=== PATIENT | female | born 1940 | race Caucasian/White ===

== ENCOUNTER → 2017-10-13 | Emergency (ER) | payer BC, MEDICARE ==
[~2017-10-13] VITALS: Ht 162.6 cm; Wt 99.0 kg
[~2017-10-13] MED LIST: ACET500C5 PO; ACETAMINOPHEN 325 MG TAB PO ONE; AMIO200T2 PO; AMOX1TAB10 PO; CALC500T PO; CYAN100080 PO; FOL8 PO; FURO-109 PO; HYDR-906 PO; HYDROCODONE/APAP (5/325) TAB PO ONE; LEVO25TA53 PO; LORA0.5T PO; ONDA4TAB35 PO; POTA-57 PO; RESTOP4 BOTH EYES; RIVA20TA PO; SIMV20TA2 PO; TELM40TA2 PO
[2017-10-13 22:23] VITALS: Ht 162.6 cm; Wt 99.0 kg
--- NOTE | 2017-10-14 00:49 | ERD ---
ER Documentation Chief Complaint Chief Complaint left ankle pain. glf while getting off the shower around 2 pm (MAREK,MESERET) HPI this 77 yr femal repots catching her left foot on tub as she exiting the bath, she feel forward and to the right , denies any other injury, denies LOC or hitting her head, denies CP, SOB, dizziness. hx of AFIB denies symptoms now , pt is on Coumadin 2 weeks ago, denies needing a dose change. , (MAREK,MESERET) ROS All systems reviewed and are negative except as per history of present illness. (MAREK,MESERET) Medications Home Meds Active Scripts Acetaminophen* (Tylophen*) 500 Mg Capsule, 1 CAP PO Q6H Y for PAIN AND OR ELEVATED TEMP, #20 CAP Prov:MAREKMESERET 10/14/17 Hydrocodone/Acetaminophen ([place] 5-325 Tablet) 1 Each Tablet, 1 TAB PO Q6H Y for PAIN, #7 TAB Prov:MESERET JARA 10/14/17 Amox Tr/Potassium Clavulanate (Amox Tr-K Clv 875-125 Mg Tab) 1 Tab Tablet, 1 TAB PO BID, #14 TAB Prov:NIKOLAS MEJIAS MD 02/10/16 Ondansetron Hcl* (Zofran* ODT) 4 mg -ODT Tab.disper, 4 MG PO Q6 Y for NAUSEA AND /OR VOMITING, #30 TAB Prov:NIKOLAS MEJIAS MD 02/10/16 Furosemide* (Lasix*) 40 Mg Tablet, 40 MG PO DAILY Y for SHORTNESS OF BREATH for 60 Days, TAB 1 Refill Prov:JOEL GOMEZ MD 05/09/15 Amiodarone Hcl* (Amiodarone Hcl*) 200 Mg Tablet, 200 MG PO BID, #60 TAB 1 Refill Prov:JOEL GOMEZ MD 05/09/15 Rivaroxaban* (Xarelto*) 20 Mg Tablet, 20 MG PO WITH DINNER Y for CHEST PAIN, # 60 TAB Prov:JOEL GOMEZ MD 05/09/15 Potassium Chloride* (Klor-Con*) 20 Meq Tabsr, 20 MEQ PO DAILY, #20 CAP Prov:JOEL GOMEZ MD 05/09/15 Reported Medications Levothyroxine Sodium* (Levothyroxine Sodium*) 25 Mcg Tablet, 25 MCG PO FOUR TIMES PER WEEK, TAB TAKE 1 TABLET BY MOUTH ON MON, WED, WED AND SAT 05/03/15 Cyclosporine* (Restasis* Oph) 32 Ea Droperette, 1 DROP BOTH EYES Q12, EA 05/03/15 Folic Acid* (Folic Acid*) 0.8 Mg Tablet, 0.8 MG PO DAILY, TAB 05/03/15 Cyanocobalamin* (Vitamin B-12*) 1,000 Mcg Tablet.sa, 1000 MCG PO DAILY, TAB 05/03/15 Telmisartan (Micardis) 40 Mg Tablet, 40 MG PO DAILY, TAB 05/03/15 Simvastatin (Simvastatin) 20 Mg Tablet, 20 MG PO HS, TAB 05/03/15 Lorazepam* (Lorazepam*) 0.5 Mg Tablet, 0.5 MG PO HS Y for ANXIETY, TAB 05/03/15 Calcium Carbonate* (Os-Braxton 500*) 1 Tab Tablet, 1 TAB PO BID, TAB 05/03/15 Allergies Allergies: Coded Allergies: No Known Allergy (Verified , 05/09/15) PMhx/Soc History of Surgery: Yes Anesthesia Reaction: No Hx Neurological Disorder: No Hx Respiratory Disorders: No Hx Cardiac Disorders: Yes (afib,htn) Hx Psychiatric Problems: No Hx Miscellaneous Medical Probl: Yes Hx Alcohol Use: No Hx Substance Use: No Hx Tobacco Use: No (MAREK,MESERET) Physical Exam Vitals Vital Signs Date Time Temp Pulse Resp B/P Pulse Ox O2 Delivery O2 Flow Rate FiO2 10/13/17 22:23 99.5 68 20 181/88 98 (HUMBERTO ARANA MD) Physical Exam Const: Well-nourished well-appearing well-hydrated pleasant 77-year-old female in no acute distress Head: Atraumatic Eyes: Normal Conjunctiva ENT: Neck: Resp: Clear to auscultation bilaterally Cardio: Regular rate and rhythm, no murmurs Abd: Back: Ext: Lower Extremity -right ankle Skin: Gross soft tissue edema, blue ecchymosis, no obvious bony deformity Compartments: Soft Motor: Full active range of motion hip/knee/full range of motion with flexion, extension, inversion, eversion. Ankle/foot Sensation: Intact to light touch anterior, superior, lateral surfaces surfaces. Bones: Nontender pelvis/knee/proximal tibia/tender over the lateral ligaments, malleoli Joints: No effusion or laxity Pulses/Perfusion: 2+ DP, Capillary refill < 2 seconds Neur: Awake and alert Psych: Normal Mood and Affect (MAREK,MESERET) Results 24 hrs Laboratory Tests Test 10/14/17 01:05 Prothrombin Time 43.4Sec Prothrombin Time Ratio 3.4 INR International Normalized Ratio 4.48 Current Medications Medications (Trade) Dose Ordered Sig/Reggie Route PRN Reason Start Time Stop Time Status Last Admin Dose Admin Acetaminophen (Tylenol Tab) 650 mg ONCE ONCE PO 10/14/17 01:00 10/14/17 01:01 DC 10/14/17 01:03 Acetaminophen/ Hydrocodone Bitart ([place] (5/325)) 1 tab ONCE ONCE PO 10/14/17 04:00 10/14/17 04:01 DC 10/14/17 03:58 (HUMBERTO ARANA MD) Procedures/MDM PROCEDURE: XR left ankle CLINICAL INDICATION: Fall. Ankle trauma. TECHNIQUE: 3 views were performed. COMPARISON: None. FINDINGS: Soft tissue edema is seen anterior to the ankle joint and lateral to the distal fibula. There may be an ankle effusion but no definite fracture or dislocation is seen. Arterial vascular calcification is seen. Mild degenerative change of the midfoot. IMPRESSION: Somewhat prominent lateral ankle soft tissue swelling with mild anterior edema and probable effusion. Although no fracture is seen, CT could be considered to evaluate for occult fracture given the degree of edema. RPTAT: HLBE 87-year-old female presents to emergency department for evaluation of a ankle injury, injury occurred today while getting out of the bathtub, patient denies any other injury, denies hitting her head or loss of consciousness. Patient has gross soft tissue edema, blue ecchymosis, patient is on Coumadin unsure of the dose, states she has had PT/INR checked 2 weeks ago without change in normal Coumadin regime. Patient reports she takes alternating 1 pill/2 pills. Emergency room course includes history and physical exam. Patient has full range of motion with soft tissue tenderness, palpable pedal pulses. Plan to x- ray ankle, and check INR. Ankle x-ray interpretation by radiologist; somewhat prominent lateral soft tissue swelling with mild anterior edema and a probable effusion although no fracture is seen, CT could be considered to evaluate for occult fracture given the degree of edema. Laboratory calls nurse practitioner for critical value, INR 4.48. Patient asked again if she knew what dose of Coumadin she took, patient denies knowing dose just the way she takes the pills. Plan discussed. Patient admits to taking Coumadin at night, she did take her dose prior to coming to emergency room, discussed the possibility of a false high reading, regardless plan to have patient hold dose for 10/14/2017, change pill intake to 1 pill p.o. nightly until followed up with cardiology. Patient confirms that cardiology office will not be open until Wednesday related to long holiday. Patient instructed to return to emergency department for worsening of any symptoms, chest pain, shortness of breath, or palpitations. Patient also instructed to return to emergency department if ankle fails to improve as anticipated for advanced imaging. Patient will be placed in an air splint, Splint Assessment: Neurovascularly intact post splint placement with good fit. Discharged home with Tylenol. Patient is stable with no new complaints during ER course, clinically there is no current evidence to suggest Lisfranc fracture, peroneal nerve injury, Achilles tendon rupture. Proximal fifth metatarsal or proximal fibular fracture. Acute coronary syndromes, pulmonary embolism or any other emergent condition appearing to require further evaluation or hospitalization. I feel the patient is stable for discharge at this time. I have discussed results, examination findings, the treatment plan with the patient and family present prior to discharge. Indications for emergent reevaluation, side effects of medication were also discussed. All questions were answered. Patient verbalizes understanding and agrees with plan of care. (MESERET JARA) I was available for consult on this patient, but was not consulted and did not see the patient. Care was provided by the mid-level provider. (HUMBERTO ARANA MD) Departure Diagnosis: Primary Impression: Ankle injury Encounter type: initial encounter Laterality: right Qualified Code: S99.911A - Injury of right ankle, initial encounter Additional Impression: Abnormal INR Condition: Good Patient Instructions: Treating Ankle Sprains Additional Instructions: Thank you for for coming to [facility] for your care today. Please ask your nurse or provider if you have questions about your care today and do not leave until all your questions have been answered. Please use any medications given as directed and follow-up with your doctor (or the doctor you were referred to) in the next 2-3 days. If you do not have a primary care doctor you may follow up at the [facility] (listed below). You may also use motrin and tylenol as needed for fever and/or pain unless instructed otherwise by your provider or nurse. Indications for more urgent follow-up have been discussed, but you may return to the Emergency Department at ANY time for any worrisome or worsening symptoms. If you have abdominal pain, please know that no test or exam you received is perfect and you should follow up within 8 hours for continued pain. If you had any imaging studies today, such as an X-Ray or CT Scan, these studies will be reviewed later by a radiologist. You will be called if there are important findings that were not identified today, so make sure the contact information you provided at registration is correct. If you received any narcotic pain control medicine today, such as Vicodin, Morphine or Dilaudid, your coordination and judgment may be affected for a number of hours. Please do not drive or operate heavy machinery, and you may want someone to assist you at home. If you were given a prescription for narcotic medication, be aware that it is very addictive- use sparingly and only if necessary. Comments Coumadin instructions until followed up on this Coumadin dose on 10/14/17 Start 1 tab of Coumadin daily until followed up with transporter driver. Strict return to emergency room precautions for any abnormal bleeding, bleeding from gums, nose, dizziness, shortness of breath, chest pain or palpitations. (MESERET JARA) MESERET JARA Oct 14, 2017 00:49 HUMBERTO ARANA MD Oct 14, 2017 04:23
[2017-10-14 01:56] LABS: INR 4.48; PT RATIO 3.4
[2017-10-14 02:30] LABS: PROTIME 43.4 Sec (12.2-14.2)
--- NOTE | 2017-10-14 02:58 | RADRPT ---
PROCEDURE: XR left ankle CLINICAL INDICATION: Fall. Ankle trauma. TECHNIQUE: 3 views were performed. COMPARISON: None. FINDINGS: Soft tissue edema is seen anterior to the ankle joint and lateral to the distal fibula. There may be an ankle effusion but no definite fracture or dislocation is seen. Arterial vascular calcification is seen. Mild degenerative change of the midfoot. IMPRESSION: Somewhat prominent lateral ankle soft tissue swelling with mild anterior edema and probable effusion . Although no fracture is seen, CT could be considered to evaluate for occult fracture given the deg ree of edema. RPTAT: [facility]BE Physician Deondre Date Time Electronically viewed and signed by Nilsa Medina Physician on 10/14/2017 02:58 LE/
== END | disposition home or self-care (01) ==
LOC: FTE 22:19
DX: S99.911A Unspecified injury of right ankle, initial encounter (principal); I10 Essential (primary) hypertension; R79.1 Abnormal coagulation profile; W18.39XA Other fall on same level, initial encounter; Y92.9 Unspecified place or not applicable
CPT/HCPCS: 73610; 85610

== ENCOUNTER 2017-10-22 14:30 | Inpatient (IN) | payer MEDICARE, BC ==
[~2017-10-22] VITALS: Ht 160 cm; Wt 59.6 kg
[~2017-10-22 14:30] MED LIST changes: -ACETAMINOPHEN 325 MG TAB PO ONE; -HYDROCODONE/APAP (5/325) TAB PO ONE
[2017-10-22 14:50] VITALS: TEMP 97.8
[2017-10-22] MEDS ORDERED: HYDROCODONE/APAP (10/325) TAB PO ONE (16:00)
--- NOTE | 2017-10-22 16:00 | ERD ---
ER Documentation Chief Complaint Chief Complaint L leg p fall 10/15 p treatment; advised by PMD for MRI for cont pain HPI Patient is a 77-year-old female who reports sudden onset, constant, gradual onset, constant, progressive, moderate to severe left groin pain for the last 4 days. She states that she had a fall and had a bad sprain to her left ankle on October 13. She saw an orthopedic surgeon who put her in a cast. Since that time, she has had improved pain in her ankle but increased pain in the groin. She denies other trauma. She denies recurrent fall. She denies abdominal pain. She states that she is unable to get out of bed due to excessive pain. Her family has been taking care of her. She saw her primary doctor, Dr. Cabrera , who advised her to come to the ER for admission and MRI. ROS All systems reviewed and are negative except as per history of present illness. Medications Home Meds Reported Medications Amiodarone Hcl* (Amiodarone Hcl*) 100 Mg Tablet, 100 MG PO DAILY, #30 TAB 10/22/17 Metoprolol Succinate* (Toprol XL*) 50 Mg Tab.er.24h, 50 MG PO DAILY, #30 TAB 10/22/17 Cevimeline Hcl* (Evoxac*) 30 Mg Cap, 30 MG PO QID, CAP 10/22/17 Telmisartan (Telmisartan) 80 Mg Tablet, 80 MG PO DAILY, TAB 10/22/17 Warfarin Sodium* (Coumadin*) 2 Mg Tablet, 2 MG PO DAILY, TAB 1 TAB-SUN.,.,.,SAT 2 TAB- M,W,F 10/22/17 Levothyroxine Sodium* (Levothyroxine Sodium*) 25 Mcg Tablet, 25 MCG PO FOUR TIMES PER WEEK, TAB TAKE 1 TABLET BY MOUTH ON MON, WED, FRI AND SAT 05/03/15 Folic Acid* (Folic Acid*) 0.8 Mg Tablet, 0.8 MG PO DAILY, TAB 05/03/15 Cyanocobalamin* (Vitamin B-12*) 1,000 Mcg Tablet.sa, 1000 MCG PO DAILY, TAB 05/03/15 Simvastatin (Simvastatin) 20 Mg Tablet, 20 MG PO HS, TAB 05/03/15 Discontinued Reported Medications Cyclosporine* (Restasis* Oph) 32 Ea Droperette, 1 DROP BOTH EYES Q12, EA 05/03/15 Telmisartan (Micardis) 40 Mg Tablet, 40 MG PO DAILY, TAB 05/03/15 Lorazepam* (Lorazepam*) 0.5 Mg Tablet, 0.5 MG PO HS Y for ANXIETY, TAB 05/03/15 Calcium Carbonate* (Os-Braxton 500*) 1 Tab Tablet, 1 TAB PO BID, TAB 05/03/15 Discontinued Scripts Acetaminophen* (Tylophen*) 500 Mg Capsule, 1 CAP PO Q6H Y for PAIN AND OR ELEVATED TEMP, #20 CAP Prov:MAREK,MESERET 10/14/17 Hydrocodone/Acetaminophen ([place] 5-325 Tablet) 1 Each Tablet, 1 TAB PO Q6H Y for PAIN, #7 TAB Prov:MAREK,MESEERT 10/14/17 Amox Tr/Potassium Clavulanate (Amox Tr-K Clv 875-125 Mg Tab) 1 Tab Tablet, 1 TAB PO BID, #14 TAB Prov:NIKOLAS MEJIAS MD 02/10/16 Ondansetron Hcl* (Zofran* ODT) 4 mg -ODT Tab.disper, 4 MG PO Q6 Y for NAUSEA AND /OR VOMITING, #30 TAB Prov:NIKOLAS MEJIAS MD 02/10/16 Furosemide* (Lasix*) 40 Mg Tablet, 40 MG PO DAILY Y for SHORTNESS OF BREATH for 60 Days, TAB 1 Refill Prov:JOEL GOMEZ MD 05/09/15 Amiodarone Hcl* (Amiodarone Hcl*) 200 Mg Tablet, 200 MG PO BID, #60 TAB 1 Refill Prov:JOEL GOMEZ MD 05/09/15 Rivaroxaban* (Xarelto*) 20 Mg Tablet, 20 MG PO WITH DINNER Y for CHEST PAIN, # 60 TAB Prov:JOEL GOMEZ MD 05/09/15 Potassium Chloride* (Klor-Con*) 20 Meq Tabsr, 20 MEQ PO DAILY, #20 CAP Prov:JOEL GOMEZ MD 05/09/15 Allergies Allergies: Coded Allergies: No Known Allergy (Verified , 10/22/17) PMhx/Soc Past medical history: Hypertension, A. fib, Sjogren's disease, vasculitis Past surgical history: Denies Social history: Denies tobacco or alcohol History of Surgery: Yes (Past medical history: Atrial fibrillation, hypertension, coronary artery disease) Anesthesia Reaction: No Hx Neurological Disorder: No Hx Respiratory Disorders: No Hx Cardiac Disorders: Yes (afib,htn) Hx Psychiatric Problems: No Hx Miscellaneous Medical Probl: Yes Hx Alcohol Use: No Hx Substance Use: No Hx Tobacco Use: No Smoking Status: Never smoker FmHx Noncontributory Physical Exam Vitals Vital Signs Date Time Temp Pulse Resp B/P Pulse Ox O2 Delivery O2 Flow Rate FiO2 10/22/17 17:30 73 15 104/64 96 Room Air 10/22/17 16:57 69 15 109/97 100 Room Air 10/22/17 14:50 97.8 57 23 131/71 99 Room Air 10/22/17 14:40 98.1 77 16 151/80 96 Physical Exam Const: Alert, no acute distress Head: Atraumatic Eyes: Normal Conjunctiva, No pallor, no icterus ENT: Normal External Ears, Nose and Mouth. Mucous membranes moist Neck: Full range of motion. No midline tenderness Resp: Clear to auscultation bilaterally, No wheezes, no rales Cardio: Regular rate and rhythm, no murmurs Abd: Soft, non tender, non distended. Skin: No petechiae or rashes Back: No midline or flank tenderness Ext: No cyanosis, or edema, Mild pain with ranging of left hip. 2 second cap refill in toes, sensation intact, no inguinal adenopathy or mass. No palpable hernia Neur: Awake and alert, Cranial nerves II through XII intact bilaterally, strength and sensation full in 4 extremities. Psych: Normal Mood and Affect Result Diagram: 10/22/17 1655 10/22/17 1655 Results 24 hrs Laboratory Tests Test 10/22/17 16:55 White Blood Count 10.710^3/ul Red Blood Count 2.3110^6/ul Hemoglobin 7.4g/dl Hematocrit 22.7% Mean Corpuscular Volume 98.3fl Mean Corpuscular Hemoglobin 32.0pg Mean Corpuscular Hemoglobin Concent 32.6g/dl Red Cell Distribution Width 15.1% Platelet Count 17044^3/UL Mean Platelet Volume 10.7fl Neutrophils % % Segmented Neutrophils % (Manual) 97% Lymphocytes % % Lymphocytes % (Manual) 1% Monocytes % % Monocytes % (Manual) 1% Eosinophils % % Basophils % % Basophils % (Manual) 1% Nucleated Red Blood Cells % 0.0/100WBC Neutrophils # 10^3/ul Absolute Lymphocytes (Manual) 0.110^3/ul Lymphocytes # 10^3/ul Monocytes # 10^3/ul Absolute Monocytes (Manual) 0.110^3/ul Eosinophils # 10^3/ul Basophils # 10^3/ul Basophils # (Manual) 0.110^3/ul Nucleated Red Blood Cells # 10^3/ul Platelet Estimate NORMAL Polychromasia 2+ Poikilocytosis 1+ Anisocytosis 1+ Microcytosis 1+ Prothrombin Time 46.3Sec Prothrombin Time Ratio 3.6 INR International Normalized Ratio 4.76 Activated Partial Thromboplast Time 87.0Sec Sodium Level 139mmol/L Potassium Level 4.6mmol/L Chloride Level 105mmol/L Carbon Dioxide Level 27mmol/L Anion Gap 12 Blood Urea Nitrogen 35mg/dl Creatinine 1.75mg/dl Glucose Level 120mg/dl Calcium Level 8.6mg/dl Iron Level 27ug/dl Total Iron Binding Capacity 260ug/dl Percent Iron Saturation 10% SAT Ferritin 67.7ng/ml Current Medications Medications (Trade) Dose Ordered Sig/Reggie Route PRN Reason Start Time Stop Time Status Last Admin Dose Admin Acetaminophen/ Hydrocodone Bitart ([place] ()) 1 tab ONCE ONCE PO 10/22/17 16:00 10/22/17 16:01 DC 10/22/17 16:17 Procedures/MDM 1600: Spoke with Dr. Alvarado, who advises workup is indicated and admission due to patient's inability to ambulate or transfer from bed. He will arrange for inpatient orthopedic consultation. MDM: Patient is a 77-year-old female who presents to the ER with subacute pain to the left hip. She did have a recent fall, but initially only had pain to her left ankle. She has a relatively benign exam, normal x-ray, and negative ultrasound for DVT. She has no focal neurologic deficit or significant back pain. Routine labs were sent and show acute on chronic renal insufficiency as well as anemia. The patient states that she has not had any dark stools and has chronic anemia. She has a normal MCV, suggestive of anemia of chronic disease or chronic kidney disease associated anemia. Given that she is unable to walk, I will admit her to the hospital. She will likely require orthopedic consult as well as physical therapy, and will likely need placement if she is unable to ambulate. I have low suspicion for hip fracture, but CT or MRI can be obtained on a nonemergent basis if there is further concern. Case was discussed with Dr. Alvarado. Departure Diagnosis: Primary Impression: Generalized weakness Additional Impressions: Inability to walk Left groin pain Anemia Anemia type: unspecified type Qualified Code: D64.9 - Anemia, unspecified type Coagulopathy Condition: HUMBERTO Herman MD Oct 22, 2017 16:00 (Ambien) 5 mg QHS PRN PO INSOMNIA 10/22/17 18:30 Amiodarone HCl (Cordarone) 100 mg DAILY PO 10/23/17 09:00 Cevimeline HCl (Evoxac) 30 mg QID PO 10/22/17 21:00 Cyanocobalamin (Vitamin B12) 1,000 mcg DAILY PO 10/23/17 09:00 Folic Acid (Folic Acid) 0.8 mg DAILY PO 10/23/17 09:00 Levothyroxine Sodium (Synthroid) 25 mcg DAILY@06 PO 10/23/17 06:00 Metoprolol Succinate (Toprol Xl) 50 mg DAILY PO 10/23/17 09:00 Atorvastatin Calcium (Lipitor) 10 mg DAILY@21 PO 10/22/17 21:00 Losartan Potassium (Cozaar) 100 mg DAILY@20 PO 10/22/17 20:00 Pantoprazole (Protonix Tab) 40 mg DAILY@06 PO 10/22/17 19:00 Tramadol HCl (Ultram) 50 mg ONCE ONCE PO 10/22/17 19:00 10/22/17 19:01 DC Procedures/MDM 1600: Spoke with Dr. Alvarado, who advises workup is indicated and admission due to patient's inability to ambulate or transfer from bed. He will arrange for inpatient orthopedic consultation. MDM: Patient is a 77-year-old female who presents to the ER with subacute pain to the left hip. She did have a recent fall, but initially only had pain to her left ankle. She has a relatively benign exam, normal x-ray, and negative ultrasound for DVT. She has no focal neurologic deficit or significant back pain. Departure Diagnosis: Primary Impression: Generalized weakness Additional Impressions: Inability to walk Left groin pain Anemia Anemia type: unspecified type Qualified Code: D64.9 - Anemia, unspecified type Coagulopathy Condition: Stable HUMBERTO ARANA MD Oct 22, 2017 16:00
--- NOTE | 2017-10-22 16:25 | RADRPT ---
PROCEDURE: US Lower extremity Venous. CLINICAL INDICATION: Swelling and pain TECHNIQUE: Multiple sonographic images of the left lower extremity deep venous system was obtained utilizing grayscale, color-flow, compressive sonography and doppler imaging with augmentation. The images were reviewed on a PACS workstation. COMPARISON: None. FINDINGS: There is normal compressibility and flow within the bilateral common femoral, deep femoral, superfic ial femoral, and popliteal veins. The posterior tibial and peroneal veins are not visualized due to overlying cast. IMPRESSION: 1. No sonographic evidence for deep venous thrombosis within the visualizable left lower extremity. RPTAT: AAPP Physician Elroy Date Time Electronically viewed and signed by Physician Elroy on 10/22/2017 16:25 KRISTEL/
--- NOTE | 2017-10-22 16:45 | RADRPT ---
PROCEDURE: XR Hip. CLINICAL INDICATION: Pain TECHNIQUE: AP and frog lateral views of the left hip were performed. COMPARISON: None. FINDINGS: Two views of the left hip demonstrate no displaced fracture. The femoral head articulates anatomica lly with the acetabulum. There is mild degenerate change.. The bones are normally mineralized. Th e soft tissues are unremarkable IMPRESSION: 1. No acute fracture dislocation. 2. Mild degenerative change RPTAT: HH .Jon Trotter MD, Date Time Electronically viewed and signed by .Jon Trotter MD, on 10/22/2017 16:44 .W/
[2017-10-22 17:17] LABS: ABNORMAL IP MESSAGE 1; HEMATOCRIT 22.7 % (37.0-47.0); HEMOGLOBIN 7.4 g/dl (12.0-16.0); MEAN CORPUSCULAR HGB CONC 32.6 g/dl (32.0-37.0); MEAN CORPUSCULAR VOLUME 98.3 fl (82.0-101.0); MEAN PLATELET VOLUME 10.7 fl (7.4-10.4); PLATELET COUNT 212 10^3/UL (140-415); RED BLOOD COUNT 2.31 10^6/ul (4.20-5.40); RED CELL DISTRIBUTION WIDTH 15.1 % (11.5-14.5); WHITE BLOOD COUNT 10.7 10^3/ul (4.8-10.8)
[2017-10-22 17:22] LABS: POSITIVE DIFF @See below
[2017-10-22 17:43] LABS: ANISOCYTOSIS 1+ (0-0); BASOPHILS % (M) 1 % (0-2); MICROCYTOSIS 1+ (0-0); MONOCYTES % (M) 1 % (0-11); PLATELET ESTIMATE NORMAL; POIKILOCYTOSIS 1+ (0-0); POLYCHROMASIA 2+ (0-0)
[2017-10-22 17:47] LABS: CALCIUM 8.6 mg/dl (8.4-10.2); CREATININE 1.75 mg/dl (0.44-1.00); POTASSIUM 4.6 mmol/L (3.5-5.1)
[2017-10-22] MEDS ORDERED: TELM80TA4 PO (18:10)
[2017-10-22] MEDS ORDERED: WARF2TAB PO (18:10)
[2017-10-22] MEDS ORDERED: CEVI30CA8 PO (18:11)
[2017-10-22] MEDS ORDERED: AMIO100T4 PO (18:12)
[2017-10-22] MEDS ORDERED: METO-319 PO (18:12)
[2017-10-22] MEDS ORDERED: ZOLPIDEM 5 MG TAB PO PRN (18:30)
[2017-10-22] MEDS ORDERED: ACETAMINOPHEN 325 MG TAB PO PRN (18:30)
[2017-10-22] MEDS ORDERED: ONDANSETRON 4 MG INJ IV PRN (18:30)
[2017-10-22] MEDS ORDERED: NACL 0.9% 3 ML SYG IV SCH (18:30)
[2017-10-22 18:33] LABS: IRON 27 ug/dl (35-150)
[2017-10-22 18:38] LABS: INR 4.76; PROTIME 46.3 Sec (11.9-14.9); PT RATIO 3.6
[2017-10-22 18:42] LABS: TOTAL IRON BINDING CAPACITY 260 ug/dl (241-421)
[2017-10-22] MEDS ORDERED: traMADol 50 MG TAB PO ONE (19:00)
[2017-10-22] MEDS ORDERED: LOSARTAN 50 MG TAB PO SCH (20:00)
[2017-10-22] MEDS: SOD CHLORIDE 0.9% 1,000 ML IV SCH (20:17)
[2017-10-22 20:48] VITALS: BP 112/57; RESP 19
[2017-10-22 21:00] VITALS: BP 112/57; PULSE 73; RESP 18
[2017-10-22] MEDS: CEVIMELINE 30 MG CAP PO SCH (21:00)
[2017-10-22 21:27] LABS: ABNORMAL IP MESSAGE 1; BASOPHILS % 0.1 % (0.0-2.0); EOSINOPHILS % 0.1 % (0.0-7.0); HEMATOCRIT 22.2 % (37.0-47.0); HEMOGLOBIN 7.2 g/dl (12.0-16.0); LYMPHOCYTES # 0.3 10^3/ul (0.8-2.9); MEAN CORPUSCULAR HGB CONC 32.4 g/dl (32.0-37.0); MEAN CORPUSCULAR VOLUME 98.7 fl (82.0-101.0); MEAN PLATELET VOLUME 10.3 fl (7.4-10.4); MONOCYTE # 0.6 10^3/ul (0.3-0.9); MONOCYTES % 5.8 % (0.0-11.0); NEUTROPHIL # 9.9 10^3/ul (1.6-7.5); NEUTROPHILS % 90.2 % (39.0-77.0); PLATELET COUNT 225 10^3/UL (140-415); RED BLOOD COUNT 2.25 10^6/ul (4.20-5.40); RED CELL DISTRIBUTION WIDTH 15.3 % (11.5-14.5)
[2017-10-22 21:28] LABS: POSITIVE DIFF @See below
[2017-10-22] MEDS: HYDROCODONE/APAP (10/325) TAB PO PRN (21:30)
[2017-10-22] MEDS: ATORVASTATIN 10 MG TAB PO SCH (21:31)
[2017-10-22] MEDS: PANTOPRAZOLE (EC) 40 MG TAB PO SCH (21:32)
[2017-10-22 23:15] VITALS: Ht 160 cm; Wt 59.6 kg
[2017-10-23] VITALS (8 sets, daily range): BP systolic 80–109; BP diastolic 50–58; PULSE 71–79; RESP 18–20
[2017-10-23] MEDS: traMADol 50 MG TAB PO PRN ×2 (01:02→15:14)
[2017-10-23] MEDS: HYDROCODONE/APAP (10/325) TAB PO PRN (01:35)
[2017-10-23] MEDS: SOD CHLORIDE 0.9% 1,000 ML IV SCH ×3 (04:11→21:21)
[2017-10-23] MEDS: LEVOTHYROXINE 25 MCG TAB PO SCH (05:50)
[2017-10-23] MEDS: PANTOPRAZOLE (EC) 40 MG TAB PO SCH (05:50)
--- NOTE | 2017-10-23 06:35 | HP ---
DATE OF ADMISSION: 10/22/2017 REASON FOR ADMISSION: Pain in the left leg specifically left groin and left ankle with inability to walk. HISTORY OF PRESENT ILLNESS: This 77-year-old female was in her usual state of health until 10/13/20 17 when she was getting out of her bathtub; she slipped and twisted her left ankle. This occurred i n the afternoon around 2:30 p.m. Later that night the patient had more pain and came to the emergen cy room. She had an x-ray done which did not show a fracture. She then went to see an orthopedic s pecialist, Dr. Dae Foley at the [facility] on 10/18/2017. Dr. Yoanna katz did another x-ray of the left ankle and did not see an acute fracture. He thought that she had a severe left ankle sprain. The patient was placed in an immobilization splint with an Romel bandage . Since that time, the patient has had more difficulty walking. She has had increasing left groin pain and much more difficulty walking. The patient says that she cannot get up out of bed on her ow n. She had to be brought here by paramedics today. The patient has had some constipation and then diarrhea. This probably was caused by being on [place] for pain. She is now taking tramadol and Tyle nol. The patient has a history of chronic kidney disease. She has been anemic in the past. The pa ck denies any bleeding from her rectum, melenic stool, nausea or vomiting. She has had a decreas ed appetite. The patient is on warfarin for chronic atrial fibrillation. The patient had been taki ng some ibuprofen recently. CURRENT MEDICATIONS: Include the followin. Warfarin 2 mg alternating with 1 mg daily. 2. Telmisartan 80 mg a day. 3. Cevimeline 30 mg 4 times a day. 4. Simvastatin 20 mg a day. 5. Metoprolol XL 50 mg a day. 6. Amiodarone 100 mg a day. 7. Levothyroxine 25 mg 4 days a week. 8. Folic acid 800 mcg a day. 9. B12 1000 mcg a day. PAST MEDICAL HISTORY: Remarkable for: 1. 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 2. Atrial fibrillation. 3. Nonrheumatic mitral valve insufficiency. 4. Anemia. 5. Leukopenia. 6. Dyslipidemia. 7. Osteopenia. 8. Sicca syndrome. 9. Nontoxic single thyroid nodule. 10. Benign neoplasm of the descending colon. 11. Diverticulosis of large intestines. 11. Hypothyroidism on replacement. 12. Trochanteric bursitis of the left hip status post recent cortisone injection. 13. Asymptomatic microscopic hematuria. 14. Hypertension. REVIEW OF SYSTEMS: CONSTITUTIONAL: Weak, anorexic. EAR, NOSE, AND THROAT: Negative, although she does have some gum bleeding recently. CARDIORESPIRATORY: Chronic atrial fibrillation, no recent chest pain or shortness of breath. GASTROINTESTINAL: Anorexia. See above. UROLOGIC: Negative. See above. MUSCULOSKELETAL: See above. SURGICAL HISTORY: No history of surgery. FAMILY HISTORY: Father of prostate cancer. Mother alive. Brother from heart disease . Cousins had diabetes. SOCIAL HISTORY: The patient does not smoke. Drinks alcohol socially. PHYSICAL EXAMINATION GENERAL: At this time reveals a well-developed, pale female in no apparent distress. VITAL SIGNS: Temperature 97.8, pulse of 73, respirations 15, blood pressure 104/64, O2 saturation 9 6%. EYES: Extraocular muscles intact. NOSE AND MOUTH: Normal. NECK: Supple. No neck vein distention. LUNGS: Clear to auscultation. HEART: Irregularly irregular rhythm. No murmurs, gallops or rubs. ABDOMEN: Soft, nontender, no masses or megaly. EXTREMITIES: The left foot and ankle are in an immobilization splint with an Romel bandage; there is pain on movement of the left leg at the groin, right leg is normal. NEUROLOGIC: Grossly intact. No obvious focal neurologic deficits. LABORATORY TESTS: Done today the hemoglobin is 7.4, hematocrit 22.7, which is down from previous. Her sodium 139, potassium 4.6, chloride 105, CO2 27, BUN 35, creatinine 1.75. IMPRESSION: 1. Left ankle sprain. 2. Left groin pain, etiology not clear x-rays; done in the emergency room do not show a fracture. 3. Anemia. The patient has a history of chronic anemia, but her H and H is much lower than previou s. I suspect she will need a blood transfusion. Could be due to iron deficiency. She denies acute blood loss. 4. 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 Renal function is slightly decrease d from previous. 5. Hypertension. 6. Sjogren syndrome/Sicca syndrome. 7. Dyslipidemia. 8. Hypothyroidism. 9. Dehydration. PLAN: 1. Admit to med/surg floor. 2. IV fluids 3. Recheck hemoglobin and hematocrit later tonight and if the same or lower, will need a blood khan sfusion. The patient has been told of this. 4. Do iron studies, check stool for blood. 5. Laboratory tests in the morning. 6. MRI of the left ankle and foot to rule out fracture. Dictated By: BELLA DEY MD, ND/HARDIK Conf#: [id number] DID#: [id number] CC: BELLA DEY MD;*End*
[2017-10-23] MEDS: CEVIMELINE 30 MG CAP PO SCH ×4 (08:57→21:58)
[2017-10-23] MEDS: CYANOCOBALAMIN 500 MCG TAB PO SCH (08:59)
[2017-10-23] MEDS: AMIODARONE 200 MG TAB PO SCH (08:59)
[2017-10-23] MEDS: FOLIC ACID 0.4 MG TAB PO SCH (08:59)
[2017-10-23] MEDS: METOPROLOL (XL) 50 MG TAB PO SCH (09:00)
--- NOTE | 2017-10-23 10:24 | PN ---
Date/Time of Note Date/Time of Note DATE: 10/23/17 TIME: 10:19 Assessment/Plan VTE Prophylaxis VTE Prophylaxis Intervention: contraindicated Lines/Catheters IV Catheter Type (from Nrsg): Peripheral IV Urinary Cath still in place: No Reason Cath still needed: other (indicate) (non ambulatory) Assessment/Plan Assessment/Plan * severe thigh pain s/p fall. xrays negative but will get mri/ ct r/o retoperitonal bleed / occult fx * left foot pain: in case. mri pnding * severe anemia: ? source of blood loss. no obvious source but coagulopathic on coumadin. s/p prbc. serial cbc and ct to r/o retroperioneal bleed * cogulaopathy: coumadin on hold. repeat inr pending * arf on ckd: labs pending. looks dry and ivf increased * chonic a fib: rate controlled * hypotension: fluid increased. meds held Subjective 24 Hr Interval Summary Free Text/Dictation not doing well. has a lot of hip and foot pain. bp marjinal. very dry. some diahhrea. s/p 2 units prbc. denies bleeding Exam/Review of Systems Vital Signs Vitals Vital Signs Date Time Temp Pulse Resp B/P Pulse Ox O2 Delivery O2 Flow Rate FiO2 10/23/17 08:00 97.9 77 18 95/54 93 10/23/17 06:00 Room Air Intake and Output 10/22/17 10/22/17 10/23/17 15:00 23:00 07:00 Intake Total 250 ml 1180 ml Balance 250 ml 1180 ml Exam Constitutional: alert, frail, oriented Head: normocephalic Neck: jvd, non-tender, supple Respiratory: clear to auscultation Cardiovascular: edema, regular rate and rhythm Gastrointestinal: non-tender (bruising noted on back and left arm), soft Results Result Diagram: 10/22/179 10/22/17 1655 Results 24 hrs Laboratory Tests Test 10/22/17 16:55 10/22/17 21:19 White Blood Count 10.7 # 11.0 H Red Blood Count 2.31 #L 2.25 L Hemoglobin 7.4 #L 7.2 L Hematocrit 22.7 #L 22.2 L Mean Corpuscular Volume 98.3 98.7 Mean Corpuscular Hemoglobin 32.0 32.0 Mean Corpuscular Hemoglobin Concent 32.6 32.4 Red Cell Distribution Width 15.1 H 15.3 H Platelet Count 212 225 Mean Platelet Volume 10.7 #H 10.3 Neutrophils % 90.2 H Segmented Neutrophils % (Manual) 97 H Lymphocytes % 3.0 L Lymphocytes % (Manual) 1 L Monocytes % 5.8 Monocytes % (Manual) 1 Eosinophils % 0.1 Basophils % 0.1 Basophils % (Manual) 1 Nucleated Red Blood Cells % 0.0 0.0 Neutrophils # 9.9 H Absolute Lymphocytes (Manual) 0.1 L Lymphocytes # 0.3 L Monocytes # 0.6 Absolute Monocytes (Manual) 0.1 L Eosinophils # 0.0 Basophils # 0.0 Basophils # (Manual) 0.1 H Nucleated Red Blood Cells # 0.0 Platelet Estimate NORMAL Polychromasia 2+ Poikilocytosis 1+ Anisocytosis 1+ Microcytosis 1+ Prothrombin Time 46.3 H Prothrombin Time Ratio 3.6 INR International Normalized Ratio 4.76 Activated Partial Thromboplast Time 87.0 *H Sodium Level 139 Potassium Level 4.6 Chloride Level 105 Carbon Dioxide Level 27 Anion Gap 12 Blood Urea Nitrogen 35 H Creatinine 1.75 H Glucose Level 120 Calcium Level 8.6 Iron Level 27 L Total Iron Binding Capacity 260 Percent Iron Saturation 10 L Ferritin 67.7 Medications Medications Current Medications Sodium Chloride (NS) 1,000 ml @ 125 mls/hr Q8H IV Last administered on 20:17; Admin Dose 100 MLS/HR; Start 10/22/17 at 18:11 Acetaminophen (Tylenol Tab) 650 mg Q6H PRN PO PAIN LEVEL 1-3 OR FEVER; Start 10/22/17 at 18:30 Zolpidem Tartrate (Ambien) 5 mg QHS PRN PO INSOMNIA; Start 10/22/17 at 18:30 Amiodarone HCl (Cordarone) 100 mg DAILY PO Last administered on 10/23/17 08:59 ; Admin Dose 100 MG; Start 10/23/17 at 09:00 Cevimeline HCl (Evoxac) 30 mg QID PO Last administered on 10/23/17 08:57; Admin Dose 30 MG; Start 10/22/17 at 21:00 Cyanocobalamin (Vitamin B12) 1,000 mcg DAILY PO Last administered on 10/23/17 08:59; Admin Dose 1,000 MCG; Start 10/23/17 at 09:00 Folic Acid (Folic Acid) 0.8 mg DAILY PO Last administered on 10/23/17 08:59; Admin Dose 0.8 MG; Start 10/23/17 at 09:00 Levothyroxine Sodium (Synthroid) 25 mcg DAILY@06 PO Last administered on 05:50; Admin Dose 25 MCG; Start 10/23/17 at 06:00 Metoprolol Succinate (Toprol Xl) 50 mg DAILY PO ; Start 10/23/17 at 09:00 Atorvastatin Calcium (Lipitor) 10 mg DAILY@21 PO Last administered on 21:31; Admin Dose 10 MG; Start 10/22/17 at 21:00 Pantoprazole (Protonix Tab) 40 mg DAILY@06 PO Last administered on 10/23/17 05 :50; Admin Dose 40 MG; Start 10/22/17 at 19:00 Acetaminophen/ Hydrocodone Bitart ([place] (10/325)) 1 tab Q4H PRN PO SEVERE PAIN LEVEL 7-10 Last administered on 10/23/17 01:35; Admin Dose 1 TAB; Start 10/22/17 at 21:30 Tramadol HCl (Ultram) 50 mg Q6H PRN PO PAIN LEVEL 4-6 Last administered on 10/23 01:02; Admin Dose 50 MG; Start 10/22/17 at 21:30 TATIANA RON MD Oct 23, 2017 10:24
[2017-10-23 12:20] LABS: INR 4.58; PROTIME 44.9 Sec (11.9-14.9); PT RATIO 3.5
[2017-10-23 12:21] LABS: ALBUMIN 2.7 g/dl (3.3-4.9); ALBUMIN/GLOBULIN RATIO 0.96; BILIRUBIN,INDIRECT 2.8 mg/dl (0-1.1); BILIRUBIN,TOTAL 2.8 mg/dl (0.2-1.3); CALCIUM 8.4 mg/dl (8.4-10.2); CREATININE 2.55 mg/dl (0.44-1.00); PHOSPHORUS 4.4 mg/dl (2.5-4.9); TOTAL PROTEIN 5.5 g/dl (6.1-8.1)
[2017-10-23 12:22] LABS: ABNORMAL IP MESSAGE 1; BASOPHILS % 0.1 % (0.0-2.0); EOSINOPHILS % 0.1 % (0.0-7.0); HEMATOCRIT 26.1 % (37.0-47.0); HEMOGLOBIN 8.8 g/dl (12.0-16.0); LYMPHOCYTES # 0.4 10^3/ul (0.8-2.9); LYMPHOCYTES % 2.4 % (15.0-51.0); MEAN CORPUSCULAR HEMOGLOBIN 31.4 pg (29.0-33.0); MEAN CORPUSCULAR HGB CONC 33.7 g/dl (32.0-37.0); MEAN CORPUSCULAR VOLUME 93.2 fl (82.0-101.0); MEAN PLATELET VOLUME 11.2 fl (7.4-10.4); MONOCYTE # 0.6 10^3/ul (0.3-0.9); MONOCYTES % 4.3 % (0.0-11.0); NEUTROPHIL # 13.5 10^3/ul (1.6-7.5); NEUTROPHILS % 92.4 % (39.0-77.0); NUCLEATED RED BLOOD CELLS% 0.2 /100WBC (0.0-0.0); PLATELET COUNT 182 10^3/UL (140-415); RED CELL DISTRIBUTION WIDTH 17.4 % (11.5-14.5); WHITE BLOOD COUNT 14.6 10^3/ul (4.8-10.8)
[2017-10-23 12:58] LABS: POSITIVE DIFF @See below
[2017-10-23 13:18] LABS: PARTIAL THROMBOPLASTIN TIME 79.5 Sec (25.0-35.0)
[2017-10-23] MEDS ORDERED: PHYTONADIONE 10 MG/ML INJ SC ONE (15:00)
[2017-10-23] MEDS ORDERED: VANCOMYCIN IV PER PHARMACY XX SCH (16:30)
[2017-10-23] MEDS: PIPER-TAZO 2.25 GM (PMX) 50 ML IVPB SCH ×2 (17:38→23:10)
[2017-10-23] MEDS ORDERED: VANCOMYCIN 1.25 GM in SOD CHLORIDE 0.9% 250 ML IVPB SCH (18:00)
--- NOTE | 2017-10-23 18:23 | RADRPT ---
PROCEDURE: MRI OF THE LEFT HIP CLINICAL INDICATION: History of fall with severe left hip pain. TECHNIQUE: Multiple images were obtained in multiple planes utilizing multiple pulse sequences. Phyllis ges were interpreted on high-resolution PACS system. COMPARISON: None FINDINGS: Intra-articular: There is a small tear of the anterior labrum with partial detachment on sagittal i mages 18 - 20. The superior and posterior labrum is intact. There is no acute fracture, stress reaction, or avascular necrosis of the left hip. There is a small focus of partial thickness chondral loss along the anterior acetabulum with chondral softening on s agittal images 15 - 17. There is also partial thickness chondral loss along the posterior acetabulum . The femoral head cartilage appears intact. There is coxa valga of the left femur. Normal morpholog y of the femoral head is noted. There is mild osseous spurring along the acetabulum. There is no elan tabular dysplasia. No significant joint effusion is present. There is degeneration of the ligamentum teres. Extra-articular: There is edema within the subcutaneous soft tissues of the anterior and lateral hi p. The edema extends adjacent to the iliotibial band which is otherwise intact. There is also edema within the iliopsoas and vastus lateralis muscle with adjacent soft tissue edema. The rectus femori s, iliopsoas, and hamstring origin tendons are intact. There is a small amount of fluid and edema rocha rrounding the iliopsoas tendon at its insertion. There is mild gluteus minimus and medius tendinosis . There is no greater trochanteric bursitis. Pubic symphysis is intact with mild osseous spurring. The visualized adductor muscles and adductor t endon origins are intact. Limited evaluation of the right hip demonstrates no acute fracture, stress reaction, or avascular ne crosis. There is also a tear of the anterior labrum on coronal images 17 - 18. There is also gluteus minimus greater the gluteus medius tendinosis with adjacent peritendinous edema and edema extending into the greater trochanteric bursa. The bilateral sacroiliac joints are intact. There is disc space narrowing disc desiccation with vacu um disc at L5-S1. There is fat stranding with fluid within the posterior pelvis anterior to the sacr um. Please see CT abdomen/pelvis of the same day for additional details of the abdomen/pelvis in which t here are partially visualized fluid collections adjacent to and within the left iliacus/psoas muscle s suggestive of hematomas with edema within these muscles. RPTAT: HTLT IMPRESSION: 1. No acute fracture. 2. Small tear of the anterior labrum. 3. Areas of partial thickness chondral loss along the anterior and posterior acetabulum. 4. Edema within the soft tissues of the anterior and lateral hip and within the iliopsoas and vastus lateralis muscles suggestive of a strain/contusion. 5. Partially visualized fluid collections adjacent to and within the left psoas and iliacus muscles with edema within these muscles suggestive of hematomas - please see same day CT for additional deta ils. .Lida Bradford MD, MD Date Time Electronically viewed and signed by .Lida Bradford MD, MD on 10/23/2017 18:22 .T/
--- NOTE | 2017-10-23 18:30 | RADRPT ---
PROCEDURE: MRI OF THE LEFT ANKLE. CLINICAL INDICATION: Fall with ankle pain TECHNIQUE: Multiple MRI images were obtained utilizing multiple pulse sequences in all three planes . Images were interpreted on high-resolution PACS system. COMPARISON: 10/14/2017 radiographs FINDINGS: There is a heterogeneous loculated fluid collection within the subcutaneous soft tissues of the late ral ankle over the distal fibula/lateral malleolus measuring up to 4.5 cm AP by 1.9 cm transverse by 4.4 cm cranial-caudal. This demonstrates intermediate to bright T1 signal as well as areas of dark/ bright T1 signal with a dark signal intensity rim suggestive of a hematoma with mild surrounding sof t tissue edema. There is no adjacent bone marrow edema or fracture. The tibiotalar joint is intact. There are no osteochondral lesions of the talar dome. A small tibiot alar joint effusion is present. The subtalar joint is intact. There is mild partial-thickness chondr al loss at the talonavicular joint with osseous spurring. The calcaneocuboid and naviculocuneiform j oints are intact. The sinus tarsi is unremarkable. There is mild scarring and attenuation of the anterior talofibular ligament which may be from prior injury without adjacent edema. The calcaneofibular, posterior talofibular, and syndesmotic ligaments are intact. There is also scarring of the deltoid ligament fibers which may be from prior injury. S pring ligament is intact. The posterior tibialis, flexor digitorum longus, flexor hallucis longus tendons are intact. The per oneus longus and brevis tendons are intact. The superior peroneal retinaculum is intact. The tibialis anterior and extensor tendons are intact. The Achilles tendon and plantar fascia are intact. There is mild thickening of the Achilles tendon. A small plantar calcaneal heel spur is present. There is mild increased signal within the plantar hindfoot musculature, more prominent within the ab ductor digiti minimi E which may be from edema and/or denervation changes. There is no mass within t he tarsal tunnel. RPTAT: HTLT IMPRESSION: 1. Hematoma within the subcutaneous soft tissues of the lateral ankle over the distal fibula/lateral malleolus measuring up to 4.5 x 1.9 x 4.4 cm with surrounding soft tissue edema. Continued follow-u p to resolution is recommended since a hemorrhagic neoplasm can give this appearance although this f luid collection is nonaggressive in appearance without adjacent bone marrow edema or bony destructiv e changes. 2. Mild scarring and attenuation of the anterior talofibular ligament and scarring of the deltoid li gament which may be from prior injury. 3. No acute fracture or bone contusion. 4. Mild edema or denervation changes within the plantar hindfoot musculature. .Lida Bradford MD, MD Date Time Electronically viewed and signed by .Lida Bradford MD, MD on 10/23/2017 18:30 .T/
[2017-10-23 19:21] LABS: ABNORMAL IP MESSAGE 1; BASOPHILS % 0.1 % (0.0-2.0); EOSINOPHILS # 0.1 10^3/ul (0.0-0.5); EOSINOPHILS % 0.7 % (0.0-7.0); HEMATOCRIT 25.3 % (37.0-47.0); HEMOGLOBIN 8.6 g/dl (12.0-16.0); LYMPHOCYTES # 0.4 10^3/ul (0.8-2.9); LYMPHOCYTES % 3.7 % (15.0-51.0); MEAN CORPUSCULAR HEMOGLOBIN 31.3 pg (29.0-33.0); MEAN PLATELET VOLUME 10.8 fl (7.4-10.4); MONOCYTE # 0.4 10^3/ul (0.3-0.9); MONOCYTES % 4.1 % (0.0-11.0); NEUTROPHIL # 8.9 10^3/ul (1.6-7.5); NEUTROPHILS % 90.7 % (39.0-77.0); PLATELET COUNT 161 10^3/UL (140-415); RED BLOOD COUNT 2.75 10^6/ul (4.20-5.40); RED CELL DISTRIBUTION WIDTH 17.7 % (11.5-14.5); WHITE BLOOD COUNT 9.8 10^3/ul (4.8-10.8)
[2017-10-23 19:29] LABS: POSITIVE DIFF @See below
[2017-10-23] MEDS ORDERED: ACETAMINOPHEN 325 MG TAB PO ONE (19:30)
[2017-10-23] MEDS ORDERED: DIPHENHYDRAMINE 50 MG INJ IM ONE (19:30)
[2017-10-23] MEDS ORDERED: DIPHENHYDRAMINE 50 MG INJ IV ONE (20:00)
[2017-10-23 20:29] LABS: CK-MB 0.95 ng/ml (0.0-2.4); TROPONIN-I 0.014 ng/ml (0.00-0.12)
[2017-10-23 21:18] LABS: ALBUMIN 2.8 g/dl (3.3-4.9); BILIRUBIN,INDIRECT 1.8 mg/dl (0-1.1); BILIRUBIN,TOTAL 1.8 mg/dl (0.2-1.3); CALCIUM 8.2 mg/dl (8.4-10.2); CREATININE 2.22 mg/dl (0.44-1.00); POTASSIUM 4.9 mmol/L (3.5-5.1); TOTAL PROTEIN 5.6 g/dl (6.1-8.1)
[2017-10-23] MEDS: ATORVASTATIN 10 MG TAB PO SCH (21:58)
[2017-10-23 23:48] LABS: ADD UMIC YES; UR ASCORBIC ACID NEGATIVE (NEGATIVE); UR BACTERIA MODERATE /HPF (NONE SEEN); UR BILIRUBIN (Dip) NEGATIVE (NEGATIVE); UR BLOOD (Dip) 3+ mg/dL (NEGATIVE); UR CLARITY TURBID (CLEAR); UR COLOR AMBER (YELLOW); UR GLUCOSE (Dip) NEGATIVE (NEGATIVE); UR KETONES (Dip) NEGATIVE (NEGATIVE); UR LEUKOCYTE ESTERASE (Dip) 3+ Leu/ul (NEGATIVE); UR NITRITE (Dip) NEGATIVE (NEGATIVE); UR NONSQUAMOUS EPITHELIAL CELL 2 /HPF (NONE SEEN); UR RBC 46 /HPF (0-5); UR SPECIFIC GRAVITY (Dip) 1.021 (1.003-1.030); UR SQUAMOUS EPITHELIAL CELL FEW /HPF (FEW); UR TOTAL PROTEIN (Dip) 1+ mg/dl (NEGATIVE); UR UROBILINOGEN (Dip) NEGATIVE (NEGATIVE)
[2017-10-24 02:00] VITALS: BP 123/58; RESP 20
[2017-10-24 04:20] VITALS: BP 135/63; PULSE 81; RESP 18
[2017-10-24] MEDS: SOD CHLORIDE 0.9% 1,000 ML IV SCH ×4 (05:21→21:02)
[2017-10-24] MEDS: PANTOPRAZOLE (EC) 40 MG TAB PO SCH (05:48)
[2017-10-24] MEDS: LEVOTHYROXINE 25 MCG TAB PO SCH (05:48)
[2017-10-24] MEDS: PIPER-TAZO 2.25 GM (PMX) 50 ML IVPB SCH ×3 (05:48→21:03)
[2017-10-24 05:58] LABS: ABNORMAL IP MESSAGE 1; BASOPHILS % 0.2 % (0.0-2.0); EOSINOPHILS # 0.1 10^3/ul (0.0-0.5); EOSINOPHILS % 1.8 % (0.0-7.0); HEMATOCRIT 21.8 % (37.0-47.0); HEMOGLOBIN 7.2 g/dl (12.0-16.0); LYMPHOCYTES # 0.5 10^3/ul (0.8-2.9); LYMPHOCYTES % 7.2 % (15.0-51.0); MEAN CORPUSCULAR HEMOGLOBIN 30.9 pg (29.0-33.0); MEAN CORPUSCULAR VOLUME 93.6 fl (82.0-101.0); MEAN PLATELET VOLUME 11.2 fl (7.4-10.4); MONOCYTE # 0.4 10^3/ul (0.3-0.9); MONOCYTES % 6.3 % (0.0-11.0); NEUTROPHIL # 5.2 10^3/ul (1.6-7.5); NEUTROPHILS % 83.4 % (39.0-77.0); PLATELET COUNT 149 10^3/UL (140-415); RED BLOOD COUNT 2.33 10^6/ul (4.20-5.40); RED CELL DISTRIBUTION WIDTH 18.2 % (11.5-14.5); WHITE BLOOD COUNT 6.2 10^3/ul (4.8-10.8)
[2017-10-24 06:15] LABS: POSITIVE DIFF @See below
[2017-10-24 06:29] LABS: INR 1.88; PT RATIO 1.7
[2017-10-24 06:37] LABS: ALBUMIN 2.8 g/dl (3.3-4.9); ALBUMIN/GLOBULIN RATIO 1.03; CALCIUM 8.1 mg/dl (8.4-10.2); CREATININE 1.79 mg/dl (0.44-1.00); POTASSIUM 4.6 mmol/L (3.5-5.1); TOTAL PROTEIN 5.5 g/dl (6.1-8.1)
[2017-10-24] MEDS ORDERED: DIPHENHYDRAMINE 50 MG INJ IV ONE (07:30)
[2017-10-24] MEDS ORDERED: ACETAMINOPHEN 325 MG TAB PO ONE (07:30)
[2017-10-24 07:40] VITALS: BP 114/61; RESP 17
[2017-10-24] MEDS: CYANOCOBALAMIN 500 MCG TAB PO SCH (08:35)
[2017-10-24] MEDS: CEVIMELINE 30 MG CAP PO SCH ×4 (08:35→21:02)
[2017-10-24] MEDS: FOLIC ACID 0.4 MG TAB PO SCH (08:35)
[2017-10-24] MEDS: AMIODARONE 200 MG TAB PO SCH (08:36)
[2017-10-24] MEDS: METOPROLOL (XL) 50 MG TAB PO SCH (08:36)
--- NOTE | 2017-10-24 09:40 | RADRPT ---
PROCEDURE: CT Abdomen and Pelvis without contrast. CLINICAL INDICATION: Anemia. Coagulopathy. Status post fall. Abdominal pain. Evaluate for hematom a. TECHNIQUE: CT scan of the abdomen and pelvis without contrast was performed on a multidetector hig h-resolution CT scanner. The patient was scanned without intravenous contrast. Coronal and sagittal reformatted images were obtained from the axial source images. Images were reviewed on a high-resol [employer] PACS workstation. The total exam CTDI equals 6.99 mGy and the total exam DLP equals 358.40 mGy -cm. DICOM images are available. One or more of the following dose reduction techniques were used: Automated exposure control. Adjustment of the mA and/or kV according to patient size. Use of iterative reconstruction technique. COMPARISON: None FINDINGS: CT abdomen: The lung bases are remarkable for small left pleural effusion with basilar atelectasis. The heart s ize is enlarged without pericardial thickening or effusion. There is hyperdense appearance of the in terventricular septum in keeping with anemia. The liver is normal in size and density without focal mass or intrahepatic biliary dilatation. The spleen is normal in size and homogeneous in density. Splenic capsular calcifications are present. Th e stomach is partially collapsed, but is grossly unremarkable. The pancreas as visualized is normal . The gallbladder is remarkable for a layering small gallstones. There are a few sub 5 mm hypodensi ties in the distal common bile duct. No significant biliary ductal dilatation is noted. The adrenal glands are symmetric and normal. The kidneys are symmetrically unremarkable as well. No renal calc ulus or obstructive uropathy or mass lesion is seen. The aorta is of normal caliber.There is no retroperitoneal lymphadenopathy. The dante hepatis regio n is clear. The bowel and mesentery, as visualized, are equally unremarkable. There is asymmetric enlargement of the left iliopsoas and iliacus muscles with intramuscular hemorrh age with fluid hemorrhage levels in keeping with coagulopathic hemorrhage. The largest component of the hematoma measures 8 x 2.6 cm (craniocaudal x AP ) in the left psoas muscle) the largest componen t in the left iliacus muscle measures 4.7 x 3 cm. There is mild fatty stranding / fluid in the left retroperitoneal space extends into the pelvis. There is mild swelling of the left inferior lateral a bdominal wall. CT pelvis: The small bowel loops situated within the pelvis are unremarkable. The pelvic organs are normal. T he pelvic sidewalls and inguinal regions are clear. The sigmoid colon and rectum are remarkable for sigmoid diverticulosis. No mass, lymphadenopathy, or free fluid is seen. No acute inflammation is seen. Chronic-appearing moderate compression fractures of T12, L1, and L2 are present. There is ret ropulsion of the L1 into the canal resulting in moderate central canal compromise. The surrounding o sseous structures are remarkable for degenerative spondylosis of the spine. No osteolytic or osteob lastic lesion is detected. IMPRESSION: 1. Asymmetric enlargement of the left psoas and iliacus muscles with small to moderate intramuscula r hematomas with minimal surrounding hemorrhage in the left retroperitoneal space. Mild soft tissue swelling of the left lower lateral abdominal wall. 2. Cholelithiasis without evidence of acute cholecystitis. Small densities in the distal common maame e duct likely representing choledocholithiasis. No significant biliary ductal dilatation. 3. Small left pleural effusion with basilar atelectasis. 4. Mild cardiomegaly. 5. Chronic-appearing multiple moderate compression fractures at T12-L2. Retropulsion of the posteri or-superior corner of the L1 into the canal resulting in moderate central canal stenosis. RPTAT: EE .Paul Parker MD, Date Time Electronically viewed and signed by .Paul Parker MD, on 10/24/2017 09:40 .O/
--- NOTE | 2017-10-24 10:43 | PN ---
Date/Time of Note Date/Time of Note DATE: 10/24/17 TIME: 10:37 24 hour Interval Summary Imaging reviewed including left hip xray, left ankle xray, left hip MRI, left ankle MRI. No evidence of any fractures. Hematoma is noted at left hip and left ankle. Physical Exam Vital Signs Date Time Temp Pulse Resp B/P Pulse Ox O2 Delivery O2 Flow Rate FiO2 10/24/17 07:40 98.4 84 17 114/61 99 10/24/17 04:20 Room Air Intake and Output 10/23/17 10/23/17 10/24/17 15:00 23:00 07:00 Intake Total 750 ml 1510 ml 1022 ml Balance 750 ml 1510 ml 1022 ml VTE Prophylaxis VTE Prophylaxis Intervention: other Lines/Catheters IV Catheter Type: Peripheral IV Fontanez in Place: Yes Cont'd fontanez catheter reason: other (indicate) Results Result Diagram: 10/24/17 0428 10/24/17 0428 Results 24hrs Laboratory Tests Test 10/23/17 11:49 10/23/17 18:20 10/23/17 22:20 10/24/17 04:28 White Blood Count 14.6 #H 9.8 # 6.2 # Red Blood Count 2.80 #L 2.75 L 2.33 L Hemoglobin 8.8 #L 8.6 L 7.2 L Hematocrit 26.1 L 25.3 L 21.8 L Mean Corpuscular Volume 93.2 92.0 93.6 Mean Corpuscular Hemoglobin 31.4 31.3 30.9 Mean Corpuscular Hemoglobin Concent 33.7 34.0 33.0 Red Cell Distribution Width 17.4 H 17.7 H 18.2 H Platelet Count 182 161 149 Mean Platelet Volume 11.2 H 10.8 H 11.2 H Neutrophils % 92.4 H 90.7 H 83.4 H Lymphocytes % 2.4 L 3.7 L 7.2 L Monocytes % 4.3 4.1 6.3 Eosinophils % 0.1 0.7 1.8 Basophils % 0.1 0.1 0.2 Nucleated Red Blood Cells % 0.2 H 0.0 0.0 Neutrophils # 13.5 H 8.9 H 5.2 Lymphocytes # 0.4 L 0.4 L 0.5 L Monocytes # 0.6 0.4 0.4 Eosinophils # 0.0 0.1 0.1 Basophils # 0.0 0.0 0.0 Nucleated Red Blood Cells # 0.0 0.0 0.0 Prothrombin Time 44.9 H 22.0 #H Prothrombin Time Ratio 3.5 1.7 INR International Normalized Ratio 4.58 1.88 Activated Partial Thromboplast Time 79.5 *H Sodium Level 136 138 140 Potassium Level 5.0 4.9 4.6 Chloride Level 104 106 109 Carbon Dioxide Level 26 23 26 Anion Gap 11 14 10 Blood Urea Nitrogen 54 H 57 H 51 H Creatinine 2.55 H 2.22 H 1.79 H Glucose Level 115 104 94 Calcium Level 8.4 8.2 L 8.1 L Phosphorus Level 4.4 Magnesium Level 2.0 Total Bilirubin 2.8 H 1.8 H 1.0 Direct Bilirubin 0.00 0.00 0.00 Indirect Bilirubin 2.8 H 1.8 H 1.0 Aspartate Amino Transf (AST/SGOT) 47 H 46 36 Alanine Aminotransferase (ALT/SGPT) 32 28 34 Alkaline Phosphatase 40 L 47 44 Total Protein 5.5 L 5.6 L 5.5 L Albumin 2.7 L 2.8 L 2.8 L Globulin 2.80 2.80 2.70 Albumin/Globulin Ratio 0.96 1.00 1.03 Creatine Kinase 211 H Creatine Kinase Index 0.5 Creatinine Kinase MB (Mass) 0.95 Troponin I 0.014 Urine Color GLYNN Urine Clarity TURBID A Urine pH 5.0 Urine Specific [place] 1.021 Urine Ketones NEGATIVE Urine Nitrite NEGATIVE Urine Bilirubin NEGATIVE Urine Urobilinogen NEGATIVE Urine Leukocyte Esterase 3+ H Urine Microscopic RBC 46 H Urine Microscopic WBC 112 H Urine Squamous Epithelial Cells FEW Urine Bacteria MODERATE Urine Hemoglobin 3+ H Urine Glucose NEGATIVE Urine Total Protein 1+ H Test 10/24/17 05:17 Lab Scanned Report BLOOD TRANSFUSION Assessment/Plan Chief Complaint/Hosp Course Splint removed today. Left ankle with ecchymosis over lateral and medial ankle. Blistering noted over lateral ankle as well. No skin breakdown. Compartments soft and compressible. Problems: Assessment/Plan 77yo F with left hip and left ankle contusion/hematoma, admitted for anemia and coagulopathy. Orthopaedic plan of care: 1. NWB LLE. Splint removed today by . 2. strict elevation of left ankle 3. Medical management per primary team 4. No plan for surgical intervention. 5. May require further immobilization of left ankle for ambulation. Ortho to reassess when medically stable. Please contact Dr. Foley's office at [facility]. Medications Medications Home Meds Reported Medications Amiodarone Hcl* (Amiodarone Hcl*) 100 Mg Tablet, 100 MG PO DAILY, #30 TAB 10/22/17 Metoprolol Succinate* (Toprol XL*) 50 Mg Tab.er.24h, 50 MG PO DAILY, #30 TAB 10/22/17 Cevimeline Hcl* (Evoxac*) 30 Mg Cap, 30 MG PO QID, CAP 10/22/17 Telmisartan (Telmisartan) 80 Mg Tablet, 80 MG PO DAILY, TAB 10/22/17 Warfarin Sodium* (Coumadin*) 2 Mg Tablet, 2 MG PO DAILY, TAB 1 TAB-SUN.,TUES.,TH.,SAT 2 TAB- M,W,F 10/22/17 Levothyroxine Sodium* (Levothyroxine Sodium*) 25 Mcg Tablet, 25 MCG PO FOUR TIMES PER WEEK, TAB TAKE 1 TABLET BY MOUTH ON MON, WED, WED AND SAT 05/03/15 Folic Acid* (Folic Acid*) 0.8 Mg Tablet, 0.8 MG PO DAILY, TAB 05/03/15 Cyanocobalamin* (Vitamin B-12*) 1,000 Mcg Tablet.sa, 1000 MCG PO DAILY, TAB 05/03/15 Simvastatin (Simvastatin) 20 Mg Tablet, 20 MG PO HS, TAB 05/03/15 Discontinued Reported Medications Cyclosporine* (Restasis* Oph) 32 Ea Droperette, 1 DROP BOTH EYES Q12, EA 05/03/15 Telmisartan (Micardis) 40 Mg Tablet, 40 MG PO DAILY, TAB 05/03/15 Lorazepam* (Lorazepam*) 0.5 Mg Tablet, 0.5 MG PO HS Y for ANXIETY, TAB 05/03/15 Calcium Carbonate* (Os-Braxton 500*) 1 Tab Tablet, 1 TAB PO BID, TAB 05/03/15 Discontinued Scripts Acetaminophen* (Tylophen*) 500 Mg Capsule, 1 CAP PO Q6H Y for PAIN AND OR ELEVATED TEMP, #20 CAP Prov:MAREK,MESERET 10/14/17 Hydrocodone/Acetaminophen ([place] 5-325 Tablet) 1 Each Tablet, 1 TAB PO Q6H Y for PAIN, #7 TAB Prov:MESERET JARA 10/14/17 Amox Tr/Potassium Clavulanate (Amox Tr-K Clv 875-125 Mg Tab) 1 Tab Tablet, 1 TAB PO BID, #14 TAB Prov:NIKOLAS MEJIAS MD 02/10/16 Ondansetron Hcl* (Zofran* ODT) 4 mg -ODT Tab.disper, 4 MG PO Q6 Y for NAUSEA AND /OR VOMITING, #30 TAB Prov:NIKOLAS MEJIAS MD 02/10/16 Furosemide* (Lasix*) 40 Mg Tablet, 40 MG PO DAILY Y for SHORTNESS OF BREATH for 60 Days, TAB 1 Refill Prov:JOEL GOMEZ MD 05/09/15 Amiodarone Hcl* (Amiodarone Hcl*) 200 Mg Tablet, 200 MG PO BID, #60 TAB 1 Refill Prov:JOEL GOMEZ MD 05/09/15 Rivaroxaban* (Xarelto*) 20 Mg Tablet, 20 MG PO WITH DINNER Y for CHEST PAIN, # 60 TAB Prov:JOEL GOMEZ MD 05/09/15 Potassium Chloride* (Klor-Con*) 20 Meq Tabsr, 20 MEQ PO DAILY, #20 CAP Prov:JOEL GOMEZ MD 05/09/15 MALDONADO GARCIA Oct 24, 2017 10:43
--- NOTE | 2017-10-24 15:12 | CONS ---
Date/Time of Note Date/Time of Note DATE: 10/24/17 TIME: 15:05 Assessment/Plan Assessment/Plan Additional Assessment/Plan * mutltiple hematomas noted left ankle/ hip/ thigh / psoas and ilaiac muscles with small retroperitoneal bleed. post traumatic with coagulopathy. aprecciate orth eval and cast removal. cont agressive reversal of anticoagulation. inr now 1.8 and getting another unit of ffp. cont serial hb and inr and transfuse as needed. keep hb> 8.5. will need to be seen by dr vale since off coumadin now and has a fib * left foot pain: findings of sprain and hematoma noted. appreciate ortho eval. cast removed and needs to be non weight bearing pending further instructions from ortho * left thigh/ back pain: due to muscle hematoma as above * acute blood loss anemia with hgic shock: due to traumatic bleeding as above and small retoperitoneal blled. cont to monitor and transfuse as needs. revere coagulaopathy * coagulopathy: s/p ffp x2, vit k and off coumadin. repeat inr * arf on ckd: better today and making more urine. cont holding arb and cont ivf * chonic a fib: rate controlled. off coumadin as above * hypotension: due to hgic shock. s/p prbc x 3 . much better Consultation Date/Type/Reason Admit Date/Time Oct 22, 2017 at 18:10 Initial Consult Date 24 HR Interval Summary Free Text/Dictation events noted. pain better. cast removed by ortho this am. feels a bit better but still unable to ambulate Exam/Review of Systems Vital Signs Vitals Vital Signs Date Time Temp Pulse Resp B/P Pulse Ox O2 Delivery O2 Flow Rate FiO2 10/24/17 07:40 98.4 84 17 114/61 99 10/24/17 04:20 Room Air Intake and Output 10/23/17 10/23/17 10/24/17 15:00 23:00 07:00 Intake Total 750 ml 1510 ml 1022 ml Balance 750 ml 1510 ml 1022 ml Exam Constitutional: alert, oriented Psych: no complaints Head: atraumatic, normocephalic Neck: jvd, non-tender, supple Respiratory: clear to auscultation Cardiovascular: nl pulses, regular rate and rhythm Gastrointestinal: non-tender (bruising noted inner left arm/ left flank/ left ankle withhematoma and swelling), soft Results Result Diagram: 10/24/17 0428 10/24/17 0428 Results 24 hrs Laboratory Tests Test 10/23/17 18:20 10/23/17 22:20 10/24/17 04:28 10/24/17 05:17 White Blood Count 9.8 # 6.2 # Red Blood Count 2.75 L 2.33 L Hemoglobin 8.6 L 7.2 L Hematocrit 25.3 L 21.8 L Mean Corpuscular Volume 92.0 93.6 Mean Corpuscular Hemoglobin 31.3 30.9 Mean Corpuscular Hemoglobin Concent 34.0 33.0 Red Cell Distribution Width 17.7 H 18.2 H Platelet Count 161 149 Mean Platelet Volume 10.8 H 11.2 H Neutrophils % 90.7 H 83.4 H Lymphocytes % 3.7 L 7.2 L Monocytes % 4.1 6.3 Eosinophils % 0.7 1.8 Basophils % 0.1 0.2 Nucleated Red Blood Cells % 0.0 0.0 Neutrophils # 8.9 H 5.2 Lymphocytes # 0.4 L 0.5 L Monocytes # 0.4 0.4 Eosinophils # 0.1 0.1 Basophils # 0.0 0.0 Nucleated Red Blood Cells # 0.0 0.0 Sodium Level 138 140 Potassium Level 4.9 4.6 Chloride Level 106 109 Carbon Dioxide Level 23 26 Anion Gap 14 10 Blood Urea Nitrogen 57 H 51 H Creatinine 2.22 H 1.79 H Glucose Level 104 94 Calcium Level 8.2 L 8.1 L Total Bilirubin 1.8 H 1.0 Direct Bilirubin 0.00 0.00 Indirect Bilirubin 1.8 H 1.0 Aspartate Amino Transf (AST/SGOT) 46 36 Alanine Aminotransferase (ALT/SGPT) 28 34 Alkaline Phosphatase 47 44 Creatine Kinase 211 H Creatine Kinase Index 0.5 Creatinine Kinase MB (Mass) 0.95 Troponin I 0.014 Total Protein 5.6 L 5.5 L Albumin 2.8 L 2.8 L Globulin 2.80 2.70 Albumin/Globulin Ratio 1.00 1.03 Urine Color GLYNN Urine Clarity TURBID A Urine pH 5.0 Urine Specific [place] 1.021 Urine Ketones NEGATIVE Urine Nitrite NEGATIVE Urine Bilirubin NEGATIVE Urine Urobilinogen NEGATIVE Urine Leukocyte Esterase 3+ H Urine Microscopic RBC 46 H Urine Microscopic WBC 112 H Urine Squamous Epithelial Cells FEW Urine Bacteria MODERATE Urine Hemoglobin 3+ H Urine Glucose NEGATIVE Urine Total Protein 1+ H Prothrombin Time 22.0 #H Prothrombin Time Ratio 1.7 INR International Normalized Ratio 1.88 Lab Scanned Report BLOOD TRANSFUSION Medications Medications Current Medications Sodium Chloride (NS) 1,000 ml @ 125 mls/hr Q8H IV Last administered on 14:50; Admin Dose 125 MLS/HR; Start 10/22/17 at 18:11 Acetaminophen (Tylenol Tab) 650 mg Q6H PRN PO PAIN LEVEL 1-3 OR FEVER; Start 10/22/17 at 18:30 Zolpidem Tartrate (Ambien) 5 mg QHS PRN PO INSOMNIA; Start 10/22/17 at 18:30 Amiodarone HCl (Cordarone) 100 mg DAILY PO Last administered on 10/24/17 08:36 ; Admin Dose 100 MG; Start 10/23/17 at 09:00 Cevimeline HCl (Evoxac) 30 mg QID PO Last administered on 10/24/17 12:44; Admin Dose 30 MG; Start 10/22/17 at 21:00 Cyanocobalamin (Vitamin B12) 1,000 mcg DAILY PO Last administered on 10/24/17 08:35; Admin Dose 1,000 MCG; Start 10/23/17 at 09:00 Folic Acid (Folic Acid) 0.8 mg DAILY PO Last administered on 10/24/17 08:35; Admin Dose 0.8 MG; Start 10/23/17 at 09:00 Levothyroxine Sodium (Synthroid) 25 mcg DAILY@06 PO Last administered on 05:48; Admin Dose 25 MCG; Start 10/23/17 at 06:00 Metoprolol Succinate (Toprol Xl) 50 mg DAILY PO Last administered on 10/24/17 08:36; Admin Dose 50 MG; Start 10/23/17 at 09:00 Atorvastatin Calcium (Lipitor) 10 mg DAILY@21 PO Last administered on 21:58; Admin Dose 10 MG; Start 10/22/17 at 21:00 Pantoprazole (Protonix Tab) 40 mg DAILY@06 PO Last administered on 10/24/17 05 :48; Admin Dose 40 MG; Start 10/22/17 at 19:00 Acetaminophen/ Hydrocodone Bitart ([place] ()) 1 tab Q4H PRN PO SEVERE PAIN LEVEL 7-10 Last administered on 10/23/17 01:35; Admin Dose 1 TAB; Start 10/22/17 at 21:30 Tramadol HCl 50 mg 50 mg Q6H PRN PO PAIN LEVEL 4-6 Last administered on 15:14; Admin Dose 50 MG; Start 10/22/17 at 21:30 Piperacillin Sod/ Tazobactam Sod 50 ml @ 100 mls/hr Q8 IVPB Last administered on 10/24/17 14:50; Admin Dose 100 MLS/HR; Start 10/23/17 at 17:00 Vancomycin HCl/ Dextrose/Water (Vancocin/D5W) 150 ml @ 75 mls/hr Q36H IVPB ; Start 10/25/17 at 06:00 TATIANA RON MD Oct 24, 2017 15:12
[2017-10-24 20:10] VITALS: BP 131/67; RESP 17
[2017-10-24] MEDS: ATORVASTATIN 10 MG TAB PO SCH (21:02)
[2017-10-24 23:28] LABS: ABNORMAL IP MESSAGE 1; BASOPHILS % 0.2 % (0.0-2.0); EOSINOPHILS # 0.1 10^3/ul (0.0-0.5); EOSINOPHILS % 1.6 % (0.0-7.0); HEMATOCRIT 22.8 % (37.0-47.0); HEMOGLOBIN 7.9 g/dl (12.0-16.0); LYMPHOCYTES # 0.4 10^3/ul (0.8-2.9); LYMPHOCYTES % 7.5 % (15.0-51.0); MEAN CORPUSCULAR HEMOGLOBIN 28.7 pg (29.0-33.0); MEAN CORPUSCULAR HGB CONC 34.6 g/dl (32.0-37.0); MEAN CORPUSCULAR VOLUME 82.9 fl (82.0-101.0); MEAN PLATELET VOLUME 9.7 fl (7.4-10.4); MONOCYTE # 0.5 10^3/ul (0.3-0.9); MONOCYTES % 7.8 % (0.0-11.0); NEUTROPHIL # 4.7 10^3/ul (1.6-7.5); PLATELET COUNT 146 10^3/UL (140-415); RED BLOOD COUNT 2.75 10^6/ul (4.20-5.40); WHITE BLOOD COUNT 5.8 10^3/ul (4.8-10.8)
[2017-10-24 23:46] LABS: ALBUMIN 2.6 g/dl (3.3-4.9); ALBUMIN/GLOBULIN RATIO 0.86; CALCIUM 8.3 mg/dl (8.4-10.2); CREATININE 1.22 mg/dl (0.44-1.00); POSITIVE DIFF @See below; POTASSIUM 4.3 mmol/L (3.5-5.1); TOTAL PROTEIN 5.6 g/dl (6.1-8.1)
[2017-10-24] MEDS: traMADol 50 MG TAB PO PRN (23:46)
[2017-10-24 23:54] LABS: INR 1.31; PT RATIO 1.3
[2017-10-25 02:11] VITALS: BP 131/64; RESP 18
[2017-10-25] MEDS ORDERED: VANCOMYCIN 750 MG in DEXTROSE 5% 150 ML IVPB SCH ×2 (06:00→18:00)
[2017-10-25 06:13] LABS: ABNORMAL IP MESSAGE 1; BASOPHILS % 0.2 % (0.0-2.0); EOSINOPHILS # 0.1 10^3/ul (0.0-0.5); HEMATOCRIT 22.7 % (37.0-47.0); HEMOGLOBIN 7.8 g/dl (12.0-16.0); LYMPHOCYTES # 0.5 10^3/ul (0.8-2.9); LYMPHOCYTES % 8.3 % (15.0-51.0); MEAN CORPUSCULAR HEMOGLOBIN 28.8 pg (29.0-33.0); MEAN CORPUSCULAR HGB CONC 34.4 g/dl (32.0-37.0); MEAN CORPUSCULAR VOLUME 83.8 fl (82.0-101.0); MEAN PLATELET VOLUME 10.4 fl (7.4-10.4); MONOCYTE # 0.4 10^3/ul (0.3-0.9); MONOCYTES % 7.6 % (0.0-11.0); NEUTROPHIL # 4.5 10^3/ul (1.6-7.5); NEUTROPHILS % 81.2 % (39.0-77.0); PLATELET COUNT 157 10^3/UL (140-415); RED BLOOD COUNT 2.71 10^6/ul (4.20-5.40); WHITE BLOOD COUNT 5.5 10^3/ul (4.8-10.8)
[2017-10-25 06:17] LABS: POSITIVE DIFF @See below
[2017-10-25] MEDS: PIPER-TAZO 2.25 GM (PMX) 50 ML IVPB SCH ×3 (06:26→22:32)
[2017-10-25] MEDS: SOD CHLORIDE 0.9% 1,000 ML IV SCH ×3 (06:26→22:33)
[2017-10-25] MEDS: LEVOTHYROXINE 25 MCG TAB PO SCH (06:27)
[2017-10-25] MEDS: PANTOPRAZOLE (EC) 40 MG TAB PO SCH (06:27)
[2017-10-25 06:30] LABS: INR 1.18; PROTIME 15.2 Sec (11.9-14.9); PT RATIO 1.2
[2017-10-25 06:43] LABS: ALBUMIN 2.5 g/dl (3.3-4.9); ALBUMIN/GLOBULIN RATIO 0.86; BILIRUBIN,INDIRECT 1.6 mg/dl (0-1.1); BILIRUBIN,TOTAL 1.6 mg/dl (0.2-1.3); CALCIUM 8.3 mg/dl (8.4-10.2); CREATININE 1.11 mg/dl (0.44-1.00); POTASSIUM 4.3 mmol/L (3.5-5.1); TOTAL PROTEIN 5.4 g/dl (6.1-8.1)
[2017-10-25] MEDS ORDERED: SOD CHLORIDE 0.9% 250 ML IV* ONE (08:13)
[2017-10-25 08:21] VITALS: BP 140/76; RESP 18
--- NOTE | 2017-10-25 08:27 | PN ---
Date/Time of Note Date/Time of Note DATE: 10/25/17 TIME: 08:20 Assessment/Plan VTE Prophylaxis VTE Prophylaxis Intervention: contraindicated VTE Contraindication Reason: bleeding Lines/Catheters IV [facility] Peripheral IV Urinary Cath still in place: Yes Reason Cath still needed: urinary retention Assessment/Plan Chief Complaint/Hosp Course 1. Left ankle pain after ankle sprain. Patient also developed ecchymoses and hematoma in the left ankle, the left hip, and some iliopsoas retroperitoneal bleeding. She is having less pain in the left ankle and left hip. 2. coagulopathy due to being over coumadinized. This has corrected with FFP and vitamin K. 3. Anemia. The patient's blood count is still low we will transfuse 1 unit of blood today. She will have stool sent for occult blood to make sure she is not bleeding in her GI tract. 4. Atrial fibrillation , will call cardiology. 5. Acute renal failure now improved 6. Abdominal pain with intermittent diarrhea 7. Urinary tract infection on antibiotics , will call infectious disease specialist. Problems: Subjective 24 Hr Interval Summary Free Text/Dictation She complains of intermittent abdominal pain, cramping, with some loose stool. She denies any rectal bleeding or blood in her stool. She is otherwise feeling better. Constitutional: improved Cardiovascular: no complaints Gastrointestinal: diarrhea, pain Musculoskeletal: bone/joint pain Skin: bruising Psychological: no complaints Exam/Review of Systems Vital Signs Vitals Vital Signs Date Time Temp Pulse Resp B/P Pulse Ox O2 Delivery O2 Flow Rate FiO2 10/25/17 02:11 98.1 96 18 131/64 95 10/24/17 04:20 Room Air Intake and Output 10/24/17 10/24/17 10/25/17 15:00 23:00 07:00 Intake Total 625 ml 820 ml 1100 ml Balance 625 ml 820 ml 1100 ml Exam Her left ankle shows swelling and ecchymoses. Constitutional: alert, frail, oriented Psych: no complaints Neck: non-tender, supple Respiratory: clear to auscultation, normal air movement Cardiovascular: regular rate and rhythm Gastrointestinal: non-tender, soft Results Result Diagram: 10/25/17 0518 10/25/17 0518 Results 24 hrs Laboratory Tests Test 10/24/17 23:19 10/25/17 05:18 10/25/17 06:16 White Blood Count 5.8 5.5 Red Blood Count 2.75 L 2.71 L Hemoglobin 7.9 L 7.8 L Hematocrit 22.8 L 22.7 L Mean Corpuscular Volume 82.9 83.8 Mean Corpuscular Hemoglobin 28.7 L 28.8 L Mean Corpuscular Hemoglobin Concent 34.6 34.4 Red Cell Distribution Width Platelet Count 146 157 Mean Platelet Volume 9.7 10.4 Neutrophils % 82.0 H 81.2 H Lymphocytes % 7.5 L 8.3 L Monocytes % 7.8 7.6 Eosinophils % 1.6 2.0 Basophils % 0.2 0.2 Nucleated Red Blood Cells % 0.0 0.0 Neutrophils # 4.7 4.5 Lymphocytes # 0.4 L 0.5 L Monocytes # 0.5 0.4 Eosinophils # 0.1 0.1 Basophils # 0.0 0.0 Nucleated Red Blood Cells # 0.0 0.0 Prothrombin Time 17.0 #H 15.2 H Prothrombin Time Ratio 1.3 1.2 INR International Normalized Ratio 1.31 1.18 Sodium Level 141 141 Potassium Level 4.3 4.3 Chloride Level 108 109 Carbon Dioxide Level 27 28 Anion Gap 10 8 Blood Urea Nitrogen 33 #H 27 H Creatinine 1.22 H 1.11 H Glucose Level 99 94 Calcium Level 8.3 L 8.3 L Total Bilirubin 2.0 H 1.6 H Direct Bilirubin 0.00 0.00 Indirect Bilirubin 2.0 H 1.6 H Aspartate Amino Transf (AST/SGOT) 30 30 Alanine Aminotransferase (ALT/SGPT) 29 30 Alkaline Phosphatase 42 43 Total Protein 5.6 L 5.4 L Albumin 2.6 L 2.5 L Globulin 3.00 2.90 Albumin/Globulin Ratio 0.86 0.86 Lab Scanned Report BLOOD TRANSFUSION Medications Medications Current Medications Sodium Chloride (NS) 1,000 ml @ 125 mls/hr Q8H IV Last administered on 06:26; Admin Dose 125 MLS/HR; Start 10/22/17 at 18:11 Acetaminophen (Tylenol Tab) 650 mg Q6H PRN PO PAIN LEVEL 1-3 OR FEVER; Start 10/22/17 at 18:30 Zolpidem Tartrate (Ambien) 5 mg QHS PRN PO INSOMNIA; Start 10/22/17 at 18:30 Amiodarone HCl (Cordarone) 100 mg DAILY PO Last administered on 10/24/17 08:36 ; Admin Dose 100 MG; Start 10/23/17 at 09:00 Cevimeline HCl (Evoxac) 30 mg QID PO Last administered on 10/24/17 21:02; Admin Dose 30 MG; Start 10/22/17 at 21:00 Cyanocobalamin (Vitamin B12) 1,000 mcg DAILY PO Last administered on 10/24/17 08:35; Admin Dose 1,000 MCG; Start 10/23/17 at 09:00 Folic Acid (Folic Acid) 0.8 mg DAILY PO Last administered on 10/24/17 08:35; Admin Dose 0.8 MG; Start 10/23/17 at 09:00 Levothyroxine Sodium (Synthroid) 25 mcg DAILY@06 PO Last administered on 06:27; Admin Dose 25 MCG; Start 10/23/17 at 06:00 Metoprolol Succinate (Toprol Xl) 50 mg DAILY PO Last administered on 10/24/17 08:36; Admin Dose 50 MG; Start 10/23/17 at 09:00 Atorvastatin Calcium (Lipitor) 10 mg DAILY@21 PO Last administered on 21:02; Admin Dose 10 MG; Start 10/22/17 at 21:00 Pantoprazole (Protonix Tab) 40 mg DAILY@06 PO Last administered on 10/25/17 06 :27; Admin Dose 40 MG; Start 10/22/17 at 19:00 Acetaminophen/ Hydrocodone Bitart ([place] (10/325)) 1 tab Q4H PRN PO SEVERE PAIN LEVEL 7-10 Last administered on 10/23/17 01:35; Admin Dose 1 TAB; Start 10/22/17 at 21:30 Tramadol HCl 50 mg 50 mg Q6H PRN PO PAIN LEVEL 4-6 Last administered on 23:46; Admin Dose 50 MG; Start 10/22/17 at 21:30 Piperacillin Sod/ Tazobactam Sod 50 ml @ 100 mls/hr Q8 IVPB Last administered on 10/25/17 06:26; Admin Dose 100 MLS/HR; Start 10/23/17 at 17:00 Vancomycin HCl 750 mg/Dextrose/ Water 150 ml @ 75 mls/hr Q36H IVPB Last administered on 10/25/17t 06:27; Admin Dose 75 MLS/HR; Start 10/25/17 at 06:00 Sodium Chloride (NS) 250 ml @ 0 mls/hr Q0M ONCE IV* ; Start 10/25/17 at 08:13; Stop 10/25/17 at 08:14; Status UNBELLA NUNEZ MD Oct 25, 2017 08:27
[2017-10-25] MEDS: FOLIC ACID 0.4 MG TAB PO SCH (09:20)
[2017-10-25] MEDS: CEVIMELINE 30 MG CAP PO SCH ×4 (09:20→22:32)
[2017-10-25] MEDS: METOPROLOL (XL) 50 MG TAB PO SCH (09:20)
[2017-10-25] MEDS: CYANOCOBALAMIN 500 MCG TAB PO SCH (09:22)
[2017-10-25] MEDS: AMIODARONE 200 MG TAB PO SCH (09:22)
--- NOTE | 2017-10-25 12:44 | CONS ---
Date/Time of Note Date/Time of Note DATE: 10/25/17 TIME: 12:33 Assessment/Plan Assessment/Plan Chief Complaint/Hosp Course 1) subq hematomas to L hip and L ankle doubt there is an active infection d/c vanco at this time check ESR, CRP in a.m. 2) pyuria with likely e.coli in urine continue with zosyn and change to a simpler antibiotic when sensi's come back tomorrow urine cx was done after zosyn had already be given 3) CRI with an acute component this appears to have resolved 4) diverticulosis pt developed diarrhea after her admission and likely related to the antibiotics start with probiotic 5) HTN 6) hypothyroidisim Problems: Consultation Date/Type/Reason Admit Date/Time Oct 22, 2017 at 18:10 Date of Consultation: Oct 25, 2017 Type of Consultation: ID Hx of Present Illness pt tripped out of tub on 10/13/17. She applied ice and elevation to her L ankle but the swelling got worse. She was using a walker at home to get around. After a few days her L hip started to pain her. Due to pain and lack of mobility she was admitted to the hospital. Pt denies F, C, NS. She has urine frequency but no dysuria. No SOB, cough, sore throat. She has bruising to L ankle and L arm Past Medical History a-[id number], CRI, leukopenia, SICCA syndrome, diverticulosis, hypothyrodisim, HTN, L hip bursitis Social History Smoking Status: Never smoker Exam/Review of Systems Vital Signs Vitals Vital Signs Date Time Temp Pulse Resp B/P Pulse Ox O2 Delivery O2 Flow Rate FiO2 10/25/17 08:21 98.5 78 18 140/76 96 10/24/17 04:20 Room Air Intake and Output 10/24/17 10/24/17 10/25/17 15:00 23:00 07:00 Intake Total 625 ml 820 ml 1100 ml Balance 625 ml 820 ml 1100 ml Exam Constitutional: alert, oriented Eyes: nl conjunctiva, nl sclera ENMT: mucosa pink and moist Respiratory: other (soft crackles at bases) Cardiovascular: regular rate and rhythm Gastrointestinal: non-tender, soft Extremities: other (L ankle bruising, lateral malleolus has increased warmth and minimal redness, mostly it is ecchymosis, no skin break. L elbow area has ecchymosis too) Neurological: other (non focal) Results Result Diagram: 10/25/17 0518 10/25/17 0518 Results 24 hrs Laboratory Tests Test 10/24/17 23:19 10/25/17 05:18 10/25/17 06:16 White Blood Count 5.8 5.5 Red Blood Count 2.75 L 2.71 L Hemoglobin 7.9 L 7.8 L Hematocrit 22.8 L 22.7 L Mean Corpuscular Volume 82.9 83.8 Mean Corpuscular Hemoglobin 28.7 L 28.8 L Mean Corpuscular Hemoglobin Concent 34.6 34.4 Red Cell Distribution Width Platelet Count 146 157 Mean Platelet Volume 9.7 10.4 Neutrophils % 82.0 H 81.2 H Lymphocytes % 7.5 L 8.3 L Monocytes % 7.8 7.6 Eosinophils % 1.6 2.0 Basophils % 0.2 0.2 Nucleated Red Blood Cells % 0.0 0.0 Neutrophils # 4.7 4.5 Lymphocytes # 0.4 L 0.5 L Monocytes # 0.5 0.4 Eosinophils # 0.1 0.1 Basophils # 0.0 0.0 Nucleated Red Blood Cells # 0.0 0.0 Prothrombin Time 17.0 #H 15.2 H Prothrombin Time Ratio 1.3 1.2 INR International Normalized Ratio 1.31 1.18 Sodium Level 141 141 Potassium Level 4.3 4.3 Chloride Level 108 109 Carbon Dioxide Level 27 28 Anion Gap 10 8 Blood Urea Nitrogen 33 #H 27 H Creatinine 1.22 H 1.11 H Glucose Level 99 94 Calcium Level 8.3 L 8.3 L Total Bilirubin 2.0 H 1.6 H Direct Bilirubin 0.00 0.00 Indirect Bilirubin 2.0 H 1.6 H Aspartate Amino Transf (AST/SGOT) 30 30 Alanine Aminotransferase (ALT/SGPT) 29 30 Alkaline Phosphatase 42 43 Total Protein 5.6 L 5.4 L Albumin 2.6 L 2.5 L Globulin 3.00 2.90 Albumin/Globulin Ratio 0.86 0.86 Lab Scanned Report BLOOD TRANSFUSION Medications Medications Current Medications Sodium Chloride (NS) 1,000 ml @ 125 mls/hr Q8H IV Last administered on t 06:26; Admin Dose 125 MLS/HR; Start 10/22/17 at 18:11 Acetaminophen (Tylenol Tab) 650 mg Q6H PRN PO PAIN LEVEL 1-3 OR FEVER; Start 10/22/17 at 18:30 Zolpidem Tartrate (Ambien) 5 mg QHS PRN PO INSOMNIA; Start 10/22/17 at 18:30 Amiodarone HCl (Cordarone) 100 mg DAILY PO Last administered on 10/25/17 09:22 ; Admin Dose 100 MG; Start 10/23/17 at 09:00 Cevimeline HCl (Evoxac) 30 mg QID PO Last administered on 10/25/17 09:20; Admin Dose 30 MG; Start 10/22/17 at 21:00 Cyanocobalamin (Vitamin B12) 1,000 mcg DAILY PO Last administered on 10/25/17 09:22; Admin Dose 1,000 MCG; Start 10/23/17 at 09:00 Folic Acid (Folic Acid) 0.8 mg DAILY PO Last administered on 10/25/17 09:20; Admin Dose 0.8 MG; Start 10/23/17 at 09:00 Levothyroxine Sodium (Synthroid) 25 mcg DAILY@06 PO Last administered on 06:27; Admin Dose 25 MCG; Start 10/23/17 at 06:00 Metoprolol Succinate (Toprol Xl) 50 mg DAILY PO Last administered on 10/25/17 09:20; Admin Dose 50 MG; Start 10/23/17 at 09:00 Atorvastatin Calcium (Lipitor) 10 mg DAILY@21 PO Last administered on 21:02; Admin Dose 10 MG; Start 10/22/17 at 21:00 Pantoprazole (Protonix Tab) 40 mg DAILY@06 PO Last administered on 10/25/17 06 :27; Admin Dose 40 MG; Start 10/22/17 at 19:00 Acetaminophen/ Hydrocodone Bitart ([place] (10/325)) 1 tab Q4H PRN PO SEVERE PAIN LEVEL 7-10 Last administered on 10/23/17 01:35; Admin Dose 1 TAB; Start 10/22/17 at 21:30 Tramadol HCl 50 mg 50 mg Q6H PRN PO PAIN LEVEL 4-6 Last administered on 23:46; Admin Dose 50 MG; Start 10/22/17 at 21:30 Piperacillin Sod/ Tazobactam Sod 50 ml @ 100 mls/hr Q8 IVPB Last administered on 10/25/17 06:26; Admin Dose 100 MLS/HR; Start 10/23/17 at 17:00 Vancomycin HCl/ Dextrose/Water (Vancocin/D5W) 150 ml @ 75 mls/hr Q36H IVPB Last administered on 10/25/17 06:27; Admin Dose 75 MLS/HR; Start 10/25/17 at 06 :00 HENRIQUE HU MD Oct 25, 2017 12:43
[2017-10-25] MEDS: L ACIDOPHIL/B LACTIS/B LONGUM CAPSULE PO SCH ×2 (13:01→22:32)
[2017-10-25] MEDS ORDERED: VITAMIN A & D 5 GM OINT PACKET TOP ONE (13:43)
[2017-10-25 14:00] VITALS: BP 179/86; RESP 18
--- NOTE | 2017-10-25 14:17 | CONS ---
Date/Time of Note Date/Time of Note DATE: 10/25/17 TIME: 14:08 Assessment/Plan Assessment/Plan Additional Assessment/Plan Acute blood loss anemia Psoas muscle hematoma Paroxysmal atrial fibrillation, currently likely sinus rhythm Cardiomyopathy with ejection fraction 45% Hypertension Status post mechanical fall -Patient with acute blood loss anemia with coagulopathy and so as an iliac muscle hematoma seen on CT. Patient status post vitamin K and FFP as well as PRBC transfusion undergoing now. Would hold off on anticoagulation at the current time. Would obtain ECG, patient appears to be in sinus rhythm at the current time. Would continue beta-kenyon and amiodarone to help maintain in sinus rhythm. Renal function is improving. Consultation Date/Type/Reason Admit Date/Time Oct 22, 2017 at 18:10 Type of Consultation: cv Reason for Consultation History of paroxysmal atrial fibrillation Hx of Present Illness This is a 77-year-old female with past medical history of paroxysmal atrial fibrillation on anticoagulation, hypertension, thyroid dysfunction who presents after mechanical fall approximately week and a half ago. Patient diagnosed with a sprained ankle. Patient with progressive worsening pain as well as fatigue and bruising noted throughout the left leg and left side of body where she fell. Patient admitted. Patient found to be in acute kidney injury, coagulopathy and acute blood loss anemia. Patient status post vitamin K and FFP and currently undergoing blood transfusion. She denies any chest pain, palpitations at the current time, shortness of breath or dizziness. He does get intermittent palpitations once or twice a week usually associated with anxiety. She is currently feeling better since her admission. 12 point review of systems was performed with all pertinent positives and negatives mentioned above and all else is negative Past Medical History Paroxysmal atrial fibrillation History of cardiomyopathy with ejection fraction 45% Hypertension Hypothyroidism Family History Significant Family History: no pertinent family hx Social History Smoking Status: Never smoker Exam/Review of Systems Vital Signs Vitals Vital Signs Date Time Temp Pulse Resp B/P Pulse Ox O2 Delivery O2 Flow Rate FiO2 10/25/17 08:21 98.5 78 18 140/76 96 10/24/17 04:20 Room Air Intake and Output 10/24/17 10/24/17 10/25/17 15:00 23:00 07:00 Intake Total 625 ml 820 ml 1100 ml Balance 625 ml 820 ml 1100 ml Exam No apparent distress, at bedside Constitutional: alert, oriented Head: normocephalic Respiratory: other (Coarse breath sounds bilaterally, no wheezing) Cardiovascular: other (S1-S2 heard), regular rate and rhythm Gastrointestinal: bowel sounds, non-tender, soft Extremities: edema, other (Ecchymosis left lower extremity) Results Result Diagram: 10/25/1718 10/25/17 0518 Results 24 hrs Laboratory Tests Test 10/24/17 23:19 10/25/17 05:18 10/25/17 06:16 White Blood Count 5.8 5.5 Red Blood Count 2.75 L 2.71 L Hemoglobin 7.9 L 7.8 L Hematocrit 22.8 L 22.7 L Mean Corpuscular Volume 82.9 83.8 Mean Corpuscular Hemoglobin 28.7 L 28.8 L Mean Corpuscular Hemoglobin Concent 34.6 34.4 Red Cell Distribution Width Platelet Count 146 157 Mean Platelet Volume 9.7 10.4 Neutrophils % 82.0 H 81.2 H Lymphocytes % 7.5 L 8.3 L Monocytes % 7.8 7.6 Eosinophils % 1.6 2.0 Basophils % 0.2 0.2 Nucleated Red Blood Cells % 0.0 0.0 Neutrophils # 4.7 4.5 Lymphocytes # 0.4 L 0.5 L Monocytes # 0.5 0.4 Eosinophils # 0.1 0.1 Basophils # 0.0 0.0 Nucleated Red Blood Cells # 0.0 0.0 Prothrombin Time 17.0 #H 15.2 H Prothrombin Time Ratio 1.3 1.2 INR International Normalized Ratio 1.31 1.18 Sodium Level 141 141 Potassium Level 4.3 4.3 Chloride Level 108 109 Carbon Dioxide Level 27 28 Anion Gap 10 8 Blood Urea Nitrogen 33 #H 27 H Creatinine 1.22 H 1.11 H Glucose Level 99 94 Calcium Level 8.3 L 8.3 L Total Bilirubin 2.0 H 1.6 H Direct Bilirubin 0.00 0.00 Indirect Bilirubin 2.0 H 1.6 H Aspartate Amino Transf (AST/SGOT) 30 30 Alanine Aminotransferase (ALT/SGPT) 29 30 Alkaline Phosphatase 42 43 Total Protein 5.6 L 5.4 L Albumin 2.6 L 2.5 L Globulin 3.00 2.90 Albumin/Globulin Ratio 0.86 0.86 Lab Scanned Report BLOOD TRANSFUSION Medications Medications Current Medications Sodium Chloride (NS) 1,000 ml @ 125 mls/hr Q8H IV Last administered on 06:26; Admin Dose 125 MLS/HR; Start 10/22/17 at 18:11 Acetaminophen (Tylenol Tab) 650 mg Q6H PRN PO PAIN LEVEL 1-3 OR FEVER; Start 10/22/17 at 18:30 Zolpidem Tartrate (Ambien) 5 mg QHS PRN PO INSOMNIA; Start 10/22/17 at 18:30 Amiodarone HCl (Cordarone) 100 mg DAILY PO Last administered on 10/25/17 09:22 ; Admin Dose 100 MG; Start 10/23/17 at 09:00 Cevimeline HCl (Evoxac) 30 mg QID PO Last administered on 10/25/17 13:01; Admin Dose 30 MG; Start 10/22/17 at 21:00 Cyanocobalamin (Vitamin B12) 1,000 mcg DAILY PO Last administered on 10/25/17 09:22; Admin Dose 1,000 MCG; Start 10/23/17 at 09:00 Folic Acid (Folic Acid) 0.8 mg DAILY PO Last administered on 10/25/17 09:20; Admin Dose 0.8 MG; Start 10/23/17 at 09:00 Levothyroxine Sodium (Synthroid) 25 mcg DAILY@06 PO Last administered on 06:27; Admin Dose 25 MCG; Start 10/23/17 at 06:00 Metoprolol Succinate (Toprol Xl) 50 mg DAILY PO Last administered on 10/25/17 09:20; Admin Dose 50 MG; Start 10/23/17 at 09:00 Atorvastatin Calcium (Lipitor) 10 mg DAILY@21 PO Last administered on 21:02; Admin Dose 10 MG; Start 10/22/17 at 21:00 Pantoprazole (Protonix Tab) 40 mg DAILY@06 PO Last administered on 10/25/17 06 :27; Admin Dose 40 MG; Start 10/22/17 at 19:00 Acetaminophen/ Hydrocodone Bitart ([place] (10/325)) 1 tab Q4H PRN PO SEVERE PAIN LEVEL 7-10 Last administered on 10/23/17 01:35; Admin Dose 1 TAB; Start 10/22/17 at 21:30 Tramadol HCl 50 mg 50 mg Q6H PRN PO PAIN LEVEL 4-6 Last administered on 23:46; Admin Dose 50 MG; Start 10/22/17 at 21:30 Piperacillin Sod/ Tazobactam Sod (Zosyn 2.25gm/ 50ml (Pmx)) 50 ml @ 100 mls/hr Q8 IVPB Last administered on 10/25/17 06:26; Admin Dose 100 MLS/HR; Start 10/23/17 at 17:00 Lactobacillus Acidophilus (Florajen3 Capsule) 1 each BID PO Last administered on 10/25/17 13:01; Admin Dose 1 EACH; Start 10/25/17 at 13:00 Gabriel Chau DO Oct 25, 2017 14:17
[2017-10-25 15:25] VITALS: BP 126/74; PULSE 67; RESP 17
--- NOTE | 2017-10-25 16:44 | PN ---
Date/Time of Note Date/Time of Note DATE: 10/25/17 TIME: 16:36 Assessment/Plan VTE Prophylaxis VTE Prophylaxis Intervention: other Lines/Catheters IV Catheter Type (from Nrsg): Peripheral IV Assessment/Plan Assessment/Plan Resolving hematoma of left ankle Graded 2 sprain of the left ankle Plan: We will start PT and ambulation, when cleared to ambulate by Dr. Alvarado Subjective 24 Hr Interval Summary Free Text/Dictation No acute events. Patient is comfortable. Her pain is improving. She remains on bed rest, 2/2 to multiple hemarthrosis Constitutional: No chills, No diaphoresis, No disoriented, No febrile, No improved, No no complaints, No other, No poor po, No requiring IVF, No requiring O2 Eyes: No discharge, No no complaints, No other, No pain, No redness, No visual change ENT: No bleeding, No congestion, No discharge, No dysphagia, No no complaints, No other, No pain, No sore throat Respiratory: No cough, No no complaints, No other, No pain, No pleuritic pain, No shortness of breath, No sputum, No wheezing Cardiovascular: No chest pain, No edema, No lightheadedness, No no complaints, No orthopenea, No other, No palpitations, No paroxysmal nocturnal dyspnea Gastrointestinal: No blood, No constipation, No decreased appetite, No diarrhea , No flatus, No nausea, No no complaints, No other, No pain, No passing stool, No vomiting Genitourinary: No bleeding, No discharge, No dysuria, No flank pain, No hematuria, No no complaints, No other Musculoskeletal: no complaints, other Skin: no complaints, other, skin lesions Neurologic: no complaints Psychological: no complaints Exam/Review of Systems Vital Signs Vitals Vital Signs Date Time Temp Pulse Resp B/P Pulse Ox O2 Delivery O2 Flow Rate FiO2 10/25/17 15:25 98.0 67 17 126/74 98 Room Air Intake and Output 10/24/17 10/24/17 10/25/17 15:00 23:00 07:00 Intake Total 625 ml 820 ml 1100 ml Balance 625 ml 820 ml 1100 ml Results Skin blisters are healing on R ankle. New tegaderm applied. Resolving swelling and ecchymosis with improved range of motion, and strength intact. Result Diagram: 10/25/1718 10/25/1718 Results 24 hrs Laboratory Tests Test 10/24/17 23:19 10/25/17 05:18 10/25/17 06:16 White Blood Count 5.8 5.5 Red Blood Count 2.75 L 2.71 L Hemoglobin 7.9 L 7.8 L Hematocrit 22.8 L 22.7 L Mean Corpuscular Volume 82.9 83.8 Mean Corpuscular Hemoglobin 28.7 L 28.8 L Mean Corpuscular Hemoglobin Concent 34.6 34.4 Red Cell Distribution Width Platelet Count 146 157 Mean Platelet Volume 9.7 10.4 Neutrophils % 82.0 H 81.2 H Lymphocytes % 7.5 L 8.3 L Monocytes % 7.8 7.6 Eosinophils % 1.6 2.0 Basophils % 0.2 0.2 Nucleated Red Blood Cells % 0.0 0.0 Neutrophils # 4.7 4.5 Lymphocytes # 0.4 L 0.5 L Monocytes # 0.5 0.4 Eosinophils # 0.1 0.1 Basophils # 0.0 0.0 Nucleated Red Blood Cells # 0.0 0.0 Prothrombin Time 17.0 #H 15.2 H Prothrombin Time Ratio 1.3 1.2 INR International Normalized Ratio 1.31 1.18 Sodium Level 141 141 Potassium Level 4.3 4.3 Chloride Level 108 109 Carbon Dioxide Level 27 28 Anion Gap 10 8 Blood Urea Nitrogen 33 #H 27 H Creatinine 1.22 H 1.11 H Glucose Level 99 94 Calcium Level 8.3 L 8.3 L Total Bilirubin 2.0 H 1.6 H Direct Bilirubin 0.00 0.00 Indirect Bilirubin 2.0 H 1.6 H Aspartate Amino Transf (AST/SGOT) 30 30 Alanine Aminotransferase (ALT/SGPT) 29 30 Alkaline Phosphatase 42 43 Total Protein 5.6 L 5.4 L Albumin 2.6 L 2.5 L Globulin 3.00 2.90 Albumin/Globulin Ratio 0.86 0.86 Lab Scanned Report BLOOD TRANSFUSION Imaging Free Text/Dictation MRI obtained on 10/23/17 demonstrates hematoma within the sub cutaneous tissue of the lateral ankle over the distal fibula, with surrounding soft tissue edema. She has scarring surrounding the lateral ligaments. Medications Medications Current Medications Sodium Chloride (NS) 1,000 ml @ 125 mls/hr Q8H IV Last administered on t 06:26; Admin Dose 125 MLS/HR; Start 10/22/17 at 18:11 Acetaminophen (Tylenol Tab) 650 mg Q6H PRN PO PAIN LEVEL 1-3 OR FEVER; Start 10/22/17 at 18:30 Zolpidem Tartrate (Ambien) 5 mg QHS PRN PO INSOMNIA; Start 10/22/17 at 18:30 Amiodarone HCl (Cordarone) 100 mg DAILY PO Last administered on 10/25/17 09:22 ; Admin Dose 100 MG; Start 10/23/17 at 09:00 Cevimeline HCl (Evoxac) 30 mg QID PO Last administered on 10/25/17 13:01; Admin Dose 30 MG; Start 10/22/17 at 21:00 Cyanocobalamin (Vitamin B12) 1,000 mcg DAILY PO Last administered on 10/25/17 09:22; Admin Dose 1,000 MCG; Start 10/23/17 at 09:00 Folic Acid (Folic Acid) 0.8 mg DAILY PO Last administered on 10/25/17 09:20; Admin Dose 0.8 MG; Start 10/23/17 at 09:00 Levothyroxine Sodium (Synthroid) 25 mcg DAILY@06 PO Last administered on 06:27; Admin Dose 25 MCG; Start 10/23/17 at 06:00 Metoprolol Succinate (Toprol Xl) 50 mg DAILY PO Last administered on 10/25/17 09:20; Admin Dose 50 MG; Start 10/23/17 at 09:00 Atorvastatin Calcium (Lipitor) 10 mg DAILY@21 PO Last administered on 21:02; Admin Dose 10 MG; Start 10/22/17 at 21:00 Pantoprazole (Protonix Tab) 40 mg DAILY@06 PO Last administered on 10/25/17 06 :27; Admin Dose 40 MG; Start 10/22/17 at 19:00 Acetaminophen/ Hydrocodone Bitart ([place] (10/325)) 1 tab Q4H PRN PO SEVERE PAIN LEVEL 7-10 Last administered on 10/23/17 01:35; Admin Dose 1 TAB; Start 10/22/17 at 21:30 Tramadol HCl 50 mg 50 mg Q6H PRN PO PAIN LEVEL 4-6 Last administered on 23:46; Admin Dose 50 MG; Start 10/22/17 at 21:30 Piperacillin Sod/ Tazobactam Sod (Zosyn 2.25gm/ 50ml (Pmx)) 50 ml @ 100 mls/hr Q8 IVPB Last administered on 10/25/17 15:19; Admin Dose 100 MLS/HR; Start 10/23/17 at 17:00 Lactobacillus Acidophilus (Florajen3 Capsule) 1 each BID PO Last administered on 10/25/17 13:01; Admin Dose 1 EACH; Start 10/25/17 at 13:00 Procedures Procedures none SHERIE DESAI MD Oct 25, 2017 16:44
[2017-10-25] MEDS: ACETAMINOPHEN 325 MG TAB PO PRN (16:53)
[2017-10-25] MEDS ORDERED: LIDOCAINE 5% 35 GM OINT TOP PRN ×2 (18:30→19:00)
[2017-10-25] MEDS ORDERED: AL HYDROX/MG TRISILICATE TAB PO PRN (19:00)
[2017-10-25 20:00] VITALS: BP 167/77; RESP 19
[2017-10-25] MEDS: ATORVASTATIN 10 MG TAB PO SCH (22:32)
[2017-10-26] MEDS: LORAZEPAM 0.5 MG TAB PO PRN (00:57)
[2017-10-26 02:00] VITALS: BP 145/77; RESP 19
--- NOTE | 2017-10-26 05:39 | CONS ---
DATE OF ADMISSION: 10/22/2017 DATE OF CONSULTATION: 10/24/2017 ORTHOPEDIC CONSULTATION CHIEF COMPLAINT: Left ankle pain and swelling. HISTORY OF PRESENT ILLNESS: The patient is a 77-year-old female with a 1-week history of swelling after an inversion injury to her left ankle. At the time she fell getting out of the bathtub on 10/13/2017. Apparently, patient has been warfarin per Dr. Dey for atrial fibrillation. She was seen in our office 10/19/2017, found to have a great deal of swelling in her ankle with fracture blisters. She was placed in a splint at rest, given a leg wedge pillow and told to elevate. She was felt to have the contusions and soft tissue swelling due to her Coumadin and INR being greater than 4. Subsequently , she had a further problem with her groin and inability to walk and was admitted by Dr. Dey and his staff on 10/22/2017. PAST AND PRESENT ILLNESS: As above. PAST MEDICAL HISTORY: Positive for chronic kidney disease, atrial fibrillation , mitral valve insufficiency, anemia, leukopenia, dyslipidemia, osteopenia, Sicca syndrome, thyroid nodule, hypothyroidism and hypertension. FAMILY HISTORY: Positive for prostate cancer and heart disease. SOCIAL HISTORY: Does not smoke, drinks socially. PHYSICAL EXAMINATION: GENERAL: Pleasant female, oriented x3. VITAL SIGNS: Blood pressure is 104/64, pulse of 70, respirations of 14. ORTHOPEDIC: Her splint was removed. The blisters are improving. There is resolving ecchymosis and swelling. There is pain diffusely about the ankle. Decreased range of motion, decreased strength, good stability. NEUROLOGIC: Intact. ASSESSMENT: 1. Grade II sprain of the left ankle with fracture blisters secondary to her Coumadin being out of control and her recent fall. 2. Apparent left groin pain, rule out secondary to a bleeding problem. 3. Anemia secondary to her bleeding problem. 4. History of chronic kidney disease. 5. Hypertension. 6. Sjogren's syndrome/Sicca syndrome. 7. Dyslipidemia. 8. Hypothyroid. 9. Dehydration. PLAN: 1. Splint will remain off. 2. Elevation of the ankle. 3. She will be on bed rest until they can get her coagulation problem under control. 4. MRI will be done of her left ankle. We will review it in the future. Dictated By: SHERIE DESAI MD RF/NTS Conf#: [id number] DID#: [id number] CC: BELLA DEY MD;*EndCC* MTDD
[2017-10-26] MEDS: PIPER-TAZO 2.25 GM (PMX) 50 ML IVPB SCH (06:25)
[2017-10-26] MEDS: PANTOPRAZOLE (EC) 40 MG TAB PO SCH (06:25)
[2017-10-26] MEDS: LEVOTHYROXINE 25 MCG TAB PO SCH (06:25)
[2017-10-26 07:33] LABS: ABNORMAL IP MESSAGE 1; BASOPHILS % 0.3 % (0.0-2.0); EOSINOPHILS # 0.1 10^3/ul (0.0-0.5); EOSINOPHILS % 1.5 % (0.0-7.0); HEMATOCRIT 28.3 % (37.0-47.0); HEMOGLOBIN 9.6 g/dl (12.0-16.0); LYMPHOCYTES # 0.4 10^3/ul (0.8-2.9); LYMPHOCYTES % 5.8 % (15.0-51.0); MEAN CORPUSCULAR HEMOGLOBIN 28.6 pg (29.0-33.0); MEAN CORPUSCULAR HGB CONC 33.9 g/dl (32.0-37.0); MEAN CORPUSCULAR VOLUME 84.2 fl (82.0-101.0); MEAN PLATELET VOLUME 10.1 fl (7.4-10.4); MONOCYTE # 0.4 10^3/ul (0.3-0.9); MONOCYTES % 6.6 % (0.0-11.0); NEUTROPHIL # 5.5 10^3/ul (1.6-7.5); NEUTROPHILS % 84.4 % (39.0-77.0); PLATELET COUNT 181 10^3/UL (140-415); RED BLOOD COUNT 3.36 10^6/ul (4.20-5.40); RED CELL DISTRIBUTION WIDTH 25.3 % (11.5-14.5); WHITE BLOOD COUNT 6.5 10^3/ul (4.8-10.8)
[2017-10-26 07:55] LABS: INR 1.1; PROTIME 14.4 Sec (11.9-14.9); PT RATIO 1.1
[2017-10-26 08:09] LABS: BILIRUBIN,INDIRECT 1.9 mg/dl (0-1.1); BILIRUBIN,TOTAL 1.9 mg/dl (0.2-1.3); CALCIUM 8.4 mg/dl (8.4-10.2); CREATININE 1.02 mg/dl (0.44-1.00); POTASSIUM 4.2 mmol/L (3.5-5.1)
[2017-10-26 08:23] VITALS: BP 155/74; RESP 18
--- NOTE | 2017-10-26 08:27 | PN ---
Date/Time of Note Date/Time of Note DATE: 10/26/17 TIME: 08:22 Assessment/Plan VTE Prophylaxis VTE Prophylaxis Intervention: contraindicated Lines/Catheters IV Catheter Type (from Nrs): Peripheral IV Reason Cath still needed: urinary retention Assessment/Plan Chief Complaint/Hosp Course 1. Left ankle pain after ankle sprain. Patient also developed ecchymoses and hematoma in the left ankle, the left hip, and some iliopsoas retroperitoneal bleeding. She is having less pain in the left ankle and left hip. 2. coagulopathy due to being over coumadinized. This has corrected with FFP and vitamin K. Her coagulation is now corrected. 3. Anemia. The patient's blood count is still low we will transfuse 1 unit of blood today. Her blood count is higher today. She will have stool sent for occult blood to make sure she is not bleeding in her GI tract. 4. Atrial fibrillation , she is being seen by cardiology. 5. Acute renal failure now improved 6. Abdominal pain with intermittent diarrhea 7. Urinary tract infection on antibiotics , she is being seen by infectious disease specialist. Problems: Subjective 24 Hr Interval Summary Free Text/Dictation She is in bed. She complains of some intermittent rectal pain when she has to have a bowel movement. She feels like she is impacted although she was checked yesterday and no impaction was found low down in the rectum. Eyes: no complaints ENT: no complaints Respiratory: no complaints Cardiovascular: no complaints Gastrointestinal: decreased appetite, pain, passing stool Musculoskeletal: bone/joint pain Exam/Review of Systems Vital Signs Vitals Vital Signs Date Time Temp Pulse Resp B/P Pulse Ox O2 Delivery O2 Flow Rate FiO2 10/26/17 02:00 98.0 71 19 145/77 97 10/25/17 15:25 Room Air Intake and Output 10/25/17 10/25/17 10/26/17 15:00 23:00 07:00 Intake Total 150 ml 1850 ml 650 ml Output Total 1550 ml 900 ml Balance 150 ml 300 ml -250 ml Exam Left ankle is swollen and ecchymotic. Constitutional: alert, oriented, well developed Neck: non-tender, supple Respiratory: clear to auscultation, normal air movement Cardiovascular: regular rate and rhythm Gastrointestinal: non-tender, soft Results Result Diagram: 10/26/17 0639 10/26/17 0638 Results 24 hrs Laboratory Tests Test 10/26/17 05:48 10/26/17 06:38 10/26/17 06:39 Lab Scanned Report BLOOD TRANSFUSION Sodium Level 141 Potassium Level 4.2 Chloride Level 109 Carbon Dioxide Level 25 Anion Gap 11 Blood Urea Nitrogen 19 Creatinine 1.02 H Glucose Level 94 Calcium Level 8.4 Total Bilirubin 1.9 H Direct Bilirubin 0.00 Indirect Bilirubin 1.9 H Aspartate Amino Transf (AST/SGOT) 29 Alanine Aminotransferase (ALT/SGPT) 31 Alkaline Phosphatase 50 C-Reactive Protein 3.3 H Total Protein 6.0 L Albumin 3.0 L Globulin 3.00 Albumin/Globulin Ratio 1.00 White Blood Count 6.5 Red Blood Count 3.36 #L Hemoglobin 9.6 #L Hematocrit 28.3 #L Mean Corpuscular Volume 84.2 Mean Corpuscular Hemoglobin 28.6 L Mean Corpuscular Hemoglobin Concent 33.9 Red Cell Distribution Width 25.3 #H Platelet Count 181 Mean Platelet Volume 10.1 Neutrophils % 84.4 H Lymphocytes % 5.8 L Monocytes % 6.6 Eosinophils % 1.5 Basophils % 0.3 Nucleated Red Blood Cells % 0.0 Neutrophils # 5.5 Lymphocytes # 0.4 L Monocytes # 0.4 Eosinophils # 0.1 Basophils # 0.0 Nucleated Red Blood Cells # 0.0 Prothrombin Time 14.4 Prothrombin Time Ratio 1.1 INR International Normalized Ratio 1.10 Medications Medications Current Medications Sodium Chloride (NS) 1,000 ml @ 50 mls/hr Q20H IV Last administered on 22:33; Admin Dose 50 MLS/HR; Start 10/22/17 at 18:11 Acetaminophen (Tylenol Tab) 650 mg Q6H PRN PO PAIN LEVEL 1-3 OR FEVER Last administered on 10/25/17 16:53; Admin Dose 650 MG; Start 10/22/17 at 18:30 Zolpidem Tartrate (Ambien) 5 mg QHS PRN PO INSOMNIA; Start 10/22/17 at 18:30 Amiodarone HCl (Cordarone) 100 mg DAILY PO Last administered on 10/25/17 09:22 ; Admin Dose 100 MG; Start 10/23/17 at 09:00 Cevimeline HCl (Evoxac) 30 mg QID PO Last administered on 10/25/17 22:32; Admin Dose 30 MG; Start 10/22/17 at 21:00 Cyanocobalamin (Vitamin B12) 1,000 mcg DAILY PO Last administered on 10/25/17 09:22; Admin Dose 1,000 MCG; Start 10/23/17 at 09:00 Folic Acid (Folic Acid) 0.8 mg DAILY PO Last administered on 10/25/17 09:20; Admin Dose 0.8 MG; Start 10/23/17 at 09:00 Levothyroxine Sodium (Synthroid) 25 mcg DAILY@06 PO Last administered on 06:25; Admin Dose 25 MCG; Start 10/23/17 at 06:00 Metoprolol Succinate (Toprol Xl) 50 mg DAILY PO Last administered on 10/25/17 09:20; Admin Dose 50 MG; Start 10/23/17 at 09:00 Atorvastatin Calcium (Lipitor) 10 mg DAILY@21 PO Last administered on 22:32; Admin Dose 10 MG; Start 10/22/17 at 21:00 Pantoprazole (Protonix Tab) 40 mg DAILY@06 PO Last administered on 10/26/17 06 :25; Admin Dose 40 MG; Start 10/22/17 at 19:00 Acetaminophen/ Hydrocodone Bitart ([place] (10/325)) 1 tab Q4H PRN PO SEVERE PAIN LEVEL 7-10 Last administered on 10/23/17 01:35; Admin Dose 1 TAB; Start 10/22/17 at 21:30 Tramadol HCl 50 mg 50 mg Q6H PRN PO PAIN LEVEL 4-6 Last administered on 23:46; Admin Dose 50 MG; Start 10/22/17 at 21:30 Piperacillin Sod/ Tazobactam Sod (Zosyn 2.25gm/ 50ml (Pmx)) 50 ml @ 100 mls/hr Q8 IVPB Last administered on 10/26/17 06:25; Admin Dose 100 MLS/HR; Start 10/23/17 at 17:00 Lactobacillus Acidophilus (Florajen3 Capsule) 1 each BID PO Last administered on 10/25/17 22:32; Admin Dose 1 EACH; Start 10/25/17 at 13:00 Lidocaine (Lidocaine 5% Oint) 1 applic QID PRN TOP PAIN; Start 10/25/17 at 18: 30 Al Hydroxide/Mg Trisilicate (Gaviscon) 2 tab QID PRN PO DISTENSION/GAS/ BLOATING Last administered on 10/25/17 22:32; Admin Dose 2 TAB; Start 10/25/17 at 19:00 Lidocaine (Lidocaine 5% Oint) 1 applic QID PRN TOP PAIN; Start 10/25/17 at 19: 00 Lorazepam (Ativan) 0.5 mg Q6H PRN PO ANXIETY Last administered on 10/26/17 00: 57; Admin Dose 0.5 MG; Start 10/26/17 at 01:00 BELLA DEY MD Oct 26, 2017 08:27
[2017-10-26] MEDS: DOCUSATE SODIUM 100 MG CAP PO SCH ×2 (09:56→20:38)
[2017-10-26] MEDS: L ACIDOPHIL/B LACTIS/B LONGUM CAPSULE PO SCH ×2 (09:56→20:37)
[2017-10-26] MEDS: CEVIMELINE 30 MG CAP PO SCH ×4 (09:57→20:37)
[2017-10-26] MEDS: CYANOCOBALAMIN 500 MCG TAB PO SCH (09:58)
[2017-10-26] MEDS: METOPROLOL (XL) 50 MG TAB PO SCH (09:58)
[2017-10-26] MEDS: AMIODARONE 200 MG TAB PO SCH (09:59)
[2017-10-26] MEDS: FOLIC ACID 0.4 MG TAB PO SCH (09:59)
--- NOTE | 2017-10-26 10:14 | CONS ---
Date/Time of Note Date/Time of Note DATE: 10/26/17 TIME: 10:09 Assessment/Plan Assessment/Plan Chief Complaint/Hosp Course 1) subq hematomas to L hip and L ankle doubt there is an active infection d/c vanco at this time check ESR, CRP in a.m. 10/26 - mild-mod elevation of ESR, CRP ecchymoses are further up the calf, doubt active infection 2) pyuria with e.coli in urine continue with zosyn and change to a simpler antibiotic when sensi's come back tomorrow urine cx was done after zosyn had already be given 10/26 - e.coli is likely significant since pt had urine collected after a dose of zosyn had been given d/c zosyn and start keflex and continue thru 10/29/17 3) CRI with an acute component this appears to have resolved 4) diverticulosis pt developed diarrhea after her admission and likely related to the antibiotics start with probiotic 5) HTN 6) hypothyroidisim Problems: Consultation Date/Type/Reason Admit Date/Time Oct 22, 2017 at 18:10 Initial Consult Date 10/25/17 Type of Consultation: ID [id number] HR Interval Summary Free Text/Dictation pt has some constipation no N, V, no SOB Pain to L ankle is overall improved, no current L hip pain Exam/Review of Systems Vital Signs Vitals Vital Signs Date Time Temp Pulse Resp B/P Pulse Ox O2 Delivery O2 Flow Rate FiO2 10/26/17 08:23 98.0 68 18 155/74 97 10/25/17 15:25 Room Air Intake and Output 10/25/17 10/25/17 10/26/17 15:00 23:00 07:00 Intake Total 150 ml 1850 ml 650 ml Output Total 1550 ml 900 ml Balance 150 ml 300 ml -250 ml Exam Constitutional: alert, oriented Eyes: nl sclera ENMT: mucosa pink and moist Respiratory: clear to auscultation Cardiovascular: regular rate and rhythm Gastrointestinal: non-tender, soft Extremities: other (L ankle has ecchymosis extending to mid calf, warmth overall the calf and ankle, minimal redness to lateral malleolus area) Results Result Diagram: 10/26/17 0639 10/26/17 0638 Results 24 hrs Laboratory Tests Test 10/26/17 05:48 10/26/17 06:38 10/26/17 06:39 Lab Scanned Report BLOOD TRANSFUSION Sodium Level 141 Potassium Level 4.2 Chloride Level 109 Carbon Dioxide Level 25 Anion Gap 11 Blood Urea Nitrogen 19 Creatinine 1.02 H Glucose Level 94 Calcium Level 8.4 Total Bilirubin 1.9 H Direct Bilirubin 0.00 Indirect Bilirubin 1.9 H Aspartate Amino Transf (AST/SGOT) 29 Alanine Aminotransferase (ALT/SGPT) 31 Alkaline Phosphatase 50 C-Reactive Protein 3.3 H Total Protein 6.0 L Albumin 3.0 L Globulin 3.00 Albumin/Globulin Ratio 1.00 White Blood Count 6.5 Red Blood Count 3.36 #L Hemoglobin 9.6 #L Hematocrit 28.3 #L Mean Corpuscular Volume 84.2 Mean Corpuscular Hemoglobin 28.6 L Mean Corpuscular Hemoglobin Concent 33.9 Red Cell Distribution Width 25.3 #H Platelet Count 181 Mean Platelet Volume 10.1 Neutrophils % 84.4 H Lymphocytes % 5.8 L Monocytes % 6.6 Eosinophils % 1.5 Basophils % 0.3 Nucleated Red Blood Cells % 0.0 Neutrophils # 5.5 Lymphocytes # 0.4 L Monocytes # 0.4 Eosinophils # 0.1 Basophils # 0.0 Nucleated Red Blood Cells # 0.0 Erythrocyte Sedimentation Rate 45 H Prothrombin Time 14.4 Prothrombin Time Ratio 1.1 INR International Normalized Ratio 1.10 Medications Medications Current Medications Sodium Chloride (NS) 1,000 ml @ 50 mls/hr Q20H IV Last administered on 22:33; Admin Dose 50 MLS/HR; Start 10/22/17 at 18:11 Acetaminophen (Tylenol Tab) 650 mg Q6H PRN PO PAIN LEVEL 1-3 OR FEVER Last administered on 10/25/17 16:53; Admin Dose 650 MG; Start 10/22/17 at 18:30 Zolpidem Tartrate (Ambien) 5 mg QHS PRN PO INSOMNIA; Start 10/22/17 at 18:30 Amiodarone HCl (Cordarone) 100 mg DAILY PO Last administered on 10/26/17 09:59 ; Admin Dose 100 MG; Start 10/23/17 at 09:00 Cevimeline HCl (Evoxac) 30 mg QID PO Last administered on 10/26/17 09:57; Admin Dose 30 MG; Start 10/22/17 at 21:00 Cyanocobalamin (Vitamin B12) 1,000 mcg DAILY PO Last administered on 10/26/17 09:58; Admin Dose 1,000 MCG; Start 10/23/17 at 09:00 Folic Acid (Folic Acid) 0.8 mg DAILY PO Last administered on 10/26/17 09:59; Admin Dose 0.8 MG; Start 10/23/17 at 09:00 Levothyroxine Sodium (Synthroid) 25 mcg DAILY@06 PO Last administered on 06:25; Admin Dose 25 MCG; Start 10/23/17 at 06:00 Metoprolol Succinate (Toprol Xl) 50 mg DAILY PO Last administered on 10/26/17 09:58; Admin Dose 50 MG; Start 10/23/17 at 09:00 Atorvastatin Calcium (Lipitor) 10 mg DAILY@21 PO Last administered on 22:32; Admin Dose 10 MG; Start 10/22/17 at 21:00 Pantoprazole (Protonix Tab) 40 mg DAILY@06 PO Last administered on 10/26/17 06 :25; Admin Dose 40 MG; Start 10/22/17 at 19:00 Acetaminophen/ Hydrocodone Bitart ([place] (10/325)) 1 tab Q4H PRN PO SEVERE PAIN LEVEL 7-10 Last administered on 10/23/17 01:35; Admin Dose 1 TAB; Start 10/22/17 at 21:30 Tramadol HCl 50 mg 50 mg Q6H PRN PO PAIN LEVEL 4-6 Last administered on 23:46; Admin Dose 50 MG; Start 10/22/17 at 21:30 Piperacillin Sod/ Tazobactam Sod (Zosyn 2.25gm/ 50ml (Pmx)) 50 ml @ 100 mls/hr Q8 IVPB Last administered on 10/26/17 06:25; Admin Dose 100 MLS/HR; Start 10/23/17 at 17:00 Lactobacillus Acidophilus (Florajen3 Capsule) 1 each BID PO Last administered on 10/26/17 09:56; Admin Dose 1 EACH; Start 10/25/17 at 13:00 Lidocaine (Lidocaine 5% Oint) 1 applic QID PRN TOP PAIN; Start 10/25/17 at 18: 30 Al Hydroxide/Mg Trisilicate (Gaviscon) 2 tab QID PRN PO DISTENSION/GAS/ BLOATING Last administered on 10/25/17 22:32; Admin Dose 2 TAB; Start 10/25/17 at 19:00 Lidocaine (Lidocaine 5% Oint) 1 applic QID PRN TOP PAIN; Start 10/25/17 at 19: 00 Lorazepam (Ativan) 0.5 mg Q6H PRN PO ANXIETY Last administered on 10/26/17 00: 57; Admin Dose 0.5 MG; Start 10/26/17 at 01:00 Docusate Sodium (Colace) 100 mg BID PO Last administered on 10/26/17 09:56; Admin Dose 100 MG; Start 10/26/17 at 09:00 HENRIQUE HU MD Oct 26, 2017 10:14
--- NOTE | 2017-10-26 11:04 | CONS ---
Date/Time of Note Date/Time of Note DATE: 10/26/17 TIME: 11:02 Assessment/Plan Assessment/Plan Additional Assessment/Plan Acute blood loss anemia Psoas muscle hematoma Paroxysmal atrial fibrillation, currently sinus rhythm Hypertension Status post mechanical fall -Patient remains in sinus rhythm, would continue amiodarone and beta-kenyon as heart rate and blood pressure permits. Anticoagulation to remain on hold secondary to recent hematoma and would restart when okay by our orthopedic colleagues. Blood pressure on the higher end, would continue beta-kenyon and start low-dose Norvasc in the interim, no ARUNA or arm at the current time given recent AK I Consultation Date/Type/Reason Admit Date/Time Oct 22, 2017 at 18:10 Initial Consult Date 10/25/17 Type of Consultation: cv 24 HR Interval Summary Free Text/Dictation Patient feeling better today, denies shortness of breath, palpitations Exam/Review of Systems Vital Signs Vitals Vital Signs Date Time Temp Pulse Resp B/P Pulse Ox O2 Delivery O2 Flow Rate FiO2 10/26/17 08:23 98.0 68 18 155/74 97 10/25/17 15:25 Room Air Intake and Output 10/25/17 10/25/17 10/26/17 15:00 23:00 07:00 Intake Total 150 ml 1850 ml 650 ml Output Total 1550 ml 900 ml Balance 150 ml 300 ml -250 ml Exam No apparent distress Constitutional: alert, oriented Head: normocephalic Respiratory: other (Coarse breath sounds bilaterally, no wheezing) Cardiovascular: other (S1-S2 heard), regular rate and rhythm Gastrointestinal: bowel sounds, non-tender, soft Extremities: edema Results Result Diagram: 10/26/17 0639 10/26/17 0638 Results 24 hrs Laboratory Tests Test 10/26/17 05:48 10/26/17 06:38 10/26/17 06:39 Lab Scanned Report BLOOD TRANSFUSION Sodium Level 141 Potassium Level 4.2 Chloride Level 109 Carbon Dioxide Level 25 Anion Gap 11 Blood Urea Nitrogen 19 Creatinine 1.02 H Glucose Level 94 Calcium Level 8.4 Total Bilirubin 1.9 H Direct Bilirubin 0.00 Indirect Bilirubin 1.9 H Aspartate Amino Transf (AST/SGOT) 29 Alanine Aminotransferase (ALT/SGPT) 31 Alkaline Phosphatase 50 C-Reactive Protein 3.3 H Total Protein 6.0 L Albumin 3.0 L Globulin 3.00 Albumin/Globulin Ratio 1.00 White Blood Count 6.5 Red Blood Count 3.36 #L Hemoglobin 9.6 #L Hematocrit 28.3 #L Mean Corpuscular Volume 84.2 Mean Corpuscular Hemoglobin 28.6 L Mean Corpuscular Hemoglobin Concent 33.9 Red Cell Distribution Width 25.3 #H Platelet Count 181 Mean Platelet Volume 10.1 Neutrophils % 84.4 H Lymphocytes % 5.8 L Monocytes % 6.6 Eosinophils % 1.5 Basophils % 0.3 Nucleated Red Blood Cells % 0.0 Neutrophils # 5.5 Lymphocytes # 0.4 L Monocytes # 0.4 Eosinophils # 0.1 Basophils # 0.0 Nucleated Red Blood Cells # 0.0 Erythrocyte Sedimentation Rate 45 H Prothrombin Time 14.4 Prothrombin Time Ratio 1.1 INR International Normalized Ratio 1.10 Medications Medications Current Medications Sodium Chloride (NS) 1,000 ml @ 50 mls/hr Q20H IV Last administered on 22:33; Admin Dose 50 MLS/HR; Start 10/22/17 at 18:11 Acetaminophen (Tylenol Tab) 650 mg Q6H PRN PO PAIN LEVEL 1-3 OR FEVER Last administered on 10/25/17 16:53; Admin Dose 650 MG; Start 10/22/17 at 18:30 Zolpidem Tartrate (Ambien) 5 mg QHS PRN PO INSOMNIA; Start 10/22/17 at 18:30 Amiodarone HCl (Cordarone) 100 mg DAILY PO Last administered on 10/26/17 09:59 ; Admin Dose 100 MG; Start 10/23/17 at 09:00 Cevimeline HCl (Evoxac) 30 mg QID PO Last administered on 10/26/17 09:57; Admin Dose 30 MG; Start 10/22/17 at 21:00 Cyanocobalamin (Vitamin B12) 1,000 mcg DAILY PO Last administered on 10/26/17 09:58; Admin Dose 1,000 MCG; Start 10/23/17 at 09:00 Folic Acid (Folic Acid) 0.8 mg DAILY PO Last administered on 10/26/17 09:59; Admin Dose 0.8 MG; Start 10/23/17 at 09:00 Levothyroxine Sodium (Synthroid) 25 mcg DAILY@06 PO Last administered on 06:25; Admin Dose 25 MCG; Start 10/23/17 at 06:00 Metoprolol Succinate (Toprol Xl) 50 mg DAILY PO Last administered on 10/26/17 09:58; Admin Dose 50 MG; Start 10/23/17 at 09:00 Atorvastatin Calcium (Lipitor) 10 mg DAILY@21 PO Last administered on 22:32; Admin Dose 10 MG; Start 10/22/17 at 21:00 Pantoprazole (Protonix Tab) 40 mg DAILY@06 PO Last administered on 10/26/17 06 :25; Admin Dose 40 MG; Start 10/22/17 at 19:00 Acetaminophen/ Hydrocodone Bitart ([place] (10)) 1 tab Q4H PRN PO SEVERE PAIN LEVEL 7-10 Last administered on 10/23/17 01:35; Admin Dose 1 TAB; Start 10/22/17 at 21:30 Tramadol HCl (Ultram) 50 mg Q6H PRN PO PAIN LEVEL 4-6 Last administered on 10/24 23:46; Admin Dose 50 MG; Start 10/22/17 at 21:30 Lactobacillus Acidophilus (Florajen3 Capsule) 1 each BID PO Last administered on 10/26/17 09:56; Admin Dose 1 EACH; Start 10/25/17 at 13:00 Lidocaine (Lidocaine 5% Oint) 1 applic QID PRN TOP PAIN; Start 10/25/17 at 18: 30 Al Hydroxide/Mg Trisilicate (Gaviscon) 2 tab QID PRN PO DISTENSION/GAS/ BLOATING Last administered on 10/25/17 22:32; Admin Dose 2 TAB; Start 10/25/17 at 19:00 Lidocaine (Lidocaine 5% Oint) 1 applic QID PRN TOP PAIN; Start 10/25/17 at 19: 00 Lorazepam (Ativan) 0.5 mg Q6H PRN PO ANXIETY Last administered on 10/26/17 00: 57; Admin Dose 0.5 MG; Start 10/26/17 at 01:00 Docusate Sodium (Colace) 100 mg BID PO Last administered on 10/26/17 09:56; Admin Dose 100 MG; Start 10/26/17 at 09:00 Cephalexin (Keflex) 500 mg Q8 PO ; Start 10/26/17 at 14:00 Gabriel Chau DO Oct 26, 2017 11:04
--- NOTE | 2017-10-26 13:05 | RADRPT ---
Echocardiogram Report Patient Name: ANNIE LOCK Gender: Female Date: 1940 Study Date: 25-Oct-2017 Bench Machine Operator: Lebron Carney [facility] Location: 2247-A Ref. Physician: GABRIEL CHAU Quality: Adequate Procedures: Transthoracic echocardiogram with complete 2D, M-Mode, and doppler examination. Indications: Atrial Fibrillation. Congestive Heart Failure. 2D/M Mode Doppler Measurement Value Normal Ranges Measurement Value Normal Ranges LVIDd 2D 4.0 3.5 - 5.6 cm AV Peak Alfonso 1.4 m/sec LVIDs 2D 2.5 2.1 - 4.1 cm AV Peak PG 8.0 mmHg FS 2D 37.2 % LVOT Peak Alfonso 1.0 m/sec LVPWd 2D 0.9 0.6 - 1.1 cm LVOT Peak PG 4.0 mmHg IVSd 2D 1.4 0.6 - 1.1 cm MV E Peak Alfonso 1.0 m/sec IVS/LVPW 2D 1.6 MV A Peak Alfonso 0.4 m/sec AoR Diam 2D 3.0 2.0 - 3.7 cm MV E/A 2.6 LA/Ao 2D 1 0 - 1 MV Decel Time 102 msec EDV 2D 65.5 cm3 MV E/A 2.6 ESV 2D 16.2 cm3 TR Peak Alfonso 4.0 m/sec LA Dimen 2D 4.1 2.3 - 4.0 cm TR Peak PG 62.0 mmHg RVSP 65.0 mmHg Findings Left Ventricle: Normal left ventricular systolic function. Normal left ventricular cavity size. Sigmoid septum. Ejection fraction is visually estimated at 60 %. Abnormal Diastolic Function. Right Ventricle: Normal right ventricular size. Normal right ventricular systolic function. Left Atrium: There is mild enlargement of left atrium. Right Atrium: The right atrium is normal in size. Mitral Valve: Mild mitral leaflet calcification. Mild mitral annular calcification. Mild mitral valve regurgitation. Aortic Valve: Aortic sclerosis without stenosis. Mild aortic valve regurgitation. Tricuspid Valve: Normal appearance of the tricuspid valve. Estimated peak PA systolic pressure 65 mmHg. There is mild to moderate tricuspid regurgitation. Pulmonic Valve: Pulmonic valve not well visualized. There is trace pulmonic regurgitation. Pericardium: Normal pericardium with no significant pericardial effusion. Aorta: Normal aortic root. IVC: Normal size and normal respiratory collapse consistent with normal right atrial pressure. Conclusions 1.Normal left ventricular systolic function. Normal left ventricular cavity size. Sigmoid septum. Ejection fraction is visually estimated at 60 %. Abnormal Diastolic Function. 2.Normal right ventricular size. Normal right ventricular systolic function. 3.There is mild enlargement of left atrium. 4.The right atrium is normal in size. 5.Mild mitral valve regurgitation. 6.Aortic sclerosis without stenosis. Mild aortic valve regurgitation. 7.Estimated peak PA systolic pressure 65 mmHg. There is mild to moderate tricuspid regurgitation. 8.Normal pericardium with no significant pericardial effusion. Electronically Signed By: Gabriel Chau 26-Oct-2017 13:05:06 -0800 Patient Name: ANNIE LOCK Study Date: 25-Oct-2017 [id number]
[2017-10-26] MEDS: CEPHALEXIN 500 MG CAP PO SCH ×2 (13:49→22:12)
[2017-10-26] MEDS: ACETAMINOPHEN 325 MG TAB PO PRN (13:49)
[2017-10-26] MEDS: AMLODIPINE 2.5 MG TAB PO SCH ×2 (13:57→20:38)
[2017-10-26 13:58] VITALS: BP 158/70; PULSE 68; RESP 18
--- NOTE | 2017-10-26 14:39 | RADRPT ---
Vent Rate: 68 bpm RR Interval: 0 msec IL Interval: 146 msec QRS Duration: 94 msec QT Interval: 448 msec QTC Interval: 476 msec P-R-T Minto: 78 - 63 - 39 degrees Normal sinus rhythm Normal ECG Electronically Signed By: Álvaro Gordon [id number]
[2017-10-26] MEDS: SOD CHLORIDE 0.9% 1,000 ML IV SCH (18:56)
[2017-10-26 20:12] VITALS: BP 133/63; RESP 18
[2017-10-26] MEDS: ATORVASTATIN 10 MG TAB PO SCH (20:37)
[2017-10-26] MEDS: traMADol 50 MG TAB PO PRN (23:48)
[2017-10-27] MEDS: ACETAMINOPHEN 325 MG TAB PO PRN (01:41)
[2017-10-27 02:35] VITALS: BP 129/60; RESP 16
[2017-10-27] MEDS: LORAZEPAM 0.5 MG TAB PO PRN (03:18)
[2017-10-27] MEDS: PANTOPRAZOLE (EC) 40 MG TAB PO SCH (05:41)
[2017-10-27] MEDS: CEPHALEXIN 500 MG CAP PO SCH ×3 (05:41→21:57)
[2017-10-27] MEDS: LEVOTHYROXINE 25 MCG TAB PO SCH (05:41)
[2017-10-27 07:19] LABS: ABNORMAL IP MESSAGE 1; BASOPHILS % 0.2 % (0.0-2.0); EOSINOPHILS # 0.1 10^3/ul (0.0-0.5); EOSINOPHILS % 2.3 % (0.0-7.0); HEMATOCRIT 24.9 % (37.0-47.0); HEMOGLOBIN 8.7 g/dl (12.0-16.0); LYMPHOCYTES # 0.5 10^3/ul (0.8-2.9); LYMPHOCYTES % 9.2 % (15.0-51.0); MEAN CORPUSCULAR HEMOGLOBIN 29.3 pg (29.0-33.0); MEAN CORPUSCULAR HGB CONC 34.9 g/dl (32.0-37.0); MEAN CORPUSCULAR VOLUME 83.8 fl (82.0-101.0); MEAN PLATELET VOLUME 10.1 fl (7.4-10.4); MONOCYTE # 0.5 10^3/ul (0.3-0.9); MONOCYTES % 9.4 % (0.0-11.0); NEUTROPHIL # 4.5 10^3/ul (1.6-7.5); NEUTROPHILS % 77.5 % (39.0-77.0); PLATELET COUNT 178 10^3/UL (140-415); RED BLOOD COUNT 2.97 10^6/ul (4.20-5.40); RED CELL DISTRIBUTION WIDTH 25.2 % (11.5-14.5); WHITE BLOOD COUNT 5.8 10^3/ul (4.8-10.8)
[2017-10-27 07:23] LABS: POSITIVE DIFF @See below
--- NOTE | 2017-10-27 07:32 | CONS ---
Date/Time of Note Date/Time of Note DATE: 10/27/17 TIME: 07:28 Assessment/Plan Assessment/Plan Chief Complaint/Hosp Course 1) subq hematomas to L hip and L ankle doubt there is an active infection d/c vanco at this time check ESR, CRP in a.m. 10/26 - mild-mod elevation of ESR, CRP ecchymoses are further up the calf, doubt active infection 10/27 - Hgb slightly lower today, still doubt infection to L ankle area 2) pyuria with e.coli in urine continue with zosyn and change to a simpler antibiotic when sensi's come back tomorrow urine cx was done after zosyn had already be given 10/26 - e.coli is likely significant since pt had urine collected after a dose of zosyn had been given d/c zosyn and start keflex and continue thru 10/29/1710/27 - stable, tolerating oral keflex, continue thru 10/29 3) CRI with an acute component this appears to have resolved 4) diverticulosis pt developed diarrhea after her admission and likely related to the antibiotics start with probiotic 5) HTN 6) hypothyroidisim Problems: Consultation Date/Type/Reason Admit Date/Time Oct 22, 2017 at 18:10 Initial Consult Date 10/25/17 Type of Consultation: ID 24 HR Interval Summary Free Text/Dictation no N, V stools are better with colace no SOB L ankle feels tight Exam/Review of Systems Vital Signs Vitals Vital Signs Date Time Temp Pulse Resp B/P Pulse Ox O2 Delivery O2 Flow Rate FiO2 10/27/17 02:35 98.5 72 16 129/60 96 10/26/17 13:58 Room Air Intake and Output 10/26/17 10/26/17 10/27/17 14:59 22:59 06:59 Intake Total 100 ml 890 ml 900 ml Output Total 725 ml Balance 100 ml 165 ml 900 ml Exam Constitutional: alert, oriented Eyes: nl sclera ENMT: mucosa pink and moist Respiratory: other (bibasilar crackles) Cardiovascular: regular rate and rhythm Gastrointestinal: non-tender, soft Extremities: other (L ankle area has ecchymosis and some redness but the heat seems less) Results Result Diagram: 10/27/17 0612 10/26/17 0638 Results 24 hrs Laboratory Tests Test 10/27/17 06:12 White Blood Count 5.8 Red Blood Count 2.97 L Hemoglobin 8.7 L Hematocrit 24.9 L Mean Corpuscular Volume 83.8 Mean Corpuscular Hemoglobin 29.3 Mean Corpuscular Hemoglobin Concent 34.9 Red Cell Distribution Width 25.2 H Platelet Count 178 Mean Platelet Volume 10.1 Neutrophils % 77.5 H Lymphocytes % 9.2 L Monocytes % 9.4 Eosinophils % 2.3 Basophils % 0.2 Nucleated Red Blood Cells % 0.0 Neutrophils # 4.5 Lymphocytes # 0.5 L Monocytes # 0.5 Eosinophils # 0.1 Basophils # 0.0 Nucleated Red Blood Cells # 0.0 Medications Medications Current Medications Sodium Chloride (NS) 1,000 ml @ 50 mls/hr Q20H IV Last administered on 18:56; Admin Dose 50 MLS/HR; Start 10/22/17 at 18:11 Zolpidem Tartrate (Ambien) 5 mg QHS PRN PO INSOMNIA; Start 10/22/17 at 18:30 Amiodarone HCl (Cordarone) 100 mg DAILY PO Last administered on 10/26/17 09:59 ; Admin Dose 100 MG; Start 10/23/17 at 09:00 Cevimeline HCl (Evoxac) 30 mg QID PO Last administered on 10/26/17 20:37; Admin Dose 30 MG; Start 10/22/17 at 21:00 Cyanocobalamin (Vitamin B12) 1,000 mcg DAILY PO Last administered on 10/26/17 09:58; Admin Dose 1,000 MCG; Start 10/23/17 at 09:00 Folic Acid (Folic Acid) 0.8 mg DAILY PO Last administered on 10/26/17 09:59; Admin Dose 0.8 MG; Start 10/23/17 at 09:00 Levothyroxine Sodium (Synthroid) 25 mcg DAILY@06 PO Last administered on 05:41; Admin Dose 25 MCG; Start 10/23/17 at 06:00 Metoprolol Succinate (Toprol Xl) 50 mg DAILY PO Last administered on 10/26/17 09:58; Admin Dose 50 MG; Start 10/23/17 at 09:00 Atorvastatin Calcium (Lipitor) 10 mg DAILY@21 PO Last administered on 20:37; Admin Dose 10 MG; Start 10/22/17 at 21:00 Pantoprazole (Protonix Tab) 40 mg DAILY@06 PO Last administered on 10/27/17 05 :41; Admin Dose 40 MG; Start 10/22/17 at 19:00 Acetaminophen/ Hydrocodone Bitart ([place] (10/325)) 1 tab Q4H PRN PO SEVERE PAIN LEVEL 7-10 Last administered on 10/23/17 01:35; Admin Dose 1 TAB; Start 10/22/17 at 21:30 Tramadol HCl (Ultram) 50 mg Q6H PRN PO PAIN LEVEL 4-6 Last administered on 10/26 23:48; Admin Dose 50 MG; Start 10/22/17 at 21:30 Lactobacillus Acidophilus (Florajen3 Capsule) 1 each BID PO Last administered on 10/26/17 20:37; Admin Dose 1 EACH; Start 10/25/17 at 13:00 Lidocaine (Lidocaine 5% Oint) 1 applic QID PRN TOP PAIN; Start 10/25/17 at 18: 30 Al Hydroxide/Mg Trisilicate (Gaviscon) 2 tab QID PRN PO DISTENSION/GAS/ BLOATING Last administered on 10/25/17 22:32; Admin Dose 2 TAB; Start 10/25/17 at 19:00 Lidocaine (Lidocaine 5% Oint) 1 applic QID PRN TOP PAIN; Start 10/25/17 at 19: 00 Lorazepam (Ativan) 0.5 mg Q6H PRN PO ANXIETY Last administered on 10/27/17 03: 18; Admin Dose 0.5 MG; Start 10/26/17 at 01:00 Docusate Sodium (Colace) 100 mg BID PO Last administered on 10/26/17 20:38; Admin Dose 100 MG; Start 10/26/17 at 09:00 Cephalexin (Keflex) 500 mg Q8 PO Last administered on 10/27/17 05:41; Admin Dose 500 MG; Start 10/26/17 at 14:00 Amlodipine Besylate (Norvasc) 2.5 mg BID PO Last administered on 10/26/17 20: 38; Admin Dose 2.5 MG; Start 10/26/17 at 11:30 Acetaminophen (Tylenol Tab) 650 mg Q4H PRN PO PAIN AND OR ELEVATED TEMP Last administered on 10/27/17t 01:41; Admin Dose 650 MG; Start 10/26/17 at 20:00 HENRIQUE HU MD Oct 27, 2017 07:32
[2017-10-27 07:34] LABS: INR 1.19; PROTIME 15.3 Sec (11.9-14.9); PT RATIO 1.2
[2017-10-27 07:56] VITALS: BP 141/72; PULSE 64; RESP 16
[2017-10-27 07:58] LABS: ALBUMIN 2.5 g/dl (3.3-4.9); ALBUMIN/GLOBULIN RATIO 0.83; BILIRUBIN,INDIRECT 1.6 mg/dl (0-1.1); BILIRUBIN,TOTAL 1.6 mg/dl (0.2-1.3); CALCIUM 8.1 mg/dl (8.4-10.2); CREATININE 0.91 mg/dl (0.44-1.00); MAGNESIUM 1.8 mg/dl (1.7-2.5); POTASSIUM 3.9 mmol/L (3.5-5.1); TOTAL PROTEIN 5.5 g/dl (6.1-8.1)
[2017-10-27 08:09] VITALS: BP 141/72; RESP 18
--- NOTE | 2017-10-27 08:36 | CONS ---
Date/Time of Note Date/Time of Note DATE: 10/27/17 TIME: 08:28 Assessment/Plan Assessment/Plan Chief Complaint/Hosp Course 1. Left ankle pain after ankle sprain. Patient also developed ecchymoses and hematoma in the left ankle, the left hip, and some iliopsoas retroperitoneal bleeding. She is having less pain in the left ankle and left hip.Will evaluate for acute rehab . 2. coagulopathy due to being over coumadinized. This has corrected with FFP and vitamin K. Her coagulation is now corrected. Will discuss with Cardiology about restarting anti coagulants 3. Anemia. The patient's blood count is still low we will transfuse 1 unit of blood today. Her blood count is lower today. She will have stool sent for occult blood to make sure she is not bleeding in her GI tract. she is iron deficient . Will start Ferrlecit 4. Atrial fibrillation , she is being seen by cardiology. 5. Acute renal failure now improved 6. Abdominal pain with intermittent diarrhea , improved 7. Urinary tract infection on antibiotics , she is being seen by infectious disease specialist. 8. Poor appetite and malnutrition. Will start boost and have dietary consult. Problems: Consultation Date/Type/Reason Admit Date/Time Oct 22, 2017 at 18:10 Initial Consult Date 10/25/17 Type of Consultation: ID 24 HR Interval Summary Free Text/Dictation She is feeling better , bowel movements are better . She is not eating . Constitutional: improved Exam/Review of Systems Vital Signs Vitals Vital Signs Date Time Temp Pulse Resp B/P Pulse Ox O2 Delivery O2 Flow Rate FiO2 10/27/17 08:09 97.7 64 18 141/72 98 10/27/17 07:56 Room Air Intake and Output 10/26/17 10/26/17 10/27/17 14:59 22:59 06:59 Intake Total 100 ml 890 ml 900 ml Output Total 725 ml Balance 100 ml 165 ml 900 ml Exam L ankle is eccymotic with hematomas Constitutional: alert, frail, oriented Respiratory: clear to auscultation, normal air movement Cardiovascular: regular rate and rhythm Gastrointestinal: non-tender, soft Neurological: [employer] II-XII intact, nl mental status Results Result Diagram: 10/27/17 0612 10/27/17 0612 Results 24 hrs Laboratory Tests Test 10/27/17 06:12 White Blood Count 5.8 Red Blood Count 2.97 L Hemoglobin 8.7 L Hematocrit 24.9 L Mean Corpuscular Volume 83.8 Mean Corpuscular Hemoglobin 29.3 Mean Corpuscular Hemoglobin Concent 34.9 Red Cell Distribution Width 25.2 H Platelet Count 178 Mean Platelet Volume 10.1 Neutrophils % 77.5 H Lymphocytes % 9.2 L Monocytes % 9.4 Eosinophils % 2.3 Basophils % 0.2 Nucleated Red Blood Cells % 0.0 Neutrophils # 4.5 Lymphocytes # 0.5 L Monocytes # 0.5 Eosinophils # 0.1 Basophils # 0.0 Nucleated Red Blood Cells # 0.0 Prothrombin Time 15.3 H Prothrombin Time Ratio 1.2 INR International Normalized Ratio 1.19 Sodium Level 139 Potassium Level 3.9 Chloride Level 109 Carbon Dioxide Level 27 Anion Gap 7 L Blood Urea Nitrogen 15 Creatinine 0.91 Glucose Level 97 Calcium Level 8.1 L Magnesium Level 1.8 Total Bilirubin 1.6 H Direct Bilirubin 0.00 Indirect Bilirubin 1.6 H Aspartate Amino Transf (AST/SGOT) 24 Alanine Aminotransferase (ALT/SGPT) 28 Alkaline Phosphatase 39 L Total Protein 5.5 L Albumin 2.5 L Globulin 3.00 Albumin/Globulin Ratio 0.83 Medications Medications Current Medications Sodium Chloride (NS) 1,000 ml @ 50 mls/hr Q20H IV Last administered on 18:56; Admin Dose 50 MLS/HR; Start 10/22/17 at 18:11 Zolpidem Tartrate (Ambien) 5 mg QHS PRN PO INSOMNIA; Start 10/22/17 at 18:30 Amiodarone HCl (Cordarone) 100 mg DAILY PO Last administered on 10/26/17 09:59 ; Admin Dose 100 MG; Start 10/23/17 at 09:00 Cevimeline HCl (Evoxac) 30 mg QID PO Last administered on 10/26/17 20:37; Admin Dose 30 MG; Start 10/22/17 at 21:00 Cyanocobalamin (Vitamin B12) 1,000 mcg DAILY PO Last administered on 10/26/17 09:58; Admin Dose 1,000 MCG; Start 10/23/17 at 09:00 Folic Acid (Folic Acid) 0.8 mg DAILY PO Last administered on 10/26/17 09:59; Admin Dose 0.8 MG; Start 10/23/17 at 09:00 Levothyroxine Sodium (Synthroid) 25 mcg DAILY@06 PO Last administered on 05:41; Admin Dose 25 MCG; Start 10/23/17 at 06:00 Metoprolol Succinate (Toprol Xl) 50 mg DAILY PO Last administered on 10/26/17 09:58; Admin Dose 50 MG; Start 10/23/17 at 09:00 Atorvastatin Calcium (Lipitor) 10 mg DAILY@21 PO Last administered on 20:37; Admin Dose 10 MG; Start 10/22/17 at 21:00 Pantoprazole (Protonix Tab) 40 mg DAILY@06 PO Last administered on 10/27/17 05 :41; Admin Dose 40 MG; Start 10/22/17 at 19:00 Acetaminophen/ Hydrocodone Bitart ([place] (10/325)) 1 tab Q4H PRN PO SEVERE PAIN LEVEL 7-10 Last administered on 10/23/17 01:35; Admin Dose 1 TAB; Start 10/22/17 at 21:30 Tramadol HCl (Ultram) 50 mg Q6H PRN PO PAIN LEVEL 4-6 Last administered on 10/26 23:48; Admin Dose 50 MG; Start 10/22/17 at 21:30 Lactobacillus Acidophilus (Florajen3 Capsule) 1 each BID PO Last administered on 10/26/17 20:37; Admin Dose 1 EACH; Start 10/25/17 at 13:00 Lidocaine (Lidocaine 5% Oint) 1 applic QID PRN TOP PAIN; Start 10/25/17 at 18: 30 Al Hydroxide/Mg Trisilicate (Gaviscon) 2 tab QID PRN PO DISTENSION/GAS/ BLOATING Last administered on 10/25/17 22:32; Admin Dose 2 TAB; Start 10/25/17 at 19:00 Lidocaine (Lidocaine 5% Oint) 1 applic QID PRN TOP PAIN; Start 10/25/17 at 19: 00 Lorazepam (Ativan) 0.5 mg Q6H PRN PO ANXIETY Last administered on 10/27/17 03: 18; Admin Dose 0.5 MG; Start 10/26/17 at 01:00 Docusate Sodium (Colace) 100 mg BID PO Last administered on 12/5/17at 20:38; Admin Dose 100 MG; Start 10/26/17 at 09:00 Cephalexin (Keflex) 500 mg Q8 PO Last administered on 10/27/17 05:41; Admin Dose 500 MG; Start 10/26/17 at 14:00 Amlodipine Besylate (Norvasc) 2.5 mg BID PO Last administered on 10/26/17 20: 38; Admin Dose 2.5 MG; Start 10/26/17 at 11:30 Acetaminophen (Tylenol Tab) 650 mg Q4H PRN PO PAIN AND OR ELEVATED TEMP Last administered on 10/27/17 01:41; Admin Dose 650 MG; Start 10/26/17 at 20:00 BELLA DEY MD Oct 27, 2017 08:36
[2017-10-27] MEDS: MAGNESIUM SULFATE 2 GM/50 ML 50 ML IVPB ONE ×2 (10:00→11:54)
[2017-10-27] MEDS: DOCUSATE SODIUM 100 MG CAP PO SCH ×2 (10:09→21:57)
[2017-10-27] MEDS: L ACIDOPHIL/B LACTIS/B LONGUM CAPSULE PO SCH ×2 (10:09→21:57)
[2017-10-27] MEDS: CEVIMELINE 30 MG CAP PO SCH ×4 (10:10→21:57)
[2017-10-27] MEDS: AMLODIPINE 2.5 MG TAB PO SCH ×2 (10:10→21:57)
[2017-10-27] MEDS: AMIODARONE 200 MG TAB PO SCH (10:10)
[2017-10-27] MEDS: CYANOCOBALAMIN 500 MCG TAB PO SCH (10:11)
[2017-10-27] MEDS: METOPROLOL (XL) 50 MG TAB PO SCH (10:11)
[2017-10-27] MEDS: FOLIC ACID 0.4 MG TAB PO SCH (10:11)
[2017-10-27] MEDS: SOD FERRIC GLUC COMPLX 125 MG in SOD CHLORIDE 0.9% 100 ML IVPB SCH (10:44)
--- NOTE | 2017-10-27 14:56 | CONS ---
Date/Time of Note Date/Time of Note DATE: 10/27/17 TIME: 14:54 Assessment/Plan Assessment/Plan Additional Assessment/Plan Acute blood loss anemia Psoas muscle hematoma Paroxysmal atrial fibrillation, currently sinus rhythm Preserved ejection fraction Hypertension Status post mechanical fall -Patient remains in sinus rhythm, would continue amiodarone and beta-kenyon as heart rate and blood pressure permits. Repeat echocardiogram on this admission with improvement in left ventricular systolic function. Anticoagulation to remain on hold secondary to recent hematoma and would restart when okay by our orthopedic colleagues. Blood pressure trend improving. Continue physical therapy as tolerated. Consultation Date/Type/Reason Admit Date/Time Oct 22, 2017 at 18:10 Initial Consult Date 10/25/17 Type of Consultation: cv 24 HR Interval Summary Free Text/Dictation Patient denies shortness of breath, dizziness or palpitations Exam/Review of Systems Vital Signs Vitals Vital Signs Date Time Temp Pulse Resp B/P Pulse Ox O2 Delivery O2 Flow Rate FiO2 10/27/17 08:09 97.7 64 18 141/72 98 10/27/17 07:56 Room Air Intake and Output 10/26/17 10/26/17 10/27/17 15:00 23:00 07:00 Intake Total 890 ml 900 ml Output Total 725 ml Balance 165 ml 900 ml Exam No apparent distress Constitutional: alert, oriented Head: normocephalic Respiratory: other (Coarse breath sounds bilaterally, no wheezing) Cardiovascular: other (S1-S2 heard), regular rate and rhythm Gastrointestinal: bowel sounds, non-tender, soft Extremities: edema Results Result Diagram: 10/27/17 0612 10/27/17 0612 Results 24 hrs Laboratory Tests Test 10/27/17 06:12 White Blood Count 5.8 Red Blood Count 2.97 L Hemoglobin 8.7 L Hematocrit 24.9 L Mean Corpuscular Volume 83.8 Mean Corpuscular Hemoglobin 29.3 Mean Corpuscular Hemoglobin Concent 34.9 Red Cell Distribution Width 25.2 H Platelet Count 178 Mean Platelet Volume 10.1 Neutrophils % 77.5 H Lymphocytes % 9.2 L Monocytes % 9.4 Eosinophils % 2.3 Basophils % 0.2 Nucleated Red Blood Cells % 0.0 Neutrophils # 4.5 Lymphocytes # 0.5 L Monocytes # 0.5 Eosinophils # 0.1 Basophils # 0.0 Nucleated Red Blood Cells # 0.0 Prothrombin Time 15.3 H Prothrombin Time Ratio 1.2 INR International Normalized Ratio 1.19 Sodium Level 139 Potassium Level 3.9 Chloride Level 109 Carbon Dioxide Level 27 Anion Gap 7 L Blood Urea Nitrogen 15 Creatinine 0.91 Glucose Level 97 Calcium Level 8.1 L Magnesium Level 1.8 Total Bilirubin 1.6 H Direct Bilirubin 0.00 Indirect Bilirubin 1.6 H Aspartate Amino Transf (AST/SGOT) 24 Alanine Aminotransferase (ALT/SGPT) 28 Alkaline Phosphatase 39 L Total Protein 5.5 L Albumin 2.5 L Globulin 3.00 Albumin/Globulin Ratio 0.83 Medications Medications Current Medications Zolpidem Tartrate (Ambien) 5 mg QHS PRN PO INSOMNIA; Start 10/22/17 at 18:30 Amiodarone HCl (Cordarone) 100 mg DAILY PO Last administered on 10/27/17 10:10 ; Admin Dose 100 MG; Start 10/23/17 at 09:00 Cevimeline HCl (Evoxac) 30 mg QID PO Last administered on 10/27/17 14:01; Admin Dose 30 MG; Start 10/22/17 at 21:00 Cyanocobalamin (Vitamin B12) 1,000 mcg DAILY PO Last administered on 10/27/17 10:11; Admin Dose 1,000 MCG; Start 10/23/17 at 09:00 Folic Acid (Folic Acid) 0.8 mg DAILY PO Last administered on 10/27/17 10:11; Admin Dose 0.8 MG; Start 10/23/17 at 09:00 Levothyroxine Sodium (Synthroid) 25 mcg DAILY@06 PO Last administered on 05:41; Admin Dose 25 MCG; Start 10/23/17 at 06:00 Metoprolol Succinate (Toprol Xl) 50 mg DAILY PO Last administered on 10/27/17 10:11; Admin Dose 50 MG; Start 10/23/17 at 09:00 Atorvastatin Calcium (Lipitor) 10 mg DAILY@21 PO Last administered on 20:37; Admin Dose 10 MG; Start 10/22/17 at 21:00 Pantoprazole (Protonix Tab) 40 mg DAILY@06 PO Last administered on 10/27/17 05 :41; Admin Dose 40 MG; Start 10/22/17 at 19:00 Acetaminophen/ Hydrocodone Bitart ([place] (10/325)) 1 tab Q4H PRN PO SEVERE PAIN LEVEL 7-10 Last administered on 10/23/17 01:35; Admin Dose 1 TAB; Start 10/22/17 at 21:30 Tramadol HCl (Ultram) 50 mg Q6H PRN PO PAIN LEVEL 4-6 Last administered on 10/26 23:48; Admin Dose 50 MG; Start 10/22/17 at 21:30 Lactobacillus Acidophilus (Florajen3 Capsule) 1 each BID PO Last administered on 10/27/17 10:09; Admin Dose 1 EACH; Start 10/25/17 at 13:00 Lidocaine (Lidocaine 5% Oint) 1 applic QID PRN TOP PAIN; Start 10/25/17 at 18: 30 Al Hydroxide/Mg Trisilicate (Gaviscon) 2 tab QID PRN PO DISTENSION/GAS/ BLOATING Last administered on 10/25/17 22:32; Admin Dose 2 TAB; Start 10/25/17 at 19:00 Lidocaine (Lidocaine 5% Oint) 1 applic QID PRN TOP PAIN; Start 10/25/17 at 19: 00 Lorazepam (Ativan) 0.5 mg Q6H PRN PO ANXIETY Last administered on 10/27/17 03: 18; Admin Dose 0.5 MG; Start 10/26/17 at 01:00 Docusate Sodium (Colace) 100 mg BID PO Last administered on 10/27/17 10:09; Admin Dose 100 MG; Start 10/26/17 at 09:00 Cephalexin (Keflex) 500 mg Q8 PO Last administered on 10/27/17 14:02; Admin Dose 500 MG; Start 10/26/17 at 14:00 Amlodipine Besylate (Norvasc) 2.5 mg BID PO Last administered on 10/27/17 10: 10; Admin Dose 2.5 MG; Start 10/26/17 at 11:30 Acetaminophen 650 mg 650 mg Q4H PRN PO PAIN AND OR ELEVATED TEMP Last administered on 10/27/17 01:41; Admin Dose 650 MG; Start 10/26/17 at 20:00 Ferric Sodium Gluconate Complex/ Sodium Chloride (Ferrlecit/NS) 110 ml @ 110 mls/hr Q24H IVPB Last administered on 10/27/17 10:44; Admin Dose 110 MLS/HR; Start 10/27/17 at 10:00; Stop 10/31/17 at 10:59 Gabriel Chau DO Oct 27, 2017 14:56
[2017-10-27 15:42] VITALS: BP 119/57; RESP 20
[2017-10-27 20:28] VITALS: BP 121/57; RESP 18
[2017-10-27] MEDS: ATORVASTATIN 10 MG TAB PO SCH (21:57)
[2017-10-28] MEDS: traMADol 50 MG TAB PO PRN (01:38)
[2017-10-28 02:30] VITALS: BP_SYST 147; BP_DIAS 61; BP_DIAS 66; RESP 16
[2017-10-28] MEDS: LORAZEPAM 0.5 MG TAB PO PRN (02:46)
[2017-10-28] MEDS: LEVOTHYROXINE 25 MCG TAB PO SCH (05:31)
[2017-10-28] MEDS: PANTOPRAZOLE (EC) 40 MG TAB PO SCH (05:31)
[2017-10-28] MEDS: CEPHALEXIN 500 MG CAP PO SCH ×3 (05:31→21:06)
[2017-10-28] MEDS: ACETAMINOPHEN 325 MG TAB PO PRN (05:33)
[2017-10-28 05:58] LABS: ABNORMAL IP MESSAGE 1; BASOPHILS % 0.4 % (0.0-2.0); EOSINOPHILS # 0.1 10^3/ul (0.0-0.5); EOSINOPHILS % 2.5 % (0.0-7.0); HEMATOCRIT 24.8 % (37.0-47.0); HEMOGLOBIN 8.4 g/dl (12.0-16.0); LYMPHOCYTES # 0.7 10^3/ul (0.8-2.9); LYMPHOCYTES % 11.5 % (15.0-51.0); MEAN CORPUSCULAR HEMOGLOBIN 28.8 pg (29.0-33.0); MEAN CORPUSCULAR HGB CONC 33.9 g/dl (32.0-37.0); MEAN CORPUSCULAR VOLUME 84.9 fl (82.0-101.0); MONOCYTE # 0.5 10^3/ul (0.3-0.9); MONOCYTES % 8.2 % (0.0-11.0); NEUTROPHIL # 4.2 10^3/ul (1.6-7.5); NEUTROPHILS % 75.1 % (39.0-77.0); PLATELET COUNT 207 10^3/UL (140-415); RED BLOOD COUNT 2.92 10^6/ul (4.20-5.40); RED CELL DISTRIBUTION WIDTH 25.5 % (11.5-14.5); WHITE BLOOD COUNT 5.6 10^3/ul (4.8-10.8)
[2017-10-28 06:15] LABS: INR 1.09; PROTIME 14.3 Sec (11.9-14.9); PT RATIO 1.1
[2017-10-28 06:17] LABS: ALBUMIN 2.4 g/dl (3.3-4.9); ALBUMIN/GLOBULIN RATIO 0.8; BILIRUBIN,INDIRECT 1.4 mg/dl (0-1.1); BILIRUBIN,TOTAL 1.4 mg/dl (0.2-1.3); CALCIUM 8.2 mg/dl (8.4-10.2); CREATININE 0.91 mg/dl (0.44-1.00); MAGNESIUM 2.1 mg/dl (1.7-2.5); TOTAL PROTEIN 5.4 g/dl (6.1-8.1)
[2017-10-28 06:35] LABS: POSITIVE DIFF @See below
[2017-10-28 08:21] VITALS: BP 129/61; RESP 20
[2017-10-28] MEDS: DOCUSATE SODIUM 100 MG CAP PO SCH ×2 (08:41→21:06)
[2017-10-28] MEDS: CEVIMELINE 30 MG CAP PO SCH ×4 (08:41→21:06)
[2017-10-28] MEDS: L ACIDOPHIL/B LACTIS/B LONGUM CAPSULE PO SCH ×2 (08:41→21:06)
[2017-10-28] MEDS: FOLIC ACID 0.4 MG TAB PO SCH (08:41)
[2017-10-28] MEDS: AMIODARONE 200 MG TAB PO SCH (08:42)
[2017-10-28] MEDS: METOPROLOL (XL) 50 MG TAB PO SCH (08:42)
[2017-10-28] MEDS: CYANOCOBALAMIN 500 MCG TAB PO SCH (08:42)
[2017-10-28] MEDS: AMLODIPINE 2.5 MG TAB PO SCH ×2 (08:58→21:07)
--- NOTE | 2017-10-28 09:10 | PN ---
Date/Time of Note Date/Time of Note DATE: 10/28/17 TIME: 09:04 Assessment/Plan VTE Prophylaxis VTE Prophylaxis Intervention: contraindicated VTE Contraindication Reason: bleeding Lines/Catheters IV Catheter Type (from Nrsg): Saline Lock Reason Cath still needed: urinary retention Assessment/Plan Chief Complaint/Hosp Course 1. Left ankle pain after ankle sprain. Patient also developed ecchymoses and hematoma in the left ankle, the left hip, and some iliopsoas retroperitoneal bleeding. She is having less pain in the left ankle and left hip. She is starting physical therapy. 2. coagulopathy due to being over coumadinized. This has corrected with FFP and vitamin K. Her coagulation is now corrected. Will discuss with Cardiology about restarting anti coagulants . Cardiology recommends that she be off anticoagulants for now in view of her previous bleeding. 3. Anemia. The patient's blood count is low but stable. She will get a full course of Ferrlecit . 4. Atrial fibrillation , she is being seen by cardiology. 5. Acute renal failure now improved 6. Abdominal pain with intermittent diarrhea , improved 7. Urinary tract infection on antibiotics , she is being seen by infectious disease specialist. 8. Poor appetite and malnutrition. Will start boost and have dietary consult. 9. She will be evaluated by acute rehab. Problems: Subjective 24 Hr Interval Summary Free Text/Dictation She is awake and alert this morning. She denies any pain or new problems. She does feel fatigued. She started physical therapy. She has a immobilizer boot on her left ankle. Eyes: no complaints ENT: no complaints Cardiovascular: no complaints Gastrointestinal: no complaints Genitourinary: no complaints Musculoskeletal: bone/joint pain Skin: no complaints Neurologic: no complaints Exam/Review of Systems Vital Signs Vitals Vital Signs Date Time Temp Pulse Resp B/P Pulse Ox O2 Delivery O2 Flow Rate FiO2 10/28/17 08:21 97.9 65 20 129/61 95 10/27/17 07:56 Room Air Intake and Output 10/27/17 10/27/17 10/28/17 15:00 23:00 07:00 Intake Total 110 ml 50 ml 500 ml Balance 110 ml 50 ml 500 ml Exam She has a walking boot on the left ankle. Constitutional: alert, oriented, well developed Respiratory: clear to auscultation, normal air movement Cardiovascular: regular rate and rhythm Gastrointestinal: soft Musculoskeletal: nl extremities to inspection Results Result Diagram: 10/28/17 0454 10/28/17 0455 Results 24 hrs Laboratory Tests Test 10/28/17 04:54 10/28/17 04:55 White Blood Count 5.6 Red Blood Count 2.92 L Hemoglobin 8.4 L Hematocrit 24.8 L Mean Corpuscular Volume 84.9 Mean Corpuscular Hemoglobin 28.8 L Mean Corpuscular Hemoglobin Concent 33.9 Red Cell Distribution Width 25.5 H Platelet Count 207 Mean Platelet Volume 10.0 Neutrophils % 75.1 Lymphocytes % 11.5 L Monocytes % 8.2 Eosinophils % 2.5 Basophils % 0.4 Nucleated Red Blood Cells % 0.0 Neutrophils # 4.2 Lymphocytes # 0.7 L Monocytes # 0.5 Eosinophils # 0.1 Basophils # 0.0 Nucleated Red Blood Cells # 0.0 Prothrombin Time 14.3 Prothrombin Time Ratio 1.1 INR International Normalized Ratio 1.09 Sodium Level 139 Potassium Level 4.0 Chloride Level 108 Carbon Dioxide Level 27 Anion Gap 8 Blood Urea Nitrogen 19 Creatinine 0.91 Glucose Level 95 Calcium Level 8.2 L Magnesium Level 2.1 Total Bilirubin 1.4 H Direct Bilirubin 0.00 Indirect Bilirubin 1.4 H Aspartate Amino Transf (AST/SGOT) 21 Alanine Aminotransferase (ALT/SGPT) 31 Alkaline Phosphatase 39 L Total Protein 5.4 L Albumin 2.4 L Globulin 3.00 Albumin/Globulin Ratio 0.80 Medications Medications Current Medications Zolpidem Tartrate (Ambien) 5 mg QHS PRN PO INSOMNIA; Start 10/22/17 at 18:30 Amiodarone HCl (Cordarone) 100 mg DAILY PO Last administered on 10/28/17 08:42 ; Admin Dose 100 MG; Start 10/23/17 at 09:00 Cevimeline HCl (Evoxac) 30 mg QID PO Last administered on 10/28/17 08:41; Admin Dose 30 MG; Start 10/22/17 at 21:00 Cyanocobalamin (Vitamin B12) 1,000 mcg DAILY PO Last administered on 10/28/17 08:42; Admin Dose 1,000 MCG; Start 10/23/17 at 09:00 Folic Acid (Folic Acid) 0.8 mg DAILY PO Last administered on 10/28/17 08:41; Admin Dose 0.8 MG; Start 10/23/17 at 09:00 Levothyroxine Sodium (Synthroid) 25 mcg DAILY@06 PO Last administered on 05:31; Admin Dose 25 MCG; Start 10/23/17 at 06:00 Metoprolol Succinate (Toprol Xl) 50 mg DAILY PO Last administered on 10/28/17 08:42; Admin Dose 50 MG; Start 10/23/17 at 09:00 Atorvastatin Calcium (Lipitor) 10 mg DAILY@21 PO Last administered on 21:57; Admin Dose 10 MG; Start 10/22/17 at 21:00 Pantoprazole (Protonix Tab) 40 mg DAILY@06 PO Last administered on 10/28/17 05 :31; Admin Dose 40 MG; Start 10/22/17 at 19:00 Acetaminophen/ Hydrocodone Bitart ([place] (10/325)) 1 tab Q4H PRN PO SEVERE PAIN LEVEL 7-10 Last administered on 10/23/17 01:35; Admin Dose 1 TAB; Start 10/22/17 at 21:30 Tramadol HCl (Ultram) 50 mg Q6H PRN PO PAIN LEVEL 4-6 Last administered on 10/28 01:38; Admin Dose 50 MG; Start 10/22/17 at 21:30 Lactobacillus Acidophilus (Florajen3 Capsule) 1 each BID PO Last administered on 10/28/17 08:41; Admin Dose 1 EACH; Start 10/25/17 at 13:00 Lidocaine (Lidocaine 5% Oint) 1 applic QID PRN TOP PAIN; Start 10/25/17 at 18: 30 Al Hydroxide/Mg Trisilicate (Gaviscon) 2 tab QID PRN PO DISTENSION/GAS/ BLOATING Last administered on 10/25/17 22:32; Admin Dose 2 TAB; Start 10/25/17 at 19:00 Lidocaine (Lidocaine 5% Oint) 1 applic QID PRN TOP PAIN; Start 10/25/17 at 19: 00 Lorazepam (Ativan) 0.5 mg Q6H PRN PO ANXIETY Last administered on 10/28/17 02: 46; Admin Dose 0.5 MG; Start 10/26/17 at 01:00 Docusate Sodium (Colace) 100 mg BID PO Last administered on 10/28/17 08:41; Admin Dose 100 MG; Start 10/26/17 at 09:00 Cephalexin (Keflex) 500 mg Q8 PO Last administered on 10/28/17 05:31; Admin Dose 500 MG; Start 10/26/17 at 14:00 Amlodipine Besylate (Norvasc) 2.5 mg BID PO Last administered on 10/28/17 08: 58; Admin Dose 2.5 MG; Start 10/26/17 at 11:30 Acetaminophen 650 mg 650 mg Q4H PRN PO PAIN AND OR ELEVATED TEMP Last administered on 10/28/17 05:33; Admin Dose 650 MG; Start 10/26/17 at 20:00 Ferric Sodium Gluconate Complex/ Sodium Chloride (Ferrlecit/NS) 110 ml @ 110 mls/hr Q24H IVPB Last administered on 10/27/17 10:44; Admin Dose 110 MLS/HR; Start 10/27/17 at 10:00; Stop 10/31/17 at 10:59 BELLA DEY MD Oct 28, 2017 09:10
[2017-10-28] MEDS: SOD FERRIC GLUC COMPLX 125 MG in SOD CHLORIDE 0.9% 100 ML IVPB SCH (09:54)
--- NOTE | 2017-10-28 13:05 | CONS ---
Date/Time of Note Date/Time of Note DATE: 10/28/17 TIME: 13:04 Assessment/Plan Assessment/Plan Additional Assessment/Plan Acute blood loss anemia Psoas muscle hematoma Paroxysmal atrial fibrillation, currently sinus rhythm Preserved ejection fraction Hypertension Status post mechanical fall -Patient remains in sinus rhythm, would continue amiodarone and beta-kenyon as heart rate and blood pressure permits. Repeat echocardiogram on this admission with improvement in left ventricular systolic function. Anticoagulation to remain on hold secondary to recent hematoma and would restart when okay by our orthopedic colleagues. Blood pressure trend overall better. Continue physical therapy as tolerated. Consultation Date/Type/Reason Admit Date/Time Oct 22, 2017 at 18:10 Initial Consult Date 10/25/17 Type of Consultation: cv 24 HR Interval Summary Free Text/Dictation Patient continues to improve, denies shortness of breath, palpitations Exam/Review of Systems Vital Signs Vitals Vital Signs Date Time Temp Pulse Resp B/P Pulse Ox O2 Delivery O2 Flow Rate FiO2 10/28/17 08:21 97.9 65 20 129/61 95 10/27/17 07:56 Room Air Intake and Output 10/27/17 10/27/17 10/28/17 15:00 23:00 07:00 Intake Total 110 ml 50 ml 500 ml Balance 110 ml 50 ml 500 ml Exam No apparent distress Constitutional: alert, oriented Head: normocephalic Respiratory: other (Coarse breath sounds bilaterally, no wheezing) Cardiovascular: other (S1-S2 heard), regular rate and rhythm Gastrointestinal: bowel sounds, non-tender, soft Extremities: edema Results Result Diagram: 10/28/17 0454 10/28/17 0455 Results 24 hrs Laboratory Tests Test 10/28/17 04:54 10/28/17 04:55 White Blood Count 5.6 Red Blood Count 2.92 L Hemoglobin 8.4 L Hematocrit 24.8 L Mean Corpuscular Volume 84.9 Mean Corpuscular Hemoglobin 28.8 L Mean Corpuscular Hemoglobin Concent 33.9 Red Cell Distribution Width 25.5 H Platelet Count 207 Mean Platelet Volume 10.0 Neutrophils % 75.1 Lymphocytes % 11.5 L Monocytes % 8.2 Eosinophils % 2.5 Basophils % 0.4 Nucleated Red Blood Cells % 0.0 Neutrophils # 4.2 Lymphocytes # 0.7 L Monocytes # 0.5 Eosinophils # 0.1 Basophils # 0.0 Nucleated Red Blood Cells # 0.0 Prothrombin Time 14.3 Prothrombin Time Ratio 1.1 INR International Normalized Ratio 1.09 Sodium Level 139 Potassium Level 4.0 Chloride Level 108 Carbon Dioxide Level 27 Anion Gap 8 Blood Urea Nitrogen 19 Creatinine 0.91 Glucose Level 95 Calcium Level 8.2 L Magnesium Level 2.1 Total Bilirubin 1.4 H Direct Bilirubin 0.00 Indirect Bilirubin 1.4 H Aspartate Amino Transf (AST/SGOT) 21 Alanine Aminotransferase (ALT/SGPT) 31 Alkaline Phosphatase 39 L Total Protein 5.4 L Albumin 2.4 L Globulin 3.00 Albumin/Globulin Ratio 0.80 Medications Medications Current Medications Zolpidem Tartrate (Ambien) 5 mg QHS PRN PO INSOMNIA; Start 10/22/17 at 18:30 Amiodarone HCl (Cordarone) 100 mg DAILY PO Last administered on 10/28/17 08:42 ; Admin Dose 100 MG; Start 10/23/17 at 09:00 Cevimeline HCl (Evoxac) 30 mg QID PO Last administered on 10/28/17 08:41; Admin Dose 30 MG; Start 10/22/17 at 21:00 Cyanocobalamin (Vitamin B12) 1,000 mcg DAILY PO Last administered on 10/28/17 08:42; Admin Dose 1,000 MCG; Start 10/23/17 at 09:00 Folic Acid (Folic Acid) 0.8 mg DAILY PO Last administered on 10/28/17 08:41; Admin Dose 0.8 MG; Start 10/23/17 at 09:00 Levothyroxine Sodium (Synthroid) 25 mcg DAILY@06 PO Last administered on 05:31; Admin Dose 25 MCG; Start 10/23/17 at 06:00 Metoprolol Succinate (Toprol Xl) 50 mg DAILY PO Last administered on 10/28/17 08:42; Admin Dose 50 MG; Start 10/23/17 at 09:00 Atorvastatin Calcium (Lipitor) 10 mg DAILY@21 PO Last administered on 21:57; Admin Dose 10 MG; Start 10/22/17 at 21:00 Pantoprazole (Protonix Tab) 40 mg DAILY@06 PO Last administered on 10/28/17 05 :31; Admin Dose 40 MG; Start 10/22/17 at 19:00 Acetaminophen/ Hydrocodone Bitart ([place] (10)) 1 tab Q4H PRN PO SEVERE PAIN LEVEL 7-10 Last administered on 10/23/17 01:35; Admin Dose 1 TAB; Start 10/22/17 at 21:30 Tramadol HCl (Ultram) 50 mg Q6H PRN PO PAIN LEVEL 4-6 Last administered on 10/28 01:38; Admin Dose 50 MG; Start 10/22/17 at 21:30 Lactobacillus Acidophilus (Florajen3 Capsule) 1 each BID PO Last administered on 10/28/17 08:41; Admin Dose 1 EACH; Start 10/25/17 at 13:00 Lidocaine (Lidocaine 5% Oint) 1 applic QID PRN TOP PAIN; Start 10/25/17 at 18: 30 Al Hydroxide/Mg Trisilicate (Gaviscon) 2 tab QID PRN PO DISTENSION/GAS/ BLOATING Last administered on 10/25/17 22:32; Admin Dose 2 TAB; Start 10/25/17 at 19:00 Lidocaine (Lidocaine 5% Oint) 1 applic QID PRN TOP PAIN; Start 10/25/17 at 19: 00 Lorazepam (Ativan) 0.5 mg Q6H PRN PO ANXIETY Last administered on 10/28/17 02: 46; Admin Dose 0.5 MG; Start 10/26/17 at 01:00 Docusate Sodium (Colace) 100 mg BID PO Last administered on 10/28/17 08:41; Admin Dose 100 MG; Start 10/26/17 at 09:00 Cephalexin (Keflex) 500 mg Q8 PO Last administered on 10/28/17 05:31; Admin Dose 500 MG; Start 10/26/17 at 14:00 Amlodipine Besylate (Norvasc) 2.5 mg BID PO Last administered on 10/28/17 08: 58; Admin Dose 2.5 MG; Start 10/26/17 at 11:30 Acetaminophen 650 mg 650 mg Q4H PRN PO PAIN AND OR ELEVATED TEMP Last administered on 10/28/17 05:33; Admin Dose 650 MG; Start 10/26/17 at 20:00 Ferric Sodium Gluconate Complex/ Sodium Chloride (Ferrlecit/NS) 110 ml @ 110 mls/hr Q24H IVPB Last administered on 10/28/17 09:54; Admin Dose 110 MLS/HR; Start 10/27/17 at 10:00; Stop 10/31/17 at 10:59 Gabriel Chau DO Oct 28, 2017 13:05
[2017-10-28] MEDS ORDERED: MAGNESIUM HYDROXIDE 30ML CUP PO PRN (13:30)
--- NOTE | 2017-10-28 13:38 | PDOCDIS ---
Discharge Instructions DIAGNOSIS Discharge Diagnosis Anemia , L ankle sprain and hematoma . CONDITION Patient Condition: Good HOME CARE INSTRUCTIONS: Diet Instructions: RegularSpecial Diet: Regular ACTIVITY: Activity Restrictions: Slowly Increase Activity Rest between Activity Bathing Restrictions: Shower FOLLOW UP/APPOINTMENTS Follow-up Plan BELLA Pitts MD Oct 28, 2017 13:38
[2017-10-28 13:44] VITALS: BP 128/62; RESP 18
[2017-10-28 21:04] VITALS: BP 142/67; RESP 16
[2017-10-28] MEDS: ATORVASTATIN 10 MG TAB PO SCH (21:06)
== END 2017-10-28 21:36 | DRG 563 ==
LOC: E/R 14:30 → PP2 18:10
PROVIDERS: ADMIT Internal Medicine; ATTEND Internal Medicine
PROC: 30233N1 Transfusion of Nonautologous Red Blood Cells into Peripheral Vein, Percutaneous Approach (ICD-10-PCS; 2017-10-22)
PROC: 30233N1 Transfusion of Nonautologous Red Blood Cells into Peripheral Vein, Percutaneous Approach (ICD-10-PCS; 2017-10-23)
PROC: 30233K1 Transfusion of Nonautologous Frozen Plasma into Peripheral Vein, Percutaneous Approach (ICD-10-PCS; 2017-10-23)
PROC: 30233N1 Transfusion of Nonautologous Red Blood Cells into Peripheral Vein, Percutaneous Approach (ICD-10-PCS; 2017-10-24)
PROC: 30233K1 Transfusion of Nonautologous Frozen Plasma into Peripheral Vein, Percutaneous Approach (ICD-10-PCS; 2017-10-24)
PROC: 30233N1 Transfusion of Nonautologous Red Blood Cells into Peripheral Vein, Percutaneous Approach (ICD-10-PCS; principal; 2017-10-25)
DX: S93.402A Sprain of unspecified ligament of left ankle, initial encounter (principal); N17.9 Acute kidney failure, unspecified; E46 Unspecified protein-calorie malnutrition; D68.32 Hemorrhagic disorder due to extrinsic circulating anticoagulants; K52.1 Toxic gastroenteritis and colitis; D62 Acute posthemorrhagic anemia; I48.2 Chronic atrial fibrillation; E86.0 Dehydration; I12.9 Hypertensive chronic kidney disease with stage 1 through stage 4 chronic kidney disease, or unspecified chronic kidney disease; S36.892A Contusion of other intra-abdominal organs, initial encounter; N39.0 Urinary tract infection, site not specified; M35.00 Sjogren syndrome, unspecified; W18.2XXA Fall in (into) shower or empty bathtub, initial encounter; Y93.E1 Activity, personal bathing and showering; Y92.012 Bathroom of single-family (private) house as the place of occurrence of the external cause; Y99.8 Other external cause status; Z79.01 Long term (current) use of anticoagulants; T45.515A Adverse effect of anticoagulants, initial encounter; D63.8 Anemia in other chronic diseases classified elsewhere; T36.95XA Adverse effect of unspecified systemic antibiotic, initial encounter; Y92.230 Patient room in hospital as the place of occurrence of the external cause; I77.89 Other specified disorders of arteries and arterioles; N18.9 Chronic kidney disease, unspecified; I25.10 Atherosclerotic heart disease of native coronary artery without angina pectoris; E78.5 Hyperlipidemia, unspecified; E03.9 Hypothyroidism, unspecified; B96.20 Unspecified Escherichia coli [E. coli] as the cause of diseases classified elsewhere; S30.1XXA Contusion of abdominal wall, initial encounter; Z68.23 Body mass index [BMI] 23.0-23.9, adult; S70.02XA Contusion of left hip, initial encounter
CPT/HCPCS: 36430; 73510; 73721; 74176; 80048; 80053; 81001; 82550; 82553; 82728; 83540; 83735; 84100; 84484; 85025; 85610; 85651; 85730; 86140; 86850; 86900; 86901; 86920; 87040; 87086; 93005; 93306; 93971; 97163; J1200; J2543; J2916; J3370; J3475; J7030; J7040; J7050; P9016; P9059

== ENCOUNTER 2017-10-28 17:33 | Inpatient (IN) | payer MEDICARE, BC ==
[~2017-10-28] VITALS: Ht 160 cm; Wt 60.0 kg
[~2017-10-28 17:33] MED LIST changes: -ACET500C5 PO; +AMIO100T4 PO; -AMIO200T2 PO; -AMOX1TAB10 PO; -CALC500T PO; +CEVI30CA8 PO; -FURO-109 PO; -HYDR-906 PO; -LORA0.5T PO; +METO-319 PO; -ONDA4TAB35 PO; -POTA-57 PO; -RESTOP4 BOTH EYES; -RIVA20TA PO; -TELM40TA2 PO; +TELM80TA4 PO; +WARF2TAB PO
[2017-10-28] MEDS ORDERED: LIDOCAINE 5% 35 GM OINT TOP PRN (23:45)
[2017-10-28] MEDS ORDERED: NACL 0.9% 3 ML SYG IV SCH (23:45)
[2017-10-28] MEDS ORDERED: ZOLPIDEM 5 MG TAB PO PRN (23:45)
[2017-10-28] MEDS ORDERED: AL HYDROX/MG TRISILICATE TAB PO PRN (23:45)
[2017-10-28] MEDS ORDERED: MAGNESIUM HYDROXIDE 30ML CUP PO PRN (23:45)
[2017-10-28] MEDS: LORAZEPAM 0.5 MG TAB PO PRN (23:55)
[2017-10-28] MEDS: traMADol 50 MG TAB PO PRN (23:56)
[2017-10-29 01:03] VITALS: Ht 160 cm; Wt 60.0 kg
[2017-10-29] MEDS ORDERED: BISACODYL 10 MG SUPP PR PRN (01:30)
[2017-10-29] MEDS ORDERED: MAGNESIUM HYDROXIDE 30ML CUP PO PRN (01:30)
[2017-10-29 02:20] VITALS: BP 148/71; RESP 18
[2017-10-29] MEDS: LEVOTHYROXINE 25 MCG TAB PO SCH (06:10)
[2017-10-29] MEDS: CEPHALEXIN 500 MG CAP PO SCH ×3 (06:10→20:20)
[2017-10-29] MEDS: PANTOPRAZOLE (EC) 40 MG TAB PO SCH (06:10)
[2017-10-29 07:00] VITALS: BP 138/64; RESP 18
[2017-10-29 07:13] LABS: ABNORMAL IP MESSAGE 1; BASOPHILS % 0.2 % (0.0-2.0); EOSINOPHILS # 0.1 10^3/ul (0.0-0.5); EOSINOPHILS % 1.2 % (0.0-7.0); HEMATOCRIT 25.5 % (37.0-47.0); HEMOGLOBIN 8.5 g/dl (12.0-16.0); LYMPHOCYTES # 0.4 10^3/ul (0.8-2.9); LYMPHOCYTES % 5.7 % (15.0-51.0); MEAN CORPUSCULAR HEMOGLOBIN 28.8 pg (29.0-33.0); MEAN CORPUSCULAR HGB CONC 33.3 g/dl (32.0-37.0); MEAN CORPUSCULAR VOLUME 86.4 fl (82.0-101.0); MEAN PLATELET VOLUME 9.7 fl (7.4-10.4); MONOCYTE # 0.4 10^3/ul (0.3-0.9); MONOCYTES % 6.2 % (0.0-11.0); NEUTROPHIL # 5.5 10^3/ul (1.6-7.5); NEUTROPHILS % 84.2 % (39.0-77.0); PLATELET COUNT 242 10^3/UL (140-415); RED BLOOD COUNT 2.95 10^6/ul (4.20-5.40); RED CELL DISTRIBUTION WIDTH 26.1 % (11.5-14.5); WHITE BLOOD COUNT 6.5 10^3/ul (4.8-10.8)
[2017-10-29 07:20] LABS: POSITIVE DIFF @See below
[2017-10-29 07:34] LABS: ALBUMIN 2.4 g/dl (3.3-4.9); ALBUMIN/GLOBULIN RATIO 0.85; BILIRUBIN,INDIRECT 1.2 mg/dl (0-1.1); BILIRUBIN,TOTAL 1.2 mg/dl (0.2-1.3); CALCIUM 8.1 mg/dl (8.4-10.2); CREATININE 0.9 mg/dl (0.44-1.00); POTASSIUM 4.4 mmol/L (3.5-5.1); TOTAL PROTEIN 5.2 g/dl (6.1-8.1)
[2017-10-29] MEDS: FOLIC ACID 0.4 MG TAB PO SCH (09:57)
[2017-10-29] MEDS: AMLODIPINE 2.5 MG TAB PO SCH ×2 (09:58→20:24)
[2017-10-29] MEDS: METOPROLOL (XL) 50 MG TAB PO SCH (09:58)
[2017-10-29] MEDS: CEVIMELINE 30 MG CAP PO SCH ×4 (09:59→20:20)
[2017-10-29] MEDS: AMIODARONE 200 MG TAB PO SCH (09:59)
[2017-10-29] MEDS: DOCUSATE SODIUM 100 MG CAP PO SCH ×2 (09:59→20:28)
[2017-10-29] MEDS: SOD FERRIC GLUC COMPLX 125 MG in SOD CHLORIDE 0.9% 100 ML IVPB SCH (10:06)
[2017-10-29] MEDS: L ACIDOPHIL/B LACTIS/B LONGUM CAPSULE PO SCH ×2 (10:06→20:19)
[2017-10-29] MEDS: CYANOCOBALAMIN 500 MCG TAB PO SCH (11:07)
--- NOTE | 2017-10-29 11:23 | CONS ---
Date/Time of Note Date/Time of Note DATE: 10/29/17 TIME: 11:08 Assessment/Plan Assessment/Plan Chief Complaint/Hosp Course 1. Left ankle pain after a severe ankle sprain. Patient also developed ecchymoses and hematoma in the left ankle, the left hip and some iliopsoas retroperitoneal bleeding. She was transferred yesterday to the acute rehab unit for a comprehensive rehabilitation program. 2. Coagulopathy due to Coumadin. This has corrected. 3. Anemia. The patient was found to be iron deficient. She is getting a course of referral is set intravenously. 4. Atrial fibrillation. She is being followed by cardiology. They will restart anticoagulation when they feel it is safe for her. 5. Constipation resolved 6. Urinary tract infection 7. Malnutrition. She is now taking nutritional supplements. Problems: Consultation Date/Type/Reason Admit Date/Time Oct 28, 2017 at 21:45 Initial Consult Date Type of Consultation: Renal 24 HR Interval Summary Free Text/Dictation This patient was transferred here yesterday from the acute hospital for a comprehensive rehabilitation program. The patient has a sprained left ankle and is unable to walk. She also developed subcutaneous and intramuscular bleeding from being over coumadinized. She is feeling better. She did have an episode of fecal impaction last night which has resolved after the nurses disimpacted her. Constitutional: improved, no complaints Exam/Review of Systems Vital Signs Vitals Vital Signs Date Time Temp Pulse Resp B/P Pulse Ox O2 Delivery O2 Flow Rate FiO2 10/29/17 07:00 98.9 73 18 138/64 96 Intake and Output 10/28/17 10/28/17 10/29/17 14:59 22:59 06:59 Output Total 200 ml Balance -200 ml Exam Her left ankle is in a walking boot Constitutional: alert, frail, oriented Respiratory: clear to auscultation, normal air movement Cardiovascular: regular rate and rhythm Gastrointestinal: non-tender, soft Musculoskeletal: nl extremities to inspection Results Result Diagram: 10/29/1762710/29/17627 Results 24 hrs Laboratory Tests Test 10/28/17 23:45 10/29/17 06:28 Stool Occult Blood NEGATIVE White Blood Count 6.5 Red Blood Count 2.95 L Hemoglobin 8.5 L Hematocrit 25.5 L Mean Corpuscular Volume 86.4 Mean Corpuscular Hemoglobin 28.8 L Mean Corpuscular Hemoglobin Concent 33.3 Red Cell Distribution Width 26.1 H Platelet Count 242 Mean Platelet Volume 9.7 Neutrophils % 84.2 H Lymphocytes % 5.7 L Monocytes % 6.2 Eosinophils % 1.2 Basophils % 0.2 Nucleated Red Blood Cells % 0.0 Neutrophils # 5.5 Lymphocytes # 0.4 L Monocytes # 0.4 Eosinophils # 0.1 Basophils # 0.0 Nucleated Red Blood Cells # 0.0 Sodium Level 138 Potassium Level 4.4 Chloride Level 107 Carbon Dioxide Level 29 Anion Gap 6 L Blood Urea Nitrogen 21 H Creatinine 0.90 Glucose Level 96 Calcium Level 8.1 L Total Bilirubin 1.2 Direct Bilirubin 0.00 Indirect Bilirubin 1.2 H Aspartate Amino Transf (AST/SGOT) 22 Alanine Aminotransferase (ALT/SGPT) 30 Alkaline Phosphatase 46 Total Protein 5.2 L Albumin 2.4 L Globulin 2.80 Albumin/Globulin Ratio 0.85 Medications Medications Current Medications Lidocaine (Lidocaine 5% Oint) 1 applic QID PRN TOP PAIN; Start 10/28/17 at 23: 45 Lorazepam (Ativan) 0.5 mg Q6H PRN PO ANXIETY Last administered on 10/28/17 23: 55; Admin Dose 0.5 MG; Start 10/28/17 at 23:45 Magnesium Hydroxide (Milk Of Mag) 30 ml DAILY PRN PO CONSTIPATION; Start at 23:45 Metoprolol Succinate (Toprol Xl) 50 mg DAILY PO Last administered on 10/29/17 09:58; Admin Dose 50 MG; Start 10/29/17 at 09:00 Pantoprazole 40 mg 40 mg DAILY@06 PO Last administered on 10/29/17 06:10; Admin Dose 40 MG; Start 10/29/17 at 06:00 Ferric Sodium Gluconate Complex/ Sodium Chloride (Ferrlecit/NS) 110 ml @ 110 mls/hr Q24H IVPB Last administered on 10/29/17 10:06; Admin Dose 110 MLS/HR; Start 10/29/17 at 10:00; Stop 10/31/17 at 10:59 Tramadol HCl (Ultram) 50 mg Q6H PRN PO PAIN Last administered on 10/28/17 23: 56; Admin Dose 50 MG; Start 10/28/17 at 23:45 Zolpidem Tartrate (Ambien) 5 mg HS PRN PO INSOMNIA; Start 10/28/17 at 23:45 Acetaminophen/ Hydrocodone Bitart ([place] (10/325)) 1 tab Q4H PRN PO PAIN; Start 10/28/17 at 23:45 Acetaminophen (Tylenol Tab) 650 mg Q4H PRN PO PAIN AND OR ELEVATED TEMP; Start 10/28/17 at 23:45 Al Hydroxide/Mg Trisilicate (Gaviscon) 2 tab QID PRN PO FOR GASTROINTESTINAL UPSET Last administered on 10/29/17 01:51; Admin Dose 2 TAB; Start 10/28/17 at 23:45 Amiodarone HCl (Cordarone) 100 mg DAILY PO Last administered on 10/29/17 09:59 ; Admin Dose 100 MG; Start 10/29/17 at 09:00 Amlodipine Besylate (Norvasc) 2.5 mg BID PO Last administered on 10/29/17 09: 58; Admin Dose 2.5 MG; Start 10/29/17 at 09:00 Atorvastatin Calcium (Lipitor) 10 mg DAILY@21 PO ; Start 10/29/17 at 21:00 Cephalexin (Keflex) 500 mg Q8 PO Last administered on 10/29/17 06:10; Admin Dose 500 MG; Start 10/29/17 at 06:00; Stop 10/30/17 at 06:00 Cevimeline HCl (Evoxac) 30 mg QID PO Last administered on 10/29/17 09:59; Admin Dose 30 MG; Start 10/29/17 at 09:00 Cyanocobalamin (Vitamin B12) 1,000 mcg DAILY PO ; Start 10/29/17 at 09:00 Docusate Sodium (Colace) 100 mg BID PO Last administered on 10/29/17 09:59; Admin Dose 100 MG; Start 10/29/17 at 09:00 Folic Acid (Folic Acid) 0.8 mg DAILY PO Last administered on 10/29/17 09:57; Admin Dose 0.8 MG; Start 10/29/17 at 09:00 Lactobacillus Acidophilus (Florajen3 Capsule) 1 each BID PO Last administered on 10/29/17 10:06; Admin Dose 1 EACH; Start 10/29/17 at 09:00 Levothyroxine Sodium (Synthroid) 25 mcg DAILY@06 PO Last administered on 06:10; Admin Dose 25 MCG; Start 10/29/17 at 06:00 Senna (Senokot) 1 tab HS PO ; Start 10/29/17 at 21:00 Bisacodyl (Dulcolax Supp) 10 mg DAILY PRN [place] CONSTIPATION Last administered on 10/29/17 01:51; Admin Dose 10 MG; Start 10/29/17 at 01:30 Magnesium Hydroxide (Milk Of Mag) 30 ml BID PRN PO CONSTIPATION Last administered on 10/29/17 01:24; Admin Dose 30 ML; Start 10/29/17 at 01:30 Lactulose (Enulose) 20 gm DAILY PRN PO CONSTIPATION; Start 10/29/17 at 01:30 BELLA DEY MD Oct 29, 2017 11:23
--- NOTE | 2017-10-29 12:40 | CONS ---
DATE OF ADMISSION: 10/28/2017 DATE OF CONSULTATION: 10/29/2017 REHABILITATION POST ADMISSION PHYSICIAN EVALUATION REHABILITATION IMPAIRMENT CATEGORY: Debility secondary to coagulopathy with multiple hematomas including left ankle, hip, thigh, psoas, iliac muscles, Left Upper Extremity and retroperitoneal bleed. ACTIVE COMORBIDITIES: 1. Left ankle sprain. 2. 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 4. Atrial fibrillation. 5. Hypertension. 6. Hyperlipidemia. 7. Constipation 8. Left ankle blisters. 9. Constipation. 10. Impairments in self-care and mobility. HISTORY OF PRESENT ILLNESS: The patient is a very pleasant 77-year-old female with a history of atrial fibrillation for which she has been taking anticoagulation, who is status post a mechanical fall exiting her bathtub with resultant severe left ankle sprain. The patient presented to the emergency room and was noted to have a negative x-ray and was discharged home. The patient had been having worsening difficulty walking and increased left groin flank and side pain and left lower extremity pain. Imaging studies revealed multiple hematomas in the left ankle, hip, thigh, psoas and iliac muscles in addition to a retroperitoneal bleed. The patient was also treated for acute renal failure, hemorrhagic shock, and hypotension. The patient has been left quite debilitated resultantly with significant impairments in self-care and mobility and has been cleared to transfer to the rehabilitation unit for comprehensive interdisciplinary rehab care. FUNCTIONAL HISTORY: Prior to recent events, she was independent in self-care tasks and mobility. Currently, she requires maximal assist for self-care and moderate to maximal assist for mobility tasks. I have reviewed the preadmission screen and patient's current functional status is consistent with the preadmission screen. SOCIAL HISTORY: The patient lives at home with her and family and hopes to return there upon discharge. PAST MEDICAL HISTORY: 1. Vasculitis. 2. Sjogren disease. 3. 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 4. Atrial fibrillation. 5. Hypertension. 6. Hyperlipidemia. CURRENT MEDICATIONS: 1. Evoxac 30 mg p.o. q.i.d. 2. Vitamin B. 3. Colace 100 mg b.i.d. 4. Folic acid 0.8 mg p.o. every day. 5. Synthroid 25 mcg p.o. every day. 6. [place] p.r.n. 7. Cordarone 100 mg p.o. every day. 8. Norvasc 2.5 mg p.o. b.i.d. 9. Lipitor 10 mg p.o. every day. 10. Keflex 500 mg p.o. q.8h. 11. Ativan p.r.n. 12. Toprol-XL 50 mg p.o. every day. 13. Protonix 40 mg p.o. every day. 14. Ultram p.r.n. ALLERGIES: THE PATIENT WITH NO KNOWN DRUG ALLERGIES. PHYSICAL EXAMINATION: VITAL SIGNS: The patient is afebrile with stable vital signs. HEENT: Extraocular motion intact. Oropharynx clear. NECK: Supple. LUNGS: Clear anteriorly. CARDIAC: S1, S2. ABDOMEN: Soft, nontender, positive bowel sounds. NEUROLOGIC: She is awake and alert and oriented x3. She can follow simple 1- step commands. She demonstrates good strength in bilateral upper extremity. She does have 4- strength in left lower extremity, good strength in the right lower extremity. The patient with notable multiple ecchymoses diffusely throughout the left lower extremity in addition to left flank and left upper extremity. PLAN: The patient has been admitted for comprehensive interdisciplinary acute rehab and is anticipated to tolerate 3 hours of daily therapy in divided doses for at least 5/7 days a week. The treatment plan will include: 1. Physical therapy to focus on bed mobility, transfers, and household ambulation with the goal of having the patient reach a standby assist level. 2. Occupational therapy to focus on hygiene, grooming, dressing, bathing and toileting activities with the goal of having the patient reach standby assist level. 3. Rehabilitation nursing for carryover of therapeutic interventions, the goal of continent of bowel and bladder, the goal of pain adequately managed on oral medications, and improved wound healing. ESTIMATED LENGTH OF STAY: Ten days. DISPOSITION GOAL: Home. REHABILITATION BARRIER: Pain. INTERVENTION FOR BARRIER: Comprehensive interdisciplinary approach. I acknowledge that I performed a full physical examination on this patient within 12 hours of admission to the rehabilitation unit and believe the patient is a good candidate for comprehensive interdisciplinary rehab care and is anticipated to make reasonable goals in a reasonable period of time as outlined above. Dictated By: ADRIAN BENITEZ/HARDIK Conf#: [id number] DID#: [id number] MTDD
--- NOTE | 2017-10-29 12:50 | CONS ---
Date/Time of Note Date/Time of Note DATE: 10/29/17 TIME: 12:48 Assessment/Plan Assessment/Plan Additional Assessment/Plan Acute blood loss anemia status post blood transfusion Psoas muscle hematoma Paroxysmal atrial fibrillation, currently sinus rhythm Coagulopathy, history of Coumadin use Preserved ejection fraction Hypertension Status post mechanical fall -Patient remains in sinus rhythm, would continue amiodarone and beta-kenyon as heart rate and blood pressure permits. Repeat echocardiogram on this admission with improvement in left ventricular systolic function. Anticoagulation on hold secondary to recent hematoma and would restart when okay by our orthopedic colleagues. Blood pressure trend overall improved. Continue physical therapy as tolerated. Consultation Date/Type/Reason Admit Date/Time Oct 28, 2017 at 21:45 Initial Consult Date Type of Consultation: cv 24 HR Interval Summary Free Text/Dictation Patient denies shortness of breath, chest pain. Underwent physical therapy this morning without dizziness Exam/Review of Systems Vital Signs Vitals Vital Signs Date Time Temp Pulse Resp B/P Pulse Ox O2 Delivery O2 Flow Rate FiO2 10/29/17 07:00 98.9 73 18 138/64 96 Intake and Output 10/28/17 10/28/17 10/29/17 15:00 23:00 07:00 Output Total 200 ml Balance -200 ml Exam No apparent distress, at bedside Constitutional: alert, oriented Head: normocephalic Respiratory: other Cardiovascular: other (S1-S2 heard), regular rate and rhythm Gastrointestinal: bowel sounds, non-tender, soft Extremities: edema Results Result Diagram: 10/29/17 0628 10/29/17 0628 Results 24 hrs Laboratory Tests Test 10/28/17 23:45 10/29/17 06:28 Stool Occult Blood NEGATIVE White Blood Count 6.5 Red Blood Count 2.95 L Hemoglobin 8.5 L Hematocrit 25.5 L Mean Corpuscular Volume 86.4 Mean Corpuscular Hemoglobin 28.8 L Mean Corpuscular Hemoglobin Concent 33.3 Red Cell Distribution Width 26.1 H Platelet Count 242 Mean Platelet Volume 9.7 Neutrophils % 84.2 H Lymphocytes % 5.7 L Monocytes % 6.2 Eosinophils % 1.2 Basophils % 0.2 Nucleated Red Blood Cells % 0.0 Neutrophils # 5.5 Lymphocytes # 0.4 L Monocytes # 0.4 Eosinophils # 0.1 Basophils # 0.0 Nucleated Red Blood Cells # 0.0 Sodium Level 138 Potassium Level 4.4 Chloride Level 107 Carbon Dioxide Level 29 Anion Gap 6 L Blood Urea Nitrogen 21 H Creatinine 0.90 Glucose Level 96 Calcium Level 8.1 L Total Bilirubin 1.2 Direct Bilirubin 0.00 Indirect Bilirubin 1.2 H Aspartate Amino Transf (AST/SGOT) 22 Alanine Aminotransferase (ALT/SGPT) 30 Alkaline Phosphatase 46 Total Protein 5.2 L Albumin 2.4 L Globulin 2.80 Albumin/Globulin Ratio 0.85 Medications Medications Current Medications Lidocaine (Lidocaine 5% Oint) 1 applic QID PRN TOP PAIN; Start 10/28/17 at 23: 45 Lorazepam (Ativan) 0.5 mg Q6H PRN PO ANXIETY Last administered on 10/28/17 23: 55; Admin Dose 0.5 MG; Start 10/28/17 at 23:45 Magnesium Hydroxide (Milk Of Mag) 30 ml DAILY PRN PO CONSTIPATION; Start at 23:45 Metoprolol Succinate (Toprol Xl) 50 mg DAILY PO Last administered on 10/29/17 09:58; Admin Dose 50 MG; Start 10/29/17 at 09:00 Pantoprazole 40 mg 40 mg DAILY@06 PO Last administered on 10/29/17 06:10; Admin Dose 40 MG; Start 10/29/17 at 06:00 Ferric Sodium Gluconate Complex/ Sodium Chloride (Ferrlecit/NS) 110 ml @ 110 mls/hr Q24H IVPB Last administered on 10/29/17 10:06; Admin Dose 110 MLS/HR; Start 10/29/17 at 10:00; Stop 10/31/17 at 10:59 Tramadol HCl (Ultram) 50 mg Q6H PRN PO PAIN Last administered on 10/28/17 23: 56; Admin Dose 50 MG; Start 10/28/17 at 23:45 Zolpidem Tartrate (Ambien) 5 mg HS PRN PO INSOMNIA; Start 10/28/17 at 23:45 Acetaminophen/ Hydrocodone Bitart ([place] (10325)) 1 tab Q4H PRN PO PAIN; Start 10/28/17 at 23:45 Acetaminophen (Tylenol Tab) 650 mg Q4H PRN PO PAIN AND OR ELEVATED TEMP; Start 10/28/17 at 23:45 Al Hydroxide/Mg Trisilicate (Gaviscon) 2 tab QID PRN PO FOR GASTROINTESTINAL UPSET Last administered on 10/29/17 01:51; Admin Dose 2 TAB; Start 10/28/17 at 23:45 Amiodarone HCl (Cordarone) 100 mg DAILY PO Last administered on 10/29/17 09:59 ; Admin Dose 100 MG; Start 10/29/17 at 09:00 Amlodipine Besylate (Norvasc) 2.5 mg BID PO Last administered on 10/29/17 09: 58; Admin Dose 2.5 MG; Start 10/29/17 at 09:00 Atorvastatin Calcium (Lipitor) 10 mg DAILY@21 PO ; Start 10/29/17 at 21:00 Cephalexin (Keflex) 500 mg Q8 PO Last administered on 10/29/17 06:10; Admin Dose 500 MG; Start 10/29/17 at 06:00; Stop 10/30/17 at 06:00 Cevimeline HCl (Evoxac) 30 mg QID PO Last administered on 10/29/17 09:59; Admin Dose 30 MG; Start 10/29/17 at 09:00 Cyanocobalamin (Vitamin B12) 1,000 mcg DAILY PO Last administered on 10/29/17 11:07; Admin Dose 1,000 MCG; Start 10/29/17 at 09:00 Docusate Sodium (Colace) 100 mg BID PO Last administered on 10/29/17 09:59; Admin Dose 100 MG; Start 10/29/17 at 09:00 Folic Acid (Folic Acid) 0.8 mg DAILY PO Last administered on 10/29/17 09:57; Admin Dose 0.8 MG; Start 10/29/17 at 09:00 Lactobacillus Acidophilus (Florajen3 Capsule) 1 each BID PO Last administered on 10/29/17 10:06; Admin Dose 1 EACH; Start 10/29/17 at 09:00 Levothyroxine Sodium (Synthroid) 25 mcg DAILY@06 PO Last administered on 06:10; Admin Dose 25 MCG; Start 10/29/17 at 06:00 Senna (Senokot) 1 tab HS PO ; Start 10/29/17 at 21:00 Bisacodyl (Dulcolax Supp) 10 mg DAILY PRN [place] CONSTIPATION Last administered on 10/29/17 01:51; Admin Dose 10 MG; Start 10/29/17 at 01:30 Magnesium Hydroxide (Milk Of Mag) 30 ml BID PRN PO CONSTIPATION Last administered on 10/29/17 01:24; Admin Dose 30 ML; Start 10/29/17 at 01:30 Lactulose (Enulose) 20 gm DAILY PRN PO CONSTIPATION; Start 10/29/17 at 01:30 Gabriel Chau DO Oct 29, 2017 12:50
[2017-10-29 14:00] VITALS: BP 119/63; RESP 18
[2017-10-29] MEDS: traMADol 50 MG TAB PO PRN (20:22)
[2017-10-29] MEDS: ATORVASTATIN 10 MG TAB PO SCH (20:26)
[2017-10-29] MEDS: SENNA TAB PO SCH (20:28)
[2017-10-29] MEDS: LORAZEPAM 0.5 MG TAB PO PRN (20:28)
[2017-10-30] MEDS: PANTOPRAZOLE (EC) 40 MG TAB PO SCH (06:02)
[2017-10-30] MEDS: LEVOTHYROXINE 25 MCG TAB PO SCH (06:02)
[2017-10-30] MEDS: CEPHALEXIN 500 MG CAP PO SCH ×2 (06:02→22:38)
--- NOTE | 2017-10-30 06:45 | CONS ---
Date/Time of Note Date/Time of Note DATE: 10/30/17 TIME: 06:43 Consult Date/Type/Reason Admit Date/Time Oct 28, 2017 at 21:45 Initial Consult Date Type of Consultation: cv Subjective Pt is still with pain, but improving Objective Echymosis gradually improving Left ankle - slightly decreased swelling mod assist transfer Vital Signs Date Time Temp Pulse Resp B/P Pulse Ox O2 Delivery O2 Flow Rate FiO2 10/29/17 14:00 99.5 73 18 119/63 96 Intake and Output 10/29/17 10/29/17 10/30/17 15:00 23:00 07:00 Intake Total 100 ml 1600 ml Output Total 800 ml Balance 100 ml 800 ml Results/Medications Result Diagram: 10/29/1762710/29/17627 Medications Current Medications Lidocaine (Lidocaine 5% Oint) 1 applic QID PRN TOP PAIN; Start 10/28/17 at 23: 45 Lorazepam (Ativan) 0.5 mg Q6H PRN PO ANXIETY Last administered on 10/29/17 20: 28; Admin Dose 0.5 MG; Start 10/28/17 at 23:45 Magnesium Hydroxide (Milk Of Mag) 30 ml DAILY PRN PO CONSTIPATION; Start at 23:45 Metoprolol Succinate (Toprol Xl) 50 mg DAILY PO Last administered on 10/29/17 09:58; Admin Dose 50 MG; Start 10/29/17 at 09:00 Pantoprazole 40 mg 40 mg DAILY@06 PO Last administered on 10/30/17 06:02; Admin Dose 40 MG; Start 10/29/17 at 06:00 Ferric Sodium Gluconate Complex/ Sodium Chloride (Ferrlecit/NS) 110 ml @ 110 mls/hr Q24H IVPB Last administered on 10/29/17 10:06; Admin Dose 110 MLS/HR; Start 10/29/17 at 10:00; Stop 10/31/17 at 10:59 Tramadol HCl (Ultram) 50 mg Q6H PRN PO PAIN Last administered on 10/29/17 20: 22; Admin Dose 50 MG; Start 10/28/17 at 23:45 Zolpidem Tartrate (Ambien) 5 mg HS PRN PO INSOMNIA; Start 10/28/17 at 23:45 Acetaminophen/ Hydrocodone Bitart ([place] (10/325)) 1 tab Q4H PRN PO PAIN; Start 10/28/17 at 23:45 Acetaminophen (Tylenol Tab) 650 mg Q4H PRN PO PAIN AND OR ELEVATED TEMP; Start 10/28/17 at 23:45 Al Hydroxide/Mg Trisilicate (Gaviscon) 2 tab QID PRN PO FOR GASTROINTESTINAL UPSET Last administered on 10/29/17 01:51; Admin Dose 2 TAB; Start 10/28/17 at 23:45 Amiodarone HCl (Cordarone) 100 mg DAILY PO Last administered on 10/29/17 09:59 ; Admin Dose 100 MG; Start 10/29/17 at 09:00 Amlodipine Besylate (Norvasc) 2.5 mg BID PO Last administered on 10/29/17 20: 24; Admin Dose 2.5 MG; Start 10/29/17 at 09:00 Atorvastatin Calcium (Lipitor) 10 mg DAILY@21 PO Last administered on 20:26; Admin Dose 10 MG; Start 10/29/17 at 21:00 Cevimeline HCl (Evoxac) 30 mg QID PO Last administered on 10/29/17 20:20; Admin Dose 30 MG; Start 10/29/17 at 09:00 Cyanocobalamin (Vitamin B12) 1,000 mcg DAILY PO Last administered on 10/29/17 11:07; Admin Dose 1,000 MCG; Start 10/29/17 at 09:00 Docusate Sodium (Colace) 100 mg BID PO Last administered on 10/29/17 09:59; Admin Dose 100 MG; Start 10/29/17 at 09:00 Folic Acid (Folic Acid) 0.8 mg DAILY PO Last administered on 10/29/17 09:57; Admin Dose 0.8 MG; Start 10/29/17 at 09:00 Lactobacillus Acidophilus (Florajen3 Capsule) 1 each BID PO Last administered on 10/29/17 20:19; Admin Dose 1 EACH; Start 10/29/17 at 09:00 Levothyroxine Sodium (Synthroid) 25 mcg DAILY@06 PO Last administered on 06:02; Admin Dose 25 MCG; Start 10/29/17 at 06:00 Senna (Senokot) 1 tab HS PO ; Start 10/29/17 at 21:00 Bisacodyl (Dulcolax Supp) 10 mg DAILY PRN [place] CONSTIPATION Last administered on 10/29/17 01:51; Admin Dose 10 MG; Start 10/29/17 at 01:30 Magnesium Hydroxide (Milk Of Mag) 30 ml BID PRN PO CONSTIPATION Last administered on 10/29/17 01:24; Admin Dose 30 ML; Start 10/29/17 at 01:30 Lactulose (Enulose) 20 gm DAILY PRN PO CONSTIPATION; Start 10/29/17 at 01:30 Assessment/Plan Additional Assessment/Plan Rehab- Debility secondary to coagulopathy w/ multiple hematomas: left ankle, hip , thigh, psoas, iliac muscles, Left UE and retroperitoneal bleed; Left ankle sprain-walking boot Increase activities as tolerated 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 Atrial fibrillation-Anticoag on hold currently. GI- bowel program Hypertension. Hyperlipidemia. Constipation Left ankle blisters- wound care nurse, avoid KARON hose due to friction. ADRIAN TRENT MD Oct 30, 2017 06:45
[2017-10-30 07:30] VITALS: BP 122/60; RESP 18
[2017-10-30 08:05] LABS: ADD UMIC NO; UR ASCORBIC ACID NEGATIVE (NEGATIVE); UR BILIRUBIN (Dip) NEGATIVE (NEGATIVE); UR BLOOD (Dip) NEGATIVE (NEGATIVE); UR CLARITY CLEAR (CLEAR); UR COLOR YELLOW (YELLOW); UR GLUCOSE (Dip) NEGATIVE (NEGATIVE); UR KETONES (Dip) NEGATIVE (NEGATIVE); UR LEUKOCYTE ESTERASE (Dip) NEGATIVE Leu/ul (NEGATIVE); UR NITRITE (Dip) NEGATIVE (NEGATIVE); UR SPECIFIC GRAVITY (Dip) 1.011 (1.003-1.030); UR TOTAL PROTEIN (Dip) NEGATIVE (NEGATIVE); UR UROBILINOGEN (Dip) NEGATIVE (NEGATIVE)
[2017-10-30] MEDS: L ACIDOPHIL/B LACTIS/B LONGUM CAPSULE PO SCH ×2 (08:41→20:49)
[2017-10-30] MEDS: CYANOCOBALAMIN 500 MCG TAB PO SCH (08:41)
[2017-10-30] MEDS: FOLIC ACID 0.4 MG TAB PO SCH (08:42)
[2017-10-30] MEDS: METOPROLOL (XL) 50 MG TAB PO SCH (08:42)
[2017-10-30] MEDS: AMIODARONE 200 MG TAB PO SCH (08:43)
[2017-10-30] MEDS: CEVIMELINE 30 MG CAP PO SCH ×4 (08:43→20:50)
[2017-10-30] MEDS: AMLODIPINE 2.5 MG TAB PO SCH ×2 (08:43→20:50)
[2017-10-30] MEDS: DOCUSATE SODIUM 100 MG CAP PO SCH ×2 (08:43→20:49)
[2017-10-30] MEDS: SOD FERRIC GLUC COMPLX 125 MG in SOD CHLORIDE 0.9% 100 ML IVPB SCH (11:53)
[2017-10-30 14:00] VITALS: BP 129/60; RESP 20
[2017-10-30] MEDS: ACETAMINOPHEN 325 MG TAB PO PRN (16:32)
--- NOTE | 2017-10-30 19:45 | CONS ---
Date/Time of Note Date/Time of Note DATE: 10/30/17 TIME: 19:39 Assessment/Plan Assessment/Plan Additional Assessment/Plan 1. Left ankle pain after a severe ankle sprain. Patient also developed ecchymoses and hematoma in the left ankle, the left hip and some iliopsoas retroperitoneal bleeding. - left ankle draining, no fevers, check inr and pt in the am, blister opened, start empiric keflex 2. Coagulopathy due to Coumadin. This has corrected. 3. Anemia. The patient was found to be iron deficient. She is getting a course of referral is set intravenously. 4. Atrial fibrillation. She is being followed by cardiology. They will restart anticoagulation when they feel it is safe for her. 5. Constipation resolved 6. Urinary tract infection 7. Malnutrition. She is now taking nutritional supplements. FULL CODE Consultation Date/Type/Reason Admit Date/Time Oct 28, 2017 at 21:45 Initial Consult Date Type of Consultation: cv 24 HR Interval Summary Free Text/Dictation no acute issues, ankle hematoma - open today, no coumadin Constitutional: no complaints Exam/Review of Systems Vital Signs Vitals Vital Signs Date Time Temp Pulse Resp B/P Pulse Ox O2 Delivery O2 Flow Rate FiO2 10/30/17 14:00 99.1 74 20 129/60 95 Intake and Output 10/29/17 10/29/17 10/30/17 15:00 23:00 07:00 Intake Total 100 ml 1600 ml Output Total 800 ml Balance 100 ml 800 ml Exam Constitutional: alert, oriented Psych: no complaints Head: normocephalic Eyes: nl conjunctiva ENMT: nl external ears & nose Neck: non-tender, supple Respiratory: clear to auscultation, normal air movement Cardiovascular: gallop, irregular rhythm Gastrointestinal: nl liver, spleen, soft Genitourinary - Female: nl adnexae Extremities: normal pulses 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 Skin: nl turgor Results Result Diagram: 10/29/1762710/29/17627 Results 24 hrs Laboratory Tests Test 10/30/17 06:00 Urine Color YELLOW Urine Clarity CLEAR Urine pH 7.0 Urine Specific [place] 1.011 Urine Ketones NEGATIVE Urine Nitrite NEGATIVE Urine Bilirubin NEGATIVE Urine Urobilinogen NEGATIVE Urine Leukocyte Esterase NEGATIVE Urine Hemoglobin NEGATIVE Urine Glucose NEGATIVE Urine Total Protein NEGATIVE Medications Medications Current Medications Lidocaine (Lidocaine 5% Oint) 1 applic QID PRN TOP PAIN; Start 10/28/17 at 23: 45 Lorazepam (Ativan) 0.5 mg Q6H PRN PO ANXIETY Last administered on 10/29/17 20: 28; Admin Dose 0.5 MG; Start 10/28/17 at 23:45 Magnesium Hydroxide (Milk Of Mag) 30 ml DAILY PRN PO CONSTIPATION; Start at 23:45 Metoprolol Succinate (Toprol Xl) 50 mg DAILY PO Last administered on 10/30/17 08:42; Admin Dose 50 MG; Start 10/29/17 at 09:00 Pantoprazole 40 mg 40 mg DAILY@06 PO Last administered on 10/30/17 06:02; Admin Dose 40 MG; Start 10/29/17 at 06:00 Ferric Sodium Gluconate Complex/ Sodium Chloride (Ferrlecit/NS) 110 ml @ 110 mls/hr Q24H IVPB Last administered on 10/30/17 11:53; Admin Dose 110 MLS/HR; Start 10/29/17 at 10:00; Stop 10/31/17 at 10:59 Tramadol HCl (Ultram) 50 mg Q6H PRN PO PAIN Last administered on 10/29/17 20: 22; Admin Dose 50 MG; Start 10/28/17 at 23:45 Zolpidem Tartrate (Ambien) 5 mg HS PRN PO INSOMNIA; Start 10/28/17 at 23:45 Acetaminophen/ Hydrocodone Bitart ([place] (10/325)) 1 tab Q4H PRN PO PAIN; Start 10/28/17 at 23:45 Acetaminophen (Tylenol Tab) 650 mg Q4H PRN PO PAIN AND OR ELEVATED TEMP Last administered on 10/30/17 16:32; Admin Dose 650 MG; Start 10/28/17 at 23:45 Al Hydroxide/Mg Trisilicate (Gaviscon) 2 tab QID PRN PO FOR GASTROINTESTINAL UPSET Last administered on 10/29/17 01:51; Admin Dose 2 TAB; Start 10/28/17 at 23:45 Amiodarone HCl (Cordarone) 100 mg DAILY PO Last administered on 10/30/17 08:43 ; Admin Dose 100 MG; Start 10/29/17 at 09:00 Amlodipine Besylate (Norvasc) 2.5 mg BID PO Last administered on 10/30/17 08: 43; Admin Dose 2.5 MG; Start 10/29/17 at 09:00 Atorvastatin Calcium (Lipitor) 10 mg DAILY@21 PO Last administered on 20:26; Admin Dose 10 MG; Start 10/29/17 at 21:00 Cevimeline HCl (Evoxac) 30 mg QID PO Last administered on 10/30/17 16:32; Admin Dose 30 MG; Start 10/29/17 at 09:00 Cyanocobalamin (Vitamin B12) 1,000 mcg DAILY PO Last administered on 10/30/17 08:41; Admin Dose 1,000 MCG; Start 10/29/17 at 09:00 Docusate Sodium (Colace) 100 mg BID PO Last administered on 10/30/17 08:43; Admin Dose 100 MG; Start 10/29/17 at 09:00 Folic Acid (Folic Acid) 0.8 mg DAILY PO Last administered on 10/30/17 08:42; Admin Dose 0.8 MG; Start 10/29/17 at 09:00 Lactobacillus Acidophilus (Florajen3 Capsule) 1 each BID PO Last administered on 10/30/17 08:41; Admin Dose 1 EACH; Start 10/29/17 at 09:00 Levothyroxine Sodium (Synthroid) 25 mcg DAILY@06 PO Last administered on 06:02; Admin Dose 25 MCG; Start 10/29/17 at 06:00 Senna (Senokot) 1 tab HS PO ; Start 10/29/17 at 21:00 Bisacodyl (Dulcolax Supp) 10 mg DAILY PRN [place] CONSTIPATION Last administered on 10/29/17 01:51; Admin Dose 10 MG; Start 10/29/17 at 01:30 Magnesium Hydroxide (Milk Of Mag) 30 ml BID PRN PO CONSTIPATION Last administered on 10/29/17 01:24; Admin Dose 30 ML; Start 10/29/17 at 01:30 Lactulose (Enulose) 20 gm DAILY PRN PO CONSTIPATION; Start 10/29/17 at 01:30 CHRISTIAN HERNANDEZ MD Oct 30, 2017 19:45
[2017-10-30 20:00] VITALS: BP 117/62; RESP 18
[2017-10-30] MEDS: SENNA TAB PO SCH (20:50)
[2017-10-30] MEDS: ATORVASTATIN 10 MG TAB PO SCH (20:50)
[2017-10-30] MEDS: LORAZEPAM 0.5 MG TAB PO PRN (22:39)
[2017-10-30] MEDS: traMADol 50 MG TAB PO PRN (22:39)
[2017-10-31 02:00] VITALS: BP 125/68; RESP 18
[2017-10-31] MEDS: HYDROCODONE/APAP (10/325) TAB PO PRN ×2 (02:48→23:01)
[2017-10-31] MEDS: LEVOTHYROXINE 25 MCG TAB PO SCH (06:31)
[2017-10-31] MEDS: CEPHALEXIN 500 MG CAP PO SCH ×3 (06:31→21:52)
[2017-10-31] MEDS: PANTOPRAZOLE (EC) 40 MG TAB PO SCH (06:31)
[2017-10-31 06:38] LABS: ABNORMAL IP MESSAGE 1; BASOPHILS % 0.2 % (0.0-2.0); EOSINOPHILS # 0.2 10^3/ul (0.0-0.5); HEMATOCRIT 24.2 % (37.0-47.0); HEMOGLOBIN 7.9 g/dl (12.0-16.0); LYMPHOCYTES # 0.6 10^3/ul (0.8-2.9); LYMPHOCYTES % 10.7 % (15.0-51.0); MEAN CORPUSCULAR HEMOGLOBIN 29.6 pg (29.0-33.0); MEAN CORPUSCULAR HGB CONC 32.6 g/dl (32.0-37.0); MEAN CORPUSCULAR VOLUME 90.6 fl (82.0-101.0); MEAN PLATELET VOLUME 9.7 fl (7.4-10.4); MONOCYTE # 0.3 10^3/ul (0.3-0.9); MONOCYTES % 6.2 % (0.0-11.0); NEUTROPHIL # 4.2 10^3/ul (1.6-7.5); PLATELET COUNT 263 10^3/UL (140-415); RED BLOOD COUNT 2.67 10^6/ul (4.20-5.40); RED CELL DISTRIBUTION WIDTH 26.3 % (11.5-14.5); WHITE BLOOD COUNT 5.3 10^3/ul (4.8-10.8)
[2017-10-31 06:48] LABS: POSITIVE DIFF @See below
[2017-10-31 07:00] VITALS: BP 139/61; RESP 18
[2017-10-31 07:14] LABS: ALBUMIN 2.5 g/dl (3.3-4.9); ALBUMIN/GLOBULIN RATIO 0.86; BILIRUBIN,INDIRECT 1.1 mg/dl (0-1.1); BILIRUBIN,TOTAL 1.1 mg/dl (0.2-1.3); CALCIUM 8.3 mg/dl (8.4-10.2); CREATININE 1.03 mg/dl (0.44-1.00); MAGNESIUM 1.9 mg/dl (1.7-2.5); PHOSPHORUS 3.3 mg/dl (2.5-4.9); POTASSIUM 4.4 mmol/L (3.5-5.1); TOTAL PROTEIN 5.4 g/dl (6.1-8.1)
[2017-10-31] MEDS: DOCUSATE SODIUM 100 MG CAP PO SCH ×2 (09:04→20:27)
[2017-10-31] MEDS: L ACIDOPHIL/B LACTIS/B LONGUM CAPSULE PO SCH ×2 (09:05→20:27)
[2017-10-31] MEDS: AMIODARONE 200 MG TAB PO SCH (09:05)
[2017-10-31] MEDS: CEVIMELINE 30 MG CAP PO SCH ×4 (09:05→20:27)
[2017-10-31] MEDS: AMLODIPINE 2.5 MG TAB PO SCH ×2 (09:06→20:29)
[2017-10-31] MEDS: FOLIC ACID 0.4 MG TAB PO SCH (09:06)
[2017-10-31] MEDS: CYANOCOBALAMIN 500 MCG TAB PO SCH (09:07)
[2017-10-31] MEDS: METOPROLOL (XL) 50 MG TAB PO SCH (09:07)
[2017-10-31] MEDS: SOD FERRIC GLUC COMPLX 125 MG in SOD CHLORIDE 0.9% 100 ML IVPB SCH (10:18)
[2017-10-31] MEDS: traMADol 50 MG TAB PO PRN (13:08)
[2017-10-31 14:00] VITALS: BP 124/59; RESP 18
--- NOTE | 2017-10-31 16:29 | CONS ---
Date/Time of Note Date/Time of Note DATE: 10/31/17 TIME: 16:28 Consultation Date/Type/Reason Admit Date/Time Oct 28, 2017 at 21:45 Type of Consultation: cv 24 HR Interval Summary Constitutional: no complaints, other (runny nose and congestion) Exam/Review of Systems Vital Signs Vitals Vital Signs Date Time Temp Pulse Resp B/P Pulse Ox O2 Delivery O2 Flow Rate FiO2 10/31/17 14:00 98.7 73 18 124/59 95 Intake and Output 10/30/17 10/30/17 10/31/17 15:00 23:00 07:00 Intake Total 1350 ml 680 ml 1150 ml Balance 1350 ml 680 ml 1150 ml Exam Constitutional: alert, oriented Psych: no complaints Head: atraumatic, normocephalic Eyes: EOMI, nl conjunctiva ENMT: nl external ears & nose Neck: supple Respiratory: clear to auscultation Cardiovascular: irregular rhythm Gastrointestinal: nl liver, spleen, soft Genitourinary - Female: nl adnexae Extremities: normal pulses 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-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, nl mental status Skin: nl turgor Results Result Diagram: 10/31/17 0601 10/31/17 0601 Results 24 hrs Laboratory Tests Test 10/31/17 06:01 White Blood Count 5.3 Red Blood Count 2.67 L Hemoglobin 7.9 L Hematocrit 24.2 L Mean Corpuscular Volume 90.6 Mean Corpuscular Hemoglobin 29.6 Mean Corpuscular Hemoglobin Concent 32.6 Red Cell Distribution Width 26.3 H Platelet Count 263 Mean Platelet Volume 9.7 Neutrophils % 78.0 H Lymphocytes % 10.7 L Monocytes % 6.2 Eosinophils % 3.0 Basophils % 0.2 Nucleated Red Blood Cells % 0.0 Neutrophils # 4.2 Lymphocytes # 0.6 L Monocytes # 0.3 Eosinophils # 0.2 Basophils # 0.0 Nucleated Red Blood Cells # 0.0 Sodium Level 139 Potassium Level 4.4 Chloride Level 105 Carbon Dioxide Level 29 Anion Gap 9 Blood Urea Nitrogen 23 H Creatinine 1.03 H Glucose Level 93 Calcium Level 8.3 L Phosphorus Level 3.3 Magnesium Level 1.9 Total Bilirubin 1.1 Direct Bilirubin 0.00 Indirect Bilirubin 1.1 Aspartate Amino Transf (AST/SGOT) 27 Alanine Aminotransferase (ALT/SGPT) 30 Alkaline Phosphatase 40 L B-Type Natriuretic Peptide 885 H Total Protein 5.4 L Albumin 2.5 L Globulin 2.90 Albumin/Globulin Ratio 0.86 Medications Medications Current Medications Lidocaine (Lidocaine 5% Oint) 1 applic QID PRN TOP PAIN; Start 10/28/17 at 23: 45 Lorazepam (Ativan) 0.5 mg Q6H PRN PO ANXIETY Last administered on 10/30/17 22: 39; Admin Dose 0.5 MG; Start 10/28/17 at 23:45 Magnesium Hydroxide (Milk Of Mag) 30 ml DAILY PRN PO CONSTIPATION; Start at 23:45 Metoprolol Succinate (Toprol Xl) 50 mg DAILY PO Last administered on 09:07; Admin Dose 50 MG; Start 10/29/17 at 09:00 Pantoprazole (Protonix Tab) 40 mg DAILY@06 PO Last administered on 10/31/17 06:31; Admin Dose 40 MG; Start 10/29/17 at 06:00 Tramadol HCl (Ultram) 50 mg Q6H PRN PO PAIN Last administered on 10/31/17 13: 08; Admin Dose 50 MG; Start 10/28/17 at 23:45 Zolpidem Tartrate (Ambien) 5 mg HS PRN PO INSOMNIA; Start 10/28/17 at 23:45 Acetaminophen/ Hydrocodone Bitart ([place] (10325)) 1 tab Q4H PRN PO PAIN Last administered on 10/31/17 02:48; Admin Dose 1 TAB; Start 10/28/17 at 23:45 Acetaminophen (Tylenol Tab) 650 mg Q4H PRN PO PAIN AND OR ELEVATED TEMP Last administered on 10/30/17 16:32; Admin Dose 650 MG; Start 10/28/17 at 23:45 Al Hydroxide/Mg Trisilicate (Gaviscon) 2 tab QID PRN PO FOR GASTROINTESTINAL UPSET Last administered on 10/29/17 01:51; Admin Dose 2 TAB; Start 10/28/17 at 23:45 Amiodarone HCl (Cordarone) 100 mg DAILY PO Last administered on 10/31/17 09: 05; Admin Dose 100 MG; Start 10/29/17 at 09:00 Amlodipine Besylate (Norvasc) 2.5 mg BID PO Last administered on 10/31/17 09: 06; Admin Dose 2.5 MG; Start 10/29/17 at 09:00 Atorvastatin Calcium (Lipitor) 10 mg DAILY@21 PO Last administered on 20:50; Admin Dose 10 MG; Start 10/29/17 at 21:00 Cevimeline HCl (Evoxac) 30 mg QID PO Last administered on 10/31/17 12:32; Admin Dose 30 MG; Start 10/29/17 at 09:00 Cyanocobalamin (Vitamin B12) 1,000 mcg DAILY PO Last administered on 09:07; Admin Dose 1,000 MCG; Start 10/29/17 at 09:00 Docusate Sodium (Colace) 100 mg BID PO Last administered on 10/31/17 09:04; Admin Dose 100 MG; Start 10/29/17 at 09:00 Folic Acid (Folic Acid) 0.8 mg DAILY PO Last administered on 10/31/17 09:06; Admin Dose 0.8 MG; Start 10/29/17 at 09:00 Lactobacillus Acidophilus (Florajen3 Capsule) 1 each BID PO Last administered on 10/31/17 09:05; Admin Dose 1 EACH; Start 10/29/17 at 09:00 Levothyroxine Sodium (Synthroid) 25 mcg DAILY@06 PO Last administered on 06:31; Admin Dose 25 MCG; Start 10/29/17 at 06:00 Senna (Senokot) 1 tab HS PO Last administered on 10/30/17 20:50; Admin Dose 1 TAB; Start 10/29/17 at 21:00 Bisacodyl (Dulcolax Supp) 10 mg DAILY PRN [place] CONSTIPATION Last administered on 10/29/17 01:51; Admin Dose 10 MG; Start 10/29/17 at 01:30 Magnesium Hydroxide (Milk Of Mag) 30 ml BID PRN PO CONSTIPATION Last administered on 10/29/17 01:24; Admin Dose 30 ML; Start 10/29/17 at 01:30 Lactulose (Enulose) 20 gm DAILY PRN PO CONSTIPATION; Start 10/29/17 at 01:30 Cephalexin (Keflex) 500 mg Q8 PO Last administered on 10/31/17 14:19; Admin Dose 500 MG; Start 10/30/17 at 22:00 CHRISTIAN HERNANDEZ MD Oct 31, 2017 16:29
[2017-10-31] MEDS: GUAIFENESIN/CODEINE 5ML CUP PO PRN ×2 (17:55→21:54)
[2017-10-31 20:00] VITALS: BP 126/61; RESP 18
[2017-10-31] MEDS: ATORVASTATIN 10 MG TAB PO SCH (20:27)
[2017-10-31] MEDS: SENNA TAB PO SCH (20:27)
[2017-11-01] MEDS: LORAZEPAM 0.5 MG TAB PO PRN ×2 (00:52→23:50)
[2017-11-01 02:00] VITALS: BP 116/63; RESP 18
[2017-11-01] MEDS: GUAIFENESIN/CODEINE 5ML CUP PO PRN ×3 (02:51→12:42)
[2017-11-01] MEDS: LEVOTHYROXINE 25 MCG TAB PO SCH (05:40)
[2017-11-01] MEDS: CEPHALEXIN 500 MG CAP PO SCH (05:40)
[2017-11-01] MEDS: PANTOPRAZOLE (EC) 40 MG TAB PO SCH (05:40)
[2017-11-01 06:40] LABS: ABNORMAL IP MESSAGE 1; BASOPHILS % 0.1 % (0.0-2.0); EOSINOPHILS # 0.2 10^3/ul (0.0-0.5); EOSINOPHILS % 2.1 % (0.0-7.0); HEMATOCRIT 25.4 % (37.0-47.0); HEMOGLOBIN 8.3 g/dl (12.0-16.0); LYMPHOCYTES # 0.5 10^3/ul (0.8-2.9); LYMPHOCYTES % 6.6 % (15.0-51.0); MEAN CORPUSCULAR HEMOGLOBIN 30.2 pg (29.0-33.0); MEAN CORPUSCULAR HGB CONC 32.7 g/dl (32.0-37.0); MEAN CORPUSCULAR VOLUME 92.4 fl (82.0-101.0); MEAN PLATELET VOLUME 10.1 fl (7.4-10.4); MONOCYTE # 0.4 10^3/ul (0.3-0.9); MONOCYTES % 5.4 % (0.0-11.0); NEUTROPHIL # 5.8 10^3/ul (1.6-7.5); NEUTROPHILS % 83.8 % (39.0-77.0); PLATELET COUNT 280 10^3/UL (140-415); RED BLOOD COUNT 2.75 10^6/ul (4.20-5.40); RED CELL DISTRIBUTION WIDTH 26.2 % (11.5-14.5)
[2017-11-01 06:47] LABS: POSITIVE DIFF @See below
[2017-11-01 06:53] LABS: INR 1.01; PROTIME 13.4 Sec (11.9-14.9)
[2017-11-01 07:00] VITALS: BP 137/59; RESP 18
[2017-11-01] MEDS: CEVIMELINE 30 MG CAP PO SCH ×4 (09:11→21:04)
[2017-11-01] MEDS: DOCUSATE SODIUM 100 MG CAP PO SCH ×2 (09:12→21:05)
[2017-11-01] MEDS: FOLIC ACID 0.4 MG TAB PO SCH (09:12)
[2017-11-01] MEDS: L ACIDOPHIL/B LACTIS/B LONGUM CAPSULE PO SCH ×2 (09:12→21:04)
[2017-11-01] MEDS: CYANOCOBALAMIN 500 MCG TAB PO SCH (09:12)
[2017-11-01] MEDS: METOPROLOL (XL) 50 MG TAB PO SCH (09:13)
[2017-11-01] MEDS: AMIODARONE 200 MG TAB PO SCH (09:13)
[2017-11-01] MEDS: AMLODIPINE 2.5 MG TAB PO SCH ×2 (09:13→21:08)
[2017-11-01] MEDS: LEVALBUTEROL (NEB) 1.25 MG/0.5 ML AMP HHN SCH ×3 (11:00→20:39)
--- NOTE | 2017-11-01 11:12 | CONS ---
Date/Time of Note Date/Time of Note DATE: 11/01/17 TIME: 11:03 Assessment/Plan Assessment/Plan Chief Complaint/Hosp Course 1. Left ankle pain after a severe ankle sprain. Patient also developed ecchymoses and hematoma in the left ankle, the left hip and some iliopsoas retroperitoneal bleeding. She does have an open area on the lateral aspect of ankle . Dr Foley will be called . 2. Coagulopathy due to Coumadin. This has corrected. Need to decide when to restart anticoagulants . 3. Anemia. The patient was found to be iron deficient. She has finished a course of Ferrlicit intravenously. 4. Atrial fibrillation. She is being followed by cardiology. They will restart anticoagulation when they feel it is safe for her. 5. Constipation resolved 6. Urinary tract infection , treated 7. Malnutrition. She is now taking nutritional supplements. 8 Acute bronchitis . will start breathing treatments . Problems: Consultation Date/Type/Reason Admit Date/Time Oct 28, 2017 at 21:45 Type of Consultation: cv 24 HR Interval Summary Free Text/Dictation She has had a sore throat and a cough . She has an eschar on her L foot . Constitutional: poor po Exam/Review of Systems Vital Signs Vitals Vital Signs Date Time Temp Pulse Resp B/P Pulse Ox O2 Delivery O2 Flow Rate FiO2 11/01/17 07:00 99.9 82 18 137/59 91 Intake and Output 10/31/17 10/31/17 11/01/17 15:00 23:00 07:00 Intake Total 110 ml 1200 ml 200 ml Output Total 800 ml 850 ml Balance 110 ml 400 ml -650 ml Exam L ankle is less swollen but still ecchymotic . there is an open area on the lateral aspect of the ankle . Constitutional: alert, frail, oriented Eyes: EOMI, PERRL, nl conjunctiva, nl lids, nl sclera Neck: non-tender, supple Respiratory: wheezing Cardiovascular: regular rate and rhythm Gastrointestinal: non-tender, soft Results Result Diagram: 11/01/17 0602 10/31/17 0601 Results 24 hrs Laboratory Tests Test 11/01/17 06:02 White Blood Count 7.0 # Red Blood Count 2.75 L Hemoglobin 8.3 L Hematocrit 25.4 L Mean Corpuscular Volume 92.4 Mean Corpuscular Hemoglobin 30.2 Mean Corpuscular Hemoglobin Concent 32.7 Red Cell Distribution Width 26.2 H Platelet Count 280 Mean Platelet Volume 10.1 Neutrophils % 83.8 H Lymphocytes % 6.6 L Monocytes % 5.4 Eosinophils % 2.1 Basophils % 0.1 Nucleated Red Blood Cells % 0.0 Neutrophils # 5.8 Lymphocytes # 0.5 L Monocytes # 0.4 Eosinophils # 0.2 Basophils # 0.0 Nucleated Red Blood Cells # 0.0 Prothrombin Time 13.4 Prothrombin Time Ratio 1.0 INR International Normalized Ratio 1.01 Medications Medications Current Medications Lidocaine (Lidocaine 5% Oint) 1 applic QID PRN TOP PAIN; Start 10/28/17 at 23: 45 Lorazepam (Ativan) 0.5 mg Q6H PRN PO ANXIETY Last administered on 11/01/17 00 :52; Admin Dose 0.5 MG; Start 10/28/17 at 23:45 Magnesium Hydroxide (Milk Of Mag) 30 ml DAILY PRN PO CONSTIPATION; Start at 23:45 Metoprolol Succinate (Toprol Xl) 50 mg DAILY PO Last administered on 09:13; Admin Dose 50 MG; Start 10/29/17 at 09:00 Pantoprazole (Protonix Tab) 40 mg DAILY@06 PO Last administered on 11/01/17 05:40; Admin Dose 40 MG; Start 10/29/17 at 06:00 Tramadol HCl (Ultram) 50 mg Q6H PRN PO PAIN Last administered on 10/31/17 13: 08; Admin Dose 50 MG; Start 10/28/17 at 23:45 Zolpidem Tartrate (Ambien) 5 mg HS PRN PO INSOMNIA; Start 10/28/17 at 23:45 Acetaminophen/ Hydrocodone Bitart ([place] (10/325)) 1 tab Q4H PRN PO PAIN Last administered on 10/31/17 23:01; Admin Dose 1 TAB; Start 10/28/17 at 23:45 Acetaminophen (Tylenol Tab) 650 mg Q4H PRN PO PAIN AND OR ELEVATED TEMP Last administered on 10/30/17 16:32; Admin Dose 650 MG; Start 10/28/17 at 23:45 Al Hydroxide/Mg Trisilicate (Gaviscon) 2 tab QID PRN PO FOR GASTROINTESTINAL UPSET Last administered on 10/29/17 01:51; Admin Dose 2 TAB; Start 10/28/17 at 23:45 Amiodarone HCl (Cordarone) 100 mg DAILY PO Last administered on 11/01/17 09: 13; Admin Dose 100 MG; Start 10/29/17 at 09:00 Amlodipine Besylate (Norvasc) 2.5 mg BID PO Last administered on 11/01/17 09: 13; Admin Dose 2.5 MG; Start 10/29/17 at 09:00 Atorvastatin Calcium (Lipitor) 10 mg DAILY@21 PO Last administered on 20:27; Admin Dose 10 MG; Start 10/29/17 at 21:00 Cevimeline HCl (Evoxac) 30 mg QID PO Last administered on 11/01/17 09:11; Admin Dose 30 MG; Start 10/29/17 at 09:00 Cyanocobalamin (Vitamin B12) 1,000 mcg DAILY PO Last administered on 09:12; Admin Dose 1,000 MCG; Start 10/29/17 at 09:00 Docusate Sodium (Colace) 100 mg BID PO Last administered on 11/01/17 09:12; Admin Dose 100 MG; Start 10/29/17 at 09:00 Folic Acid (Folic Acid) 0.8 mg DAILY PO Last administered on 11/01/17 09:12; Admin Dose 0.8 MG; Start 10/29/17 at 09:00 Lactobacillus Acidophilus (Florajen3 Capsule) 1 each BID PO Last administered on 11/01/17 09:12; Admin Dose 1 EACH; Start 10/29/17 at 09:00 Levothyroxine Sodium (Synthroid) 25 mcg DAILY@06 PO Last administered on 05:40; Admin Dose 25 MCG; Start 10/29/17 at 06:00 Senna (Senokot) 1 tab HS PO Last administered on 10/31/17 20:27; Admin Dose 1 TAB; Start 10/29/17 at 21:00 Bisacodyl (Dulcolax Supp) 10 mg DAILY PRN [place] CONSTIPATION Last administered on 10/29/17 01:51; Admin Dose 10 MG; Start 10/29/17 at 01:30 Magnesium Hydroxide (Milk Of Mag) 30 ml BID PRN PO CONSTIPATION Last administered on 10/29/17 01:24; Admin Dose 30 ML; Start 10/29/17 at 01:30 Lactulose (Enulose) 20 gm DAILY PRN PO CONSTIPATION; Start 10/29/17 at 01:30 Cephalexin (Keflex) 500 mg Q8 PO Last administered on 11/01/17 05:40; Admin Dose 500 MG; Start 10/30/17 at 22:00 Guaifenesin/ Codeine Phosphate (Robitussin Ac Liquid Cup) 5 ml Q4H PRN PO COUGH Last administered on 11/01/17 06:49; Admin Dose 5 ML; Start 10/31/17 at 17:00 BELLA DEY MD Nov 01, 2017 11:12
--- NOTE | 2017-11-01 11:45 | CONS ---
Date/Time of Note Date/Time of Note DATE: 11/01/17 TIME: 11:45 Consult Date/Type/Reason Admit Date/Time Oct 28, 2017 at 21:45 Type of Consultation: cv Subjective Still with pain, butreports pain improving Objective Vital Signs Date Time Temp Pulse Resp B/P Pulse Ox O2 Delivery O2 Flow Rate FiO2 11/01/17 07:00 99.9 82 18 137/59 91 Intake and Output 10/31/17 10/31/17 11/01/17 15:00 23:00 07:00 Intake Total 110 ml 1200 ml 200 ml Output Total 800 ml 850 ml Balance 110 ml 400 ml -650 ml INTERDISCIPLINARY TEAM CONFERENCE BOWEL- Cont BLADDER-Cont SKIN- hematomas/echymosis gradually improving left ankle eschar still present, with surrounding echymosis OT- DRESSING-min BATHING-min TOILETING-min PT- BED MOBILITY-mod TRANSFERS-mod AMBULATION-mod 20 feet A/P- Interdisciplinary team conference held today. Please see interdisciplinary sheet. Working toward d.c. on 11/09 with post discharge follow up of home health physical therapy, occupational therapy, RN. Case d/w Dr. Haro, will continue current care, and have ortho follow up regarding ankle. Case d/w wound care nurses. Results/Medications Result Diagram: 11/01/17 0602 10/31/17 0601 Results 24 hrs Laboratory Tests Test 11/01/17 06:02 White Blood Count 7.0 # Red Blood Count 2.75 L Hemoglobin 8.3 L Hematocrit 25.4 L Mean Corpuscular Volume 92.4 Mean Corpuscular Hemoglobin 30.2 Mean Corpuscular Hemoglobin Concent 32.7 Red Cell Distribution Width 26.2 H Platelet Count 280 Mean Platelet Volume 10.1 Neutrophils % 83.8 H Lymphocytes % 6.6 L Monocytes % 5.4 Eosinophils % 2.1 Basophils % 0.1 Nucleated Red Blood Cells % 0.0 Neutrophils # 5.8 Lymphocytes # 0.5 L Monocytes # 0.4 Eosinophils # 0.2 Basophils # 0.0 Nucleated Red Blood Cells # 0.0 Prothrombin Time 13.4 Prothrombin Time Ratio 1.0 INR International Normalized Ratio 1.01 Medications Current Medications Lidocaine (Lidocaine 5% Oint) 1 applic QID PRN TOP PAIN; Start 10/28/17 at 23: 45 Lorazepam (Ativan) 0.5 mg Q6H PRN PO ANXIETY Last administered on 11/01/17 00 :52; Admin Dose 0.5 MG; Start 10/28/17 at 23:45 Magnesium Hydroxide (Milk Of Mag) 30 ml DAILY PRN PO CONSTIPATION; Start at 23:45 Metoprolol Succinate (Toprol Xl) 50 mg DAILY PO Last administered on 09:13; Admin Dose 50 MG; Start 10/29/17 at 09:00 Pantoprazole (Protonix Tab) 40 mg DAILY@06 PO Last administered on 11/01/17 05:40; Admin Dose 40 MG; Start 10/29/17 at 06:00 Tramadol HCl (Ultram) 50 mg Q6H PRN PO PAIN Last administered on 10/31/17 13: 08; Admin Dose 50 MG; Start 10/28/17 at 23:45 Zolpidem Tartrate (Ambien) 5 mg HS PRN PO INSOMNIA; Start 10/28/17 at 23:45 Acetaminophen/ Hydrocodone Bitart ([place] (10/325)) 1 tab Q4H PRN PO PAIN Last administered on 10/31/17 23:01; Admin Dose 1 TAB; Start 10/28/17 at 23:45 Acetaminophen (Tylenol Tab) 650 mg Q4H PRN PO PAIN AND OR ELEVATED TEMP Last administered on 10/30/17 16:32; Admin Dose 650 MG; Start 10/28/17 at 23:45 Al Hydroxide/Mg Trisilicate (Gaviscon) 2 tab QID PRN PO FOR GASTROINTESTINAL UPSET Last administered on 10/29/17 01:51; Admin Dose 2 TAB; Start 10/28/17 at 23:45 Amiodarone HCl (Cordarone) 100 mg DAILY PO Last administered on 11/01/17 09: 13; Admin Dose 100 MG; Start 10/29/17 at 09:00 Amlodipine Besylate (Norvasc) 2.5 mg BID PO Last administered on 11/01/17 09: 13; Admin Dose 2.5 MG; Start 10/29/17 at 09:00 Atorvastatin Calcium (Lipitor) 10 mg DAILY@21 PO Last administered on 20:27; Admin Dose 10 MG; Start 10/29/17 at 21:00 Cevimeline HCl (Evoxac) 30 mg QID PO Last administered on 11/01/17 09:11; Admin Dose 30 MG; Start 10/29/17 at 09:00 Cyanocobalamin (Vitamin B12) 1,000 mcg DAILY PO Last administered on 09:12; Admin Dose 1,000 MCG; Start 10/29/17 at 09:00 Docusate Sodium (Colace) 100 mg BID PO Last administered on 11/01/17 09:12; Admin Dose 100 MG; Start 10/29/17 at 09:00 Folic Acid (Folic Acid) 0.8 mg DAILY PO Last administered on 11/01/17 09:12; Admin Dose 0.8 MG; Start 10/29/17 at 09:00 Lactobacillus Acidophilus (Florajen3 Capsule) 1 each BID PO Last administered on 11/01/17 09:12; Admin Dose 1 EACH; Start 10/29/17 at 09:00 Levothyroxine Sodium (Synthroid) 25 mcg DAILY@06 PO Last administered on 05:40; Admin Dose 25 MCG; Start 10/29/17 at 06:00 Senna (Senokot) 1 tab HS PO Last administered on 10/31/17 20:27; Admin Dose 1 TAB; Start 10/29/17 at 21:00 Bisacodyl (Dulcolax Supp) 10 mg DAILY PRN [place] CONSTIPATION Last administered on 10/29/17 01:51; Admin Dose 10 MG; Start 10/29/17 at 01:30 Magnesium Hydroxide (Milk Of Mag) 30 ml BID PRN PO CONSTIPATION Last administered on 10/29/17 01:24; Admin Dose 30 ML; Start 10/29/17 at 01:30 Lactulose (Enulose) 20 gm DAILY PRN PO CONSTIPATION; Start 10/29/17 at 01:30 Guaifenesin/ Codeine Phosphate (Robitussin Ac Liquid Cup) 5 ml Q4H PRN PO COUGH Last administered on 11/01/17 06:49; Admin Dose 5 ML; Start 10/31/17 at 17:00 ADRIAN TRENT MD Nov 01, 2017 11:45
--- NOTE | 2017-11-01 11:47 | RADRPT ---
PROCEDURE: XR Chest. CLINICAL INDICATION: Cough. TECHNIQUE: Single frontal view of the chest was obtained. COMPARISON: 05/09/2015. FINDINGS: The cardiomediastinal silhouette demonstrates enlargement of the cardiac silhouette. There are aorti c calcifications. There is mild pulmonary vascular congestion. There are bibasilar opacities with a small left pleural effusion. No definite pneumothorax. No acute osseous abnormality. IMPRESSION: 1.Cardiomegaly with pulmonary vascular congestion. 2. Bibasilar opacities, likely atelectasis. Small left pleural effusion. RPTAT: AAEE Corwin Davis Physician Date Time Electronically viewed and signed by Corwin Davis Physician on 11/01/2017 11:47 PH/
[2017-11-01] MEDS: LACTULOSE 30ML CUP PO PRN (12:42)
[2017-11-01] MEDS: IPRATROPIUM (NEB) 0.5 MG/2.5 ML AMP HHN SCH ×2 (13:26→20:38)
[2017-11-01 14:00] VITALS: BP 121/57; RESP 18
[2017-11-01 15:29] LABS: ALBUMIN 2.9 g/dl (3.3-4.9); BILIRUBIN,INDIRECT 0.8 mg/dl (0-1.1); BILIRUBIN,TOTAL 0.8 mg/dl (0.2-1.3); CALCIUM 8.5 mg/dl (8.4-10.2); CREATININE 1.15 mg/dl (0.44-1.00); TOTAL PROTEIN 5.8 g/dl (6.1-8.1)
[2017-11-01] MEDS: ACETAMINOPHEN 325 MG TAB PO PRN ×2 (15:51→23:50)
--- NOTE | 2017-11-01 17:22 | PN ---
Date/Time of Note Date/Time of Note DATE: 11/01/17 TIME: 17:11 Assessment/Plan VTE Prophylaxis VTE Prophylaxis Intervention: contraindicated Lines/Catheters IV Catheter Type (from Nrs): Saline Lock Assessment/Plan Assessment/Plan Assessment: 1. 4x4 cm eschar lateral ankle, possible full thickness. 2. Subcutaneous fluid collect beneath eschar Plan: Recommended aspiration to r/o infection. After informed consent was obtained, under sterile conditions, an 18 gauge needle was used to aspirate the fluid collection beneath the eschar over the lateral malleolus on the left ankle. 3 cc of dark sanguinous fluid was aspirated. No evidence of purulence or abscess. Sterile bandage was then placed. Culture of the fluid was sent. Recommend wound care nurse consult for ongoing wound care for further wound care recommendations. Patient may need debridement and skin graft if the wound is full thickness, which would require plastic surgery consult. We discussed the findings and the plan with the patient. She voiced understanding to the plan. Subjective 24 Hr Interval Summary Free Text/Dictation LLE ongoing swelling and small eschar over lateral malleolus. Febrile this afternoon. Pain well controlled otherwise. Denies numbness,tingling. Exam/Review of Systems Vital Signs Vitals Vital Signs Date Time Temp Pulse Resp B/P Pulse Ox O2 Delivery O2 Flow Rate FiO2 11/01/17 14:00 100.2 81 18 121/57 97 11/01/17 13:29 2.0 11/01/17 13:29 Nasal Cannula Intake and Output 10/31/17 10/31/17 11/01/17 15:00 23:00 07:00 Intake Total 110 ml 1200 ml 200 ml Output Total 800 ml 850 ml Balance 110 ml 400 ml -650 ml Exam Gen: NAD CV: regular pulse Pulm: breathing non-labored LLE: 4x4 cm dry eschar over lateral malleolus. Some underlying fluctuance, mimimal surrounding erythema, minimal tenderness. No significant pain with active or passive ankle ROM. Distally motor and sensory intact. Foot WWP. Results Result Diagram: 11/01/17 0602 11/01/17 1440 Results 24 hrs Laboratory Tests Test 11/01/17 06:02 11/01/17 14:40 White Blood Count 7.0 # Red Blood Count 2.75 L Hemoglobin 8.3 L Hematocrit 25.4 L Mean Corpuscular Volume 92.4 Mean Corpuscular Hemoglobin 30.2 Mean Corpuscular Hemoglobin Concent 32.7 Red Cell Distribution Width 26.2 H Platelet Count 280 Mean Platelet Volume 10.1 Neutrophils % 83.8 H Lymphocytes % 6.6 L Monocytes % 5.4 Eosinophils % 2.1 Basophils % 0.1 Nucleated Red Blood Cells % 0.0 Neutrophils # 5.8 Lymphocytes # 0.5 L Monocytes # 0.4 Eosinophils # 0.2 Basophils # 0.0 Nucleated Red Blood Cells # 0.0 Prothrombin Time 13.4 Prothrombin Time Ratio 1.0 INR International Normalized Ratio 1.01 Sodium Level 135 Potassium Level 5.0 Chloride Level 101 Carbon Dioxide Level 30 Anion Gap 9 Blood Urea Nitrogen 22 H Creatinine 1.15 H Glucose Level 102 Calcium Level 8.5 Total Bilirubin 0.8 Direct Bilirubin 0.00 Indirect Bilirubin 0.8 Aspartate Amino Transf (AST/SGOT) 31 Alanine Aminotransferase (ALT/SGPT) 31 Alkaline Phosphatase 47 Total Protein 5.8 L Albumin 2.9 L Globulin 2.90 Albumin/Globulin Ratio 1.00 Medications Medications Current Medications Lidocaine (Lidocaine 5% Oint) 1 applic QID PRN TOP PAIN; Start 10/28/17 at 23: 45 Lorazepam (Ativan) 0.5 mg Q6H PRN PO ANXIETY Last administered on 11/01/17 00 :52; Admin Dose 0.5 MG; Start 10/28/17 at 23:45 Magnesium Hydroxide (Milk Of Mag) 30 ml DAILY PRN PO CONSTIPATION; Start at 23:45 Metoprolol Succinate (Toprol Xl) 50 mg DAILY PO Last administered on 09:13; Admin Dose 50 MG; Start 10/29/17 at 09:00 Pantoprazole (Protonix Tab) 40 mg DAILY@06 PO Last administered on 11/01/17 05:40; Admin Dose 40 MG; Start 10/29/17 at 06:00 Tramadol HCl (Ultram) 50 mg Q6H PRN PO PAIN Last administered on 10/31/17 13: 08; Admin Dose 50 MG; Start 10/28/17 at 23:45 Zolpidem Tartrate (Ambien) 5 mg HS PRN PO INSOMNIA; Start 10/28/17 at 23:45 Acetaminophen/ Hydrocodone Bitart ([place] (10/325)) 1 tab Q4H PRN PO PAIN Last administered on 10/31/17 23:01; Admin Dose 1 TAB; Start 10/28/17 at 23:45 Acetaminophen (Tylenol Tab) 650 mg Q4H PRN PO PAIN AND OR ELEVATED TEMP Last administered on 11/01/17 15:51; Admin Dose 650 MG; Start 10/28/17 at 23:45 Al Hydroxide/Mg Trisilicate (Gaviscon) 2 tab QID PRN PO FOR GASTROINTESTINAL UPSET Last administered on 10/29/17 01:51; Admin Dose 2 TAB; Start 10/28/17 at 23:45 Amiodarone HCl (Cordarone) 100 mg DAILY PO Last administered on 11/01/17 09: 13; Admin Dose 100 MG; Start 10/29/17 at 09:00 Amlodipine Besylate (Norvasc) 2.5 mg BID PO Last administered on 11/01/17 09: 13; Admin Dose 2.5 MG; Start 10/29/17 at 09:00 Atorvastatin Calcium (Lipitor) 10 mg DAILY@21 PO Last administered on 20:27; Admin Dose 10 MG; Start 10/29/17 at 21:00 Cevimeline HCl (Evoxac) 30 mg QID PO Last administered on 11/01/17 12:42; Admin Dose 30 MG; Start 10/29/17 at 09:00 Cyanocobalamin (Vitamin B12) 1,000 mcg DAILY PO Last administered on 09:12; Admin Dose 1,000 MCG; Start 10/29/17 at 09:00 Docusate Sodium (Colace) 100 mg BID PO Last administered on 11/01/17 09:12; Admin Dose 100 MG; Start 10/29/17 at 09:00 Folic Acid (Folic Acid) 0.8 mg DAILY PO Last administered on 11/01/17 09:12; Admin Dose 0.8 MG; Start 10/29/17 at 09:00 Lactobacillus Acidophilus (Florajen3 Capsule) 1 each BID PO Last administered on 11/01/17 09:12; Admin Dose 1 EACH; Start 10/29/17 at 09:00 Levothyroxine Sodium (Synthroid) 25 mcg DAILY@06 PO Last administered on 05:40; Admin Dose 25 MCG; Start 10/29/17 at 06:00 Senna (Senokot) 1 tab HS PO Last administered on 10/31/17 20:27; Admin Dose 1 TAB; Start 10/29/17 at 21:00 Bisacodyl (Dulcolax Supp) 10 mg DAILY PRN [place] CONSTIPATION Last administered on 10/29/17 01:51; Admin Dose 10 MG; Start 10/29/17 at 01:30 Magnesium Hydroxide (Milk Of Mag) 30 ml BID PRN PO CONSTIPATION Last administered on 10/29/17 01:24; Admin Dose 30 ML; Start 10/29/17 at 01:30 Lactulose (Enulose) 20 gm DAILY PRN PO CONSTIPATION Last administered on 12:42; Admin Dose 20 GM; Start 10/29/17 at 01:30 Guaifenesin/ Codeine Phosphate (Robitussin Ac Liquid Cup) 5 ml Q4H PRN PO COUGH Last administered on 11/01/17 12:42; Admin Dose 5 ML; Start 10/31/17 at 17:00 SHERIE DESAI MD Nov 01, 2017 17:22
[2017-11-01] MEDS ORDERED: WARFARIN 2 MG TAB PO ONE (17:30)
[2017-11-01] MEDS ORDERED: NA PHOSPHATE/BIPHOS 133 ML ENEMA PR PRN (19:00)
[2017-11-01 20:00] VITALS: BP 134/62; RESP 18
[2017-11-01] MEDS: ATORVASTATIN 10 MG TAB PO SCH (21:05)
[2017-11-01] MEDS: SENNA TAB PO SCH (21:05)
[2017-11-02] MEDS: IPRATROPIUM (NEB) 0.5 MG/2.5 ML AMP HHN SCH ×4 (01:18→19:45)
[2017-11-02] MEDS: LEVALBUTEROL (NEB) 1.25 MG/0.5 ML AMP HHN SCH ×4 (01:19→19:45)
[2017-11-02 02:00] VITALS: BP 109/57; RESP 18
[2017-11-02] MEDS: LEVOTHYROXINE 25 MCG TAB PO SCH (06:32)
[2017-11-02] MEDS: PANTOPRAZOLE (EC) 40 MG TAB PO SCH (06:32)
[2017-11-02 07:02] LABS: ABNORMAL IP MESSAGE 1; BASOPHILS % 0.2 % (0.0-2.0); EOSINOPHILS % 0.4 % (0.0-7.0); HEMATOCRIT 23.6 % (37.0-47.0); HEMOGLOBIN 7.7 g/dl (12.0-16.0); LYMPHOCYTES # 0.4 10^3/ul (0.8-2.9); LYMPHOCYTES % 7.7 % (15.0-51.0); MEAN CORPUSCULAR HEMOGLOBIN 30.2 pg (29.0-33.0); MEAN CORPUSCULAR HGB CONC 32.6 g/dl (32.0-37.0); MEAN CORPUSCULAR VOLUME 92.5 fl (82.0-101.0); MEAN PLATELET VOLUME 9.8 fl (7.4-10.4); MONOCYTE # 0.3 10^3/ul (0.3-0.9); MONOCYTES % 5.1 % (0.0-11.0); NEUTROPHIL # 4.7 10^3/ul (1.6-7.5); NEUTROPHILS % 85.5 % (39.0-77.0); PLATELET COUNT 273 10^3/UL (140-415); RED BLOOD COUNT 2.55 10^6/ul (4.20-5.40); RED CELL DISTRIBUTION WIDTH 25.7 % (11.5-14.5); WHITE BLOOD COUNT 5.5 10^3/ul (4.8-10.8)
[2017-11-02 07:06] LABS: POSITIVE DIFF @See below
[2017-11-02 07:30] VITALS: BP 134/58; RESP 18
[2017-11-02 07:31] LABS: INR 1.03; PROTIME 13.6 Sec (11.9-14.9); PT RATIO 1.1
[2017-11-02] MEDS: CYANOCOBALAMIN 500 MCG TAB PO SCH (09:02)
[2017-11-02] MEDS: L ACIDOPHIL/B LACTIS/B LONGUM CAPSULE PO SCH ×2 (09:02→20:34)
[2017-11-02] MEDS: METOPROLOL (XL) 50 MG TAB PO SCH (09:02)
[2017-11-02] MEDS: CEVIMELINE 30 MG CAP PO SCH ×4 (09:03→20:34)
[2017-11-02] MEDS: ACETAMINOPHEN 325 MG TAB PO PRN (09:03)
[2017-11-02] MEDS: FOLIC ACID 0.4 MG TAB PO SCH (09:03)
[2017-11-02] MEDS: AMIODARONE 200 MG TAB PO SCH (09:05)
[2017-11-02] MEDS: AMLODIPINE 2.5 MG TAB PO SCH ×2 (09:05→20:34)
[2017-11-02] MEDS: DOCUSATE SODIUM 100 MG CAP PO SCH ×2 (09:05→20:34)
--- NOTE | 2017-11-02 10:25 | CONS ---
Date/Time of Note Date/Time of Note DATE: 11/02/17 TIME: 10:24 Consult Date/Type/Reason Admit Date/Time Oct 28, 2017 at 21:45 Type of Consultation: cv Subjective Patient reports pain improving Objective integ- eschar over lateral ankle, with surrounding echymosis/erythema Vital Signs Date Time Temp Pulse Resp B/P Pulse Ox O2 Delivery O2 Flow Rate FiO2 11/02/17 07:46 93 21 11/02/17 07:46 78 16 11/02/17 07:30 99.6 134/58 11/02/17 01:20 Nasal Cannula 2.0 Intake and Output 11/01/17 11/01/17 11/02/17 15:00 23:00 07:00 Intake Total 1600 ml 200 ml Output Total 200 ml 1000 ml 700 ml Balance -200 ml 600 ml -500 ml Results/Medications Result Diagram: 11/02/17 0608 11/01/17 1440 Results 24 hrs Laboratory Tests Test 11/01/17 14:40 11/02/17 06:08 Sodium Level 135 Potassium Level 5.0 Chloride Level 101 Carbon Dioxide Level 30 Anion Gap 9 Blood Urea Nitrogen 22 H Creatinine 1.15 H Glucose Level 102 Calcium Level 8.5 Total Bilirubin 0.8 Direct Bilirubin 0.00 Indirect Bilirubin 0.8 Aspartate Amino Transf (AST/SGOT) 31 Alanine Aminotransferase (ALT/SGPT) 31 Alkaline Phosphatase 47 Total Protein 5.8 L Albumin 2.9 L Globulin 2.90 Albumin/Globulin Ratio 1.00 White Blood Count 5.5 # Red Blood Count 2.55 L Hemoglobin 7.7 L Hematocrit 23.6 L Mean Corpuscular Volume 92.5 Mean Corpuscular Hemoglobin 30.2 Mean Corpuscular Hemoglobin Concent 32.6 Red Cell Distribution Width 25.7 H Platelet Count 273 Mean Platelet Volume 9.8 Neutrophils % 85.5 H Lymphocytes % 7.7 L Monocytes % 5.1 Eosinophils % 0.4 Basophils % 0.2 Nucleated Red Blood Cells % 0.0 Neutrophils # 4.7 Lymphocytes # 0.4 L Monocytes # 0.3 Eosinophils # 0.0 Basophils # 0.0 Nucleated Red Blood Cells # 0.0 Prothrombin Time 13.6 Prothrombin Time Ratio 1.1 INR International Normalized Ratio 1.03 Medications Current Medications Lidocaine (Lidocaine 5% Oint) 1 applic QID PRN TOP PAIN; Start 10/28/17 at 23: 45 Lorazepam (Ativan) 0.5 mg Q6H PRN PO ANXIETY Last administered on 11/01/17 23 :50; Admin Dose 0.5 MG; Start 10/28/17 at 23:45 Magnesium Hydroxide (Milk Of Mag) 30 ml DAILY PRN PO CONSTIPATION; Start at 23:45 Metoprolol Succinate (Toprol Xl) 50 mg DAILY PO Last administered on 09:02; Admin Dose 50 MG; Start 10/29/17 at 09:00 Pantoprazole (Protonix Tab) 40 mg DAILY@06 PO Last administered on 11/02/17 06:32; Admin Dose 40 MG; Start 10/29/17 at 06:00 Tramadol HCl (Ultram) 50 mg Q6H PRN PO PAIN Last administered on 10/31/17 13: 08; Admin Dose 50 MG; Start 10/28/17 at 23:45 Zolpidem Tartrate (Ambien) 5 mg HS PRN PO INSOMNIA; Start 10/28/17 at 23:45 Acetaminophen/ Hydrocodone Bitart ([place] (10/325)) 1 tab Q4H PRN PO PAIN Last administered on 10/31/17 23:01; Admin Dose 1 TAB; Start 10/28/17 at 23:45 Acetaminophen (Tylenol Tab) 650 mg Q4H PRN PO PAIN AND OR ELEVATED TEMP Last administered on 11/02/17 09:03; Admin Dose 650 MG; Start 10/28/17 at 23:45 Al Hydroxide/Mg Trisilicate (Gaviscon) 2 tab QID PRN PO FOR GASTROINTESTINAL UPSET Last administered on 10/29/17 01:51; Admin Dose 2 TAB; Start 10/28/17 at 23:45 Amiodarone HCl (Cordarone) 100 mg DAILY PO Last administered on 11/02/17 09: 05; Admin Dose 100 MG; Start 10/29/17 at 09:00 Amlodipine Besylate (Norvasc) 2.5 mg BID PO Last administered on 11/02/17 09: 05; Admin Dose 2.5 MG; Start 10/29/17 at 09:00 Atorvastatin Calcium (Lipitor) 10 mg DAILY@21 PO Last administered on 21:05; Admin Dose 10 MG; Start 10/29/17 at 21:00 Cevimeline HCl (Evoxac) 30 mg QID PO Last administered on 11/02/17 09:03; Admin Dose 30 MG; Start 10/29/17 at 09:00 Cyanocobalamin (Vitamin B12) 1,000 mcg DAILY PO Last administered on 09:02; Admin Dose 1,000 MCG; Start 10/29/17 at 09:00 Docusate Sodium (Colace) 100 mg BID PO Last administered on 11/02/17 09:05; Admin Dose 100 MG; Start 10/29/17 at 09:00 Folic Acid (Folic Acid) 0.8 mg DAILY PO Last administered on 11/02/17 09:03; Admin Dose 0.8 MG; Start 10/29/17 at 09:00 Lactobacillus Acidophilus (Florajen3 Capsule) 1 each BID PO Last administered on 11/02/17 09:02; Admin Dose 1 EACH; Start 10/29/17 at 09:00 Levothyroxine Sodium (Synthroid) 25 mcg DAILY@06 PO Last administered on 06:32; Admin Dose 25 MCG; Start 10/29/17 at 06:00 Senna (Senokot) 1 tab HS PO Last administered on 11/01/17 21:05; Admin Dose 1 TAB; Start 10/29/17 at 21:00 Bisacodyl (Dulcolax Supp) 10 mg DAILY PRN [place] CONSTIPATION Last administered on 10/29/17 01:51; Admin Dose 10 MG; Start 10/29/17 at 01:30 Magnesium Hydroxide (Milk Of Mag) 30 ml BID PRN PO CONSTIPATION Last administered on 10/29/17 01:24; Admin Dose 30 ML; Start 10/29/17 at 01:30 Lactulose (Enulose) 20 gm DAILY PRN PO CONSTIPATION Last administered on 12:42; Admin Dose 20 GM; Start 10/29/17 at 01:30 Guaifenesin/ Codeine Phosphate (Robitussin Ac Liquid Cup) 5 ml Q4H PRN PO COUGH Last administered on 11/01/17 12:42; Admin Dose 5 ML; Start 10/31/17 at 17:00 Sodium Biphosphate/ Sodium Phosphate (Fleet Enema) 133 ml DAILY PRN [place] CONSTIPATION Last administered on 11/01/17t 19:55; Admin Dose 133 ML; Start at 19:00 Assessment/Plan Additional Assessment/Plan Rehab- Debility secondary to coagulopathy with multiple hematomas including left ankle, hip, thigh, psoas, iliac muscles, Left Upper Extremity and retroperitoneal bleed. Continue activities as tolerated Integ- continue wound care, appreciate Dr. Victor input. Patient s/p aspiration; await cultures. 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 Atrial fibrillation- anticoag per IM/Cardiology Anemia- monitor closely Hypertension. Hyperlipidemia. ADRIAN TRENT MD Nov 02, 2017 10:25
--- NOTE | 2017-11-02 11:27 | RADRPT ---
PROCEDURE: US Lower extremity arterial. CLINICAL INDICATION: Bilateral lower extremity pain and claudication. Left ankle wound. TECHNIQUE: Multiple sonographic images of the bilateral lower extremity arteries were obtained uti lizing starks scale, color-flow and doppler imaging. Bilateral ABIs were performed. COMPARISON: None. FINDINGS: There is no significant calcific plaque. Velocities and waveforms were obtained as described below. RIGHT LEG: Right common femoral artery: 125 cm/s; triphasic waveforms Right proximal superficial femoral artery: 118 cm/s; triphasic waveforms Right mid superficial femoral artery: 114 cm/s; triphasic waveforms Right distal superficial femoral artery: 92 cm/s; triphasic waveforms Right popliteal artery: 74 cm/s; triphasic waveforms Right posterior tibial artery: 79 cm/s; triphasic waveforms Right dorsalis pedis artery: 91 cm/s; biphasic waveforms Right JUAN: 1.3 LEFT LEG: Left common femoral artery: 139 cm/s; triphasic waveforms Left proximal superficial femoral artery: 107 cm/s; triphasic waveforms Left mid superficial femoral artery: 94 cm/s; triphasic waveforms Left distal superficial femoral artery: 93 cm/s; triphasic waveforms Left popliteal artery: 79 cm/s; triphasic waveforms Left posterior tibial artery: 132 cm/s; triphasic waveforms Left dorsalis pedis artery: 130 cm/s; triphasic waveforms Left JUAN: 1.3 IMPRESSION: No significant arterial stenosis in either leg. RPTAT:AAJJ Physician Angela Date Time Electronically viewed and signed by Physician Angela on 11/02/2017 11:27 /
[2017-11-02 14:00] VITALS: BP 109/54; RESP 20
--- NOTE | 2017-11-02 14:06 | CONS ---
Date/Time of Note Date/Time of Note DATE: 11/02/17 TIME: 14:02 Assessment/Plan Assessment/Plan Chief Complaint/Hosp Course 1. Left ankle pain after a severe ankle sprain. Patient also developed ecchymoses and hematoma in the left ankle, the left hip and some iliopsoas retroperitoneal bleeding. She does have an open area on the lateral aspect of ankle . Dr Foley saw the patient yesterday and aspirated about 3 cc from the lateral aspect of the left ankle. It was sent for culture. 2. Coagulopathy due to Coumadin. This has corrected. I restarted her back on Coumadin yesterday after speaking with for call who agreed that she could restart anticoagulants. I would aim to keep her INR in the 2-2.5 range.. 3. Anemia. The patient was found to be iron deficient. She has finished a course of Ferrlicit intravenously. Her blood count is lower again today. I will order a CBC for tomorrow. If her blood count continues to go down she may need a blood transfusion. 4. Atrial fibrillation. She is being followed by cardiology. 5. Constipation resolved . She is now on a bowel regimen. 6. Urinary tract infection , treated . 7. Malnutrition. She is now taking nutritional supplements. 8 Acute bronchitis . will start breathing treatments . Her cough is better today since she started some breathing treatments. Problems: Consultation Date/Type/Reason Admit Date/Time Oct 28, 2017 at 21:45 Type of Consultation: cv 24 HR Interval Summary Free Text/Dictation She is awake and alert. She was up walking with physical therapy. She just had the wound care nurse wrap her left ankle and leg. Exam/Review of Systems Vital Signs Vitals Vital Signs Date Time Temp Pulse Resp B/P Pulse Ox O2 Delivery O2 Flow Rate FiO2 11/02/17 07:46 93 21 11/02/17 07:46 78 16 11/02/17 07:30 99.6 134/58 11/02/17 01:20 Nasal Cannula 2.0 Intake and Output 11/01/17 11/01/17 11/02/17 15:00 23:00 07:00 Intake Total 1600 ml 200 ml Output Total 200 ml 1000 ml 700 ml Balance -200 ml 600 ml -500 ml Exam Her left ankle is wrapped with a bandage. Her left lower leg and ankle are in a immobilizer boot. Constitutional: alert, frail, oriented Neck: non-tender, supple Respiratory: clear to auscultation, normal air movement Cardiovascular: regular rate and rhythm Gastrointestinal: soft Results Result Diagram: 11/02/17 0608 11/01/17 1440 Results 24 hrs Laboratory Tests Test 11/01/17 14:40 11/02/17 06:08 Sodium Level 135 Potassium Level 5.0 Chloride Level 101 Carbon Dioxide Level 30 Anion Gap 9 Blood Urea Nitrogen 22 H Creatinine 1.15 H Glucose Level 102 Calcium Level 8.5 Total Bilirubin 0.8 Direct Bilirubin 0.00 Indirect Bilirubin 0.8 Aspartate Amino Transf (AST/SGOT) 31 Alanine Aminotransferase (ALT/SGPT) 31 Alkaline Phosphatase 47 Total Protein 5.8 L Albumin 2.9 L Globulin 2.90 Albumin/Globulin Ratio 1.00 White Blood Count 5.5 # Red Blood Count 2.55 L Hemoglobin 7.7 L Hematocrit 23.6 L Mean Corpuscular Volume 92.5 Mean Corpuscular Hemoglobin 30.2 Mean Corpuscular Hemoglobin Concent 32.6 Red Cell Distribution Width 25.7 H Platelet Count 273 Mean Platelet Volume 9.8 Neutrophils % 85.5 H Lymphocytes % 7.7 L Monocytes % 5.1 Eosinophils % 0.4 Basophils % 0.2 Nucleated Red Blood Cells % 0.0 Neutrophils # 4.7 Lymphocytes # 0.4 L Monocytes # 0.3 Eosinophils # 0.0 Basophils # 0.0 Nucleated Red Blood Cells # 0.0 Prothrombin Time 13.6 Prothrombin Time Ratio 1.1 INR International Normalized Ratio 1.03 Medications Medications Current Medications Lidocaine (Lidocaine 5% Oint) 1 applic QID PRN TOP PAIN; Start 10/28/17 at 23: 45 Lorazepam (Ativan) 0.5 mg Q6H PRN PO ANXIETY Last administered on 11/01/17 23 :50; Admin Dose 0.5 MG; Start 10/28/17 at 23:45 Magnesium Hydroxide (Milk Of Mag) 30 ml DAILY PRN PO CONSTIPATION; Start at 23:45 Metoprolol Succinate (Toprol Xl) 50 mg DAILY PO Last administered on 09:02; Admin Dose 50 MG; Start 10/29/17 at 09:00 Pantoprazole (Protonix Tab) 40 mg DAILY@06 PO Last administered on 11/02/17 06:32; Admin Dose 40 MG; Start 10/29/17 at 06:00 Tramadol HCl (Ultram) 50 mg Q6H PRN PO PAIN Last administered on 10/31/17 13: 08; Admin Dose 50 MG; Start 10/28/17 at 23:45 Zolpidem Tartrate (Ambien) 5 mg HS PRN PO INSOMNIA; Start 10/28/17 at 23:45 Acetaminophen/ Hydrocodone Bitart ([place] (10/325)) 1 tab Q4H PRN PO PAIN Last administered on 10/31/17 23:01; Admin Dose 1 TAB; Start 10/28/17 at 23:45 Acetaminophen (Tylenol Tab) 650 mg Q4H PRN PO PAIN AND OR ELEVATED TEMP Last administered on 11/02/17 09:03; Admin Dose 650 MG; Start 10/28/17 at 23:45 Al Hydroxide/Mg Trisilicate (Gaviscon) 2 tab QID PRN PO FOR GASTROINTESTINAL UPSET Last administered on 10/29/17 01:51; Admin Dose 2 TAB; Start 10/28/17 at 23:45 Amiodarone HCl (Cordarone) 100 mg DAILY PO Last administered on 11/02/17 09: 05; Admin Dose 100 MG; Start 10/29/17 at 09:00 Amlodipine Besylate (Norvasc) 2.5 mg BID PO Last administered on 11/02/17 09: 05; Admin Dose 2.5 MG; Start 10/29/17 at 09:00 Atorvastatin Calcium (Lipitor) 10 mg DAILY@21 PO Last administered on 21:05; Admin Dose 10 MG; Start 10/29/17 at 21:00 Cevimeline HCl (Evoxac) 30 mg QID PO Last administered on 11/02/17 09:03; Admin Dose 30 MG; Start 10/29/17 at 09:00 Cyanocobalamin (Vitamin B12) 1,000 mcg DAILY PO Last administered on 09:02; Admin Dose 1,000 MCG; Start 10/29/17 at 09:00 Docusate Sodium (Colace) 100 mg BID PO Last administered on 11/02/17 09:05; Admin Dose 100 MG; Start 10/29/17 at 09:00 Folic Acid (Folic Acid) 0.8 mg DAILY PO Last administered on 11/02/17 09:03; Admin Dose 0.8 MG; Start 10/29/17 at 09:00 Lactobacillus Acidophilus (Florajen3 Capsule) 1 each BID PO Last administered on 11/02/17 09:02; Admin Dose 1 EACH; Start 10/29/17 at 09:00 Levothyroxine Sodium (Synthroid) 25 mcg DAILY@06 PO Last administered on 06:32; Admin Dose 25 MCG; Start 10/29/17 at 06:00 Senna (Senokot) 1 tab HS PO Last administered on 11/01/17 21:05; Admin Dose 1 TAB; Start 10/29/17 at 21:00 Bisacodyl (Dulcolax Supp) 10 mg DAILY PRN [place] CONSTIPATION Last administered on 10/29/17 01:51; Admin Dose 10 MG; Start 10/29/17 at 01:30 Magnesium Hydroxide (Milk Of Mag) 30 ml BID PRN PO CONSTIPATION Last administered on 10/29/17 01:24; Admin Dose 30 ML; Start 10/29/17 at 01:30 Lactulose (Enulose) 20 gm DAILY PRN PO CONSTIPATION Last administered on 12:42; Admin Dose 20 GM; Start 10/29/17 at 01:30 Guaifenesin/ Codeine Phosphate (Robitussin Ac Liquid Cup) 5 ml Q4H PRN PO COUGH Last administered on 11/01/17 12:42; Admin Dose 5 ML; Start 10/31/17 at 17:00 Sodium Biphosphate/ Sodium Phosphate (Fleet Enema) 133 ml DAILY PRN [place] CONSTIPATION Last administered on 11/01/17 19:55; Admin Dose 133 ML; Start at 19:00 Warfarin Sodium (Coumadin) 2 mg ONCE@17 ONCE PO ; Start 11/02/17 at 17:00; Stop 11/02/17 at 17:01; Status BELLA FAROOQ MD Nov 02, 2017 14:06
[2017-11-02] MEDS: LACTULOSE 30ML CUP PO PRN (14:28)
[2017-11-02] MEDS ORDERED: WARFARIN 2 MG TAB PO ONE (17:00)
[2017-11-02 20:00] VITALS: BP 119/59; RESP 18
[2017-11-02] MEDS: SENNA TAB PO SCH (20:34)
[2017-11-02] MEDS: ATORVASTATIN 10 MG TAB PO SCH (20:34)
[2017-11-03] MEDS: ACETAMINOPHEN 325 MG TAB PO PRN (00:20)
[2017-11-03] MEDS: LORAZEPAM 0.5 MG TAB PO PRN (00:20)
[2017-11-03] MEDS: IPRATROPIUM (NEB) 0.5 MG/2.5 ML AMP HHN SCH ×4 (01:31→19:29)
[2017-11-03] MEDS: LEVALBUTEROL (NEB) 1.25 MG/0.5 ML AMP HHN SCH ×4 (01:32→19:30)
[2017-11-03 02:00] VITALS: BP 117/59; RESP 18
[2017-11-03 06:28] LABS: ABNORMAL IP MESSAGE 1; EOSINOPHILS # 0.1 10^3/ul (0.0-0.5); EOSINOPHILS % 1.6 % (0.0-7.0); HEMATOCRIT 24.6 % (37.0-47.0); LYMPHOCYTES # 0.5 10^3/ul (0.8-2.9); MEAN CORPUSCULAR HEMOGLOBIN 30.2 pg (29.0-33.0); MEAN CORPUSCULAR HGB CONC 32.5 g/dl (32.0-37.0); MEAN CORPUSCULAR VOLUME 92.8 fl (82.0-101.0); MEAN PLATELET VOLUME 9.2 fl (7.4-10.4); MONOCYTE # 0.3 10^3/ul (0.3-0.9); MONOCYTES % 9.3 % (0.0-11.0); NEUTROPHIL # 2.3 10^3/ul (1.6-7.5); NEUTROPHILS % 72.8 % (39.0-77.0); PLATELET COUNT 283 10^3/UL (140-415); RED BLOOD COUNT 2.65 10^6/ul (4.20-5.40); RED CELL DISTRIBUTION WIDTH 26.2 % (11.5-14.5); WHITE BLOOD COUNT 3.1 10^3/ul (4.8-10.8)
[2017-11-03 06:31] LABS: POSITIVE DIFF @See below
[2017-11-03] MEDS: LEVOTHYROXINE 25 MCG TAB PO SCH (06:53)
[2017-11-03] MEDS: PANTOPRAZOLE (EC) 40 MG TAB PO SCH (06:53)
[2017-11-03 08:01] VITALS: BP 122/60; RESP 18
--- NOTE | 2017-11-03 08:07 | CONS ---
DATE OF ADMISSION: 10/28/2017 DATE OF CONSULTATION: 11/02/2017 REFERRING PHYSICIAN: Dr. Sarthak Dey and Dr. Alaina MD REASON FOR CONSULTATION: Evaluate left ankle ulcer. HISTORY OF PRESENT ILLNESS: This is a very pleasant 77-year-old woman. She is nondiabetic. She is a nonsmoker. She is on Coumadin chronically for atrial fibrillation and unfortunately around Thank sgiving she had a slip and fall and developed good sized hematoma at the left lateral ankle. developed a hematoma in the hip, the thigh, the psoas and iliac muscles and a retroperitoneal bleed. It has been almost 3 weeks now and she has done acute rehabilitation and is slowly progressing, bu t she has now developed some eschar on the left lateral ankle at the site of the hematoma and Dr. Yoanna katz saw her yesterday and stuck a needle in it and drained a little bit of fluid, and was asked to see us regarding wound care, now to manage this going forward. 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 She is not diabetic. MEDICATIONS: Consist of: 1. Evoxac. 2. Vitamin D. 3. Colace. 4. Folate. 5. Synthroid. 6. [place] p.r.n. 7. Cordarone. 8. Norvasc. 9. Lipitor. 10. Keflex. 11. Ativan. 12. Toprol. 13. Protonix. 14. Coumadin. ALLERGIES: NO KNOWN DRUG ALLERGIES. SOCIAL HISTORY: She is a nonsmoker. She does not drink or use any illicit drugs. Her daughter is here with her today. She was totally independent prior to this unfortunate event. She lives at [facility] with her and daughter. REVIEW OF SYSTEMS: She currently denies any chest pain, shortness of breath, nausea, vomiting, diar rosendo. No fever, no chills, no recent weight gain or weight loss. The only complaint is of left leg pain. It actually hurts even just to put it down, so she has really been not ambulating. Although she is trying to cooperative with the rehabilitation, she has not been putting much weight on the f oot. She says when she puts the leg down it just starts to throb and gets heavy right away. PHYSICAL EXAMINATION GENERAL: She is an elderly woman. She is in no distress. VITAL SIGNS: She has been afebrile, low-grade febrile with a T-max 100.4, blood pressure is 134/58, heart rate is 86, respiratory rate is 18, saturating 95% on room air. NECK: She has 2+ carotid pulses bilaterally, 2+ radial and brachial pulses bilaterally. LUNGS: Clear. HEART: Irregularly irregular. ABDOMEN: Soft, nontender, nondistended. EXTREMITIES: She has 2+ femoral, popliteal, DP and PT pulses in both lower extremities. On the rig ht leg, she has some mild edema and some small varicose veins, but no wounds, no discoloration. On the left, she has a significant amount of ecchymosis and an eschar about the size of a quarter right over the lateral malleolus. It is a dry eschar, but it is clearly a full-thickness necrosis of the skin. There is a little bogginess in the tissue and maybe a little bit of fluid underneath, but it is not tense at all, there is just a lot of ecchymosis and a fair amount of edema in the whole foot , ankle and calf. She has had a venous scan done on this admission which showed no DVT in the left lower extremity. I ordered an arterial ultrasound, but it has not been done yet. She has had a CT abdomen and pelvis that shows a retroperitoneal bleed in the iliac and psoas muscle hematomas that h as been stable. LABORATORY DATA: Her white count is normal, hemoglobin stable in the 7 to 8 range. Platelet count is good, creatinine is normal in the 0.9 to 1 range. INR is 1. She is currently just now getting r estarted on her Coumadin. IMPRESSION: Left lateral ankle ulceration/eschar. It is clearly due to the hematoma that developed some pressure necrosis from underlying subcutaneous edema and pressure from the underlying hematoma . It is a dry eschar. There is no sign of infection. It is no longer tense and I do not think ope glenna it at this point would benefit her. It would probably just risk infecting it, but what I would recommend and I discussed this with the patient and her daughter is just applying some Acticoat ov er the eschar just to provide some antibiotic activity from the , and then placing 3-layer comp ression to be changed 3 times a week. This will reduce the edema and also give her some support whe n she stands. I think this will help her become more mobile and it will help the wound to heal more quickly. Eventually, that eschar will likely slough off and the hematoma underneath may drain, but now it is providing a biologic barrier that is preventing any infection. I spoke to the wound care nurse and she is going to apply the 3-layer compression. I ordered an arterial duplex just to conf irm that her arterial circulation is normal, although I can feel very good pedal pulses and will fol low along with you. Once she is out of acute rehab, we will see her in the wound care center until the wounds are healed. Dictated By: ISAIAS SIERRA/HARDIK Conf#: [id number] DID#: [id number] CC: SARTHAK DEY MD; TATIANA RON MD; SHERIE DESAI MD; ADRIAN TRENT MD; FELIPE SYLVETSER DO; CHRISTIAN HERNANDEZ MD;*EndCC*
[2017-11-03] MEDS ORDERED: FUROSEMIDE 20 MG INJ IV ONE ×2 (08:30→13:00)
--- NOTE | 2017-11-03 08:30 | CONS ---
Date/Time of Note Date/Time of Note DATE: 11/03/17 TIME: 08:26 Assessment/Plan Assessment/Plan Additional Assessment/Plan 1. Left ankle wound, appreciate wound care consult and intervention. 2. Atrial fib, coumadin has been resumed. 3. Cough and cxr noted, will check BNP and diurese gently. 4. Anemia noted, will transfuse 2 units of cells, stool ob ordered, was already given iv iron, siep ordered 5. UTI treated Consultation Date/Type/Reason Admit Date/Time Oct 28, 2017 at 21:45 Initial Consult Date Type of Consultation: cv Detailed Summary Respiratory: cough (that is not productive and better today), No shortness of breath Cardiovascular: No chest pain Gastrointestinal: no complaints, other (and no sxs gi bleeding) Genitourinary: no complaints Musculoskeletal: bone/joint pain (mild discomfort left foot) Exam/Review of Systems Vital Signs Vitals Vital Signs Date Time Temp Pulse Resp B/P Pulse Ox O2 Delivery O2 Flow Rate FiO2 11/03/17 08:01 98.4 68 18 122/60 94 11/03/17 01:32 2.0 11/03/17 01:32 Nasal Cannula 11/02/17 07:46 21 Intake and Output 11/02/17 11/02/17 11/03/17 15:00 23:00 07:00 Intake Total 300 ml 680 ml 330 ml Output Total 200 ml 850 ml Balance 100 ml 680 ml -520 ml Exam Neck: No jvd Respiratory: clear to auscultation Cardiovascular: regular rate and rhythm Gastrointestinal: soft Extremities: No edema (adn no calf tend) Results Result Diagram: 11/03/17 0605 11/01/17 1440 Results 24 hrs Laboratory Tests Test 11/03/17 06:05 White Blood Count 3.1 #L Red Blood Count 2.65 L Hemoglobin 8.0 L Hematocrit 24.6 L Mean Corpuscular Volume 92.8 Mean Corpuscular Hemoglobin 30.2 Mean Corpuscular Hemoglobin Concent 32.5 Red Cell Distribution Width 26.2 H Platelet Count 283 Mean Platelet Volume 9.2 Neutrophils % 72.8 Lymphocytes % 15.0 Monocytes % 9.3 Eosinophils % 1.6 Basophils % 0.0 Nucleated Red Blood Cells % 0.0 Neutrophils # 2.3 Lymphocytes # 0.5 L Monocytes # 0.3 Eosinophils # 0.1 Basophils # 0.0 Nucleated Red Blood Cells # 0.0 Medications Medications Current Medications Lidocaine (Lidocaine 5% Oint) 1 applic QID PRN TOP PAIN; Start 10/28/17 at 23: 45 Lorazepam (Ativan) 0.5 mg Q6H PRN PO ANXIETY Last administered on 11/03/17 00 :20; Admin Dose 0.5 MG; Start 10/28/17 at 23:45 Magnesium Hydroxide (Milk Of Mag) 30 ml DAILY PRN PO CONSTIPATION; Start at 23:45 Metoprolol Succinate (Toprol Xl) 50 mg DAILY PO Last administered on 09:02; Admin Dose 50 MG; Start 10/29/17 at 09:00 Pantoprazole (Protonix Tab) 40 mg DAILY@06 PO Last administered on 11/03/17 06:53; Admin Dose 40 MG; Start 10/29/17 at 06:00 Tramadol HCl (Ultram) 50 mg Q6H PRN PO PAIN Last administered on 10/31/17 13: 08; Admin Dose 50 MG; Start 10/28/17 at 23:45 Zolpidem Tartrate (Ambien) 5 mg HS PRN PO INSOMNIA; Start 10/28/17 at 23:45 Acetaminophen/ Hydrocodone Bitart ([place] (10/325)) 1 tab Q4H PRN PO PAIN Last administered on 10/31/17 23:01; Admin Dose 1 TAB; Start 10/28/17 at 23:45 Acetaminophen (Tylenol Tab) 650 mg Q4H PRN PO PAIN AND OR ELEVATED TEMP Last administered on 11/03/17 00:20; Admin Dose 650 MG; Start 10/28/17 at 23:45 Al Hydroxide/Mg Trisilicate (Gaviscon) 2 tab QID PRN PO FOR GASTROINTESTINAL UPSET Last administered on 10/29/17 01:51; Admin Dose 2 TAB; Start 10/28/17 at 23:45 Amiodarone HCl (Cordarone) 100 mg DAILY PO Last administered on 11/02/17 09: 05; Admin Dose 100 MG; Start 10/29/17 at 09:00 Amlodipine Besylate (Norvasc) 2.5 mg BID PO Last administered on 11/02/17 20: 34; Admin Dose 2.5 MG; Start 10/29/17 at 09:00 Atorvastatin Calcium (Lipitor) 10 mg DAILY@21 PO Last administered on 20:34; Admin Dose 10 MG; Start 10/29/17 at 21:00 Cevimeline HCl (Evoxac) 30 mg QID PO Last administered on 11/02/17 20:34; Admin Dose 30 MG; Start 10/29/17 at 09:00 Cyanocobalamin (Vitamin B12) 1,000 mcg DAILY PO Last administered on 09:02; Admin Dose 1,000 MCG; Start 10/29/17 at 09:00 Docusate Sodium (Colace) 100 mg BID PO Last administered on 11/02/17 20:34; Admin Dose 100 MG; Start 10/29/17 at 09:00 Folic Acid (Folic Acid) 0.8 mg DAILY PO Last administered on 11/02/17 09:03; Admin Dose 0.8 MG; Start 10/29/17 at 09:00 Lactobacillus Acidophilus (Florajen3 Capsule) 1 each BID PO Last administered on 11/02/17 20:34; Admin Dose 1 EACH; Start 10/29/17 at 09:00 Levothyroxine Sodium (Synthroid) 25 mcg DAILY@06 PO Last administered on 06:53; Admin Dose 25 MCG; Start 10/29/17 at 06:00 Senna (Senokot) 1 tab HS PO Last administered on 11/02/17 20:34; Admin Dose 1 TAB; Start 10/29/17 at 21:00 Bisacodyl (Dulcolax Supp) [address] CONSTIPATION Last administered on 10/29/17 01:51; Admin Dose 10 MG; Start 10/29/17 at 01:30 Magnesium Hydroxide (Milk Of Mag) 30 ml BID PRN PO CONSTIPATION Last administered on 10/29/17 01:24; Admin Dose 30 ML; Start 10/29/17 at 01:30 Lactulose (Enulose) 20 gm DAILY PRN PO CONSTIPATION Last administered on 14:28; Admin Dose 20 GM; Start 10/29/17 at 01:30 Guaifenesin/ Codeine Phosphate (Robitussin Ac Liquid Cup) 5 ml Q4H PRN PO COUGH Last administered on 11/01/17 12:42; Admin Dose 5 ML; Start 10/31/17 at 17:00 Sodium Biphosphate/ Sodium Phosphate (Fleet Enema) [address] CONSTIPATION Last administered on 11/01/17 19:55; Admin Dose 133 ML; Start at 19:00 JOEL GOMEZ MD Nov 03, 2017 08:30
[2017-11-03] MEDS: DOCUSATE SODIUM 100 MG CAP PO SCH ×2 (08:37→21:12)
[2017-11-03] MEDS: CEVIMELINE 30 MG CAP PO SCH ×6 (08:38→21:12)
[2017-11-03] MEDS: L ACIDOPHIL/B LACTIS/B LONGUM CAPSULE PO SCH ×2 (08:38→21:12)
[2017-11-03] MEDS: AMIODARONE 200 MG TAB PO SCH (08:38)
[2017-11-03] MEDS: FOLIC ACID 0.4 MG TAB PO SCH (08:38)
[2017-11-03] MEDS: AMLODIPINE 2.5 MG TAB PO SCH ×2 (08:38→21:00)
[2017-11-03] MEDS: CYANOCOBALAMIN 500 MCG TAB PO SCH (08:39)
[2017-11-03] MEDS: METOPROLOL (XL) 50 MG TAB PO SCH (08:39)
[2017-11-03 09:51] LABS: CALCIUM 8.6 mg/dl (8.4-10.2); CREATININE 1.08 mg/dl (0.44-1.00); POTASSIUM 4.5 mmol/L (3.5-5.1)
[2017-11-03 10:08] LABS: INR 0.99; PROTIME 13.2 Sec (11.9-14.9)
--- NOTE | 2017-11-03 12:24 | CONS ---
Date/Time of Note Date/Time of Note DATE: 11/03/17 TIME: 12:23 Consult Date/Type/Reason Admit Date/Time Oct 28, 2017 at 21:45 Type of Consultation: cv Subjective Tired this morning Objective new dressing in place Vital Signs Date Time Temp Pulse Resp B/P Pulse Ox O2 Delivery O2 Flow Rate FiO2 11/03/17 08:01 98.4 68 18 122/60 94 11/03/17 01:32 2.0 11/03/17 01:32 Nasal Cannula 11/02/17 07:46 21 Intake and Output 11/02/17 11/02/17 11/03/17 14:59 22:59 06:59 Intake Total 300 ml 680 ml 330 ml Output Total 200 ml 850 ml Balance 100 ml 680 ml -520 ml Results/Medications Result Diagram: 11/03/17 0605 11/03/17 0854 Results 24 hrs Laboratory Tests Test 11/03/17 06:05 11/03/17 08:54 White Blood Count 3.1 #L Red Blood Count 2.65 L Hemoglobin 8.0 L Hematocrit 24.6 L Mean Corpuscular Volume 92.8 Mean Corpuscular Hemoglobin 30.2 Mean Corpuscular Hemoglobin Concent 32.5 Red Cell Distribution Width 26.2 H Platelet Count 283 Mean Platelet Volume 9.2 Neutrophils % 72.8 Lymphocytes % 15.0 Monocytes % 9.3 Eosinophils % 1.6 Basophils % 0.0 Nucleated Red Blood Cells % 0.0 Neutrophils # 2.3 Lymphocytes # 0.5 L Monocytes # 0.3 Eosinophils # 0.1 Basophils # 0.0 Nucleated Red Blood Cells # 0.0 Prothrombin Time 13.2 Prothrombin Time Ratio 1.0 INR International Normalized Ratio 0.99 Sodium Level 139 Potassium Level 4.5 Chloride Level 103 Carbon Dioxide Level 30 Anion Gap 11 Blood Urea Nitrogen 17 Creatinine 1.08 H Glucose Level 97 Calcium Level 8.6 Magnesium Level 2.0 B-Type Natriuretic Peptide 908 H Medications Current Medications Lidocaine (Lidocaine 5% Oint) 1 applic QID PRN TOP PAIN; Start 10/28/17 at 23: 45 Lorazepam (Ativan) 0.5 mg Q6H PRN PO ANXIETY Last administered on 11/03/17t 00 :20; Admin Dose 0.5 MG; Start 10/28/17 at 23:45 Magnesium Hydroxide (Milk Of Mag) 30 ml DAILY PRN PO CONSTIPATION; Start at 23:45 Metoprolol Succinate (Toprol Xl) 50 mg DAILY PO Last administered on 08:39; Admin Dose 50 MG; Start 10/29/17 at 09:00 Pantoprazole (Protonix Tab) 40 mg DAILY@06 PO Last administered on 11/03/17 06:53; Admin Dose 40 MG; Start 10/29/17 at 06:00 Tramadol HCl (Ultram) 50 mg Q6H PRN PO PAIN Last administered on 10/31/17 13: 08; Admin Dose 50 MG; Start 10/28/17 at 23:45 Zolpidem Tartrate (Ambien) 5 mg HS PRN PO INSOMNIA; Start 10/28/17 at 23:45 Acetaminophen/ Hydrocodone Bitart ([place] (10325)) 1 tab Q4H PRN PO PAIN Last administered on 10/31/17 23:01; Admin Dose 1 TAB; Start 10/28/17 at 23:45 Acetaminophen (Tylenol Tab) 650 mg Q4H PRN PO PAIN AND OR ELEVATED TEMP Last administered on 11/03/17 00:20; Admin Dose 650 MG; Start 10/28/17 at 23:45 Al Hydroxide/Mg Trisilicate (Gaviscon) 2 tab QID PRN PO FOR GASTROINTESTINAL UPSET Last administered on 10/29/17 01:51; Admin Dose 2 TAB; Start 10/28/17 at 23:45 Amiodarone HCl (Cordarone) 100 mg DAILY PO Last administered on 11/03/17 08: 38; Admin Dose 100 MG; Start 10/29/17 at 09:00 Amlodipine Besylate (Norvasc) 2.5 mg BID PO Last administered on 11/03/17 08: 38; Admin Dose 2.5 MG; Start 10/29/17 at 09:00 Atorvastatin Calcium (Lipitor) 10 mg DAILY@21 PO Last administered on 20:34; Admin Dose 10 MG; Start 10/29/17 at 21:00 Cevimeline HCl (Evoxac) 30 mg QID PO Last administered on 11/03/17 08:38; Admin Dose 30 MG; Start 10/29/17 at 09:00 Cyanocobalamin (Vitamin B12) 1,000 mcg DAILY PO Last administered on 08:39; Admin Dose 1,000 MCG; Start 10/29/17 at 09:00 Docusate Sodium (Colace) 100 mg BID PO Last administered on 11/03/17 08:37; Admin Dose 100 MG; Start 10/29/17 at 09:00 Folic Acid (Folic Acid) 0.8 mg DAILY PO Last administered on 11/03/17 08:38; Admin Dose 0.8 MG; Start 10/29/17 at 09:00 Lactobacillus Acidophilus (Florajen3 Capsule) 1 each BID PO Last administered on 11/03/17 08:38; Admin Dose 1 EACH; Start 10/29/17 at 09:00 Levothyroxine Sodium (Synthroid) 25 mcg DAILY@06 PO Last administered on 06:53; Admin Dose 25 MCG; Start 10/29/17 at 06:00 Senna (Senokot) 1 tab HS PO Last administered on 11/02/17 20:34; Admin Dose 1 TAB; Start 10/29/17 at 21:00 Bisacodyl (Dulcolax Supp) 10 mg DAILY PRN [place] CONSTIPATION Last administered on 10/29/17 01:51; Admin Dose 10 MG; Start 10/29/17 at 01:30 Magnesium Hydroxide (Milk Of Mag) 30 ml BID PRN PO CONSTIPATION Last administered on 10/29/17 01:24; Admin Dose 30 ML; Start 10/29/17 at 01:30 Lactulose (Enulose) 20 gm DAILY PRN PO CONSTIPATION Last administered on 14:28; Admin Dose 20 GM; Start 10/29/17 at 01:30 Guaifenesin/ Codeine Phosphate (Robitussin Ac Liquid Cup) 5 ml Q4H PRN PO COUGH Last administered on 11/01/17 12:42; Admin Dose 5 ML; Start 10/31/17 at 17:00 Sodium Biphosphate/ Sodium Phosphate (Fleet Enema) 133 ml DAILY PRN [place] CONSTIPATION Last administered on 11/01/17 19:55; Admin Dose 133 ML; Start at 19:00 Warfarin Sodium (Coumadin) 3 mg ONCE@17 ONCE PO ; Start 11/03/17 at 17:00; Stop 11/03/17 at 17:01 Assessment/Plan Additional Assessment/Plan Rehab- Debility secondary to coagulopathy with multiple hematomas including left ankle, hip, thigh, psoas, iliac muscles, Left Upper Extremity and retroperitoneal bleed. 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 Atrial fibrillation- anticoag per IM/Cardiology Anemia- transfuse today Hypertension. Hyperlipidemia. ADRIAN TRENT MD Nov 03, 2017 12:24
--- NOTE | 2017-11-03 12:40 | PN ---
Date/Time of Note Date/Time of Note DATE: 11/03/17 TIME: 12:32 Assessment/Plan VTE Prophylaxis VTE Prophylaxis Intervention: contraindicated Lines/Catheters IV Catheter Type (from Nrs): Saline Lock Assessment/Plan Assessment/Plan Assessment/Plan Assessment: 1. 4x4 cm eschar lateral ankle, possible full thickness, with some interval improvement. 2. Small residual subcutaneous fluid collect beneath eschar 3. No evidence of infection or cellulitis. Lateral malleolus wound is likely 2/ 2 hypercoagulation and traumatic injury from her fall. Plan: Continue wound care per wound care service recommendations. Continue rehab. No concern for septic joint or abscess. Encourage elevation of the LLE while in bed with light compressive wrap. Recommend wound care nurse consult for ongoing wound care for further wound care recommendations. Patient may need debridement and skin graft if the wound is full thickness, which would require plastic surgery consult. We discussed the findings and the plan with the patient. She voiced understanding to the plan. Subjective 24 Hr Interval Summary Free Text/Dictation Patient remains in rehab. She is participating with PT. Some interval improvement of LLE swelling and small eschar over lateral malleolus. Pain well controlled otherwise. Denies numbness,tingling. Exam/Review of Systems Vital Signs Vitals Vital Signs Date Time Temp Pulse Resp B/P Pulse Ox O2 Delivery O2 Flow Rate FiO2 11/03/17 08:01 98.4 68 18 122/60 94 11/03/17 01:32 2.0 11/03/17 01:32 Nasal Cannula 11/02/17 07:46 21 Intake and Output 11/02/17 11/02/17 11/03/17 14:59 22:59 06:59 Intake Total 300 ml 680 ml 330 ml Output Total 200 ml 850 ml Balance 100 ml 680 ml -520 ml Exam GEN: NAD CV: regular pulse Pulm: breathing non-labored LLE: Wound over lateral malleolus with some interval improvement. Eschar remains over lateral malleolus. No pain with ROM. Ongoing hyperemia surrounding the eschar. Non-tender to palpation, no evidence of cellulitis. Distally NVI. Results Result Diagram: 11/03/17 0605 11/03/17 0854 Results 24 hrs Laboratory Tests Test 11/03/17 06:05 11/03/17 08:54 White Blood Count 3.1 #L Red Blood Count 2.65 L Hemoglobin 8.0 L Hematocrit 24.6 L Mean Corpuscular Volume 92.8 Mean Corpuscular Hemoglobin 30.2 Mean Corpuscular Hemoglobin Concent 32.5 Red Cell Distribution Width 26.2 H Platelet Count 283 Mean Platelet Volume 9.2 Neutrophils % 72.8 Lymphocytes % 15.0 Monocytes % 9.3 Eosinophils % 1.6 Basophils % 0.0 Nucleated Red Blood Cells % 0.0 Neutrophils # 2.3 Lymphocytes # 0.5 L Monocytes # 0.3 Eosinophils # 0.1 Basophils # 0.0 Nucleated Red Blood Cells # 0.0 Prothrombin Time 13.2 Prothrombin Time Ratio 1.0 INR International Normalized Ratio 0.99 Sodium Level 139 Potassium Level 4.5 Chloride Level 103 Carbon Dioxide Level 30 Anion Gap 11 Blood Urea Nitrogen 17 Creatinine 1.08 H Glucose Level 97 Calcium Level 8.6 Magnesium Level 2.0 B-Type Natriuretic Peptide 908 H Medications Medications Current Medications Lidocaine (Lidocaine 5% Oint) 1 applic QID PRN TOP PAIN; Start 10/28/17 at 23: 45 Lorazepam (Ativan) 0.5 mg Q6H PRN PO ANXIETY Last administered on 11/03/17 00 :20; Admin Dose 0.5 MG; Start 10/28/17 at 23:45 Magnesium Hydroxide (Milk Of Mag) 30 ml DAILY PRN PO CONSTIPATION; Start at 23:45 Metoprolol Succinate (Toprol Xl) 50 mg DAILY PO Last administered on 08:39; Admin Dose 50 MG; Start 10/29/17 at 09:00 Pantoprazole (Protonix Tab) 40 mg DAILY@06 PO Last administered on 11/03/17 06:53; Admin Dose 40 MG; Start 10/29/17 at 06:00 Tramadol HCl (Ultram) 50 mg Q6H PRN PO PAIN Last administered on 10/31/17 13: 08; Admin Dose 50 MG; Start 10/28/17 at 23:45 Zolpidem Tartrate (Ambien) 5 mg HS PRN PO INSOMNIA; Start 10/28/17 at 23:45 Acetaminophen/ Hydrocodone Bitart ([place] (10/325)) 1 tab Q4H PRN PO PAIN Last administered on 10/31/17 23:01; Admin Dose 1 TAB; Start 10/28/17 at 23:45 Acetaminophen (Tylenol Tab) 650 mg Q4H PRN PO PAIN AND OR ELEVATED TEMP Last administered on 11/03/17 00:20; Admin Dose 650 MG; Start 10/28/17 at 23:45 Al Hydroxide/Mg Trisilicate (Gaviscon) 2 tab QID PRN PO FOR GASTROINTESTINAL UPSET Last administered on 10/29/17 01:51; Admin Dose 2 TAB; Start 10/28/17 at 23:45 Amiodarone HCl (Cordarone) 100 mg DAILY PO Last administered on 11/03/17 08: 38; Admin Dose 100 MG; Start 10/29/17 at 09:00 Amlodipine Besylate (Norvasc) 2.5 mg BID PO Last administered on 11/03/17 08: 38; Admin Dose 2.5 MG; Start 10/29/17 at 09:00 Atorvastatin Calcium (Lipitor) 10 mg DAILY@21 PO Last administered on 20:34; Admin Dose 10 MG; Start 10/29/17 at 21:00 Cevimeline HCl (Evoxac) 30 mg QID PO Last administered on 11/03/17 08:38; Admin Dose 30 MG; Start 10/29/17 at 09:00 Cyanocobalamin (Vitamin B12) 1,000 mcg DAILY PO Last administered on 08:39; Admin Dose 1,000 MCG; Start 10/29/17 at 09:00 Docusate Sodium (Colace) 100 mg BID PO Last administered on 11/03/17 08:37; Admin Dose 100 MG; Start 10/29/17 at 09:00 Folic Acid (Folic Acid) 0.8 mg DAILY PO Last administered on 11/03/17 08:38; Admin Dose 0.8 MG; Start 10/29/17 at 09:00 Lactobacillus Acidophilus (Florajen3 Capsule) 1 each BID PO Last administered on 11/03/17 08:38; Admin Dose 1 EACH; Start 10/29/17 at 09:00 Levothyroxine Sodium (Synthroid) 25 mcg DAILY@06 PO Last administered on 06:53; Admin Dose 25 MCG; Start 10/29/17 at 06:00 Senna (Senokot) 1 tab HS PO Last administered on 11/02/17 20:34; Admin Dose 1 TAB; Start 10/29/17 at 21:00 Bisacodyl (Dulcolax Supp) 10 mg DAILY PRN [place] CONSTIPATION Last administered on 10/29/17 01:51; Admin Dose 10 MG; Start 10/29/17 at 01:30 Magnesium Hydroxide (Milk Of Mag) 30 ml BID PRN PO CONSTIPATION Last administered on 10/29/17 01:24; Admin Dose 30 ML; Start 10/29/17 at 01:30 Lactulose (Enulose) 20 gm DAILY PRN PO CONSTIPATION Last administered on 14:28; Admin Dose 20 GM; Start 10/29/17 at 01:30 Guaifenesin/ Codeine Phosphate (Robitussin Ac Liquid Cup) 5 ml Q4H PRN PO COUGH Last administered on 11/01/17 12:42; Admin Dose 5 ML; Start 10/31/17 at 17:00 Sodium Biphosphate/ Sodium Phosphate (Fleet Enema) 133 ml DAILY PRN [place] CONSTIPATION Last administered on 11/01/17 19:55; Admin Dose 133 ML; Start at 19:00 Warfarin Sodium (Coumadin) 3 mg ONCE@17 ONCE PO ; Start 11/03/17 at 17:00; Stop 11/03/17 at 17:01 SHERIE DESAI MD Nov 03, 2017 12:40
--- NOTE | 2017-11-03 13:00 | CONS ---
Date/Time of Note Date/Time of Note DATE: 11/03/17 TIME: 12:53 Assessment/Plan Assessment/Plan Additional Assessment/Plan Acute blood loss anemia status post blood transfusion Psoas muscle hematoma Paroxysmal atrial fibrillation, currently sinus rhythm Acute decompensated diastolic congestive heart failure Preserved ejection fraction Hypertension Status post mechanical fall -Patient remains in sinus rhythm, would continue amiodarone and beta-kenyon as heart rate and blood pressure permits. Repeat echocardiogram on this admission with improvement in left ventricular systolic function. Anticoagulation has been restarted, would watch hemoglobin closely given recent anemia requiring blood transfusion and plan for 2 units of PRBCs today. Chest x-ray with evidence of pulmonary vascular congestion as well as coarse breath sounds on examination today with mild scattered rhonchi. Patient did receive IV Lasix this morning, would order additional dose this afternoon. Blood pressure trend overall improved. Will order chest x-ray for tomorrow. Consultation Date/Type/Reason Admit Date/Time Oct 28, 2017 at 21:45 Type of Consultation: cv 24 HR Interval Summary Free Text/Dictation Patient complaining of mild cough over the past 2 days. Denies shortness of breath. Complaining of fatigue Exam/Review of Systems Vital Signs Vitals Vital Signs Date Time Temp Pulse Resp B/P Pulse Ox O2 Delivery O2 Flow Rate FiO2 11/03/17 08:01 98.4 68 18 122/60 94 11/03/17 01:32 2.0 11/03/17 01:32 Nasal Cannula 11/02/17 07:46 21 Intake and Output 11/02/17 11/02/17 11/03/17 14:59 22:59 06:59 Intake Total 300 ml 680 ml 330 ml Output Total 200 ml 850 ml Balance 100 ml 680 ml -520 ml Exam No apparent distress Constitutional: alert, oriented Head: normocephalic Respiratory: other (Coarse breath sounds bilaterally with scattered mild rhonchi, no wheezing) Cardiovascular: other (S1-S2 heard), regular rate and rhythm Gastrointestinal: bowel sounds, non-tender, soft Extremities: edema Results Result Diagram: 11/03/17 0605 11/03/17 0854 Results 24 hrs Laboratory Tests Test 11/03/17 06:05 11/03/17 08:54 White Blood Count 3.1 #L Red Blood Count 2.65 L Hemoglobin 8.0 L Hematocrit 24.6 L Mean Corpuscular Volume 92.8 Mean Corpuscular Hemoglobin 30.2 Mean Corpuscular Hemoglobin Concent 32.5 Red Cell Distribution Width 26.2 H Platelet Count 283 Mean Platelet Volume 9.2 Neutrophils % 72.8 Lymphocytes % 15.0 Monocytes % 9.3 Eosinophils % 1.6 Basophils % 0.0 Nucleated Red Blood Cells % 0.0 Neutrophils # 2.3 Lymphocytes # 0.5 L Monocytes # 0.3 Eosinophils # 0.1 Basophils # 0.0 Nucleated Red Blood Cells # 0.0 Prothrombin Time 13.2 Prothrombin Time Ratio 1.0 INR International Normalized Ratio 0.99 Sodium Level 139 Potassium Level 4.5 Chloride Level 103 Carbon Dioxide Level 30 Anion Gap 11 Blood Urea Nitrogen 17 Creatinine 1.08 H Glucose Level 97 Calcium Level 8.6 Magnesium Level 2.0 B-Type Natriuretic Peptide 908 H Medications Medications Current Medications Lidocaine (Lidocaine 5% Oint) 1 applic QID PRN TOP PAIN; Start 10/28/17 at 23: 45 Lorazepam (Ativan) 0.5 mg Q6H PRN PO ANXIETY Last administered on 11/03/17 00 :20; Admin Dose 0.5 MG; Start 10/28/17 at 23:45 Magnesium Hydroxide (Milk Of Mag) 30 ml DAILY PRN PO CONSTIPATION; Start at 23:45 Metoprolol Succinate (Toprol Xl) 50 mg DAILY PO Last administered on 08:39; Admin Dose 50 MG; Start 10/29/17 at 09:00 Pantoprazole (Protonix Tab) 40 mg DAILY@06 PO Last administered on 11/03/17 06:53; Admin Dose 40 MG; Start 10/29/17 at 06:00 Tramadol HCl (Ultram) 50 mg Q6H PRN PO PAIN Last administered on 10/31/17 13: 08; Admin Dose 50 MG; Start 10/28/17 at 23:45 Zolpidem Tartrate (Ambien) 5 mg HS PRN PO INSOMNIA; Start 10/28/17 at 23:45 Acetaminophen/ Hydrocodone Bitart ([place] (10/325)) 1 tab Q4H PRN PO PAIN Last administered on 10/31/17 23:01; Admin Dose 1 TAB; Start 10/28/17 at 23:45 Acetaminophen (Tylenol Tab) 650 mg Q4H PRN PO PAIN AND OR ELEVATED TEMP Last administered on 11/03/17 00:20; Admin Dose 650 MG; Start 10/28/17 at 23:45 Al Hydroxide/Mg Trisilicate (Gaviscon) 2 tab QID PRN PO FOR GASTROINTESTINAL UPSET Last administered on 10/29/17 01:51; Admin Dose 2 TAB; Start 10/28/17 at 23:45 Amiodarone HCl (Cordarone) 100 mg DAILY PO Last administered on 11/03/17 08: 38; Admin Dose 100 MG; Start 10/29/17 at 09:00 Amlodipine Besylate (Norvasc) 2.5 mg BID PO Last administered on 11/03/17 08: 38; Admin Dose 2.5 MG; Start 10/29/17 at 09:00 Atorvastatin Calcium (Lipitor) 10 mg DAILY@21 PO Last administered on 20:34; Admin Dose 10 MG; Start 10/29/17 at 21:00 Cevimeline HCl (Evoxac) 30 mg QID PO Last administered on 11/03/17 08:38; Admin Dose 30 MG; Start 10/29/17 at 09:00 Cyanocobalamin (Vitamin B12) 1,000 mcg DAILY PO Last administered on 08:39; Admin Dose 1,000 MCG; Start 10/29/17 at 09:00 Docusate Sodium (Colace) 100 mg BID PO Last administered on 11/03/17 08:37; Admin Dose 100 MG; Start 10/29/17 at 09:00 Folic Acid (Folic Acid) 0.8 mg DAILY PO Last administered on 11/03/17 08:38; Admin Dose 0.8 MG; Start 10/29/17 at 09:00 Lactobacillus Acidophilus (Florajen3 Capsule) 1 each BID PO Last administered on 11/03/17 08:38; Admin Dose 1 EACH; Start 10/29/17 at 09:00 Levothyroxine Sodium (Synthroid) 25 mcg DAILY@06 PO Last administered on 06:53; Admin Dose 25 MCG; Start 10/29/17 at 06:00 Senna (Senokot) 1 tab HS PO Last administered on 11/02/17 20:34; Admin Dose 1 TAB; Start 10/29/17 at 21:00 Bisacodyl (Dulcolax Supp) 10 mg DAILY PRN [place] CONSTIPATION Last administered on 10/29/17 01:51; Admin Dose 10 MG; Start 10/29/17 at 01:30 Magnesium Hydroxide (Milk Of Mag) 30 ml BID PRN PO CONSTIPATION Last administered on 10/29/17 01:24; Admin Dose 30 ML; Start 10/29/17 at 01:30 Lactulose (Enulose) 20 gm DAILY PRN PO CONSTIPATION Last administered on 14:28; Admin Dose 20 GM; Start 10/29/17 at 01:30 Guaifenesin/ Codeine Phosphate (Robitussin Ac Liquid Cup) 5 ml Q4H PRN PO COUGH Last administered on 11/01/17 12:42; Admin Dose 5 ML; Start 10/31/17 at 17:00 Sodium Biphosphate/ Sodium Phosphate (Fleet Enema) 133 ml DAILY PRN [place] CONSTIPATION Last administered on 11/01/17 19:55; Admin Dose 133 ML; Start at 19:00 Warfarin Sodium (Coumadin) 3 mg ONCE@17 ONCE PO ; Start 11/03/17 at 17:00; Stop 11/03/17 at 17:01 Gabriel Chau DO Nov 03, 2017 12:59
[2017-11-03 14:00] VITALS: BP 104/57; RESP 20
--- NOTE | 2017-11-03 16:51 | EN ---
Date/Time of Note Date/Time of Note DATE: 11/03/17 TIME: 16:44 Event Note Medicine Medicine Event Note Rapid Response note rapid response called overhead ~435pm I came to pt's bedside. Per nursing, pt had been getting a blood transfusion. ~ 2 hours in started to feel unwell,chills and fevers vitals: temp 100.8, BP 160/86, sat 98% pt appeared a little anxious no mrg lungs clear abd soft no rashes 77 yo F on rehab after ankle injury with pmhx anemia. [employer] called for fever/ chills during transfusion. Clinical scenario consistent with febrile non hemolytic transfusion reaction/FNHTR PLAN 1 g APAP benadryl as per protocol as no hypotension no compelling indication for IVFs blood bank notification by nursing primary service notified by nursing ROCK LEAL MD Nov 03, 2017 16:51
[2017-11-03] MEDS ORDERED: WARFARIN 3 MG TAB PO ONE (17:00)
[2017-11-03] MEDS: DIPHENHYDRAMINE 25 MG CAP PO ONE ×2 (17:29→18:10)
[2017-11-03] MEDS: ACETAMINOPHEN 500 MG TAB PO STA ×2 (17:30→17:56)
[2017-11-03 18:27] LABS: ADD UMIC YES; UR ASCORBIC ACID 40 mg/dL (NEGATIVE); UR BACTERIA FEW /HPF (NONE SEEN); UR BILIRUBIN (Dip) NEGATIVE (NEGATIVE); UR BLOOD (Dip) 1+ mg/dL (NEGATIVE); UR CLARITY CLEAR (CLEAR); UR COLOR YELLOW (YELLOW); UR GLUCOSE (Dip) NEGATIVE (NEGATIVE); UR KETONES (Dip) NEGATIVE (NEGATIVE); UR LEUKOCYTE ESTERASE (Dip) NEGATIVE Leu/ul (NEGATIVE); UR NITRITE (Dip) NEGATIVE (NEGATIVE); UR RBC 2 /HPF (0-5); UR SPECIFIC GRAVITY (Dip) 1.012 (1.003-1.030); UR TOTAL PROTEIN (Dip) NEGATIVE (NEGATIVE); UR UROBILINOGEN (Dip) NEGATIVE (NEGATIVE)
[2017-11-03] MEDS ORDERED: SOD CHLORIDE 0.9% 500 ML IV ONE (19:00)
--- NOTE | 2017-11-03 19:26 | RADRPT ---
Vent Rate: 98 bpm RR Interval: 0 msec SD Interval: 246 msec QRS Duration: 68 msec QT Interval: 326 msec QTC Interval: 416 msec P-R-T [place]: 29 - 46 - 90 degrees Sinus rhythm with 1st degree AV block Septal infarct , age undetermined Abnormal ECG Electronically Signed By: Savage Vick [id number]
[2017-11-03 20:00] VITALS: BP 111/59; RESP 20
[2017-11-03] MEDS: ATORVASTATIN 10 MG TAB PO SCH (21:12)
[2017-11-03] MEDS: SENNA TAB PO SCH (21:12)
[2017-11-03 23:11] LABS: POST-TRANSFUSION BILIRUBIN 1.9 mg/dl; PRETRANSFUSION BILIRUBIN 0.5 mg/dl
[2017-11-04] MEDS: LEVALBUTEROL (NEB) 1.25 MG/0.5 ML AMP HHN SCH ×4 (01:08→20:55)
[2017-11-04] MEDS: IPRATROPIUM (NEB) 0.5 MG/2.5 ML AMP HHN SCH ×4 (01:08→20:55)
[2017-11-04 01:59] VITALS: BP 118/62; RESP 18
[2017-11-04] MEDS: LEVOTHYROXINE 25 MCG TAB PO SCH (06:20)
[2017-11-04] MEDS: PANTOPRAZOLE (EC) 40 MG TAB PO SCH (06:20)
[2017-11-04 06:38] LABS: ABNORMAL IP MESSAGE 1; BASOPHILS % 0.2 % (0.0-2.0); EOSINOPHILS % 0.5 % (0.0-7.0); HEMATOCRIT 26.4 % (37.0-47.0); HEMOGLOBIN 8.7 g/dl (12.0-16.0); LYMPHOCYTES # 0.5 10^3/ul (0.8-2.9); LYMPHOCYTES % 8.9 % (15.0-51.0); MEAN CORPUSCULAR HEMOGLOBIN 30.2 pg (29.0-33.0); MEAN CORPUSCULAR VOLUME 91.7 fl (82.0-101.0); MEAN PLATELET VOLUME 9.6 fl (7.4-10.4); MONOCYTE # 0.3 10^3/ul (0.3-0.9); MONOCYTES % 5.2 % (0.0-11.0); NEUTROPHIL # 4.9 10^3/ul (1.6-7.5); NEUTROPHILS % 84.9 % (39.0-77.0); PLATELET COUNT 224 10^3/UL (140-415); RED BLOOD COUNT 2.88 10^6/ul (4.20-5.40); RED CELL DISTRIBUTION WIDTH 25.7 % (11.5-14.5); WHITE BLOOD COUNT 5.7 10^3/ul (4.8-10.8)
[2017-11-04 06:50] LABS: POSITIVE DIFF @See below
[2017-11-04 07:30] VITALS: BP 110/55; RESP 20
[2017-11-04 07:52] LABS: CALCIUM 8.1 mg/dl (8.4-10.2); CREATININE 1.25 mg/dl (0.44-1.00); POTASSIUM 4.5 mmol/L (3.5-5.1)
[2017-11-04 08:11] LABS: INR 1.09; PROTIME 14.2 Sec (11.9-14.9); PT RATIO 1.1
[2017-11-04] MEDS ORDERED: POTASSIUM CHLORIDE (SR) 10 MEQ TAB PO ONE (08:30)
[2017-11-04] MEDS ORDERED: WARFARIN 5 MG TAB PO SCH (08:30)
[2017-11-04] MEDS ORDERED: FUROSEMIDE 20 MG INJ IV ONE (08:30)
--- NOTE | 2017-11-04 08:32 | CONS ---
Date/Time of Note Date/Time of Note DATE: 11/04/17 TIME: 08:27 Assessment/Plan Assessment/Plan Additional Assessment/Plan 1. Left ankle wound, local care being provided 2. Atrial fib, dose of Coumadin will be inc 3. Cough perisits with now purulent sputum->levaquin started, repeat cxr ordered, additional lasix given re-chf, will rev with cardiology 4. Anemia noted, transfused with nearly 1 unit prbc, ??chills noted, transfusion halted, rev with blood bank->no chemical evidence of transfusion rx , will not give additional unit and start procrit. 5. UTI treated Consultation Date/Type/Reason Admit Date/Time Oct 28, 2017 at 21:45 Type of Consultation: cv Detailed Summary Respiratory: cough (is about the same as yesterday but now she has noticed yellow mucus), other (denies orthopnea), shortness of breath Cardiovascular: No chest pain Gastrointestinal: no complaints Genitourinary: no complaints Musculoskeletal: bone/joint pain (no ankle pain) Exam/Review of Systems Vital Signs Vitals Vital Signs Date Time Temp Pulse Resp B/P Pulse Ox O2 Delivery O2 Flow Rate FiO2 11/04/17 01:59 98.7 75 18 118/62 98 11/04/17 01:08 Nasal Cannula 2.0 11/02/17 07:46 21 Intake and Output 11/03/17 11/03/17 11/04/17 15:00 23:00 07:00 Intake Total 420 ml 1390 ml Balance 420 ml 1390 ml Exam Neck: No jvd Respiratory: other (rales anterolateral bilateral without wheezing and few rhonchi) Cardiovascular: regular rate and rhythm, No S3 Gastrointestinal: soft Extremities: No edema (and no calf tend) Results Result Diagram: 11/04/17 0616 11/04/17 0616 Results 24 hrs Laboratory Tests Test 11/03/17 08:54 11/03/17 13:00 11/03/17 17:05 11/04/17 06:16 Prothrombin Time 13.2 14.2 Prothrombin Time Ratio 1.0 1.1 INR International Normalized Ratio 0.99 1.09 Sodium Level 139 139 Potassium Level 4.5 4.5 Chloride Level 103 103 Carbon Dioxide Level 30 30 Anion Gap 11 11 Blood Urea Nitrogen 17 27 H Creatinine 1.08 H 1.25 H Glucose Level 97 99 Calcium Level 8.6 8.1 L Magnesium Level 2.0 B-Type Natriuretic Peptide 908 H Stool Occult Blood NEGATIVE Urine Color YELLOW Urine Clarity CLEAR Urine pH 5.0 Urine Specific [place] 1.012 Urine Ketones NEGATIVE Urine Nitrite NEGATIVE Urine Bilirubin NEGATIVE Urine Urobilinogen NEGATIVE Urine Leukocyte Esterase NEGATIVE Urine Microscopic RBC 2 Urine Microscopic WBC 4 Urine Bacteria FEW A Urine Hemoglobin 1+ H Urine Glucose NEGATIVE Urine Total Protein NEGATIVE White Blood Count 5.7 # Red Blood Count 2.88 L Hemoglobin 8.7 L Hematocrit 26.4 L Mean Corpuscular Volume 91.7 Mean Corpuscular Hemoglobin 30.2 Mean Corpuscular Hemoglobin Concent 33.0 Red Cell Distribution Width 25.7 H Platelet Count 224 # Mean Platelet Volume 9.6 Neutrophils % 84.9 H Lymphocytes % 8.9 L Monocytes % 5.2 Eosinophils % 0.5 Basophils % 0.2 Nucleated Red Blood Cells % 0.0 Neutrophils # 4.9 Lymphocytes # 0.5 L Monocytes # 0.3 Eosinophils # 0.0 Basophils # 0.0 Nucleated Red Blood Cells # 0.0 Medications Medications Current Medications Lidocaine (Lidocaine 5% Oint) 1 applic QID PRN TOP PAIN; Start 10/28/17 at 23: 45 Lorazepam (Ativan) 0.5 mg Q6H PRN PO ANXIETY Last administered on 11/03/17 00 :20; Admin Dose 0.5 MG; Start 10/28/17 at 23:45 Magnesium Hydroxide (Milk Of Mag) 30 ml DAILY PRN PO CONSTIPATION; Start at 23:45 Metoprolol Succinate (Toprol Xl) 50 mg DAILY PO Last administered on 08:39; Admin Dose 50 MG; Start 10/29/17 at 09:00 Pantoprazole (Protonix Tab) 40 mg DAILY@06 PO Last administered on 11/04/17 06:20; Admin Dose 40 MG; Start 10/29/17 at 06:00 Tramadol HCl (Ultram) 50 mg Q6H PRN PO PAIN Last administered on 10/31/17 13: 08; Admin Dose 50 MG; Start 10/28/17 at 23:45 Zolpidem Tartrate (Ambien) 5 mg HS PRN PO INSOMNIA; Start 10/28/17 at 23:45 Acetaminophen/ Hydrocodone Bitart ([place] (10/325)) 1 tab Q4H PRN PO PAIN Last administered on 10/31/17 23:01; Admin Dose 1 TAB; Start 10/28/17 at 23:45 Acetaminophen (Tylenol Tab) 650 mg Q4H PRN PO PAIN AND OR ELEVATED TEMP Last administered on 11/03/17 00:20; Admin Dose 650 MG; Start 10/28/17 at 23:45 Al Hydroxide/Mg Trisilicate (Gaviscon) 2 tab QID PRN PO FOR GASTROINTESTINAL UPSET Last administered on 10/29/17 01:51; Admin Dose 2 TAB; Start 10/28/17 at 23:45 Amiodarone HCl (Cordarone) 100 mg DAILY PO Last administered on 11/03/17 08: 38; Admin Dose 100 MG; Start 10/29/17 at 09:00 Amlodipine Besylate (Norvasc) 2.5 mg BID PO Last administered on 11/03/17 08: 38; Admin Dose 2.5 MG; Start 10/29/17 at 09:00 Atorvastatin Calcium (Lipitor) 10 mg DAILY@21 PO Last administered on 21:12; Admin Dose 10 MG; Start 10/29/17 at 21:00 Cevimeline HCl (Evoxac) 30 mg QID PO Last administered on 11/03/17 21:12; Admin Dose 30 MG; Start 10/29/17 at 09:00 Cyanocobalamin (Vitamin B12) 1,000 mcg DAILY PO Last administered on 08:39; Admin Dose 1,000 MCG; Start 10/29/17 at 09:00 Docusate Sodium (Colace) 100 mg BID PO Last administered on 11/03/17 21:12; Admin Dose 100 MG; Start 10/29/17 at 09:00 Folic Acid (Folic Acid) 0.8 mg DAILY PO Last administered on 11/03/17 08:38; Admin Dose 0.8 MG; Start 10/29/17 at 09:00 Lactobacillus Acidophilus (Florajen3 Capsule) 1 each BID PO Last administered on 11/03/17 21:12; Admin Dose 1 EACH; Start 10/29/17 at 09:00 Levothyroxine Sodium (Synthroid) 25 mcg DAILY@06 PO Last administered on 06:20; Admin Dose 25 MCG; Start 10/29/17 at 06:00 Senna (Senokot) 1 tab HS PO Last administered on 11/03/17 21:12; Admin Dose 1 TAB; Start 10/29/17 at 21:00 Bisacodyl (Dulcolax Supp) 10 mg DAILY PRN [place] CONSTIPATION Last administered on 10/29/17 01:51; Admin Dose 10 MG; Start 10/29/17 at 01:30 Magnesium Hydroxide (Milk Of Mag) 30 ml BID PRN PO CONSTIPATION Last administered on 10/29/17 01:24; Admin Dose 30 ML; Start 10/29/17 at 01:30 Lactulose (Enulose) 20 gm DAILY PRN PO CONSTIPATION Last administered on 14:28; Admin Dose 20 GM; Start 10/29/17 at 01:30 Guaifenesin/ Codeine Phosphate (Robitussin Ac Liquid Cup) 5 ml Q4H PRN PO COUGH Last administered on 11/01/17 12:42; Admin Dose 5 ML; Start 10/31/17 at 17:00 Sodium Biphosphate/ Sodium Phosphate (Fleet Enema) 133 ml DAILY PRN [place] CONSTIPATION Last administered on 11/01/17 19:55; Admin Dose 133 ML; Start at 19:00 JOEL GOMEZ MD Nov 04, 2017 08:32
[2017-11-04] MEDS: AMLODIPINE 2.5 MG TAB PO SCH (09:00)
[2017-11-04] MEDS: METOPROLOL (XL) 50 MG TAB PO SCH (09:00)
[2017-11-04] MEDS: GUAIFENESIN/CODEINE 5ML CUP PO PRN (09:35)
[2017-11-04] MEDS: FOLIC ACID 0.4 MG TAB PO SCH (09:36)
[2017-11-04] MEDS: CEVIMELINE 30 MG CAP PO SCH ×4 (09:36→20:24)
[2017-11-04] MEDS: CYANOCOBALAMIN 500 MCG TAB PO SCH (09:36)
[2017-11-04] MEDS: DOCUSATE SODIUM 100 MG CAP PO SCH ×2 (09:36→20:23)
[2017-11-04] MEDS: AMIODARONE 200 MG TAB PO SCH (09:37)
[2017-11-04] MEDS: L ACIDOPHIL/B LACTIS/B LONGUM CAPSULE PO SCH ×2 (09:38→20:23)
[2017-11-04] MEDS ORDERED: LEVOFLOXACIN 500 MG TAB PO SCH (10:00)
--- NOTE | 2017-11-04 10:19 | CONS ---
Date/Time of Note Date/Time of Note DATE: 11/04/17 TIME: 10:11 Consult Date/Type/Reason Admit Date/Time Oct 28, 2017 at 21:45 Type of Consultation: cv Subjective Patient still feeling quite tired Objective min assist ambulation Vital Signs Date Time Temp Pulse Resp B/P Pulse Ox O2 Delivery O2 Flow Rate FiO2 11/04/17 07:30 98.9 77 20 110/55 97 11/04/17 01:08 Nasal Cannula 2.0 11/02/17 07:46 21 Intake and Output 11/03/17 11/03/17 11/04/17 15:00 23:00 07:00 Intake Total 420 ml 1390 ml Balance 420 ml 1390 ml Results/Medications Result Diagram: 11/04/17 0616 11/04/17 0616 Results 24 hrs Laboratory Tests Test 11/03/17 13:00 11/03/17 17:05 11/04/17 06:16 Stool Occult Blood NEGATIVE Urine Color YELLOW Urine Clarity CLEAR Urine pH 5.0 Urine Specific [place] 1.012 Urine Ketones NEGATIVE Urine Nitrite NEGATIVE Urine Bilirubin NEGATIVE Urine Urobilinogen NEGATIVE Urine Leukocyte Esterase NEGATIVE Urine Microscopic RBC 2 Urine Microscopic WBC 4 Urine Bacteria FEW A Urine Hemoglobin 1+ H Urine Glucose NEGATIVE Urine Total Protein NEGATIVE White Blood Count 5.7 # Red Blood Count 2.88 L Hemoglobin 8.7 L Hematocrit 26.4 L Mean Corpuscular Volume 91.7 Mean Corpuscular Hemoglobin 30.2 Mean Corpuscular Hemoglobin Concent 33.0 Red Cell Distribution Width 25.7 H Platelet Count 224 # Mean Platelet Volume 9.6 Neutrophils % 84.9 H Lymphocytes % 8.9 L Monocytes % 5.2 Eosinophils % 0.5 Basophils % 0.2 Nucleated Red Blood Cells % 0.0 Neutrophils # 4.9 Lymphocytes # 0.5 L Monocytes # 0.3 Eosinophils # 0.0 Basophils # 0.0 Nucleated Red Blood Cells # 0.0 Prothrombin Time 14.2 Prothrombin Time Ratio 1.1 INR International Normalized Ratio 1.09 Sodium Level 139 Potassium Level 4.5 Chloride Level 103 Carbon Dioxide Level 30 Anion Gap 11 Blood Urea Nitrogen 27 H Creatinine 1.25 H Glucose Level 99 Calcium Level 8.1 L Medications Current Medications Lidocaine (Lidocaine 5% Oint) 1 applic QID PRN TOP PAIN; Start 10/28/17 at 23: 45 Lorazepam (Ativan) 0.5 mg Q6H PRN PO ANXIETY Last administered on 11/03/17 00 :20; Admin Dose 0.5 MG; Start 10/28/17 at 23:45 Magnesium Hydroxide (Milk Of Mag) 30 ml DAILY PRN PO CONSTIPATION; Start at 23:45 Metoprolol Succinate (Toprol Xl) 50 mg DAILY PO Last administered on 08:39; Admin Dose 50 MG; Start 10/29/17 at 09:00 Pantoprazole (Protonix Tab) 40 mg DAILY@06 PO Last administered on 11/04/17 06:20; Admin Dose 40 MG; Start 10/29/17 at 06:00 Tramadol HCl (Ultram) 50 mg Q6H PRN PO PAIN Last administered on 10/31/17 13: 08; Admin Dose 50 MG; Start 10/28/17 at 23:45 Zolpidem Tartrate (Ambien) 5 mg HS PRN PO INSOMNIA; Start 10/28/17 at 23:45 Acetaminophen/ Hydrocodone Bitart ([place] (10/325)) 1 tab Q4H PRN PO PAIN Last administered on 10/31/17 23:01; Admin Dose 1 TAB; Start 10/28/17 at 23:45 Acetaminophen (Tylenol Tab) 650 mg Q4H PRN PO PAIN AND OR ELEVATED TEMP Last administered on 11/03/17 00:20; Admin Dose 650 MG; Start 10/28/17 at 23:45 Al Hydroxide/Mg Trisilicate (Gaviscon) 2 tab QID PRN PO FOR GASTROINTESTINAL UPSET Last administered on 10/29/17 01:51; Admin Dose 2 TAB; Start 10/28/17 at 23:45 Amiodarone HCl (Cordarone) 100 mg DAILY PO Last administered on 11/04/17 09: 37; Admin Dose 100 MG; Start 10/29/17 at 09:00 Amlodipine Besylate (Norvasc) 2.5 mg BID PO Last administered on 11/03/17 08: 38; Admin Dose 2.5 MG; Start 10/29/17 at 09:00 Atorvastatin Calcium (Lipitor) 10 mg DAILY@21 PO Last administered on 21:12; Admin Dose 10 MG; Start 10/29/17 at 21:00 Cevimeline HCl (Evoxac) 30 mg QID PO Last administered on 11/04/17 09:36; Admin Dose 30 MG; Start 10/29/17 at 09:00 Cyanocobalamin (Vitamin B12) 1,000 mcg DAILY PO Last administered on 09:36; Admin Dose 1,000 MCG; Start 10/29/17 at 09:00 Docusate Sodium (Colace) 100 mg BID PO Last administered on 11/04/17 09:36; Admin Dose 100 MG; Start 10/29/17 at 09:00 Folic Acid (Folic Acid) 0.8 mg DAILY PO Last administered on 11/04/17 09:36; Admin Dose 0.8 MG; Start 10/29/17 at 09:00 Lactobacillus Acidophilus (Florajen3 Capsule) 1 each BID PO Last administered on 11/04/17 09:38; Admin Dose 1 EACH; Start 10/29/17 at 09:00 Levothyroxine Sodium (Synthroid) 25 mcg DAILY@06 PO Last administered on 06:20; Admin Dose 25 MCG; Start 10/29/17 at 06:00 Senna (Senokot) 1 tab HS PO Last administered on 11/03/17 21:12; Admin Dose 1 TAB; Start 10/29/17 at 21:00 Bisacodyl (Dulcolax Supp) 10 mg DAILY PRN [place] CONSTIPATION Last administered on 10/29/17 01:51; Admin Dose 10 MG; Start 10/29/17 at 01:30 Magnesium Hydroxide (Milk Of Mag) 30 ml BID PRN PO CONSTIPATION Last administered on 10/29/17 01:24; Admin Dose 30 ML; Start 10/29/17 at 01:30 Lactulose (Enulose) 20 gm DAILY PRN PO CONSTIPATION Last administered on 14:28; Admin Dose 20 GM; Start 10/29/17 at 01:30 Guaifenesin/ Codeine Phosphate (Robitussin Ac Liquid Cup) 5 ml Q4H PRN PO COUGH Last administered on 11/04/17 09:35; Admin Dose 5 ML; Start 10/31/17 at 17:00 Sodium Biphosphate/ Sodium Phosphate (Fleet Enema) 133 ml DAILY PRN [place] CONSTIPATION Last administered on 12/11/17at 19:55; Admin Dose 133 ML; Start at 19:00 Levofloxacin (Levaquin) 500 mg ONCE PO Last administered on 11/04/17 09:39; Admin Dose 500 MG; Start 11/04/17 at 10:00; Stop 11/04/17 at 23:00 Epoetin [place] (Epogen (Non Esrd/Non Oncology)) 10,000 units TuThSa@17 SC ; Start 11/04/17 at 17:00 Levofloxacin (Levaquin) 250 mg DAILY@06 PO ; Start 11/05/17 at 06:00 Assessment/Plan Additional Assessment/Plan Rehab- Debility secondary to coagulopathy with multiple hematomas including left ankle, hip, thigh, psoas, iliac muscles, Left Upper Extremity and retroperitoneal bleed. 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 Atrial fibrillation- anticoag per IM/Cardiology Anemia- patient had reaction with elevated temperature towards end of her transfusion yesterday. Hypertension. Hyperlipidemia. ADRIAN TRENT MD Nov 04, 2017 10:19
--- NOTE | 2017-11-04 12:36 | CONS ---
Date/Time of Note Date/Time of Note DATE: 11/04/17 TIME: 12:30 Assessment/Plan Assessment/Plan Additional Assessment/Plan Acute blood loss anemia status post blood transfusion Psoas muscle hematoma Paroxysmal atrial fibrillation, currently sinus rhythm Acute decompensated diastolic congestive heart failure Preserved ejection fraction Hypertension Status post mechanical fall -ECG just performed demonstrates sinus rhythm, would continue amiodarone and beta-kenyon as heart rate and blood pressure permits. Repeat echocardiogram on this admission with improvement in left ventricular systolic function. If patient remains in sinus rhythm, would consider holding Coumadin further. Reason being, patient with recurrent progressive anemia requiring blood transfusion and issues of possible transfusion reaction. Lung examination today has improved with less coarse breath sounds. Lasix IV ordered already by primary team. Check magnesium level. Maintain potassium above 4.0 and magnesium above 2.0. Consultation Date/Type/Reason Admit Date/Time Oct 28, 2017 at 21:45 Type of Consultation: cv 24 HR Interval Summary Free Text/Dictation Patient feeling better today. Less shortness of breath and cough is improved. During blood transfusion yesterday, patient with severe tremors and transfusion was held. Exam/Review of Systems Vital Signs Vitals Vital Signs Date Time Temp Pulse Resp B/P Pulse Ox O2 Delivery O2 Flow Rate FiO2 11/04/17 07:30 98.9 77 20 110/55 97 11/04/17 01:08 Nasal Cannula 2.0 11/02/17 07:46 21 Intake and Output 11/03/17 11/03/17 11/04/17 15:00 23:00 07:00 Intake Total 420 ml 1390 ml Balance 420 ml 1390 ml Exam No apparent distress Constitutional: alert, oriented Head: normocephalic Respiratory: other (Coarse breath sounds bilaterally, no wheezing) Cardiovascular: other (S1-S2 heard), regular rate and rhythm (Occasional irregularities) Gastrointestinal: bowel sounds, non-tender, soft Extremities: edema Results Result Diagram: 11/04/17 0616 11/04/17 0616 Results 24 hrs Laboratory Tests Test 11/03/17 13:00 11/03/17 17:05 11/04/17 06:16 11/04/17 10:30 Stool Occult Blood NEGATIVE NEGATIVE Urine Color YELLOW Urine Clarity CLEAR Urine pH 5.0 Urine Specific [place] 1.012 Urine Ketones NEGATIVE Urine Nitrite NEGATIVE Urine Bilirubin NEGATIVE Urine Urobilinogen NEGATIVE Urine Leukocyte Esterase NEGATIVE Urine Microscopic RBC 2 Urine Microscopic WBC 4 Urine Bacteria FEW A Urine Hemoglobin 1+ H Urine Glucose NEGATIVE Urine Total Protein NEGATIVE White Blood Count 5.7 # Red Blood Count 2.88 L Hemoglobin 8.7 L Hematocrit 26.4 L Mean Corpuscular Volume 91.7 Mean Corpuscular Hemoglobin 30.2 Mean Corpuscular Hemoglobin Concent 33.0 Red Cell Distribution Width 25.7 H Platelet Count 224 # Mean Platelet Volume 9.6 Neutrophils % 84.9 H Lymphocytes % 8.9 L Monocytes % 5.2 Eosinophils % 0.5 Basophils % 0.2 Nucleated Red Blood Cells % 0.0 Neutrophils # 4.9 Lymphocytes # 0.5 L Monocytes # 0.3 Eosinophils # 0.0 Basophils # 0.0 Nucleated Red Blood Cells # 0.0 Prothrombin Time 14.2 Prothrombin Time Ratio 1.1 INR International Normalized Ratio 1.09 Sodium Level 139 Potassium Level 4.5 Chloride Level 103 Carbon Dioxide Level 30 Anion Gap 11 Blood Urea Nitrogen 27 H Creatinine 1.25 H Glucose Level 99 Calcium Level 8.1 L Medications Medications Current Medications Lidocaine (Lidocaine 5% Oint) 1 applic QID PRN TOP PAIN; Start 10/28/17 at 23: 45 Lorazepam (Ativan) 0.5 mg Q6H PRN PO ANXIETY Last administered on 11/03/17 00 :20; Admin Dose 0.5 MG; Start 10/28/17 at 23:45 Magnesium Hydroxide (Milk Of Mag) 30 ml DAILY PRN PO CONSTIPATION; Start at 23:45 Metoprolol Succinate (Toprol Xl) 50 mg DAILY PO Last administered on 08:39; Admin Dose 50 MG; Start 10/29/17 at 09:00 Pantoprazole (Protonix Tab) 40 mg DAILY@06 PO Last administered on 11/04/17 06:20; Admin Dose 40 MG; Start 10/29/17 at 06:00 Tramadol HCl (Ultram) 50 mg Q6H PRN PO PAIN Last administered on 10/31/17 13: 08; Admin Dose 50 MG; Start 10/28/17 at 23:45 Zolpidem Tartrate (Ambien) 5 mg HS PRN PO INSOMNIA; Start 10/28/17 at 23:45 Acetaminophen/ Hydrocodone Bitart ([place] (10/325)) 1 tab Q4H PRN PO PAIN Last administered on 10/31/17 23:01; Admin Dose 1 TAB; Start 10/28/17 at 23:45 Acetaminophen (Tylenol Tab) 650 mg Q4H PRN PO PAIN AND OR ELEVATED TEMP Last administered on 11/03/17 00:20; Admin Dose 650 MG; Start 10/28/17 at 23:45 Al Hydroxide/Mg Trisilicate (Gaviscon) 2 tab QID PRN PO FOR GASTROINTESTINAL UPSET Last administered on 10/29/17 01:51; Admin Dose 2 TAB; Start 10/28/17 at 23:45 Amiodarone HCl (Cordarone) 100 mg DAILY PO Last administered on 11/04/17 09: 37; Admin Dose 100 MG; Start 10/29/17 at 09:00 Amlodipine Besylate (Norvasc) 2.5 mg BID PO Last administered on 11/03/17 08: 38; Admin Dose 2.5 MG; Start 10/29/17 at 09:00 Atorvastatin Calcium (Lipitor) 10 mg DAILY@21 PO Last administered on 21:12; Admin Dose 10 MG; Start 10/29/17 at 21:00 Cevimeline HCl (Evoxac) 30 mg QID PO Last administered on 11/04/17 09:36; Admin Dose 30 MG; Start 10/29/17 at 09:00 Cyanocobalamin (Vitamin B12) 1,000 mcg DAILY PO Last administered on 09:36; Admin Dose 1,000 MCG; Start 10/29/17 at 09:00 Docusate Sodium (Colace) 100 mg BID PO Last administered on 11/04/17 09:36; Admin Dose 100 MG; Start 10/29/17 at 09:00 Folic Acid (Folic Acid) 0.8 mg DAILY PO Last administered on 11/04/17 09:36; Admin Dose 0.8 MG; Start 10/29/17 at 09:00 Lactobacillus Acidophilus (Florajen3 Capsule) 1 each BID PO Last administered on 11/04/17 09:38; Admin Dose 1 EACH; Start 10/29/17 at 09:00 Levothyroxine Sodium (Synthroid) 25 mcg DAILY@06 PO Last administered on 06:20; Admin Dose 25 MCG; Start 10/29/17 at 06:00 Senna (Senokot) 1 tab HS PO Last administered on 11/03/17 21:12; Admin Dose 1 TAB; Start 10/29/17 at 21:00 Bisacodyl (Dulcolax Supp) 10 mg DAILY PRN [place] CONSTIPATION Last administered on 10/29/17 01:51; Admin Dose 10 MG; Start 10/29/17 at 01:30 Magnesium Hydroxide (Milk Of Mag) 30 ml BID PRN PO CONSTIPATION Last administered on 10/29/17 01:24; Admin Dose 30 ML; Start 10/29/17 at 01:30 Lactulose (Enulose) 20 gm DAILY PRN PO CONSTIPATION Last administered on 14:28; Admin Dose 20 GM; Start 10/29/17 at 01:30 Guaifenesin/ Codeine Phosphate (Robitussin Ac Liquid Cup) 5 ml Q4H PRN PO COUGH Last administered on 11/04/17 09:35; Admin Dose 5 ML; Start 10/31/17 at 17:00 Sodium Biphosphate/ Sodium Phosphate (Fleet Enema) 133 ml DAILY PRN [place] CONSTIPATION Last administered on 11/01/17 19:55; Admin Dose 133 ML; Start at 19:00 Levofloxacin (Levaquin) 500 mg ONCE PO Last administered on 11/04/17 09:39; Admin Dose 500 MG; Start 11/04/17 at 10:00; Stop 11/04/17 at 23:00 Epoetin Harley (Epogen (Non Esrd/Non Oncology)) 10,000 units TuThSa@17 SC ; Start 11/04/17 at 17:00 Levofloxacin (Levaquin) 250 mg DAILY@06 PO ; Start 11/05/17 at 06:00 Gabriel Chau DO Nov 04, 2017 12:36
[2017-11-04] MEDS ORDERED: AMLODIPINE 2.5 MG TAB PO PRN (13:00)
[2017-11-04 14:00] VITALS: BP 106/57; RESP 20
--- NOTE | 2017-11-04 16:51 | RADRPT ---
PROCEDURE: XR Chest. CLINICAL INDICATION: CHF. Dyspnea. TECHNIQUE: Single frontal chest x-ray. COMPARISON: Chest x-ray 11/01/2072 FINDINGS: Increased density is seen in the retrocardiac left lung base, slightly worse when compared to the pr evious study. Small layering pleural effusion is likely present as well. Mild central pulmonary vas cular congestion is seen, stable over time. The cardiomediastinal silhouette is enlarged. Aortic at herosclerotic vascular calcifications are identified. The osseous structures are unremarkable. IMPRESSION: 1. Cardiomegaly with aortic atherosclerotic vascular calcifications. 2. Stable mild pulmonary vascular congestion. 3. Left pleural effusion worse in opacification in the left lung base. RPTAT: PP .Ron Major MD, Date Time Electronically viewed and signed by .Ron Major MD, on 11/04/2017 10:13 .B/
[2017-11-04] MEDS: EPOETIN 10000 UNITS/ML (NON ESRD/NON ONCOLOGY) SC SCH (17:05)
[2017-11-04 20:00] VITALS: BP 111/62; RESP 18
[2017-11-04] MEDS: SENNA TAB PO SCH (20:23)
[2017-11-04] MEDS: ATORVASTATIN 10 MG TAB PO SCH (20:24)
[2017-11-04] MEDS: HEPARIN 5,000 UNIT/0.5 ML VIAL SC SCH (20:27)
[2017-11-04] MEDS: METOPROLOL (XL) 25 MG TAB PO SCH (20:28)
[2017-11-05] MEDS: ACETAMINOPHEN 325 MG TAB PO PRN (00:18)
[2017-11-05] MEDS: LORAZEPAM 0.5 MG TAB PO PRN ×2 (00:18→22:17)
[2017-11-05 02:00] VITALS: BP 120/63; RESP 18
[2017-11-05] MEDS: IPRATROPIUM (NEB) 0.5 MG/2.5 ML AMP HHN SCH ×4 (02:00→20:17)
[2017-11-05] MEDS: LEVALBUTEROL (NEB) 1.25 MG/0.5 ML AMP HHN SCH ×4 (02:00→20:17)
[2017-11-05] MEDS: traMADol 50 MG TAB PO PRN ×2 (03:12→22:17)
[2017-11-05] MEDS: PANTOPRAZOLE (EC) 40 MG TAB PO SCH (06:12)
[2017-11-05] MEDS: LEVOTHYROXINE 25 MCG TAB PO SCH (06:12)
[2017-11-05] MEDS: LEVOFLOXACIN 250 MG TAB PO SCH (06:12)
[2017-11-05 07:03] LABS: ABNORMAL IP MESSAGE 1; EOSINOPHILS # 0.1 10^3/ul (0.0-0.5); EOSINOPHILS % 1.8 % (0.0-7.0); HEMATOCRIT 25.7 % (37.0-47.0); HEMOGLOBIN 8.4 g/dl (12.0-16.0); LYMPHOCYTES # 0.6 10^3/ul (0.8-2.9); LYMPHOCYTES % 14.3 % (15.0-51.0); MEAN CORPUSCULAR HEMOGLOBIN 30.5 pg (29.0-33.0); MEAN CORPUSCULAR HGB CONC 32.7 g/dl (32.0-37.0); MEAN CORPUSCULAR VOLUME 93.5 fl (82.0-101.0); MEAN PLATELET VOLUME 9.9 fl (7.4-10.4); MONOCYTE # 0.3 10^3/ul (0.3-0.9); MONOCYTES % 6.9 % (0.0-11.0); PLATELET COUNT 231 10^3/UL (140-415); RED BLOOD COUNT 2.75 10^6/ul (4.20-5.40); WHITE BLOOD COUNT 3.9 10^3/ul (4.8-10.8)
[2017-11-05 07:17] LABS: POSITIVE DIFF @See below
[2017-11-05 07:30] VITALS: BP 100/59; RESP 20
[2017-11-05 07:39] LABS: CALCIUM 8.2 mg/dl (8.4-10.2); CREATININE 1.25 mg/dl (0.44-1.00); POTASSIUM 4.6 mmol/L (3.5-5.1)
[2017-11-05] MEDS: CEVIMELINE 30 MG CAP PO SCH ×4 (08:17→20:34)
[2017-11-05] MEDS: CYANOCOBALAMIN 500 MCG TAB PO SCH (08:17)
[2017-11-05] MEDS: FOLIC ACID 0.4 MG TAB PO SCH (08:18)
[2017-11-05] MEDS: DOCUSATE SODIUM 100 MG CAP PO SCH ×2 (08:18→20:46)
[2017-11-05] MEDS: L ACIDOPHIL/B LACTIS/B LONGUM CAPSULE PO SCH ×2 (08:18→20:35)
[2017-11-05] MEDS: METOPROLOL (XL) 25 MG TAB PO SCH ×2 (08:21→20:46)
[2017-11-05] MEDS: AMIODARONE 200 MG TAB PO SCH (08:21)
[2017-11-05] MEDS: HEPARIN 5,000 UNIT/0.5 ML VIAL SC SCH ×2 (08:24→20:46)
--- NOTE | 2017-11-05 09:15 | CONS ---
Date/Time of Note Date/Time of Note DATE: 11/05/17 TIME: 09:09 Assessment/Plan Assessment/Plan Additional Assessment/Plan 1. Anemia, stable, epo ordered yesterday, stool ob is neg 2. Abnl lung exam and continued cough cxr noted yesterday->pl effusion noted, will ask pul to see (hx vascultis) 3. CHF sec to ? diastolic dysfx, will again give lasix today and kcl 4. Left foot wound, wound care is addressing. Consultation Date/Type/Reason Admit Date/Time Oct 28, 2017 at 21:45 Type of Consultation: cv Detailed Summary Respiratory: cough (is intermittent and may be slightly better), No shortness of breath Cardiovascular: No chest pain Gastrointestinal: No diarrhea, No nausea, No vomiting (but reduced appetite) Genitourinary: no complaints Musculoskeletal: no complaints Exam/Review of Systems Vital Signs Vitals Vital Signs Date Time Temp Pulse Resp B/P Pulse Ox O2 Delivery O2 Flow Rate FiO2 11/05/17 08:55 85 20 98 Nasal Cannula 2.0 28 11/05/17 02:00 98.3 120/63 Intake and Output 11/04/17 11/04/17 11/05/17 15:00 23:00 07:00 Intake Total 980 ml 1050 ml Balance 980 ml 1050 ml Exam Neck: No jvd Respiratory: other (rhonchi and dry rales bilat) Cardiovascular: regular rate and rhythm Gastrointestinal: soft Extremities: No edema (and no calf tend) Results Result Diagram: 11/05/17 0624 11/05/17 0624 Results 24 hrs Laboratory Tests Test 11/04/17 10:30 11/05/17 06:24 Stool Occult Blood NEGATIVE White Blood Count 3.9 #L Red Blood Count 2.75 L Hemoglobin 8.4 L Hematocrit 25.7 L Mean Corpuscular Volume 93.5 Mean Corpuscular Hemoglobin 30.5 Mean Corpuscular Hemoglobin Concent 32.7 Red Cell Distribution Width 25.0 H Platelet Count 231 Mean Platelet Volume 9.9 Neutrophils % 76.0 Lymphocytes % 14.3 L Monocytes % 6.9 Eosinophils % 1.8 Basophils % 0.0 Nucleated Red Blood Cells % 0.0 Neutrophils # 3.0 Lymphocytes # 0.6 L Monocytes # 0.3 Eosinophils # 0.1 Basophils # 0.0 Nucleated Red Blood Cells # 0.0 Sodium Level 138 Potassium Level 4.6 Chloride Level 103 Carbon Dioxide Level 27 Anion Gap 13 Blood Urea Nitrogen 26 H Creatinine 1.25 H Glucose Level 92 Calcium Level 8.2 L Magnesium Level 1.8 Medications Medications Current Medications Lidocaine (Lidocaine 5% Oint) 1 applic QID PRN TOP PAIN; Start 10/28/17 at 23: 45 Lorazepam (Ativan) 0.5 mg Q6H PRN PO ANXIETY Last administered on 11/05/17 00 :18; Admin Dose 0.5 MG; Start 10/28/17 at 23:45 Magnesium Hydroxide (Milk Of Mag) 30 ml DAILY PRN PO CONSTIPATION; Start at 23:45 Pantoprazole (Protonix Tab) 40 mg DAILY@06 PO Last administered on 11/05/17 06:12; Admin Dose 40 MG; Start 10/29/17 at 06:00 Tramadol HCl (Ultram) 50 mg Q6H PRN PO PAIN Last administered on 11/05/17 03: 12; Admin Dose 50 MG; Start 10/28/17 at 23:45 Zolpidem Tartrate (Ambien) 5 mg HS PRN PO INSOMNIA; Start 10/28/17 at 23:45 Acetaminophen/ Hydrocodone Bitart ([place] (10/325)) 1 tab Q4H PRN PO PAIN Last administered on 10/31/17 23:01; Admin Dose 1 TAB; Start 10/28/17 at 23:45 Acetaminophen (Tylenol Tab) 650 mg Q4H PRN PO PAIN AND OR ELEVATED TEMP Last administered on 11/05/17 00:18; Admin Dose 650 MG; Start 10/28/17 at 23:45 Al Hydroxide/Mg Trisilicate (Gaviscon) 2 tab QID PRN PO FOR GASTROINTESTINAL UPSET Last administered on 10/29/17 01:51; Admin Dose 2 TAB; Start 10/28/17 at 23:45 Amiodarone HCl (Cordarone) 100 mg DAILY PO Last administered on 11/05/17 08: 21; Admin Dose 100 MG; Start 10/29/17 at 09:00 Atorvastatin Calcium (Lipitor) 10 mg DAILY@21 PO Last administered on 20:24; Admin Dose 10 MG; Start 10/29/17 at 21:00 Cevimeline HCl (Evoxac) 30 mg QID PO Last administered on 11/05/17 08:17; Admin Dose 30 MG; Start 10/29/17 at 09:00 Cyanocobalamin (Vitamin B12) 1,000 mcg DAILY PO Last administered on 08:17; Admin Dose 1,000 MCG; Start 10/29/17 at 09:00 Docusate Sodium (Colace) 100 mg BID PO Last administered on 11/05/17 08:18; Admin Dose 100 MG; Start 10/29/17 at 09:00 Folic Acid (Folic Acid) 0.8 mg DAILY PO Last administered on 11/05/17 08:18; Admin Dose 0.8 MG; Start 10/29/17 at 09:00 Lactobacillus Acidophilus (Florajen3 Capsule) 1 each BID PO Last administered on 11/05/17 08:18; Admin Dose 1 EACH; Start 10/29/17 at 09:00 Levothyroxine Sodium (Synthroid) 25 mcg DAILY@06 PO Last administered on 06:12; Admin Dose 25 MCG; Start 10/29/17 at 06:00 Senna (Senokot) 1 tab HS PO Last administered on 11/04/17 20:23; Admin Dose 1 TAB; Start 10/29/17 at 21:00 Bisacodyl (Dulcolax Supp) 10 mg DAILY PRN [place] CONSTIPATION Last administered on 10/29/17 01:51; Admin Dose 10 MG; Start 10/29/17 at 01:30 Magnesium Hydroxide (Milk Of Mag) 30 ml BID PRN PO CONSTIPATION Last administered on 10/29/17 01:24; Admin Dose 30 ML; Start 10/29/17 at 01:30 Lactulose (Enulose) 20 gm DAILY PRN PO CONSTIPATION Last administered on 14:28; Admin Dose 20 GM; Start 10/29/17 at 01:30 Guaifenesin/ Codeine Phosphate (Robitussin Ac Liquid Cup) 5 ml Q4H PRN PO COUGH Last administered on 11/04/17 09:35; Admin Dose 5 ML; Start 10/31/17 at 17:00 Sodium Biphosphate/ Sodium Phosphate (Fleet Enema) 133 ml DAILY PRN [place] CONSTIPATION Last administered on 11/01/17 19:55; Admin Dose 133 ML; Start at 19:00 Epoetin Harley (Epogen (Non Esrd/Non Oncology)) 10,000 units TuThSa@17 SC Last administered on 11/04/17 17:05; Admin Dose 10,000 UNITS; Start 11/04/17 at 17 :00 Levofloxacin (Levaquin) 250 mg DAILY@06 PO Last administered on 11/05/17 06: 12; Admin Dose 250 MG; Start 11/05/17 at 06:00 Amlodipine Besylate (Norvasc) 2.5 mg BID PRN PO sbp>150; Start 11/04/17 at 13: 00 Metoprolol Succinate (Toprol Xl) 25 mg BID PO ; Start 11/04/17 at 21:00 Furosemide (Lasix) 40 mg ONCE ONCE IV ; Start 11/05/17 at 09:30; Stop at 09:31; Status UNV Potassium Chloride (Klor-Con 20) 20 meq ONCE ONCE PO ; Start 11/05/17 at 09:30 ; Stop 11/05/17 at 09:31; Status UNV JOEL GOMEZ MD Nov 05, 2017 09:15
[2017-11-05] MEDS ORDERED: POTASSIUM CHLORIDE (SR) 20 MEQ TAB PO ONE (09:30)
[2017-11-05] MEDS ORDERED: FUROSEMIDE 40 MG INJ IV ONE (09:30)
--- NOTE | 2017-11-05 10:51 | CONS ---
Date/Time of Note Date/Time of Note DATE: 11/05/17 TIME: 10:49 Consult Date/Type/Reason Admit Date/Time Oct 28, 2017 at 21:45 Type of Consultation: cv Subjective Feels better than yesterday Objective min assist with therapies Vital Signs Date Time Temp Pulse Resp B/P Pulse Ox O2 Delivery O2 Flow Rate FiO2 11/05/17 08:55 85 20 98 Nasal Cannula 2.0 28 11/05/17 07:30 98.1 100/59 Intake and Output 11/04/17 11/04/17 11/05/17 15:00 23:00 07:00 Intake Total 980 ml 1050 ml Balance 980 ml 1050 ml Results/Medications Result Diagram: 11/05/1724 11/05/1724 Results 24 hrs Laboratory Tests Test 11/05/17 06:24 White Blood Count 3.9 #L Red Blood Count 2.75 L Hemoglobin 8.4 L Hematocrit 25.7 L Mean Corpuscular Volume 93.5 Mean Corpuscular Hemoglobin 30.5 Mean Corpuscular Hemoglobin Concent 32.7 Red Cell Distribution Width 25.0 H Platelet Count 231 Mean Platelet Volume 9.9 Neutrophils % 76.0 Lymphocytes % 14.3 L Monocytes % 6.9 Eosinophils % 1.8 Basophils % 0.0 Nucleated Red Blood Cells % 0.0 Neutrophils # 3.0 Lymphocytes # 0.6 L Monocytes # 0.3 Eosinophils # 0.1 Basophils # 0.0 Nucleated Red Blood Cells # 0.0 Sodium Level 138 Potassium Level 4.6 Chloride Level 103 Carbon Dioxide Level 27 Anion Gap 13 Blood Urea Nitrogen 26 H Creatinine 1.25 H Glucose Level 92 Calcium Level 8.2 L Magnesium Level 1.8 Medications Current Medications Lidocaine (Lidocaine 5% Oint) 1 applic QID PRN TOP PAIN; Start 10/28/17 at 23: 45 Lorazepam (Ativan) 0.5 mg Q6H PRN PO ANXIETY Last administered on 11/05/17 00 :18; Admin Dose 0.5 MG; Start 10/28/17 at 23:45 Magnesium Hydroxide (Milk Of Mag) 30 ml DAILY PRN PO CONSTIPATION; Start at 23:45 Pantoprazole (Protonix Tab) 40 mg DAILY@06 PO Last administered on 11/05/17 06:12; Admin Dose 40 MG; Start 10/29/17 at 06:00 Tramadol HCl (Ultram) 50 mg Q6H PRN PO PAIN Last administered on 11/05/17 03: 12; Admin Dose 50 MG; Start 10/28/17 at 23:45 Zolpidem Tartrate (Ambien) 5 mg HS PRN PO INSOMNIA; Start 10/28/17 at 23:45 Acetaminophen/ Hydrocodone Bitart ([place] (10/325)) 1 tab Q4H PRN PO PAIN Last administered on 10/31/17 23:01; Admin Dose 1 TAB; Start 10/28/17 at 23:45 Acetaminophen (Tylenol Tab) 650 mg Q4H PRN PO PAIN AND OR ELEVATED TEMP Last administered on 11/05/17 00:18; Admin Dose 650 MG; Start 10/28/17 at 23:45 Al Hydroxide/Mg Trisilicate (Gaviscon) 2 tab QID PRN PO FOR GASTROINTESTINAL UPSET Last administered on 10/29/17 01:51; Admin Dose 2 TAB; Start 10/28/17 at 23:45 Amiodarone HCl (Cordarone) 100 mg DAILY PO Last administered on 11/05/17 08: 21; Admin Dose 100 MG; Start 10/29/17 at 09:00 Atorvastatin Calcium (Lipitor) 10 mg DAILY@21 PO Last administered on 20:24; Admin Dose 10 MG; Start 10/29/17 at 21:00 Cevimeline HCl (Evoxac) 30 mg QID PO Last administered on 11/05/17 08:17; Admin Dose 30 MG; Start 10/29/17 at 09:00 Cyanocobalamin (Vitamin B12) 1,000 mcg DAILY PO Last administered on 08:17; Admin Dose 1,000 MCG; Start 10/29/17 at 09:00 Docusate Sodium (Colace) 100 mg BID PO Last administered on 11/05/17 08:18; Admin Dose 100 MG; Start 10/29/17 at 09:00 Folic Acid (Folic Acid) 0.8 mg DAILY PO Last administered on 11/05/17 08:18; Admin Dose 0.8 MG; Start 10/29/17 at 09:00 Lactobacillus Acidophilus (Florajen3 Capsule) 1 each BID PO Last administered on 11/05/17 08:18; Admin Dose 1 EACH; Start 10/29/17 at 09:00 Levothyroxine Sodium (Synthroid) 25 mcg DAILY@06 PO Last administered on 06:12; Admin Dose 25 MCG; Start 10/29/17 at 06:00 Senna (Senokot) 1 tab HS PO Last administered on 11/04/17 20:23; Admin Dose 1 TAB; Start 10/29/17 at 21:00 Bisacodyl (Dulcolax Supp) 10 mg DAILY PRN [place] CONSTIPATION Last administered on 10/29/17 01:51; Admin Dose 10 MG; Start 10/29/17 at 01:30 Magnesium Hydroxide (Milk Of Mag) 30 ml BID PRN PO CONSTIPATION Last administered on 10/29/17 01:24; Admin Dose 30 ML; Start 10/29/17 at 01:30 Lactulose (Enulose) 20 gm DAILY PRN PO CONSTIPATION Last administered on 14:28; Admin Dose 20 GM; Start 10/29/17 at 01:30 Guaifenesin/ Codeine Phosphate (Robitussin Ac Liquid Cup) 5 ml Q4H PRN PO COUGH Last administered on 11/04/17 09:35; Admin Dose 5 ML; Start 10/31/17 at 17:00 Sodium Biphosphate/ Sodium Phosphate (Fleet Enema) 133 ml DAILY PRN [place] CONSTIPATION Last administered on 11/01/17 19:55; Admin Dose 133 ML; Start at 19:00 Epoetin Harley (Epogen (Non Esrd/Non Oncology)) 10,000 units TuThSa@17 SC Last administered on 11/04/17 17:05; Admin Dose 10,000 UNITS; Start 11/04/17 at 17 :00 Levofloxacin (Levaquin) 250 mg DAILY@06 PO Last administered on 11/05/17 06: 12; Admin Dose 250 MG; Start 11/05/17 at 06:00 Amlodipine Besylate (Norvasc) 2.5 mg BID PRN PO sbp>150; Start 11/04/17 at 13: 00 Metoprolol Succinate (Toprol Xl) 25 mg BID PO ; Start 11/04/17 at 21:00 Assessment/Plan Additional Assessment/Plan Rehab- Debility secondary to coagulopathy with multiple hematomas including left ankle, hip, thigh, psoas, iliac muscles, Left Upper Extremity and retroperitoneal bleed. 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 Atrial fibrillation- anticoag per IM/Cardiology Anemia- improved, but still low. Monitor Hypertension. Hyperlipidemia. ADRIAN TRENT MD Nov 05, 2017 10:51
--- NOTE | 2017-11-05 12:57 | RADRPT ---
PROCEDURE: CT Chest without contrast. CLINICAL INDICATION: Cough and pleural effusion TECHNIQUE: CT scan of the chest without contrast was performed on a multidetector high-resolution CT scanner. Coronal and sagittal reformatted images were obtained from the axial source images. The total exam CTDI equals 7.20 mGy and the total exam DLP equals 284.04 mGy-cm. DICOM images are avail able. One of the following 3 dose reduction techniques were used during this CT examination: 1) Automated exposure control 2) Adjustment of the mA +/- kV according to patient size or 3) Use of iterative reconstruction technique COMPARISON: Chest x-ray dated 11/04/2017 and prior abdomen pelvis CT 10/23/2017 FINDINGS: The base of the neck and the bilateral thyroid lobes demonstrate a large right thyroid lobe nodule w hich measures approximately 2.1 cm AP by 1.4 cm in transverse dimensions. Recommend thyroid ultrasou nd to further evaluate. The visualized pulmonary parenchyma is remarkable for reticulonodular appearance in the posterior po rtion of the left upper lobe with nodular densities measuring 4 mm and the largest measuring 6 mm in the inferior peripheral lingula. Left lower lobe bronchiectasis with associated atelectasis and sma ll left pleural effusion is present. Associated bibasilar scarring is noted and minimal degree of po sterior right middle lobe bronchiectasis. The central tracheobronchial tree is patent and intact. The mediastinum is unremarkable without evidence for mass or lymphadenopathy. The vascular structur es of the mediastinum are normal in course and caliber. Aortic vascular calcifications and coronary artery calcifications are present. The heart size is remarkable for mild cardiomegaly without evid ence for pericardial thickening or effusion. The axillary regions, subpectoral regions, and supraclavicular regions are all unremarkable. The rocha rrounding chest wall is unremarkable. The visualized liver, spleen, pancreas, and bilateral adrenal glands are normal. The gallbladder is not visualized on these selected images. The bilateral imaged kidneys demonstrate multiple bilateral renal cortical hypodense foci most compatible with cysts. Fu rther imaging with ultrasound or contrast CT is suggested. These are not significantly changed from prior CT dated 10/23/2017. The imaged osseous structures are remarkable for generalized osteopenia and multilevel compression f racture deformities of indeterminate age are noted at the T12, L1, L2 levels and the T7 level. Consi shara MR to further evaluate for acuity and potential candidacy for vertebral augmentation. IMPRESSION: 1. Left lower lobe greater than left upper lobe and lingular greater than right middle lobe cylindr ical bronchiectasis with associated left lower lobe atelectasis or early infiltrate. Recommend follo w-up until resolution. 2. Left peripheral upper lobe and lingular nodules measuring 4 mm and 6 mm in maximum dimensions. Re commend follow up per Fleischner Society Guidelines in 3-6 months. 3. Small left pleural effusion 4. Right thyroid lobe nodule measuring 2.1 cm AP by 1.4 cm in transverse dimensions. Recommend thyro id ultrasound to further evaluate. 5. Mild cardiomegaly and atherosclerotic vascular disease 6. Indeterminate age multilevel compression fracture deformities at T7, and T12-L2. Consider MRI to further evaluate for potential vertebral augmentation RPTAT: HDC Single Solid Nodule: <6mm(<100mm3): Low risk: No f/u. High risk: Optional CT at 12 months. Certain pts at high risk with suspicious nodule morphology, upper lobe location, or both may warrant 12 mo f/ u. 6-8mm(100-250mm3): Low risk: CT at 6-[address] at 18-24 mos. High risk: CT at 6-[address] at 18-24 mos. >8mm(>250mm3): Consider CT, PET/CT, or tissue sampling at 3 mos. Multiple Solid Nodules: Use most susp nod to guide mgmt. F/u intervals may vary according to size/r isk <6mm(<100mm3): Low risk: No f/u. High risk: Optional CT at 12 months. 6-8mm(100-250mm3): Low risk: CT at 3-[address] at 18-24 mos. High risk: CT at 3-[address] at 18-24 mos. >8mm(>250mm3): Low risk: CT at 3-[address] at 18-24 mos. High risk: CT at 3-[address] at 18-24 mos. Single Subsolid Nodule: Ground Glass: In certain susp nods <6mm, consider 2 and 4 yr f/u. If solid component increases or growth develops, consider resection. Otherwise: <6mm(<100mm3): Low risk: No f/u. High risk: CT at 6-12 mos to confirm persistence, then CT every 2 yrs until 5 yrs. Part Solid: Must be >or=6mm to be part solid. CT at 3-6 mos to confirm persistence. If unchang ed and solid component still <6mm, do annual CT for 5 yrs. If solid component >=6mm, consider highly suspicious. Multiple Subsolid Nodules: <6mm(<100mm3): CT at 3-6 mos. If stable, consider CT at 2 and 4 yrs. Mult <6mm pure ground gla ss nods usually benign but consider f/u in selected high risk pts at 2 and 4 yrs. >=6mm(>100mm3): CT at 3-6 mos. Subseq management based on most susp nodule. .Nunu Esposito MD, Date Time Electronically viewed and signed by .Nunu Esposito MD, on 11/05/2017 12:56 .C/
[2017-11-05 14:00] VITALS: BP 131/60; RESP 18
[2017-11-05 14:26] LABS: INR 1.08; PROTIME 14.1 Sec (11.9-14.9); PT RATIO 1.1
--- NOTE | 2017-11-05 14:31 | CONS ---
Date/Time of Note Date/Time of Note DATE: 11/05/17 TIME: 14:28 Assessment/Plan Assessment/Plan Additional Assessment/Plan Acute blood loss anemia status post blood transfusion Psoas muscle hematoma Paroxysmal atrial fibrillation, currently sinus rhythm Acute decompensated diastolic congestive heart failure Preserved ejection fraction Hypertension Status post mechanical fall -Patient remains in sinus rhythm, would continue amiodarone and beta-kenyon as heart rate and blood pressure permits. Repeat echocardiogram on this admission with improvement in left ventricular systolic function. If patient remains in sinus rhythm, would consider holding Coumadin further. Reason being, patient with recurrent progressive anemia requiring blood transfusion and issues of possible transfusion reaction. Lung examination today has improved with less coarse breath sounds. Lasix IV ordered already by primary team. CT chest done today secondary to possible evidence of pleural effusion demonstrates small effusion and likely bronchiectasis. Patient is on antibiotics. Would start maintenance Lasix 20 mg p.o. daily, supplement magnesium. Maintain potassium above 4.0 and magnesium above 2.0. Consultation Date/Type/Reason Admit Date/Time Oct 28, 2017 at 21:45 Type of Consultation: cv 24 HR Interval Summary Free Text/Dictation Shortness of breath is better. Underwent physical therapy this morning with less fatigue. Denies dizziness or palpitations Exam/Review of Systems Vital Signs Vitals Vital Signs Date Time Temp Pulse Resp B/P Pulse Ox O2 Delivery O2 Flow Rate FiO2 11/05/17 08:55 85 20 98 Nasal Cannula 2.0 28 11/05/17 07:30 98.1 100/59 Intake and Output 11/04/17 11/04/17 11/05/17 15:00 23:00 07:00 Intake Total 980 ml 1050 ml Balance 980 ml 1050 ml Exam No apparent distress Constitutional: alert, oriented Head: normocephalic Respiratory: other (Coarse breath sounds bilaterally, no wheezing) Cardiovascular: other (S1-S2 heard), regular rate and rhythm Gastrointestinal: bowel sounds, non-tender, soft Extremities: edema Results Result Diagram: 11/05/17 0624 11/05/17 0624 Results 24 hrs Laboratory Tests Test 11/05/17 06:24 11/05/17 13:38 White Blood Count 3.9 #L Red Blood Count 2.75 L Hemoglobin 8.4 L Hematocrit 25.7 L Mean Corpuscular Volume 93.5 Mean Corpuscular Hemoglobin 30.5 Mean Corpuscular Hemoglobin Concent 32.7 Red Cell Distribution Width 25.0 H Platelet Count 231 Mean Platelet Volume 9.9 Neutrophils % 76.0 Lymphocytes % 14.3 L Monocytes % 6.9 Eosinophils % 1.8 Basophils % 0.0 Nucleated Red Blood Cells % 0.0 Neutrophils # 3.0 Lymphocytes # 0.6 L Monocytes # 0.3 Eosinophils # 0.1 Basophils # 0.0 Nucleated Red Blood Cells # 0.0 Sodium Level 138 Potassium Level 4.6 Chloride Level 103 Carbon Dioxide Level 27 Anion Gap 13 Blood Urea Nitrogen 26 H Creatinine 1.25 H Glucose Level 92 Calcium Level 8.2 L Magnesium Level 1.8 Prothrombin Time 14.1 Prothrombin Time Ratio 1.1 INR International Normalized Ratio 1.08 Medications Medications Current Medications Lidocaine (Lidocaine 5% Oint) 1 applic QID PRN TOP PAIN; Start 10/28/17 at 23: 45 Lorazepam (Ativan) 0.5 mg Q6H PRN PO ANXIETY Last administered on 11/05/17 00 :18; Admin Dose 0.5 MG; Start 10/28/17 at 23:45 Magnesium Hydroxide (Milk Of Mag) 30 ml DAILY PRN PO CONSTIPATION; Start at 23:45 Pantoprazole (Protonix Tab) 40 mg DAILY@06 PO Last administered on 11/05/17 06:12; Admin Dose 40 MG; Start 10/29/17 at 06:00 Tramadol HCl (Ultram) 50 mg Q6H PRN PO PAIN Last administered on 11/05/17 03: 12; Admin Dose 50 MG; Start 10/28/17 at 23:45 Zolpidem Tartrate (Ambien) 5 mg HS PRN PO INSOMNIA; Start 10/28/17 at 23:45 Acetaminophen/ Hydrocodone Bitart ([place] (10/325)) 1 tab Q4H PRN PO PAIN Last administered on 10/31/17 23:01; Admin Dose 1 TAB; Start 10/28/17 at 23:45 Acetaminophen (Tylenol Tab) 650 mg Q4H PRN PO PAIN AND OR ELEVATED TEMP Last administered on 11/05/17 00:18; Admin Dose 650 MG; Start 10/28/17 at 23:45 Al Hydroxide/Mg Trisilicate (Gaviscon) 2 tab QID PRN PO FOR GASTROINTESTINAL UPSET Last administered on 10/29/17 01:51; Admin Dose 2 TAB; Start 10/28/17 at 23:45 Amiodarone HCl (Cordarone) 100 mg DAILY PO Last administered on 11/05/17 08: 21; Admin Dose 100 MG; Start 10/29/17 at 09:00 Atorvastatin Calcium (Lipitor) 10 mg DAILY@21 PO Last administered on 20:24; Admin Dose 10 MG; Start 10/29/17 at 21:00 Cevimeline HCl (Evoxac) 30 mg QID PO Last administered on 11/05/17 13:53; Admin Dose 30 MG; Start 10/29/17 at 09:00 Cyanocobalamin (Vitamin B12) 1,000 mcg DAILY PO Last administered on 08:17; Admin Dose 1,000 MCG; Start 10/29/17 at 09:00 Docusate Sodium (Colace) 100 mg BID PO Last administered on 11/05/17 08:18; Admin Dose 100 MG; Start 10/29/17 at 09:00 Folic Acid (Folic Acid) 0.8 mg DAILY PO Last administered on 11/05/17 08:18; Admin Dose 0.8 MG; Start 10/29/17 at 09:00 Lactobacillus Acidophilus (Florajen3 Capsule) 1 each BID PO Last administered on 11/05/17 08:18; Admin Dose 1 EACH; Start 10/29/17 at 09:00 Levothyroxine Sodium (Synthroid) 25 mcg DAILY@06 PO Last administered on 06:12; Admin Dose 25 MCG; Start 10/29/17 at 06:00 Senna (Senokot) 1 tab HS PO Last administered on 11/04/17 20:23; Admin Dose 1 TAB; Start 10/29/17 at 21:00 Bisacodyl (Dulcolax Supp) 10 mg DAILY PRN [place] CONSTIPATION Last administered on 10/29/17 01:51; Admin Dose 10 MG; Start 10/29/17 at 01:30 Magnesium Hydroxide (Milk Of Mag) 30 ml BID PRN PO CONSTIPATION Last administered on 10/29/17 01:24; Admin Dose 30 ML; Start 10/29/17 at 01:30 Lactulose (Enulose) 20 gm DAILY PRN PO CONSTIPATION Last administered on 14:28; Admin Dose 20 GM; Start 10/29/17 at 01:30 Guaifenesin/ Codeine Phosphate (Robitussin Ac Liquid Cup) 5 ml Q4H PRN PO COUGH Last administered on 11/04/17 09:35; Admin Dose 5 ML; Start 10/31/17 at 17:00 Sodium Biphosphate/ Sodium Phosphate (Fleet Enema) 133 ml DAILY PRN [place] CONSTIPATION Last administered on 11/01/17 19:55; Admin Dose 133 ML; Start at 19:00 Epoetin Harley (Epogen (Non Esrd/Non Oncology)) 10,000 units TuThSa@17 SC Last administered on 11/04/17 17:05; Admin Dose 10,000 UNITS; Start 11/04/17 at 17 :00 Levofloxacin (Levaquin) 250 mg DAILY@06 PO Last administered on 11/05/17 06: 12; Admin Dose 250 MG; Start 11/05/17 at 06:00 Amlodipine Besylate (Norvasc) 2.5 mg BID PRN PO sbp>150; Start 11/04/17 at 13: 00 Metoprolol Succinate (Toprol Xl) 25 mg BID PO ; Start 11/04/17 at 21:00 Heparin Sodium (Porcine) (Heparin (5000 Units/0.5 ml)) 5,000 unit BID SC ; Start 11/05/17 at 21:00 Gabriel Chau DO Nov 05, 2017 14:31
[2017-11-05] MEDS ORDERED: MAGNESIUM SULFATE 2 GM/50 ML 50 ML IVPB ONE (16:00)
[2017-11-05 20:00] VITALS: BP 113/62; RESP 18
[2017-11-05] MEDS: ATORVASTATIN 10 MG TAB PO SCH (20:35)
[2017-11-05] MEDS: SENNA TAB PO SCH (20:46)
[2017-11-06] MEDS: LEVALBUTEROL (NEB) 1.25 MG/0.5 ML AMP HHN SCH ×4 (01:14→20:00)
[2017-11-06] MEDS: IPRATROPIUM (NEB) 0.5 MG/2.5 ML AMP HHN SCH ×4 (01:14→20:00)
[2017-11-06 02:00] VITALS: BP 118/68; RESP 18
[2017-11-06] MEDS: PANTOPRAZOLE (EC) 40 MG TAB PO SCH (06:42)
[2017-11-06] MEDS: LEVOTHYROXINE 25 MCG TAB PO SCH (06:43)
[2017-11-06] MEDS: LEVOFLOXACIN 250 MG TAB PO SCH (06:43)
[2017-11-06 07:38] LABS: ABNORMAL IP MESSAGE 1; BASOPHILS % 0.6 % (0.0-2.0); EOSINOPHILS # 0.1 10^3/ul (0.0-0.5); HEMATOCRIT 26.1 % (37.0-47.0); HEMOGLOBIN 8.4 g/dl (12.0-16.0); LYMPHOCYTES # 0.7 10^3/ul (0.8-2.9); LYMPHOCYTES % 19.2 % (15.0-51.0); MEAN CORPUSCULAR HEMOGLOBIN 30.5 pg (29.0-33.0); MEAN CORPUSCULAR HGB CONC 32.2 g/dl (32.0-37.0); MEAN CORPUSCULAR VOLUME 94.9 fl (82.0-101.0); MEAN PLATELET VOLUME 10.1 fl (7.4-10.4); MONOCYTE # 0.3 10^3/ul (0.3-0.9); MONOCYTES % 8.7 % (0.0-11.0); NEUTROPHIL # 2.4 10^3/ul (1.6-7.5); NEUTROPHILS % 67.8 % (39.0-77.0); PLATELET COUNT 243 10^3/UL (140-415); RED BLOOD COUNT 2.75 10^6/ul (4.20-5.40); RED CELL DISTRIBUTION WIDTH 24.2 % (11.5-14.5); WHITE BLOOD COUNT 3.6 10^3/ul (4.8-10.8)
[2017-11-06 07:41] LABS: POSITIVE DIFF @See below
[2017-11-06 07:54] LABS: CALCIUM 8.6 mg/dl (8.4-10.2); CREATININE 1.22 mg/dl (0.44-1.00); MAGNESIUM 1.9 mg/dl (1.7-2.5); PHOSPHORUS 3.3 mg/dl (2.5-4.9); POTASSIUM 4.3 mmol/L (3.5-5.1)
[2017-11-06 08:00] VITALS: BP 129/61; RESP 18
--- NOTE | 2017-11-06 08:26 | CONS ---
DATE OF ADMISSION: 10/28/2017 DATE OF CONSULTATION: TYPE OF CONSULTATION: Pulmonary REASON FOR CONSULTATION: Shortness of breath. Thank you, Dr. Vora, for this consultation. HISTORY OF PRESENT ILLNESS: This is a 77-year-old lady transferred from acute care to [facility] who has been experiencing increasing shortness of breath over the past few days, increas ing cough and congestion, has had a recent left ankle surgery and continues physical therapy, no cou gh, no sputum production, no hemoptysis, hematemesis. CT of the chest was performed demonstrated mi ld bronchiectasis, but no effusions, infiltrates or cardiomegaly. The patient is a nonsmoker. No h istory of inhalational lung injury, no aspiration, no sick contacts. PAST MEDICAL HISTORY: Recent ankle surgery, atrial fibrillation on anticoagulation, history of Sjog marlen disease, result anemia, hypertension, and hyperlipidemia. MEDICATIONS: Per chart. ALLERGIES: UNKNOWN. PHYSICAL EXAMINATION: GENERAL: Well-nourished, well-developed lady, comfortable at rest, no acute distress. VITAL SIGNS: Currently afebrile, pulse is 94, blood pressure 130/60, O2 saturation 96% on 2 L nasal cannula. NECK: Supple. No JVD or lymphadenopathy. CARDIAC: S1, S2, no added sounds or murmurs. CHEST: Diminished air entry bilaterally. ABDOMEN: Soft, nontender, no guarding, no rebound. EXTREMITIES: No cyanosis, clubbing or edema. NEUROLOGIC: Grossly intact. No focal deficits. LABORATORY DATA: White count 3.9, hemoglobin 8.4, platelets of 231. BUN 26, creatinine 1.25. INR was 1.08. Urinalysis unremarkable. Chest CT cylindrical bronchiectasis and no effusions or infiltrates. IMPRESSION AND PLAN: 1. Mild bronchiectasis of unclear etiology, may be related to underlying connective tissue disease, otherwise no significant cardiopulmonary abnormalities noted. Patient should have outpatient home p for bronchiectasis, pulmonary function testing and to continue with physical therapy for left ankl e surgery. Dictated By: ADAL BOYCE MD SV/HARDIK Conf#: [id number] DID#: [id number] CC: KYLE TRENT MD; ISAIAS DIAZ MD;*EndCC*
[2017-11-06] MEDS: HEPARIN 5,000 UNIT/0.5 ML VIAL SC SCH ×2 (08:50→21:16)
[2017-11-06] MEDS: CYANOCOBALAMIN 500 MCG TAB PO SCH (08:50)
[2017-11-06] MEDS: FOLIC ACID 0.4 MG TAB PO SCH (08:51)
[2017-11-06] MEDS: METOPROLOL (XL) 25 MG TAB PO SCH ×2 (08:51→21:00)
[2017-11-06] MEDS: FUROSEMIDE 20 MG TAB PO SCH (08:51)
[2017-11-06] MEDS: DOCUSATE SODIUM 100 MG CAP PO SCH ×2 (08:52→21:00)
[2017-11-06] MEDS: AMIODARONE 200 MG TAB PO SCH (08:52)
[2017-11-06] MEDS: CEVIMELINE 30 MG CAP PO SCH ×4 (08:52→21:07)
[2017-11-06] MEDS: L ACIDOPHIL/B LACTIS/B LONGUM CAPSULE PO SCH ×2 (08:52→21:06)
--- NOTE | 2017-11-06 10:20 | PN ---
Date/Time of Note Date/Time of Note DATE: 11/06/17 TIME: 10:19 Assessment/Plan VTE Prophylaxis VTE Prophylaxis Intervention: SCD's Lines/Catheters IV Catheter Type (from Nrs): Saline Lock Assessment/Plan Assessment/Plan Acute blood loss anemia status post blood transfusion Psoas muscle hematoma Paroxysmal atrial fibrillation, currently sinus rhythm Acute decompensated diastolic congestive heart failure Preserved ejection fraction Hypertension Status post mechanical fall -Patient remains in sinus rhythm, would continue amiodarone and beta-kenyon as heart rate and blood pressure permits. Repeat echocardiogram on this admission with improvement in left ventricular systolic function. If patient remains in sinus rhythm, would consider holding Coumadin further. Reason being, patient with recurrent progressive anemia requiring blood transfusion and issues of possible transfusion reaction. Lung examination today has improved with less coarse breath sounds. CT chest done today secondary to possible evidence of pleural effusion demonstrates small effusion and likely bronchiectasis. Patient is on antibiotics. Would start maintenance Lasix 20 mg p.o. daily, supplement magnesium. Maintain potassium above 4.0 and magnesium above 2.0. Subjective 24 Hr Interval Summary Free Text/Dictation the apeint with no cahgne Exam/Review of Systems Vital Signs Vitals Vital Signs Date Time Temp Pulse Resp B/P Pulse Ox O2 Delivery O2 Flow Rate FiO2 11/06/17 08:00 97.8 71 18 129/61 100 11/06/17 07:27 21 11/05/17 08:55 Nasal Cannula 2.0 Intake and Output 11/05/17 11/05/17 11/06/17 15:00 23:00 07:00 Intake Total 1190 ml 650 ml Output Total 800 ml Balance 390 ml 650 ml Results Result Diagram: 11/06/17 0630 11/06/17 0630 Results 24 hrs Laboratory Tests Test 11/05/17 13:38 11/06/17 06:30 Prothrombin Time 14.1 Prothrombin Time Ratio 1.1 INR International Normalized Ratio 1.08 White Blood Count 3.6 L Red Blood Count 2.75 L Hemoglobin 8.4 L Hematocrit 26.1 L Mean Corpuscular Volume 94.9 Mean Corpuscular Hemoglobin 30.5 Mean Corpuscular Hemoglobin Concent 32.2 Red Cell Distribution Width 24.2 H Platelet Count 243 Mean Platelet Volume 10.1 Neutrophils % 67.8 Lymphocytes % 19.2 Monocytes % 8.7 Eosinophils % 2.0 Basophils % 0.6 Nucleated Red Blood Cells % 0.0 Neutrophils # 2.4 Lymphocytes # 0.7 L Monocytes # 0.3 Eosinophils # 0.1 Basophils # 0.0 Nucleated Red Blood Cells # 0.0 Sodium Level 140 Potassium Level 4.3 Chloride Level 103 Carbon Dioxide Level 30 Anion Gap 11 Blood Urea Nitrogen 24 H Creatinine 1.22 H Glucose Level 92 Calcium Level 8.6 Phosphorus Level 3.3 Magnesium Level 1.9 Medications Medications Current Medications Lidocaine (Lidocaine 5% Oint) 1 applic QID PRN TOP PAIN; Start 10/28/17 at 23: 45 Lorazepam (Ativan) 0.5 mg Q6H PRN PO ANXIETY Last administered on 11/05/17 22 :17; Admin Dose 0.5 MG; Start 10/28/17 at 23:45 Magnesium Hydroxide (Milk Of Mag) 30 ml DAILY PRN PO CONSTIPATION; Start at 23:45 Pantoprazole (Protonix Tab) 40 mg DAILY@06 PO Last administered on 11/06/17 06:42; Admin Dose 40 MG; Start 10/29/17 at 06:00 Tramadol HCl (Ultram) 50 mg Q6H PRN PO PAIN Last administered on 11/05/17 22: 17; Admin Dose 50 MG; Start 10/28/17 at 23:45 Zolpidem Tartrate (Ambien) 5 mg HS PRN PO INSOMNIA; Start 10/28/17 at 23:45 Acetaminophen/ Hydrocodone Bitart ([place] (10/325)) 1 tab Q4H PRN PO PAIN Last administered on 10/31/17 23:01; Admin Dose 1 TAB; Start 10/28/17 at 23:45 Acetaminophen (Tylenol Tab) 650 mg Q4H PRN PO PAIN AND OR ELEVATED TEMP Last administered on 11/05/17 00:18; Admin Dose 650 MG; Start 10/28/17 at 23:45 Al Hydroxide/Mg Trisilicate (Gaviscon) 2 tab QID PRN PO FOR GASTROINTESTINAL UPSET Last administered on 10/29/17 01:51; Admin Dose 2 TAB; Start 10/28/17 at 23:45 Amiodarone HCl (Cordarone) 100 mg DAILY PO Last administered on 11/06/17 08: 52; Admin Dose 100 MG; Start 10/29/17 at 09:00 Atorvastatin Calcium (Lipitor) 10 mg DAILY@21 PO Last administered on 20:35; Admin Dose 10 MG; Start 10/29/17 at 21:00 Cevimeline HCl (Evoxac) 30 mg QID PO Last administered on 11/06/17 08:52; Admin Dose 30 MG; Start 10/29/17 at 09:00 Cyanocobalamin (Vitamin B12) 1,000 mcg DAILY PO Last administered on 08:50; Admin Dose 1,000 MCG; Start 10/29/17 at 09:00 Docusate Sodium (Colace) 100 mg BID PO Last administered on 11/05/17 08:18; Admin Dose 100 MG; Start 10/29/17 at 09:00 Folic Acid (Folic Acid) 0.8 mg DAILY PO Last administered on 11/06/17 08:51; Admin Dose 0.8 MG; Start 10/29/17 at 09:00 Lactobacillus Acidophilus (Florajen3 Capsule) 1 each BID PO Last administered on 11/06/17 08:52; Admin Dose 1 EACH; Start 10/29/17 at 09:00 Levothyroxine Sodium (Synthroid) 25 mcg DAILY@06 PO Last administered on 06:43; Admin Dose 25 MCG; Start 10/29/17 at 06:00 Senna (Senokot) 1 tab HS PO Last administered on 11/04/17 20:23; Admin Dose 1 TAB; Start 10/29/17 at 21:00 Bisacodyl (Dulcolax Supp) 10 mg DAILY PRN [place] CONSTIPATION Last administered on 10/29/17 01:51; Admin Dose 10 MG; Start 10/29/17 at 01:30 Magnesium Hydroxide (Milk Of Mag) 30 ml BID PRN PO CONSTIPATION Last administered on 10/29/17 01:24; Admin Dose 30 ML; Start 10/29/17 at 01:30 Lactulose (Enulose) 20 gm DAILY PRN PO CONSTIPATION Last administered on 14:28; Admin Dose 20 GM; Start 10/29/17 at 01:30 Guaifenesin/ Codeine Phosphate (Robitussin Ac Liquid Cup) 5 ml Q4H PRN PO COUGH Last administered on 11/04/17 09:35; Admin Dose 5 ML; Start 10/31/17 at 17:00 Sodium Biphosphate/ Sodium Phosphate (Fleet Enema) 133 ml DAILY PRN [place] CONSTIPATION Last administered on 11/01/17 19:55; Admin Dose 133 ML; Start at 19:00 Epoetin Harley (Epogen (Non Esrd/Non Oncology)) 10,000 units TuThSa@17 SC Last administered on 11/04/17 17:05; Admin Dose 10,000 UNITS; Start 11/04/17 at 17 :00 Levofloxacin (Levaquin) 250 mg DAILY@06 PO Last administered on 11/06/17 06: 43; Admin Dose 250 MG; Start 11/05/17 at 06:00 Amlodipine Besylate (Norvasc) 2.5 mg BID PRN PO sbp>150; Start 11/04/17 at 13: 00 Metoprolol Succinate (Toprol Xl) 25 mg BID PO Last administered on 11/06/17 08:51; Admin Dose 25 MG; Start 11/04/17 at 21:00 Heparin Sodium (Porcine) (Heparin (5000 Units/0.5 ml)) 5,000 unit BID SC Last administered on 11/06/17 08:50; Admin Dose 5,000 UNIT; Start 11/05/17 at 21: 00 Furosemide (Lasix) 20 mg DAILY PO Last administered on 11/06/17 08:51; Admin Dose 20 MG; Start 11/06/17 at 09:00; Stop 11/09/17 at 08:59 AN ANGUIANO MD Nov 06, 2017 10:20
--- NOTE | 2017-11-06 10:52 | CONS ---
Date/Time of Note Date/Time of Note DATE: 11/06/17 TIME: 10:52 Consult Date/Type/Reason Admit Date/Time Oct 28, 2017 at 21:45 Type of Consultation: cv Subjective Reports feeling better Objective cga transfer and ambulation Vital Signs Date Time Temp Pulse Resp B/P Pulse Ox O2 Delivery O2 Flow Rate FiO2 11/06/17 08:00 97.8 71 18 129/61 100 11/06/17 07:27 21 11/05/17 08:55 Nasal Cannula 2.0 Intake and Output 11/05/17 11/05/17 11/06/17 15:00 23:00 07:00 Intake Total 1190 ml 650 ml Output Total 800 ml Balance 390 ml 650 ml Results/Medications Result Diagram: 11/06/1730 11/06/17 0630 Results 24 hrs Laboratory Tests Test 11/05/17 13:38 11/06/17 06:30 Prothrombin Time 14.1 Prothrombin Time Ratio 1.1 INR International Normalized Ratio 1.08 White Blood Count 3.6 L Red Blood Count 2.75 L Hemoglobin 8.4 L Hematocrit 26.1 L Mean Corpuscular Volume 94.9 Mean Corpuscular Hemoglobin 30.5 Mean Corpuscular Hemoglobin Concent 32.2 Red Cell Distribution Width 24.2 H Platelet Count 243 Mean Platelet Volume 10.1 Neutrophils % 67.8 Lymphocytes % 19.2 Monocytes % 8.7 Eosinophils % 2.0 Basophils % 0.6 Nucleated Red Blood Cells % 0.0 Neutrophils # 2.4 Lymphocytes # 0.7 L Monocytes # 0.3 Eosinophils # 0.1 Basophils # 0.0 Nucleated Red Blood Cells # 0.0 Sodium Level 140 Potassium Level 4.3 Chloride Level 103 Carbon Dioxide Level 30 Anion Gap 11 Blood Urea Nitrogen 24 H Creatinine 1.22 H Glucose Level 92 Calcium Level 8.6 Phosphorus Level 3.3 Magnesium Level 1.9 Medications Current Medications Lidocaine (Lidocaine 5% Oint) 1 applic QID PRN TOP PAIN; Start 10/28/17 at 23: 45 Lorazepam (Ativan) 0.5 mg Q6H PRN PO ANXIETY Last administered on 11/05/17t 22 :17; Admin Dose 0.5 MG; Start 10/28/17 at 23:45 Magnesium Hydroxide (Milk Of Mag) 30 ml DAILY PRN PO CONSTIPATION; Start at 23:45 Pantoprazole (Protonix Tab) 40 mg DAILY@06 PO Last administered on 11/06/17 06:42; Admin Dose 40 MG; Start 10/29/17 at 06:00 Tramadol HCl (Ultram) 50 mg Q6H PRN PO PAIN Last administered on 11/05/17 22: 17; Admin Dose 50 MG; Start 10/28/17 at 23:45 Zolpidem Tartrate (Ambien) 5 mg HS PRN PO INSOMNIA; Start 10/28/17 at 23:45 Acetaminophen/ Hydrocodone Bitart ([place] (10/325)) 1 tab Q4H PRN PO PAIN Last administered on 10/31/17 23:01; Admin Dose 1 TAB; Start 10/28/17 at 23:45 Acetaminophen (Tylenol Tab) 650 mg Q4H PRN PO PAIN AND OR ELEVATED TEMP Last administered on 11/05/17 00:18; Admin Dose 650 MG; Start 10/28/17 at 23:45 Al Hydroxide/Mg Trisilicate (Gaviscon) 2 tab QID PRN PO FOR GASTROINTESTINAL UPSET Last administered on 10/29/17 01:51; Admin Dose 2 TAB; Start 10/28/17 at 23:45 Amiodarone HCl (Cordarone) 100 mg DAILY PO Last administered on 11/06/17 08: 52; Admin Dose 100 MG; Start 10/29/17 at 09:00 Atorvastatin Calcium (Lipitor) 10 mg DAILY@21 PO Last administered on 20:35; Admin Dose 10 MG; Start 10/29/17 at 21:00 Cevimeline HCl (Evoxac) 30 mg QID PO Last administered on 11/06/17 08:52; Admin Dose 30 MG; Start 10/29/17 at 09:00 Cyanocobalamin (Vitamin B12) 1,000 mcg DAILY PO Last administered on 08:50; Admin Dose 1,000 MCG; Start 10/29/17 at 09:00 Docusate Sodium (Colace) 100 mg BID PO Last administered on 11/05/17 08:18; Admin Dose 100 MG; Start 10/29/17 at 09:00 Folic Acid (Folic Acid) 0.8 mg DAILY PO Last administered on 11/06/17 08:51; Admin Dose 0.8 MG; Start 10/29/17 at 09:00 Lactobacillus Acidophilus (Florajen3 Capsule) 1 each BID PO Last administered on 11/06/17 08:52; Admin Dose 1 EACH; Start 10/29/17 at 09:00 Levothyroxine Sodium (Synthroid) 25 mcg DAILY@06 PO Last administered on 06:43; Admin Dose 25 MCG; Start 10/29/17 at 06:00 Senna (Senokot) 1 tab HS PO Last administered on 11/04/17 20:23; Admin Dose 1 TAB; Start 10/29/17 at 21:00 Bisacodyl (Dulcolax Supp) 10 mg DAILY PRN [place] CONSTIPATION Last administered on 10/29/17 01:51; Admin Dose 10 MG; Start 10/29/17 at 01:30 Magnesium Hydroxide (Milk Of Mag) 30 ml BID PRN PO CONSTIPATION Last administered on 10/29/17 01:24; Admin Dose 30 ML; Start 10/29/17 at 01:30 Lactulose (Enulose) 20 gm DAILY PRN PO CONSTIPATION Last administered on 14:28; Admin Dose 20 GM; Start 10/29/17 at 01:30 Guaifenesin/ Codeine Phosphate (Robitussin Ac Liquid Cup) 5 ml Q4H PRN PO COUGH Last administered on 11/04/17 09:35; Admin Dose 5 ML; Start 10/31/17 at 17:00 Sodium Biphosphate/ Sodium Phosphate (Fleet Enema) 133 ml DAILY PRN [place] CONSTIPATION Last administered on 11/01/17 19:55; Admin Dose 133 ML; Start at 19:00 Epoetin Harley (Epogen (Non Esrd/Non Oncology)) 10,000 units TuThSa@17 SC Last administered on 11/04/17 17:05; Admin Dose 10,000 UNITS; Start 11/04/17 at 17 :00 Levofloxacin (Levaquin) 250 mg DAILY@06 PO Last administered on 11/06/17 06: 43; Admin Dose 250 MG; Start 11/05/17 at 06:00 Amlodipine Besylate (Norvasc) 2.5 mg BID PRN PO sbp>150; Start 11/04/17 at 13: 00 Metoprolol Succinate (Toprol Xl) 25 mg BID PO Last administered on 11/06/17 08:51; Admin Dose 25 MG; Start 11/04/17 at 21:00 Heparin Sodium (Porcine) (Heparin (5000 Units/0.5 ml)) 5,000 unit BID SC Last administered on 11/06/17 08:50; Admin Dose 5,000 UNIT; Start 11/05/17 at 21: 00 Furosemide (Lasix) 20 mg DAILY PO Last administered on 11/06/17 08:51; Admin Dose 20 MG; Start 11/06/17 at 09:00; Stop 11/09/17 at 08:59 Assessment/Plan Additional Assessment/Plan Rehab- Debility secondary to coagulopathy with multiple hematomas including left ankle, hip, thigh, psoas, iliac muscles, Left Upper Extremity and retroperitoneal bleed. 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 Atrial fibrillation- anticoag per IM/Cardiology Anemia- Monitor Hypertension. Hyperlipidemia. ADRIAN TRENT MD Nov 06, 2017 10:52
--- NOTE | 2017-11-06 11:13 | CONS ---
Date/Time of Note Date/Time of Note DATE: 11/06/17 TIME: 11:09 Assessment/Plan Assessment/Plan Additional Assessment/Plan 1. Bronchitis/bronchiectasis being treated, apprec pul eval, ?? add steroids 2. Anemia is stable. 3. Atrial fib, inactive, rev with cards 2 d ago, for now not resuming coumadin and on heparin sq for dvt prophylaxix 4. Mild acute renal insuff, will not give additional diuretic, UA and Jackie ordered. Consultation Date/Type/Reason Admit Date/Time Oct 28, 2017 at 21:45 Type of Consultation: cv Detailed Summary Respiratory: cough (is not productive and sl better.), No shortness of breath Cardiovascular: No chest pain Gastrointestinal: no complaints Genitourinary: no complaints Musculoskeletal: no complaints Exam/Review of Systems Vital Signs Vitals Vital Signs Date Time Temp Pulse Resp B/P Pulse Ox O2 Delivery O2 Flow Rate FiO2 11/06/17 08:00 97.8 71 18 129/61 100 11/06/17 07:27 21 11/05/17 08:55 Nasal Cannula 2.0 Intake and Output 11/05/17 11/05/17 11/06/17 15:00 23:00 07:00 Intake Total 1190 ml 650 ml Output Total 800 ml Balance 390 ml 650 ml Exam Neck: No jvd Respiratory: other (mild wheezing at the bases and rhonchi bilat) Cardiovascular: regular rate and rhythm Gastrointestinal: soft Extremities: No edema Results Result Diagram: 11/06/17 0630 11/06/17 0630 Results 24 hrs Laboratory Tests Test 11/05/17 13:38 11/06/17 06:30 Prothrombin Time 14.1 Prothrombin Time Ratio 1.1 INR International Normalized Ratio 1.08 White Blood Count 3.6 L Red Blood Count 2.75 L Hemoglobin 8.4 L Hematocrit 26.1 L Mean Corpuscular Volume 94.9 Mean Corpuscular Hemoglobin 30.5 Mean Corpuscular Hemoglobin Concent 32.2 Red Cell Distribution Width 24.2 H Platelet Count 243 Mean Platelet Volume 10.1 Neutrophils % 67.8 Lymphocytes % 19.2 Monocytes % 8.7 Eosinophils % 2.0 Basophils % 0.6 Nucleated Red Blood Cells % 0.0 Neutrophils # 2.4 Lymphocytes # 0.7 L Monocytes # 0.3 Eosinophils # 0.1 Basophils # 0.0 Nucleated Red Blood Cells # 0.0 Sodium Level 140 Potassium Level 4.3 Chloride Level 103 Carbon Dioxide Level 30 Anion Gap 11 Blood Urea Nitrogen 24 H Creatinine 1.22 H Glucose Level 92 Calcium Level 8.6 Phosphorus Level 3.3 Magnesium Level 1.9 Medications Medications Current Medications Lidocaine (Lidocaine 5% Oint) 1 applic QID PRN TOP PAIN; Start 10/28/17 at 23: 45 Lorazepam (Ativan) 0.5 mg Q6H PRN PO ANXIETY Last administered on 11/05/17 22 :17; Admin Dose 0.5 MG; Start 10/28/17 at 23:45 Magnesium Hydroxide (Milk Of Mag) 30 ml DAILY PRN PO CONSTIPATION; Start at 23:45 Pantoprazole (Protonix Tab) 40 mg DAILY@06 PO Last administered on 11/06/17 06:42; Admin Dose 40 MG; Start 10/29/17 at 06:00 Tramadol HCl (Ultram) 50 mg Q6H PRN PO PAIN Last administered on 11/05/17 22: 17; Admin Dose 50 MG; Start 10/28/17 at 23:45 Zolpidem Tartrate (Ambien) 5 mg HS PRN PO INSOMNIA; Start 10/28/17 at 23:45 Acetaminophen/ Hydrocodone Bitart ([place] (10/325)) 1 tab Q4H PRN PO PAIN Last administered on 10/31/17 23:01; Admin Dose 1 TAB; Start 10/28/17 at 23:45 Acetaminophen (Tylenol Tab) 650 mg Q4H PRN PO PAIN AND OR ELEVATED TEMP Last administered on 11/05/17 00:18; Admin Dose 650 MG; Start 10/28/17 at 23:45 Al Hydroxide/Mg Trisilicate (Gaviscon) 2 tab QID PRN PO FOR GASTROINTESTINAL UPSET Last administered on 10/29/17 01:51; Admin Dose 2 TAB; Start 10/28/17 at 23:45 Amiodarone HCl (Cordarone) 100 mg DAILY PO Last administered on 11/06/17 08: 52; Admin Dose 100 MG; Start 10/29/17 at 09:00 Atorvastatin Calcium (Lipitor) 10 mg DAILY@21 PO Last administered on 20:35; Admin Dose 10 MG; Start 10/29/17 at 21:00 Cevimeline HCl (Evoxac) 30 mg QID PO Last administered on 11/06/17 08:52; Admin Dose 30 MG; Start 10/29/17 at 09:00 Cyanocobalamin (Vitamin B12) 1,000 mcg DAILY PO Last administered on 08:50; Admin Dose 1,000 MCG; Start 10/29/17 at 09:00 Docusate Sodium (Colace) 100 mg BID PO Last administered on 11/05/17 08:18; Admin Dose 100 MG; Start 10/29/17 at 09:00 Folic Acid (Folic Acid) 0.8 mg DAILY PO Last administered on 11/06/17 08:51; Admin Dose 0.8 MG; Start 10/29/17 at 09:00 Lactobacillus Acidophilus (Florajen3 Capsule) 1 each BID PO Last administered on 11/06/17 08:52; Admin Dose 1 EACH; Start 10/29/17 at 09:00 Levothyroxine Sodium (Synthroid) 25 mcg DAILY@06 PO Last administered on 06:43; Admin Dose 25 MCG; Start 10/29/17 at 06:00 Senna (Senokot) 1 tab HS PO Last administered on 11/04/17 20:23; Admin Dose 1 TAB; Start 10/29/17 at 21:00 Bisacodyl (Dulcolax Supp) 10 mg DAILY PRN [place] CONSTIPATION Last administered on 10/29/17 01:51; Admin Dose 10 MG; Start 10/29/17 at 01:30 Magnesium Hydroxide (Milk Of Mag) 30 ml BID PRN PO CONSTIPATION Last administered on 10/29/17 01:24; Admin Dose 30 ML; Start 10/29/17 at 01:30 Lactulose (Enulose) 20 gm DAILY PRN PO CONSTIPATION Last administered on 14:28; Admin Dose 20 GM; Start 10/29/17 at 01:30 Guaifenesin/ Codeine Phosphate (Robitussin Ac Liquid Cup) 5 ml Q4H PRN PO COUGH Last administered on 11/04/17 09:35; Admin Dose 5 ML; Start 10/31/17 at 17:00 Sodium Biphosphate/ Sodium Phosphate (Fleet Enema) 133 ml DAILY PRN [place] CONSTIPATION Last administered on 11/01/17 19:55; Admin Dose 133 ML; Start at 19:00 Epoetin [place] (Epogen (Non Esrd/Non Oncology)) 10,000 units TuThSa@17 SC Last administered on 11/04/17 17:05; Admin Dose 10,000 UNITS; Start 11/04/17 at 17 :00 Levofloxacin (Levaquin) 250 mg DAILY@06 PO Last administered on 11/06/17 06: 43; Admin Dose 250 MG; Start 11/05/17 at 06:00 Amlodipine Besylate (Norvasc) 2.5 mg BID PRN PO sbp>150; Start 11/04/17 at 13: 00 Metoprolol Succinate (Toprol Xl) 25 mg BID PO Last administered on 11/06/17 08:51; Admin Dose 25 MG; Start 11/04/17 at 21:00 Heparin Sodium (Porcine) (Heparin (5000 Units/0.5 ml)) 5,000 unit BID SC Last administered on 11/06/17 08:50; Admin Dose 5,000 UNIT; Start 11/05/17 at 21: 00 Furosemide (Lasix) 20 mg DAILY PO Last administered on 11/06/17 08:51; Admin Dose 20 MG; Start 11/06/17 at 09:00; Stop 11/09/17 at 08:59 Neomycin/ Polymyxin/ Bacitracin (Neosporin Topical Oint) 1 applic BID PRN TOP BLISTER; Start 11/06/17 at 12:00 JOEL GOMEZ MD Nov 06, 2017 11:13
[2017-11-06] MEDS ORDERED: NEOMYC/POLYMYX/BACIT 30 GM OINT TOP PRN (12:00)
[2017-11-06 13:37] LABS: ADD UMIC YES; UR ASCORBIC ACID NEGATIVE (NEGATIVE); UR BACTERIA FEW /HPF (NONE SEEN); UR BILIRUBIN (Dip) NEGATIVE (NEGATIVE); UR BLOOD (Dip) NEGATIVE (NEGATIVE); UR CLARITY SLIGHTLY CLOUDY (CLEAR); UR COLOR YELLOW (YELLOW); UR GLUCOSE (Dip) NEGATIVE (NEGATIVE); UR KETONES (Dip) NEGATIVE (NEGATIVE); UR LEUKOCYTE ESTERASE (Dip) 2+ Leu/ul (NEGATIVE); UR NITRITE (Dip) NEGATIVE (NEGATIVE); UR NONSQUAMOUS EPITHELIAL CELL 3 /HPF (NONE SEEN); UR RBC 12 /HPF (0-5); UR SPECIFIC GRAVITY (Dip) 1.011 (1.003-1.030); UR SQUAMOUS EPITHELIAL CELL FEW /HPF (FEW); UR TOTAL PROTEIN (Dip) NEGATIVE (NEGATIVE); UR UROBILINOGEN (Dip) 2+ mg/dL (NEGATIVE)
--- NOTE | 2017-11-06 13:46 | CONS ---
Date/Time of Note Date/Time of Note DATE: 11/06/17 TIME: 13:43 Consult Date/Type/Reason Admit Date/Time Oct 28, 2017 at 21:45 Initial Consult Date Type of Consultation: Pulmonary Subjective Patient's respiratory status is stable no cough chest congestion fever chills. Objective Vital Signs Date Time Temp Pulse Resp B/P Pulse Ox O2 Delivery O2 Flow Rate FiO2 11/06/17 08:00 97.8 71 18 129/61 100 11/06/17 07:27 21 11/05/17 08:55 Nasal Cannula 2.0 Intake and Output 11/05/17 11/05/17 11/06/17 15:00 23:00 07:00 Intake Total 1190 ml 650 ml Output Total 800 ml Balance 390 ml 650 ml Exam PHYSICAL EXAMINATION: GENERAL: Well-nourished, well-developed lady, comfortable at rest, no acute distress. VITAL SIGNS: As above NECK: Supple. No JVD or lymphadenopathy. CARDIAC: S1, S2, no added sounds or murmurs. CHEST: Diminished air entry bilaterally. ABDOMEN: Soft, nontender, no guarding, no rebound. EXTREMITIES: No cyanosis, clubbing or edema. NEUROLOGIC: Grossly intact. No focal deficits. Results/Medications Result Diagram: 11/06/17 0630 11/06/17 0630 Results 24 hrs Laboratory Tests Test 11/06/17 06:30 11/06/17 13:00 White Blood Count 3.6 L Red Blood Count 2.75 L Hemoglobin 8.4 L Hematocrit 26.1 L Mean Corpuscular Volume 94.9 Mean Corpuscular Hemoglobin 30.5 Mean Corpuscular Hemoglobin Concent 32.2 Red Cell Distribution Width 24.2 H Platelet Count 243 Mean Platelet Volume 10.1 Neutrophils % 67.8 Lymphocytes % 19.2 Monocytes % 8.7 Eosinophils % 2.0 Basophils % 0.6 Nucleated Red Blood Cells % 0.0 Neutrophils # 2.4 Lymphocytes # 0.7 L Monocytes # 0.3 Eosinophils # 0.1 Basophils # 0.0 Nucleated Red Blood Cells # 0.0 Sodium Level 140 Potassium Level 4.3 Chloride Level 103 Carbon Dioxide Level 30 Anion Gap 11 Blood Urea Nitrogen 24 H Creatinine 1.22 H Glucose Level 92 Calcium Level 8.6 Phosphorus Level 3.3 Magnesium Level 1.9 Urine Color YELLOW Urine Clarity SLIGHTLY CLOUDY A Urine pH 8.0 Urine Specific [place] 1.011 Urine Ketones NEGATIVE Urine Nitrite NEGATIVE Urine Bilirubin NEGATIVE Urine Urobilinogen 2+ H Urine Leukocyte Esterase 2+ H Urine Microscopic RBC 12 H Urine Microscopic WBC 18 H Urine Squamous Epithelial Cells FEW Urine Bacteria FEW A Urine Hemoglobin NEGATIVE Urine Glucose NEGATIVE Urine Total Protein NEGATIVE Medications Current Medications Lidocaine (Lidocaine 5% Oint) 1 applic QID PRN TOP PAIN; Start 10/28/17 at 23: 45 Lorazepam (Ativan) 0.5 mg Q6H PRN PO ANXIETY Last administered on 11/05/17 22 :17; Admin Dose 0.5 MG; Start 10/28/17 at 23:45 Magnesium Hydroxide (Milk Of Mag) 30 ml DAILY PRN PO CONSTIPATION; Start at 23:45 Pantoprazole (Protonix Tab) 40 mg DAILY@06 PO Last administered on 11/06/17 06:42; Admin Dose 40 MG; Start 10/29/17 at 06:00 Tramadol HCl (Ultram) 50 mg Q6H PRN PO PAIN Last administered on 11/05/17 22: 17; Admin Dose 50 MG; Start 10/28/17 at 23:45 Zolpidem Tartrate (Ambien) 5 mg HS PRN PO INSOMNIA; Start 10/28/17 at 23:45 Acetaminophen/ Hydrocodone Bitart ([place] (10/325)) 1 tab Q4H PRN PO PAIN Last administered on 10/31/17 23:01; Admin Dose 1 TAB; Start 10/28/17 at 23:45 Acetaminophen (Tylenol Tab) 650 mg Q4H PRN PO PAIN AND OR ELEVATED TEMP Last administered on 11/05/17 00:18; Admin Dose 650 MG; Start 10/28/17 at 23:45 Al Hydroxide/Mg Trisilicate (Gaviscon) 2 tab QID PRN PO FOR GASTROINTESTINAL UPSET Last administered on 10/29/17 01:51; Admin Dose 2 TAB; Start 10/28/17 at 23:45 Amiodarone HCl (Cordarone) 100 mg DAILY PO Last administered on 11/06/17 08: 52; Admin Dose 100 MG; Start 10/29/17 at 09:00 Atorvastatin Calcium (Lipitor) 10 mg DAILY@21 PO Last administered on 20:35; Admin Dose 10 MG; Start 10/29/17 at 21:00 Cevimeline HCl (Evoxac) 30 mg QID PO Last administered on 11/06/17 12:17; Admin Dose 30 MG; Start 10/29/17 at 09:00 Cyanocobalamin (Vitamin B12) 1,000 mcg DAILY PO Last administered on 08:50; Admin Dose 1,000 MCG; Start 10/29/17 at 09:00 Docusate Sodium (Colace) 100 mg BID PO Last administered on 11/05/17 08:18; Admin Dose 100 MG; Start 10/29/17 at 09:00 Folic Acid (Folic Acid) 0.8 mg DAILY PO Last administered on 11/06/17 08:51; Admin Dose 0.8 MG; Start 10/29/17 at 09:00 Lactobacillus Acidophilus (Florajen3 Capsule) 1 each BID PO Last administered on 11/06/17 08:52; Admin Dose 1 EACH; Start 10/29/17 at 09:00 Levothyroxine Sodium (Synthroid) 25 mcg DAILY@06 PO Last administered on 06:43; Admin Dose 25 MCG; Start 10/29/17 at 06:00 Senna (Senokot) 1 tab HS PO Last administered on 11/04/17 20:23; Admin Dose 1 TAB; Start 10/29/17 at 21:00 Bisacodyl (Dulcolax Supp) 10 mg DAILY PRN [place] CONSTIPATION Last administered on 10/29/17 01:51; Admin Dose 10 MG; Start 10/29/17 at 01:30 Magnesium Hydroxide (Milk Of Mag) 30 ml BID PRN PO CONSTIPATION Last administered on 10/29/17 01:24; Admin Dose 30 ML; Start 10/29/17 at 01:30 Lactulose (Enulose) 20 gm DAILY PRN PO CONSTIPATION Last administered on 14:28; Admin Dose 20 GM; Start 10/29/17 at 01:30 Guaifenesin/ Codeine Phosphate (Robitussin Ac Liquid Cup) 5 ml Q4H PRN PO COUGH Last administered on 11/04/17 09:35; Admin Dose 5 ML; Start 10/31/17 at 17:00 Sodium Biphosphate/ Sodium Phosphate (Fleet Enema) 133 ml DAILY PRN [place] CONSTIPATION Last administered on 11/01/17 19:55; Admin Dose 133 ML; Start at 19:00 Epoetin [place] (Epogen (Non Esrd/Non Oncology)) 10,000 units TuThSa@17 SC Last administered on 11/04/17 17:05; Admin Dose 10,000 UNITS; Start 11/04/17 at 17 :00 Levofloxacin (Levaquin) 250 mg DAILY@06 PO Last administered on 11/06/17 06: 43; Admin Dose 250 MG; Start 11/05/17 at 06:00 Amlodipine Besylate (Norvasc) 2.5 mg BID PRN PO sbp>150; Start 11/04/17 at 13: 00 Metoprolol Succinate (Toprol Xl) 25 mg BID PO Last administered on 11/06/17 08:51; Admin Dose 25 MG; Start 11/04/17 at 21:00 Heparin Sodium (Porcine) (Heparin (5000 Units/0.5 ml)) 5,000 unit BID SC Last administered on 11/06/17 08:50; Admin Dose 5,000 UNIT; Start 11/05/17 at 21: 00 Furosemide (Lasix) 20 mg DAILY PO Last administered on 11/06/17 08:51; Admin Dose 20 MG; Start 11/06/17 at 09:00; Stop 11/09/17 at 08:59 Neomycin/ Polymyxin/ Bacitracin (Neosporin Topical Oint) 1 applic BID PRN TOP BLISTER Last administered on 11/06/17 12:17; Admin Dose 1 APPLIC; Start 11/06 at 12:00 Assessment/Plan Chief Complaint/Hosp Course Assessment 1. Stable chronic cylindrical bronchiectasis 2. No evidence of aspiration or chronic MAC infection 3. Left ankle injury postop Plan 1. Continue PT 2. Outpatient pulmonary function testing Problems: [facility]CE [facility] Nov 06, 2017 13:46
[2017-11-06] MEDS: EPOETIN 10000 UNITS/ML (NON ESRD/NON ONCOLOGY) SC SCH (16:56)
--- NOTE | 2017-11-06 18:51 | RADRPT ---
Vent Rate: 96 bpm RR Interval: 0 msec GA Interval: 134 msec QRS Duration: 86 msec QT Interval: 370 msec QTC Interval: 467 msec P-R-T [place]: 75 - 30 - 63 degrees Normal sinus rhythm Normal ECG Electronically Signed By: Savage Vick [id number]
[2017-11-06 20:00] VITALS: BP 126/60; PULSE 79; RESP 18
[2017-11-06] MEDS: SENNA TAB PO SCH (21:00)
[2017-11-06] MEDS: ATORVASTATIN 10 MG TAB PO SCH (21:07)
[2017-11-06] MEDS: LORAZEPAM 0.5 MG TAB PO PRN (22:16)
[2017-11-06] MEDS: traMADol 50 MG TAB PO PRN (22:16)
[2017-11-07] MEDS: IPRATROPIUM (NEB) 0.5 MG/2.5 ML AMP HHN SCH ×4 (01:59→20:35)
[2017-11-07] MEDS: LEVALBUTEROL (NEB) 1.25 MG/0.5 ML AMP HHN SCH ×4 (02:02→20:35)
[2017-11-07 02:39] VITALS: BP 116/60; PULSE 76; RESP 16
[2017-11-07] MEDS: LEVOTHYROXINE 25 MCG TAB PO SCH (06:48)
[2017-11-07] MEDS: LEVOFLOXACIN 250 MG TAB PO SCH (06:48)
[2017-11-07] MEDS: PANTOPRAZOLE (EC) 40 MG TAB PO SCH (06:48)
[2017-11-07 07:00] VITALS: BP 117/66; RESP 18
[2017-11-07] MEDS: DOCUSATE SODIUM 100 MG CAP PO SCH ×2 (08:29→20:23)
[2017-11-07] MEDS: L ACIDOPHIL/B LACTIS/B LONGUM CAPSULE PO SCH ×2 (08:30→20:23)
[2017-11-07] MEDS: FOLIC ACID 0.4 MG TAB PO SCH (08:30)
[2017-11-07] MEDS: FUROSEMIDE 20 MG TAB PO SCH (08:30)
[2017-11-07] MEDS: CEVIMELINE 30 MG CAP PO SCH ×4 (08:30→20:23)
[2017-11-07] MEDS: CYANOCOBALAMIN 500 MCG TAB PO SCH (08:31)
[2017-11-07] MEDS: METOPROLOL (XL) 25 MG TAB PO SCH ×2 (08:31→20:25)
[2017-11-07] MEDS: HEPARIN 5,000 UNIT/0.5 ML VIAL SC SCH ×2 (08:32→20:27)
[2017-11-07] MEDS: AMIODARONE 200 MG TAB PO SCH (08:34)
--- NOTE | 2017-11-07 10:26 | CONS ---
Date/Time of Note Date/Time of Note DATE: 11/07/17 TIME: 10:22 Assessment/Plan Assessment/Plan Additional Assessment/Plan 1. Bronchitis/bronchiectasis being treated, apprec pul eval, ?? add steroids as still adventitious sounds present. 2. Anemia is stable. 3. Atrial fib, inactive, rev with cards 2 d ago, for now not resuming coumadin and on heparin sq for dvt prophylaxix, cardiol started maintenance lasix, will need dc if Scr inc. 4. Mild acute renal insuff as noted above 5. Abnl u.a--urine culture ordered, Jackie was elevated suspect this was obtained after lasix given. 6. Left foot wound, dressing changes are occurring qod per RN Consultation Date/Type/Reason Admit Date/Time Oct 28, 2017 at 21:45 Type of Consultation: Pulmonary Detailed Summary Respiratory: cough (is mild and not prodctive) Cardiovascular: No chest pain Gastrointestinal: no complaints Genitourinary: no complaints Musculoskeletal: other (no pain left foot) Exam/Review of Systems Vital Signs Vitals Vital Signs Date Time Temp Pulse Resp B/P Pulse Ox O2 Delivery O2 Flow Rate FiO2 11/07/17 07:18 76 18 95 21 11/07/17 07:00 98.3 117/66 11/07/17 02:39 Room Air 11/05/17 08:55 2.0 Intake and Output 11/06/17 11/06/17 11/07/17 15:00 23:00 07:00 Intake Total 840 ml 300 ml Output Total 900 ml 1000 ml Balance -60 ml -700 ml Exam Neck: No jvd Respiratory: other (rhonchi bilat) Cardiovascular: regular rate and rhythm Gastrointestinal: soft Extremities: No edema (and no calf tend) Results Result Diagram: 11/06/17 0630 11/06/17 0630 Results 24 hrs Laboratory Tests Test 11/06/17 13:00 Urine Color YELLOW Urine Clarity SLIGHTLY CLOUDY A Urine pH 8.0 Urine Specific [place] 1.011 Urine Ketones NEGATIVE Urine Nitrite NEGATIVE Urine Bilirubin NEGATIVE Urine Urobilinogen 2+ H Urine Leukocyte Esterase 2+ H Urine Microscopic RBC 12 H Urine Microscopic WBC 18 H Urine Squamous Epithelial Cells FEW Urine Bacteria FEW A Urine Hemoglobin NEGATIVE Urine Random Sodium 101 H Urine Glucose NEGATIVE Urine Total Protein NEGATIVE Medications Medications Current Medications Lidocaine (Lidocaine 5% Oint) 1 applic QID PRN TOP PAIN; Start 10/28/17 at 23: 45 Lorazepam (Ativan) 0.5 mg Q6H PRN PO ANXIETY Last administered on 11/06/17 22 :16; Admin Dose 0.5 MG; Start 10/28/17 at 23:45 Magnesium Hydroxide (Milk Of Mag) 30 ml DAILY PRN PO CONSTIPATION; Start at 23:45 Pantoprazole (Protonix Tab) 40 mg DAILY@06 PO Last administered on 11/07/17 06:48; Admin Dose 40 MG; Start 10/29/17 at 06:00 Tramadol HCl (Ultram) 50 mg Q6H PRN PO PAIN Last administered on 11/06/17 22: 16; Admin Dose 50 MG; Start 10/28/17 at 23:45 Zolpidem Tartrate (Ambien) 5 mg HS PRN PO INSOMNIA; Start 10/28/17 at 23:45 Acetaminophen/ Hydrocodone Bitart ([place] (10/325)) 1 tab Q4H PRN PO PAIN Last administered on 10/31/17 23:01; Admin Dose 1 TAB; Start 10/28/17 at 23:45 Acetaminophen (Tylenol Tab) 650 mg Q4H PRN PO PAIN AND OR ELEVATED TEMP Last administered on 11/05/17 00:18; Admin Dose 650 MG; Start 10/28/17 at 23:45 Al Hydroxide/Mg Trisilicate (Gaviscon) 2 tab QID PRN PO FOR GASTROINTESTINAL UPSET Last administered on 10/29/17 01:51; Admin Dose 2 TAB; Start 10/28/17 at 23:45 Amiodarone HCl (Cordarone) 100 mg DAILY PO Last administered on 11/07/17 08: 34; Admin Dose 100 MG; Start 10/29/17 at 09:00 Atorvastatin Calcium (Lipitor) 10 mg DAILY@21 PO Last administered on 21:07; Admin Dose 10 MG; Start 10/29/17 at 21:00 Cevimeline HCl (Evoxac) 30 mg QID PO Last administered on 11/07/17 08:30; Admin Dose 30 MG; Start 10/29/17 at 09:00 Cyanocobalamin (Vitamin B12) 1,000 mcg DAILY PO Last administered on 08:31; Admin Dose 1,000 MCG; Start 10/29/17 at 09:00 Docusate Sodium (Colace) 100 mg BID PO Last administered on 11/07/17 08:29; Admin Dose 100 MG; Start 10/29/17 at 09:00 Folic Acid (Folic Acid) 0.8 mg DAILY PO Last administered on 11/07/17 08:30; Admin Dose 0.8 MG; Start 10/29/17 at 09:00 Lactobacillus Acidophilus (Florajen3 Capsule) 1 each BID PO Last administered on 11/07/17 08:30; Admin Dose 1 EACH; Start 10/29/17 at 09:00 Levothyroxine Sodium (Synthroid) 25 mcg DAILY@06 PO Last administered on 06:48; Admin Dose 25 MCG; Start 10/29/17 at 06:00 Senna (Senokot) 1 tab HS PO Last administered on 11/04/17 20:23; Admin Dose 1 TAB; Start 10/29/17 at 21:00 Bisacodyl (Dulcolax Supp) 10 mg DAILY PRN [place] CONSTIPATION Last administered on 10/29/17 01:51; Admin Dose 10 MG; Start 10/29/17 at 01:30 Magnesium Hydroxide (Milk Of Mag) 30 ml BID PRN PO CONSTIPATION Last administered on 10/29/17 01:24; Admin Dose 30 ML; Start 10/29/17 at 01:30 Lactulose (Enulose) 20 gm DAILY PRN PO CONSTIPATION Last administered on 14:28; Admin Dose 20 GM; Start 10/29/17 at 01:30 Guaifenesin/ Codeine Phosphate (Robitussin Ac Liquid Cup) 5 ml Q4H PRN PO COUGH Last administered on 11/04/17 09:35; Admin Dose 5 ML; Start 10/31/17 at 17:00 Sodium Biphosphate/ Sodium Phosphate (Fleet Enema) 133 ml DAILY PRN [place] CONSTIPATION Last administered on 11/01/17 19:55; Admin Dose 133 ML; Start at 19:00 Epoetin [place] (Epogen (Non Esrd/Non Oncology)) 10,000 units TuThSa@17 SC Last administered on 11/06/17 16:56; Admin Dose 10,000 UNITS; Start 11/04/17 at 17 :00 Levofloxacin (Levaquin) 250 mg DAILY@06 PO Last administered on 11/07/17 06: 48; Admin Dose 250 MG; Start 11/05/17 at 06:00 Amlodipine Besylate (Norvasc) 2.5 mg BID PRN PO sbp>150; Start 11/04/17 at 13: 00 Metoprolol Succinate (Toprol Xl) 25 mg BID PO Last administered on 11/07/17 08:31; Admin Dose 25 MG; Start 11/04/17 at 21:00 Heparin Sodium (Porcine) (Heparin (5000 Units/0.5 ml)) 5,000 unit BID SC Last administered on 11/07/17 08:32; Admin Dose 5,000 UNIT; Start 11/05/17 at 21: 00 Furosemide (Lasix) 20 mg DAILY PO Last administered on 11/07/17 08:30; Admin Dose 20 MG; Start 11/06/17 at 09:00; Stop 11/09/17 at 08:59 Neomycin/ Polymyxin/ Bacitracin (Neosporin Topical Oint) 1 applic BID PRN TOP BLISTER Last administered on 11/06/17 12:17; Admin Dose 1 APPLIC; Start 11/06 at 12:00 JOEL GOMEZ MD Nov 07, 2017 10:26
--- NOTE | 2017-11-07 10:43 | CONS ---
Date/Time of Note Date/Time of Note DATE: 11/07/17 TIME: 10:40 Assessment/Plan Assessment/Plan Additional Assessment/Plan Acute blood loss anemia status post blood transfusion Psoas muscle hematoma Paroxysmal atrial fibrillation, currently sinus rhythm Acute decompensated diastolic congestive heart failure Bronchiectasis Preserved ejection fraction Hypertension Status post mechanical fall -Patient remains in sinus rhythm, would continue amiodarone and beta-kenyon as heart rate and blood pressure permits. Repeat echocardiogram on this admission with improvement in left ventricular systolic function. If patient remains in sinus rhythm, would consider holding Coumadin further. Reason being, patient with recurrent progressive anemia requiring blood transfusion and issues of possible transfusion reaction. Lung examination today has improved with less coarse breath sounds. CT chest done today secondary to possible evidence of pleural effusion demonstrates small effusion and likely bronchiectasis. Patient is on antibiotics. Would continue maintenance Lasix 20 mg p.o. daily as renal function and blood pressure permits. Maintain potassium above 4.0 and magnesium above 2.0. Consultation Date/Type/Reason Admit Date/Time Oct 28, 2017 at 21:45 Type of Consultation: cv 24 HR Interval Summary Free Text/Dictation Feeling better, less shortness of breath. Denies chest pain Exam/Review of Systems Vital Signs Vitals Vital Signs Date Time Temp Pulse Resp B/P Pulse Ox O2 Delivery O2 Flow Rate FiO2 11/07/17 07:18 76 18 95 21 11/07/17 07:00 98.3 117/66 11/07/17 02:39 Room Air 11/05/17 08:55 2.0 Intake and Output 11/06/17 11/06/17 11/07/17 15:00 23:00 07:00 Intake Total 840 ml 300 ml Output Total 900 ml 1000 ml Balance -60 ml -700 ml Exam No apparent distress Constitutional: alert, oriented Head: normocephalic Respiratory: other (course bs, no wheezing) Cardiovascular: other (s1s2), regular rate and rhythm Gastrointestinal: bowel sounds, non-tender, soft Extremities: edema Results Result Diagram: 11/06/17 0630 11/06/17 0630 Results 24 hrs Laboratory Tests Test 11/06/17 13:00 Urine Color YELLOW Urine Clarity SLIGHTLY CLOUDY A Urine pH 8.0 Urine Specific [place] 1.011 Urine Ketones NEGATIVE Urine Nitrite NEGATIVE Urine Bilirubin NEGATIVE Urine Urobilinogen 2+ H Urine Leukocyte Esterase 2+ H Urine Microscopic RBC 12 H Urine Microscopic WBC 18 H Urine Squamous Epithelial Cells FEW Urine Bacteria FEW A Urine Hemoglobin NEGATIVE Urine Random Sodium 101 H Urine Glucose NEGATIVE Urine Total Protein NEGATIVE Medications Medications Current Medications Lidocaine (Lidocaine 5% Oint) 1 applic QID PRN TOP PAIN; Start 10/28/17 at 23: 45 Lorazepam (Ativan) 0.5 mg Q6H PRN PO ANXIETY Last administered on 11/06/17 22 :16; Admin Dose 0.5 MG; Start 10/28/17 at 23:45 Magnesium Hydroxide (Milk Of Mag) 30 ml DAILY PRN PO CONSTIPATION; Start at 23:45 Pantoprazole (Protonix Tab) 40 mg DAILY@06 PO Last administered on 11/07/17 06:48; Admin Dose 40 MG; Start 10/29/17 at 06:00 Tramadol HCl (Ultram) 50 mg Q6H PRN PO PAIN Last administered on 11/06/17 22: 16; Admin Dose 50 MG; Start 10/28/17 at 23:45 Zolpidem Tartrate (Ambien) 5 mg HS PRN PO INSOMNIA; Start 10/28/17 at 23:45 Acetaminophen/ Hydrocodone Bitart ([place] (10/325)) 1 tab Q4H PRN PO PAIN Last administered on 10/31/17 23:01; Admin Dose 1 TAB; Start 10/28/17 at 23:45 Acetaminophen (Tylenol Tab) 650 mg Q4H PRN PO PAIN AND OR ELEVATED TEMP Last administered on 11/05/17 00:18; Admin Dose 650 MG; Start 10/28/17 at 23:45 Al Hydroxide/Mg Trisilicate (Gaviscon) 2 tab QID PRN PO FOR GASTROINTESTINAL UPSET Last administered on 10/29/17 01:51; Admin Dose 2 TAB; Start 10/28/17 at 23:45 Amiodarone HCl (Cordarone) 100 mg DAILY PO Last administered on 11/07/17 08: 34; Admin Dose 100 MG; Start 10/29/17 at 09:00 Atorvastatin Calcium (Lipitor) 10 mg DAILY@21 PO Last administered on 21:07; Admin Dose 10 MG; Start 10/29/17 at 21:00 Cevimeline HCl (Evoxac) 30 mg QID PO Last administered on 11/07/17 08:30; Admin Dose 30 MG; Start 10/29/17 at 09:00 Cyanocobalamin (Vitamin B12) 1,000 mcg DAILY PO Last administered on 08:31; Admin Dose 1,000 MCG; Start 10/29/17 at 09:00 Docusate Sodium (Colace) 100 mg BID PO Last administered on 11/07/17 08:29; Admin Dose 100 MG; Start 10/29/17 at 09:00 Folic Acid (Folic Acid) 0.8 mg DAILY PO Last administered on 11/07/17 08:30; Admin Dose 0.8 MG; Start 10/29/17 at 09:00 Lactobacillus Acidophilus (Florajen3 Capsule) 1 each BID PO Last administered on 11/07/17 08:30; Admin Dose 1 EACH; Start 10/29/17 at 09:00 Levothyroxine Sodium (Synthroid) 25 mcg DAILY@06 PO Last administered on 06:48; Admin Dose 25 MCG; Start 10/29/17 at 06:00 Senna (Senokot) 1 tab HS PO Last administered on 11/04/17 20:23; Admin Dose 1 TAB; Start 10/29/17 at 21:00 Bisacodyl (Dulcolax Supp) 10 mg DAILY PRN [place] CONSTIPATION Last administered on 10/29/17 01:51; Admin Dose 10 MG; Start 10/29/17 at 01:30 Magnesium Hydroxide (Milk Of Mag) 30 ml BID PRN PO CONSTIPATION Last administered on 10/29/17 01:24; Admin Dose 30 ML; Start 10/29/17 at 01:30 Lactulose (Enulose) 20 gm DAILY PRN PO CONSTIPATION Last administered on 14:28; Admin Dose 20 GM; Start 10/29/17 at 01:30 Guaifenesin/ Codeine Phosphate (Robitussin Ac Liquid Cup) 5 ml Q4H PRN PO COUGH Last administered on 11/04/17 09:35; Admin Dose 5 ML; Start 10/31/17 at 17:00 Sodium Biphosphate/ Sodium Phosphate (Fleet Enema) 133 ml DAILY PRN [place] CONSTIPATION Last administered on 11/01/17 19:55; Admin Dose 133 ML; Start at 19:00 Epoetin Harley (Epogen (Non Esrd/Non Oncology)) 10,000 units TuThSa@17 SC Last administered on 11/06/17 16:56; Admin Dose 10,000 UNITS; Start 11/04/17 at 17 :00 Levofloxacin (Levaquin) 250 mg DAILY@06 PO Last administered on 11/07/17 06: 48; Admin Dose 250 MG; Start 11/05/17 at 06:00 Amlodipine Besylate (Norvasc) 2.5 mg BID PRN PO sbp>150; Start 11/04/17 at 13: 00 Metoprolol Succinate (Toprol Xl) 25 mg BID PO Last administered on 11/07/17 08:31; Admin Dose 25 MG; Start 11/04/17 at 21:00 Heparin Sodium (Porcine) (Heparin (5000 Units/0.5 ml)) 5,000 unit BID SC Last administered on 11/07/17 08:32; Admin Dose 5,000 UNIT; Start 11/05/17 at 21: 00 Furosemide (Lasix) 20 mg DAILY PO Last administered on 11/07/17 08:30; Admin Dose 20 MG; Start 11/06/17 at 09:00; Stop 11/09/17 at 08:59 Neomycin/ Polymyxin/ Bacitracin (Neosporin Topical Oint) 1 applic BID PRN TOP BLISTER Last administered on 11/06/17 12:17; Admin Dose 1 APPLIC; Start 11/06 at 12:00 Gabriel Chau DO Nov 07, 2017 10:43
[2017-11-07] MEDS ORDERED: MAGNESIUM SULFATE 1 GM/D5W 100 ML IVPB SCH (12:00)
--- NOTE | 2017-11-07 12:58 | CONS ---
Date/Time of Note Date/Time of Note DATE: 11/07/17 TIME: 12:58 Consult Date/Type/Reason Admit Date/Time Oct 28, 2017 at 21:45 Type of Consultation: Pulmonary Subjective Patient remains comfortable. No new events. Still has occasional nonproductive cough. Objective Vital Signs Date Time Temp Pulse Resp B/P Pulse Ox O2 Delivery O2 Flow Rate FiO2 11/07/17 07:18 76 18 95 21 11/07/17 07:00 98.3 117/66 11/07/17 02:39 Room Air 11/05/17 08:55 2.0 Intake and Output 11/06/17 11/06/17 11/07/17 14:59 22:59 06:59 Intake Total 840 ml 300 ml Output Total 900 ml 1000 ml Balance -60 ml -700 ml Exam PHYSICAL EXAMINATION: GENERAL: Well-nourished, well-developed lady, comfortable at rest, no acute distress. VITAL SIGNS: As above NECK: Supple. No JVD or lymphadenopathy. CARDIAC: S1, S2, no added sounds or murmurs. CHEST: Diminished air entry bilaterally. ABDOMEN: Soft, nontender, no guarding, no rebound. EXTREMITIES: No cyanosis, clubbing or edema. NEUROLOGIC: Grossly intact. No focal deficits. Results/Medications Result Diagram: 11/06/17 0630 11/06/17 0630 Results 24 hrs Laboratory Tests Test 11/06/17 13:00 Urine Color YELLOW Urine Clarity SLIGHTLY CLOUDY A Urine pH 8.0 Urine Specific [place] 1.011 Urine Ketones NEGATIVE Urine Nitrite NEGATIVE Urine Bilirubin NEGATIVE Urine Urobilinogen 2+ H Urine Leukocyte Esterase 2+ H Urine Microscopic RBC 12 H Urine Microscopic WBC 18 H Urine Squamous Epithelial Cells FEW Urine Bacteria FEW A Urine Hemoglobin NEGATIVE Urine Random Sodium 101 H Urine Glucose NEGATIVE Urine Total Protein NEGATIVE Medications Current Medications Lidocaine (Lidocaine 5% Oint) 1 applic QID PRN TOP PAIN; Start 10/28/17 at 23: 45 Lorazepam (Ativan) 0.5 mg Q6H PRN PO ANXIETY Last administered on 11/06/17t 22 :16; Admin Dose 0.5 MG; Start 10/28/17 at 23:45 Magnesium Hydroxide (Milk Of Mag) 30 ml DAILY PRN PO CONSTIPATION; Start at 23:45 Pantoprazole (Protonix Tab) 40 mg DAILY@06 PO Last administered on 11/07/17 06:48; Admin Dose 40 MG; Start 10/29/17 at 06:00 Tramadol HCl (Ultram) 50 mg Q6H PRN PO PAIN Last administered on 11/06/17 22: 16; Admin Dose 50 MG; Start 10/28/17 at 23:45 Zolpidem Tartrate (Ambien) 5 mg HS PRN PO INSOMNIA; Start 10/28/17 at 23:45 Acetaminophen/ Hydrocodone Bitart ([place] (10/325)) 1 tab Q4H PRN PO PAIN Last administered on 10/31/17 23:01; Admin Dose 1 TAB; Start 10/28/17 at 23:45 Acetaminophen (Tylenol Tab) 650 mg Q4H PRN PO PAIN AND OR ELEVATED TEMP Last administered on 11/05/17 00:18; Admin Dose 650 MG; Start 10/28/17 at 23:45 Al Hydroxide/Mg Trisilicate (Gaviscon) 2 tab QID PRN PO FOR GASTROINTESTINAL UPSET Last administered on 10/29/17 01:51; Admin Dose 2 TAB; Start 10/28/17 at 23:45 Amiodarone HCl (Cordarone) 100 mg DAILY PO Last administered on 11/07/17 08: 34; Admin Dose 100 MG; Start 10/29/17 at 09:00 Atorvastatin Calcium (Lipitor) 10 mg DAILY@21 PO Last administered on 21:07; Admin Dose 10 MG; Start 10/29/17 at 21:00 Cevimeline HCl (Evoxac) 30 mg QID PO Last administered on 11/07/17 08:30; Admin Dose 30 MG; Start 10/29/17 at 09:00 Cyanocobalamin (Vitamin B12) 1,000 mcg DAILY PO Last administered on 08:31; Admin Dose 1,000 MCG; Start 10/29/17 at 09:00 Docusate Sodium (Colace) 100 mg BID PO Last administered on 11/07/17 08:29; Admin Dose 100 MG; Start 10/29/17 at 09:00 Folic Acid (Folic Acid) 0.8 mg DAILY PO Last administered on 11/07/17 08:30; Admin Dose 0.8 MG; Start 10/29/17 at 09:00 Lactobacillus Acidophilus (Florajen3 Capsule) 1 each BID PO Last administered on 11/07/17 08:30; Admin Dose 1 EACH; Start 10/29/17 at 09:00 Levothyroxine Sodium (Synthroid) 25 mcg DAILY@06 PO Last administered on 06:48; Admin Dose 25 MCG; Start 10/29/17 at 06:00 Senna (Senokot) 1 tab HS PO Last administered on 11/04/17 20:23; Admin Dose 1 TAB; Start 10/29/17 at 21:00 Bisacodyl (Dulcolax Supp) 10 mg DAILY PRN [place] CONSTIPATION Last administered on 10/29/17 01:51; Admin Dose 10 MG; Start 10/29/17 at 01:30 Magnesium Hydroxide (Milk Of Mag) 30 ml BID PRN PO CONSTIPATION Last administered on 10/29/17 01:24; Admin Dose 30 ML; Start 10/29/17 at 01:30 Lactulose (Enulose) 20 gm DAILY PRN PO CONSTIPATION Last administered on 14:28; Admin Dose 20 GM; Start 10/29/17 at 01:30 Guaifenesin/ Codeine Phosphate (Robitussin Ac Liquid Cup) 5 ml Q4H PRN PO COUGH Last administered on 11/04/17 09:35; Admin Dose 5 ML; Start 10/31/17 at 17:00 Sodium Biphosphate/ Sodium Phosphate (Fleet Enema) 133 ml DAILY PRN [place] CONSTIPATION Last administered on 11/01/17 19:55; Admin Dose 133 ML; Start at 19:00 Epoetin [place] (Epogen (Non Esrd/Non Oncology)) 10,000 units TuThSa@17 SC Last administered on 11/06/17 16:56; Admin Dose 10,000 UNITS; Start 11/04/17 at 17 :00 Levofloxacin (Levaquin) 250 mg DAILY@06 PO Last administered on 11/07/17 06: 48; Admin Dose 250 MG; Start 11/05/17 at 06:00 Amlodipine Besylate (Norvasc) 2.5 mg BID PRN PO sbp>150; Start 11/04/17 at 13: 00 Metoprolol Succinate (Toprol Xl) 25 mg BID PO Last administered on 11/07/17 08:31; Admin Dose 25 MG; Start 11/04/17 at 21:00 Heparin Sodium (Porcine) (Heparin (5000 Units/0.5 ml)) 5,000 unit BID SC Last administered on 11/07/17 08:32; Admin Dose 5,000 UNIT; Start 11/05/17 at 21: 00 Furosemide (Lasix) 20 mg DAILY PO Last administered on 11/07/17 08:30; Admin Dose 20 MG; Start 11/06/17 at 09:00; Stop 11/09/17 at 08:59 Neomycin/ Polymyxin/ Bacitracin (Neosporin Topical Oint) 1 applic BID PRN TOP BLISTER Last administered on 11/06/17 12:17; Admin Dose 1 APPLIC; Start 11/06 at 12:00 Magnesium Oxide (Mag-Ox 400) 400 mg DAILY PO ; Start 11/07/17 at 13:00; Status UNV Assessment/Plan Chief Complaint/Hosp Course Assessment 1. Stable chronic cylindrical bronchiectasis 2. No evidence of aspiration or chronic MAC infection 3. Left ankle injury postop Plan 1. Continue PT 2. Outpatient pulmonary function testing 3. Would hold off on steroids for now. Problems: ADAL BOYCE MD, [facility] Nov 07, 2017 12:58
[2017-11-07] MEDS: MAGNESIUM OXIDE 400 MG TAB PO SCH (13:22)
[2017-11-07 14:00] VITALS: BP 114/58; RESP 18
[2017-11-07 20:00] VITALS: BP 124/64; RESP 18
[2017-11-07] MEDS: SENNA TAB PO SCH (20:23)
[2017-11-07] MEDS: ATORVASTATIN 10 MG TAB PO SCH (20:23)
[2017-11-07] MEDS: traMADol 50 MG TAB PO PRN (22:48)
[2017-11-08] MEDS: GUAIFENESIN/CODEINE 5ML CUP PO PRN ×2 (01:07→21:49)
[2017-11-08] MEDS: IPRATROPIUM (NEB) 0.5 MG/2.5 ML AMP HHN SCH ×4 (01:48→20:06)
[2017-11-08] MEDS: LEVALBUTEROL (NEB) 1.25 MG/0.5 ML AMP HHN SCH ×4 (01:48→20:06)
[2017-11-08 02:00] VITALS: BP 114/60; PULSE 75; RESP 18
[2017-11-08] MEDS: PANTOPRAZOLE (EC) 40 MG TAB PO SCH (06:26)
[2017-11-08] MEDS: LEVOTHYROXINE 25 MCG TAB PO SCH (06:26)
[2017-11-08] MEDS: LEVOFLOXACIN 250 MG TAB PO SCH (06:26)
[2017-11-08 07:00] VITALS: BP 130/63; RESP 18
[2017-11-08 07:29] LABS: ABNORMAL IP MESSAGE 1; BASOPHILS % 0.3 % (0.0-2.0); EOSINOPHILS # 0.1 10^3/ul (0.0-0.5); EOSINOPHILS % 2.2 % (0.0-7.0); HEMATOCRIT 26.8 % (37.0-47.0); HEMOGLOBIN 8.7 g/dl (12.0-16.0); LYMPHOCYTES # 0.6 10^3/ul (0.8-2.9); LYMPHOCYTES % 17.4 % (15.0-51.0); MEAN CORPUSCULAR HEMOGLOBIN 31.1 pg (29.0-33.0); MEAN CORPUSCULAR HGB CONC 32.5 g/dl (32.0-37.0); MEAN CORPUSCULAR VOLUME 95.7 fl (82.0-101.0); MEAN PLATELET VOLUME 9.7 fl (7.4-10.4); MONOCYTE # 0.3 10^3/ul (0.3-0.9); MONOCYTES % 8.3 % (0.0-11.0); NEUTROPHIL # 2.4 10^3/ul (1.6-7.5); NEUTROPHILS % 65.4 % (39.0-77.0); NUCLEATED RED BLOOD CELLS% 0.6 /100WBC (0.0-0.0); PLATELET COUNT 270 10^3/UL (140-415); WHITE BLOOD COUNT 3.6 10^3/ul (4.8-10.8)
[2017-11-08 07:32] LABS: POSITIVE DIFF @See below
[2017-11-08 07:59] LABS: POTASSIUM 4.3 mmol/L (3.5-5.1)
[2017-11-08 08:00] LABS: CALCIUM 8.7 mg/dl (8.4-10.2); CREATININE 1.2 mg/dl (0.44-1.00); MAGNESIUM 1.9 mg/dl (1.7-2.5); PHOSPHORUS 3.3 mg/dl (2.5-4.9)
[2017-11-08] MEDS: HEPARIN 5,000 UNIT/0.5 ML VIAL SC SCH (08:51)
[2017-11-08] MEDS: CYANOCOBALAMIN 500 MCG TAB PO SCH (08:52)
[2017-11-08] MEDS: METOPROLOL (XL) 25 MG TAB PO SCH ×2 (08:52→20:27)
[2017-11-08] MEDS: FUROSEMIDE 20 MG TAB PO SCH (08:53)
[2017-11-08] MEDS: CEVIMELINE 30 MG CAP PO SCH ×4 (08:53→20:28)
[2017-11-08] MEDS: AMIODARONE 200 MG TAB PO SCH (08:54)
[2017-11-08] MEDS: DOCUSATE SODIUM 100 MG CAP PO SCH ×2 (08:54→20:28)
[2017-11-08] MEDS: MAGNESIUM OXIDE 400 MG TAB PO SCH (08:56)
[2017-11-08] MEDS: L ACIDOPHIL/B LACTIS/B LONGUM CAPSULE PO SCH ×2 (08:57→20:28)
--- NOTE | 2017-11-08 09:18 | CONS ---
Date/Time of Note Date/Time of Note DATE: 11/08/17 TIME: 09:16 Assessment/Plan Assessment/Plan Chief Complaint/Hosp Course Acute blood loss anemia status post blood transfusion Psoas muscle hematoma Paroxysmal atrial fibrillation, currently sinus rhythm Acute decompensated diastolic congestive heart failure Bronchiectasis Preserved ejection fraction Hypertension Status post mechanical fall Problems: Additional Assessment/Plan 1) off AC 2) continue other meds 3) pulmonary therapy 4) continue rehab Consultation Date/Type/Reason Admit Date/Time Oct 28, 2017 at 21:45 Initial Consult Date Type of Consultation: cv 24 HR Interval Summary Free Text/Dictation breathing improved, no chest pain, no syncope or near syncope Detailed Summary Respiratory: no complaints Cardiovascular: no complaints Gastrointestinal: no complaints Musculoskeletal: no complaints Neurologic: no complaints Exam/Review of Systems Vital Signs Vitals Vital Signs Date Time Temp Pulse Resp B/P Pulse Ox O2 Delivery O2 Flow Rate FiO2 11/08/17 08:30 69 18 92 21 11/08/17 07:00 98.0 130/63 11/08/17 02:00 Room Air 11/05/17 08:55 2.0 Intake and Output 11/07/17 11/07/17 11/08/17 15:00 23:00 07:00 Intake Total 1600 ml 300 ml Output Total 1000 ml Balance 600 ml 300 ml Exam Constitutional: alert, oriented Head: atraumatic, normocephalic Neck: supple Respiratory: diminished breath sounds Cardiovascular: regular rate and rhythm Gastrointestinal: soft Musculoskeletal: nl extremities to inspection Extremities: normal pulses Results Result Diagram: 11/08/17 0701 11/08/17 0701 Results 24 hrs Laboratory Tests Test 11/08/17 07:01 White Blood Count 3.6 L Red Blood Count 2.80 L Hemoglobin 8.7 L Hematocrit 26.8 L Mean Corpuscular Volume 95.7 Mean Corpuscular Hemoglobin 31.1 Mean Corpuscular Hemoglobin Concent 32.5 Red Cell Distribution Width 24.0 H Platelet Count 270 Mean Platelet Volume 9.7 Neutrophils % 65.4 Lymphocytes % 17.4 Monocytes % 8.3 Eosinophils % 2.2 Basophils % 0.3 Nucleated Red Blood Cells % 0.6 H Neutrophils # 2.4 Lymphocytes # 0.6 L Monocytes # 0.3 Eosinophils # 0.1 Basophils # 0.0 Nucleated Red Blood Cells # 0.0 Sodium Level 138 Potassium Level 4.3 Chloride Level 104 Carbon Dioxide Level 29 Anion Gap 9 Blood Urea Nitrogen 21 H Creatinine 1.20 H Glucose Level 95 Calcium Level 8.7 Phosphorus Level 3.3 Magnesium Level 1.9 Medications Medications Current Medications Lidocaine (Lidocaine 5% Oint) 1 applic QID PRN TOP PAIN; Start 10/28/17 at 23: 45 Lorazepam (Ativan) 0.5 mg Q6H PRN PO ANXIETY Last administered on 11/06/17 22 :16; Admin Dose 0.5 MG; Start 10/28/17 at 23:45 Magnesium Hydroxide (Milk Of Mag) 30 ml DAILY PRN PO CONSTIPATION; Start at 23:45 Pantoprazole (Protonix Tab) 40 mg DAILY@06 PO Last administered on 11/08/17 06:26; Admin Dose 40 MG; Start 10/29/17 at 06:00 Tramadol HCl (Ultram) 50 mg Q6H PRN PO PAIN Last administered on 11/07/17 22: 48; Admin Dose 50 MG; Start 10/28/17 at 23:45 Zolpidem Tartrate (Ambien) 5 mg HS PRN PO INSOMNIA; Start 10/28/17 at 23:45 Acetaminophen/ Hydrocodone Bitart ([place] (10/325)) 1 tab Q4H PRN PO PAIN Last administered on 10/31/17 23:01; Admin Dose 1 TAB; Start 10/28/17 at 23:45 Acetaminophen (Tylenol Tab) 650 mg Q4H PRN PO PAIN AND OR ELEVATED TEMP Last administered on 11/05/17 00:18; Admin Dose 650 MG; Start 10/28/17 at 23:45 Al Hydroxide/Mg Trisilicate (Gaviscon) 2 tab QID PRN PO FOR GASTROINTESTINAL UPSET Last administered on 10/29/17 01:51; Admin Dose 2 TAB; Start 10/28/17 at 23:45 Amiodarone HCl (Cordarone) 100 mg DAILY PO Last administered on 11/08/17 08: 54; Admin Dose 100 MG; Start 10/29/17 at 09:00 Atorvastatin Calcium (Lipitor) 10 mg DAILY@21 PO Last administered on 20:23; Admin Dose 10 MG; Start 10/29/17 at 21:00 Cevimeline HCl (Evoxac) 30 mg QID PO Last administered on 11/08/17 08:53; Admin Dose 30 MG; Start 10/29/17 at 09:00 Cyanocobalamin (Vitamin B12) 1,000 mcg DAILY PO Last administered on 08:52; Admin Dose 1,000 MCG; Start 10/29/17 at 09:00 Docusate Sodium (Colace) 100 mg BID PO Last administered on 11/08/17 08:54; Admin Dose 100 MG; Start 10/29/17 at 09:00 Folic Acid (Folic Acid) 0.8 mg DAILY PO Last administered on 11/07/17 08:30; Admin Dose 0.8 MG; Start 10/29/17 at 09:00 Lactobacillus Acidophilus (Florajen3 Capsule) 1 each BID PO Last administered on 11/08/17 08:57; Admin Dose 1 EACH; Start 10/29/17 at 09:00 Levothyroxine Sodium (Synthroid) 25 mcg DAILY@06 PO Last administered on 06:26; Admin Dose 25 MCG; Start 10/29/17 at 06:00 Senna (Senokot) 1 tab HS PO Last administered on 11/07/17 20:23; Admin Dose 1 TAB; Start 10/29/17 at 21:00 Bisacodyl (Dulcolax Supp) 10 mg DAILY PRN [place] CONSTIPATION Last administered on 10/29/17 01:51; Admin Dose 10 MG; Start 10/29/17 at 01:30 Magnesium Hydroxide (Milk Of Mag) 30 ml BID PRN PO CONSTIPATION Last administered on 10/29/17 01:24; Admin Dose 30 ML; Start 10/29/17 at 01:30 Lactulose (Enulose) 20 gm DAILY PRN PO CONSTIPATION Last administered on 14:28; Admin Dose 20 GM; Start 10/29/17 at 01:30 Guaifenesin/ Codeine Phosphate (Robitussin Ac Liquid Cup) 5 ml Q4H PRN PO COUGH Last administered on 11/08/17 01:07; Admin Dose 5 ML; Start 10/31/17 at 17:00 Sodium Biphosphate/ Sodium Phosphate (Fleet Enema) 133 ml DAILY PRN [place] CONSTIPATION Last administered on 11/01/17 19:55; Admin Dose 133 ML; Start at 19:00 Epoetin [place] (Epogen (Non Esrd/Non Oncology)) 10,000 units TuThSa@17 SC Last administered on 11/06/17 16:56; Admin Dose 10,000 UNITS; Start 11/04/17 at 17 :00 Levofloxacin (Levaquin) 250 mg DAILY@06 PO Last administered on 11/08/17 06: 26; Admin Dose 250 MG; Start 11/05/17 at 06:00 Amlodipine Besylate (Norvasc) 2.5 mg BID PRN PO sbp>150; Start 11/04/17 at 13: 00 Metoprolol Succinate (Toprol Xl) 25 mg BID PO Last administered on 11/08/17 08:52; Admin Dose 25 MG; Start 11/04/17 at 21:00 Heparin Sodium (Porcine) (Heparin (5000 Units/0.5 ml)) 5,000 unit BID SC Last administered on 11/08/17 08:51; Admin Dose 5,000 UNIT; Start 11/05/17 at 21: 00 Furosemide (Lasix) 20 mg DAILY PO Last administered on 11/08/17 08:53; Admin Dose 20 MG; Start 11/06/17 at 09:00; Stop 11/09/17 at 08:59 Neomycin/ Polymyxin/ Bacitracin (Neosporin Topical Oint) 1 applic BID PRN TOP BLISTER Last administered on 11/06/17 12:17; Admin Dose 1 APPLIC; Start 11/06 at 12:00 Magnesium Oxide (Mag-Ox 400) 400 mg DAILY PO Last administered on 11/08/17 08 :56; Admin Dose 400 MG; Start 11/07/17 at 13:00 JOSÉ ANTONIO THOMAS MD Nov 08, 2017 09:18
[2017-11-08] MEDS: FOLIC ACID 0.4 MG TAB PO SCH (11:11)
--- NOTE | 2017-11-08 11:47 | CONS ---
Date/Time of Note Date/Time of Note DATE: 11/08/17 TIME: 11:46 Consult Date/Type/Reason Admit Date/Time Oct 28, 2017 at 21:45 Type of Consultation: cv Objective Vital Signs Date Time Temp Pulse Resp B/P Pulse Ox O2 Delivery O2 Flow Rate FiO2 11/08/17 08:30 69 18 92 21 11/08/17 07:00 98.0 130/63 11/08/17 02:00 Room Air 11/05/17 08:55 2.0 Intake and Output 11/07/17 11/07/17 11/08/17 14:59 22:59 06:59 Intake Total 1600 ml 300 ml Output Total 1000 ml Balance 600 ml 300 ml INTERDISCIPLINARY TEAM CONFERENCE BOWEL- Cont BLADDER-Cont SKIN- intact OT- DRESSING-sba BATHING-sba TOILETING-sba PT- BED MOBILITY-sba TRANSFERS-cga AMBULATION-sba 80 feet W.C. MOBILITY-sba A/P- Interdisciplinary team conference held today. Please see interdisciplinary sheet. Working toward d.c. on 11/12 with post discharge follow up of physical therapy, occupational therapy. Results/Medications Result Diagram: 11/08/17 0701 11/08/17 0701 Results 24 hrs Laboratory Tests Test 11/08/17 07:01 White Blood Count 3.6 L Red Blood Count 2.80 L Hemoglobin 8.7 L Hematocrit 26.8 L Mean Corpuscular Volume 95.7 Mean Corpuscular Hemoglobin 31.1 Mean Corpuscular Hemoglobin Concent 32.5 Red Cell Distribution Width 24.0 H Platelet Count 270 Mean Platelet Volume 9.7 Neutrophils % 65.4 Lymphocytes % 17.4 Monocytes % 8.3 Eosinophils % 2.2 Basophils % 0.3 Nucleated Red Blood Cells % 0.6 H Neutrophils # 2.4 Lymphocytes # 0.6 L Monocytes # 0.3 Eosinophils # 0.1 Basophils # 0.0 Nucleated Red Blood Cells # 0.0 Sodium Level 138 Potassium Level 4.3 Chloride Level 104 Carbon Dioxide Level 29 Anion Gap 9 Blood Urea Nitrogen 21 H Creatinine 1.20 H Glucose Level 95 Calcium Level 8.7 Phosphorus Level 3.3 Magnesium Level 1.9 Medications Current Medications Lidocaine (Lidocaine 5% Oint) 1 applic QID PRN TOP PAIN; Start 10/28/17 at 23: 45 Lorazepam (Ativan) 0.5 mg Q6H PRN PO ANXIETY Last administered on 11/06/17 22 :16; Admin Dose 0.5 MG; Start 10/28/17 at 23:45 Magnesium Hydroxide (Milk Of Mag) 30 ml DAILY PRN PO CONSTIPATION; Start at 23:45 Pantoprazole (Protonix Tab) 40 mg DAILY@06 PO Last administered on 11/08/17 06:26; Admin Dose 40 MG; Start 10/29/17 at 06:00 Tramadol HCl (Ultram) 50 mg Q6H PRN PO PAIN Last administered on 11/07/17 22: 48; Admin Dose 50 MG; Start 10/28/17 at 23:45 Zolpidem Tartrate (Ambien) 5 mg HS PRN PO INSOMNIA; Start 10/28/17 at 23:45 Acetaminophen/ Hydrocodone Bitart ([place] (10/325)) 1 tab Q4H PRN PO PAIN Last administered on 10/31/17 23:01; Admin Dose 1 TAB; Start 10/28/17 at 23:45 Acetaminophen (Tylenol Tab) 650 mg Q4H PRN PO PAIN AND OR ELEVATED TEMP Last administered on 11/05/17 00:18; Admin Dose 650 MG; Start 10/28/17 at 23:45 Al Hydroxide/Mg Trisilicate (Gaviscon) 2 tab QID PRN PO FOR GASTROINTESTINAL UPSET Last administered on 10/29/17 01:51; Admin Dose 2 TAB; Start 10/28/17 at 23:45 Amiodarone HCl (Cordarone) 100 mg DAILY PO Last administered on 11/08/17 08: 54; Admin Dose 100 MG; Start 10/29/17 at 09:00 Atorvastatin Calcium (Lipitor) 10 mg DAILY@21 PO Last administered on 20:23; Admin Dose 10 MG; Start 10/29/17 at 21:00 Cevimeline HCl (Evoxac) 30 mg QID PO Last administered on 11/08/17 08:53; Admin Dose 30 MG; Start 10/29/17 at 09:00 Cyanocobalamin (Vitamin B12) 1,000 mcg DAILY PO Last administered on 08:52; Admin Dose 1,000 MCG; Start 10/29/17 at 09:00 Docusate Sodium (Colace) 100 mg BID PO Last administered on 11/08/17 08:54; Admin Dose 100 MG; Start 10/29/17 at 09:00 Folic Acid (Folic Acid) 0.8 mg DAILY PO Last administered on 11/08/17 11:11; Admin Dose 0.8 MG; Start 10/29/17 at 09:00 Lactobacillus Acidophilus (Florajen3 Capsule) 1 each BID PO Last administered on 11/08/17 08:57; Admin Dose 1 EACH; Start 10/29/17 at 09:00 Levothyroxine Sodium (Synthroid) 25 mcg DAILY@06 PO Last administered on 06:26; Admin Dose 25 MCG; Start 10/29/17 at 06:00 Senna (Senokot) 1 tab HS PO Last administered on 11/07/17 20:23; Admin Dose 1 TAB; Start 10/29/17 at 21:00 Bisacodyl (Dulcolax Supp) 10 mg DAILY PRN [place] CONSTIPATION Last administered on 10/29/17 01:51; Admin Dose 10 MG; Start 10/29/17 at 01:30 Magnesium Hydroxide (Milk Of Mag) 30 ml BID PRN PO CONSTIPATION Last administered on 10/29/17 01:24; Admin Dose 30 ML; Start 10/29/17 at 01:30 Lactulose (Enulose) 20 gm DAILY PRN PO CONSTIPATION Last administered on 14:28; Admin Dose 20 GM; Start 10/29/17 at 01:30 Guaifenesin/ Codeine Phosphate (Robitussin Ac Liquid Cup) 5 ml Q4H PRN PO COUGH Last administered on 11/08/17 01:07; Admin Dose 5 ML; Start 10/31/17 at 17:00 Sodium Biphosphate/ Sodium Phosphate (Fleet Enema) 133 ml DAILY PRN [place] CONSTIPATION Last administered on 11/01/17 19:55; Admin Dose 133 ML; Start at 19:00 Epoetin Harley (Epogen (Non Esrd/Non Oncology)) 10,000 units TuThSa@17 SC Last administered on 11/06/17 16:56; Admin Dose 10,000 UNITS; Start 11/04/17 at 17 :00 Levofloxacin (Levaquin) 250 mg DAILY@06 PO Last administered on 11/08/17 06: 26; Admin Dose 250 MG; Start 11/05/17 at 06:00 Amlodipine Besylate (Norvasc) 2.5 mg BID PRN PO sbp>150; Start 11/04/17 at 13: 00 Metoprolol Succinate (Toprol Xl) 25 mg BID PO Last administered on 11/08/17 08:52; Admin Dose 25 MG; Start 11/04/17 at 21:00 Heparin Sodium (Porcine) (Heparin (5000 Units/0.5 ml)) 5,000 unit BID SC Last administered on 11/08/17 08:51; Admin Dose 5,000 UNIT; Start 11/05/17 at 21: 00 Furosemide (Lasix) 20 mg DAILY PO Last administered on 11/08/17 08:53; Admin Dose 20 MG; Start 11/06/17 at 09:00; Stop 11/09/17 at 08:59 Neomycin/ Polymyxin/ Bacitracin (Neosporin Topical Oint) 1 applic BID PRN TOP BLISTER Last administered on 11/06/17 12:17; Admin Dose 1 APPLIC; Start 11/06 at 12:00 Magnesium Oxide (Mag-Ox 400) 400 mg DAILY PO Last administered on 11/08/17 08 :56; Admin Dose 400 MG; Start 11/07/17 at 13:00 ADRIAN TRENT MD Nov 08, 2017 11:47 ADRIAN TRENT MD Nov 08, 2017 11:47
[2017-11-08 14:00] VITALS: BP 106/53; RESP 18
--- NOTE | 2017-11-08 14:52 | PN ---
Date/Time of Note Date/Time of Note DATE: 11/08/17 TIME: 14:50 Assessment/Plan VTE Prophylaxis VTE Prophylaxis Intervention: ambulation Lines/Catheters IV Catheter Type (from Nrs): Saline Lock Assessment/Plan Chief Complaint/Hosp Course . Problems: Assessment/Plan 77F with L ankle wound eschar -Continue present treatment plan Subjective 24 Hr Interval Summary Free Text/Dictation pt seen. wound care is taking care of her wound. she has been ambulating in a boot Exam/Review of Systems Vital Signs Vitals Vital Signs Date Time Temp Pulse Resp B/P Pulse Ox O2 Delivery O2 Flow Rate FiO2 11/08/17 14:00 98.3 66 18 106/53 97 11/08/17 08:30 21 11/08/17 02:00 Room Air 11/05/17 08:55 2.0 Intake and Output 11/07/17 11/07/17 11/08/17 15:00 23:00 07:00 Intake Total 1600 ml 300 ml Output Total 1000 ml Balance 600 ml 300 ml Exam NAD schar smaller in size no drainage no erythema less swelling good ankle motion Results Result Diagram: 11/08/17 0701 11/08/17 0701 Results 24 hrs Laboratory Tests Test 11/08/17 07:01 White Blood Count 3.6 L Red Blood Count 2.80 L Hemoglobin 8.7 L Hematocrit 26.8 L Mean Corpuscular Volume 95.7 Mean Corpuscular Hemoglobin 31.1 Mean Corpuscular Hemoglobin Concent 32.5 Red Cell Distribution Width 24.0 H Platelet Count 270 Mean Platelet Volume 9.7 Neutrophils % 65.4 Lymphocytes % 17.4 Monocytes % 8.3 Eosinophils % 2.2 Basophils % 0.3 Nucleated Red Blood Cells % 0.6 H Neutrophils # 2.4 Lymphocytes # 0.6 L Monocytes # 0.3 Eosinophils # 0.1 Basophils # 0.0 Nucleated Red Blood Cells # 0.0 Sodium Level 138 Potassium Level 4.3 Chloride Level 104 Carbon Dioxide Level 29 Anion Gap 9 Blood Urea Nitrogen 21 H Creatinine 1.20 H Glucose Level 95 Calcium Level 8.7 Phosphorus Level 3.3 Magnesium Level 1.9 Medications Medications Current Medications Lidocaine (Lidocaine 5% Oint) 1 applic QID PRN TOP PAIN; Start 10/28/17 at 23: 45 Lorazepam (Ativan) 0.5 mg Q6H PRN PO ANXIETY Last administered on 11/06/17 22 :16; Admin Dose 0.5 MG; Start 10/28/17 at 23:45 Magnesium Hydroxide (Milk Of Mag) 30 ml DAILY PRN PO CONSTIPATION; Start at 23:45 Pantoprazole (Protonix Tab) 40 mg DAILY@06 PO Last administered on 11/08/17 06:26; Admin Dose 40 MG; Start 10/29/17 at 06:00 Tramadol HCl (Ultram) 50 mg Q6H PRN PO PAIN Last administered on 11/07/17 22: 48; Admin Dose 50 MG; Start 10/28/17 at 23:45 Zolpidem Tartrate (Ambien) 5 mg HS PRN PO INSOMNIA; Start 10/28/17 at 23:45 Acetaminophen/ Hydrocodone Bitart ([place] (10/325)) 1 tab Q4H PRN PO PAIN Last administered on 10/31/17 23:01; Admin Dose 1 TAB; Start 10/28/17 at 23:45 Acetaminophen (Tylenol Tab) 650 mg Q4H PRN PO PAIN AND OR ELEVATED TEMP Last administered on 11/05/17 00:18; Admin Dose 650 MG; Start 10/28/17 at 23:45 Al Hydroxide/Mg Trisilicate (Gaviscon) 2 tab QID PRN PO FOR GASTROINTESTINAL UPSET Last administered on 10/29/17 01:51; Admin Dose 2 TAB; Start 10/28/17 at 23:45 Amiodarone HCl (Cordarone) 100 mg DAILY PO Last administered on 11/08/17 08: 54; Admin Dose 100 MG; Start 10/29/17 at 09:00 Atorvastatin Calcium (Lipitor) 10 mg DAILY@21 PO Last administered on 20:23; Admin Dose 10 MG; Start 10/29/17 at 21:00 Cevimeline HCl (Evoxac) 30 mg QID PO Last administered on 11/08/17 12:42; Admin Dose 30 MG; Start 10/29/17 at 09:00 Cyanocobalamin (Vitamin B12) 1,000 mcg DAILY PO Last administered on 08:52; Admin Dose 1,000 MCG; Start 10/29/17 at 09:00 Docusate Sodium (Colace) 100 mg BID PO Last administered on 11/08/17 08:54; Admin Dose 100 MG; Start 10/29/17 at 09:00 Folic Acid (Folic Acid) 0.8 mg DAILY PO Last administered on 11/08/17 11:11; Admin Dose 0.8 MG; Start 10/29/17 at 09:00 Lactobacillus Acidophilus (Florajen3 Capsule) 1 each BID PO Last administered on 11/08/17 08:57; Admin Dose 1 EACH; Start 10/29/17 at 09:00 Levothyroxine Sodium (Synthroid) 25 mcg DAILY@06 PO Last administered on 06:26; Admin Dose 25 MCG; Start 10/29/17 at 06:00 Senna (Senokot) 1 tab HS PO Last administered on 11/07/17 20:23; Admin Dose 1 TAB; Start 10/29/17 at 21:00 Bisacodyl (Dulcolax Supp) 10 mg DAILY PRN [place] CONSTIPATION Last administered on 10/29/17 01:51; Admin Dose 10 MG; Start 10/29/17 at 01:30 Magnesium Hydroxide (Milk Of Mag) 30 ml BID PRN PO CONSTIPATION Last administered on 10/29/17 01:24; Admin Dose 30 ML; Start 10/29/17 at 01:30 Lactulose (Enulose) 20 gm DAILY PRN PO CONSTIPATION Last administered on 14:28; Admin Dose 20 GM; Start 10/29/17 at 01:30 Guaifenesin/ Codeine Phosphate (Robitussin Ac Liquid Cup) 5 ml Q4H PRN PO COUGH Last administered on 11/08/17 01:07; Admin Dose 5 ML; Start 10/31/17 at 17:00 Sodium Biphosphate/ Sodium Phosphate (Fleet Enema) 133 ml DAILY PRN [place] CONSTIPATION Last administered on 11/01/17 19:55; Admin Dose 133 ML; Start at 19:00 Epoetin [place] (Epogen (Non Esrd/Non Oncology)) 10,000 units TuThSa@17 SC Last administered on 11/06/17 16:56; Admin Dose 10,000 UNITS; Start 11/04/17 at 17 :00 Levofloxacin (Levaquin) 250 mg DAILY@06 PO Last administered on 11/08/17 06: 26; Admin Dose 250 MG; Start 11/05/17 at 06:00 Amlodipine Besylate (Norvasc) 2.5 mg BID PRN PO sbp>150; Start 11/04/17 at 13: 00 Metoprolol Succinate (Toprol Xl) 25 mg BID PO Last administered on 11/08/17 08:52; Admin Dose 25 MG; Start 11/04/17 at 21:00 Heparin Sodium (Porcine) (Heparin (5000 Units/0.5 ml)) 5,000 unit BID SC Last administered on 11/08/17 08:51; Admin Dose 5,000 UNIT; Start 11/05/17 at 21: 00 Furosemide (Lasix) 20 mg DAILY PO Last administered on 11/08/17 08:53; Admin Dose 20 MG; Start 11/06/17 at 09:00; Stop 11/09/17 at 08:59 Neomycin/ Polymyxin/ Bacitracin (Neosporin Topical Oint) 1 applic BID PRN TOP BLISTER Last administered on 11/06/17 12:17; Admin Dose 1 APPLIC; Start 11/06 at 12:00 Magnesium Oxide (Mag-Ox 400) 400 mg DAILY PO Last administered on 11/08/17 08 :56; Admin Dose 400 MG; Start 11/07/17 at 13:00 SHERIE DESAI MD Nov 08, 2017 14:52
--- NOTE | 2017-11-08 14:58 | CONS ---
Date/Time of Note Date/Time of Note DATE: 11/08/17 TIME: 14:57 Consult Date/Type/Reason Admit Date/Time Oct 28, 2017 at 21:45 Type of Consultation: Pulm Subjective Comfortable. Objective Vital Signs Date Time Temp Pulse Resp B/P Pulse Ox O2 Delivery O2 Flow Rate FiO2 11/08/17 14:00 98.3 66 18 106/53 97 11/08/17 08:30 21 11/08/17 02:00 Room Air 11/05/17 08:55 2.0 Intake and Output 11/07/17 11/07/17 11/08/17 14:59 22:59 06:59 Intake Total 1600 ml 300 ml Output Total 1000 ml Balance 600 ml 300 ml Exam PHYSICAL EXAMINATION: GENERAL: Well-nourished, well-developed lady, comfortable at rest, no acute distress. VITAL SIGNS: As above NECK: Supple. No JVD or lymphadenopathy. CARDIAC: S1, S2, no added sounds or murmurs. CHEST: Diminished air entry bilaterally. ABDOMEN: Soft, nontender, no guarding, no rebound. EXTREMITIES: No cyanosis, clubbing or edema. NEUROLOGIC: Grossly intact. No focal deficits. Results/Medications Result Diagram: 11/08/17 0701 11/08/17 0701 Results 24 hrs Laboratory Tests Test 11/08/17 07:01 White Blood Count 3.6 L Red Blood Count 2.80 L Hemoglobin 8.7 L Hematocrit 26.8 L Mean Corpuscular Volume 95.7 Mean Corpuscular Hemoglobin 31.1 Mean Corpuscular Hemoglobin Concent 32.5 Red Cell Distribution Width 24.0 H Platelet Count 270 Mean Platelet Volume 9.7 Neutrophils % 65.4 Lymphocytes % 17.4 Monocytes % 8.3 Eosinophils % 2.2 Basophils % 0.3 Nucleated Red Blood Cells % 0.6 H Neutrophils # 2.4 Lymphocytes # 0.6 L Monocytes # 0.3 Eosinophils # 0.1 Basophils # 0.0 Nucleated Red Blood Cells # 0.0 Sodium Level 138 Potassium Level 4.3 Chloride Level 104 Carbon Dioxide Level 29 Anion Gap 9 Blood Urea Nitrogen 21 H Creatinine 1.20 H Glucose Level 95 Calcium Level 8.7 Phosphorus Level 3.3 Magnesium Level 1.9 Medications Current Medications Lidocaine (Lidocaine 5% Oint) 1 applic QID PRN TOP PAIN; Start 10/28/17 at 23: 45 Lorazepam (Ativan) 0.5 mg Q6H PRN PO ANXIETY Last administered on 11/06/17 22 :16; Admin Dose 0.5 MG; Start 10/28/17 at 23:45 Magnesium Hydroxide (Milk Of Mag) 30 ml DAILY PRN PO CONSTIPATION; Start at 23:45 Pantoprazole (Protonix Tab) 40 mg DAILY@06 PO Last administered on 11/08/17 06:26; Admin Dose 40 MG; Start 10/29/17 at 06:00 Tramadol HCl (Ultram) 50 mg Q6H PRN PO PAIN Last administered on 11/07/17 22: 48; Admin Dose 50 MG; Start 10/28/17 at 23:45 Zolpidem Tartrate (Ambien) 5 mg HS PRN PO INSOMNIA; Start 10/28/17 at 23:45 Acetaminophen/ Hydrocodone Bitart ([place] (10/325)) 1 tab Q4H PRN PO PAIN Last administered on 10/31/17 23:01; Admin Dose 1 TAB; Start 10/28/17 at 23:45 Acetaminophen (Tylenol Tab) 650 mg Q4H PRN PO PAIN AND OR ELEVATED TEMP Last administered on 11/05/17 00:18; Admin Dose 650 MG; Start 10/28/17 at 23:45 Al Hydroxide/Mg Trisilicate (Gaviscon) 2 tab QID PRN PO FOR GASTROINTESTINAL UPSET Last administered on 10/29/17 01:51; Admin Dose 2 TAB; Start 10/28/17 at 23:45 Amiodarone HCl (Cordarone) 100 mg DAILY PO Last administered on 11/08/17 08: 54; Admin Dose 100 MG; Start 10/29/17 at 09:00 Atorvastatin Calcium (Lipitor) 10 mg DAILY@21 PO Last administered on 20:23; Admin Dose 10 MG; Start 10/29/17 at 21:00 Cevimeline HCl (Evoxac) 30 mg QID PO Last administered on 11/08/17 12:42; Admin Dose 30 MG; Start 10/29/17 at 09:00 Cyanocobalamin (Vitamin B12) 1,000 mcg DAILY PO Last administered on 08:52; Admin Dose 1,000 MCG; Start 10/29/17 at 09:00 Docusate Sodium (Colace) 100 mg BID PO Last administered on 11/08/17 08:54; Admin Dose 100 MG; Start 10/29/17 at 09:00 Folic Acid (Folic Acid) 0.8 mg DAILY PO Last administered on 11/08/17 11:11; Admin Dose 0.8 MG; Start 10/29/17 at 09:00 Lactobacillus Acidophilus (Florajen3 Capsule) 1 each BID PO Last administered on 11/08/17 08:57; Admin Dose 1 EACH; Start 10/29/17 at 09:00 Levothyroxine Sodium (Synthroid) 25 mcg DAILY@06 PO Last administered on 06:26; Admin Dose 25 MCG; Start 10/29/17 at 06:00 Senna (Senokot) 1 tab HS PO Last administered on 11/07/17 20:23; Admin Dose 1 TAB; Start 10/29/17 at 21:00 Bisacodyl (Dulcolax Supp) 10 mg DAILY PRN [place] CONSTIPATION Last administered on 10/29/17 01:51; Admin Dose 10 MG; Start 10/29/17 at 01:30 Magnesium Hydroxide (Milk Of Mag) 30 ml BID PRN PO CONSTIPATION Last administered on 10/29/17 01:24; Admin Dose 30 ML; Start 10/29/17 at 01:30 Lactulose (Enulose) 20 gm DAILY PRN PO CONSTIPATION Last administered on 14:28; Admin Dose 20 GM; Start 10/29/17 at 01:30 Guaifenesin/ Codeine Phosphate (Robitussin Ac Liquid Cup) 5 ml Q4H PRN PO COUGH Last administered on 11/08/17 01:07; Admin Dose 5 ML; Start 10/31/17 at 17:00 Sodium Biphosphate/ Sodium Phosphate (Fleet Enema) 133 ml DAILY PRN [place] CONSTIPATION Last administered on 11/01/17 19:55; Admin Dose 133 ML; Start at 19:00 Epoetin [place] (Epogen (Non Esrd/Non Oncology)) 10,000 units TuThSa@17 SC Last administered on 11/06/17 16:56; Admin Dose 10,000 UNITS; Start 11/04/17 at 17 :00 Levofloxacin (Levaquin) 250 mg DAILY@06 PO Last administered on 11/08/17 06: 26; Admin Dose 250 MG; Start 11/05/17 at 06:00 Amlodipine Besylate (Norvasc) 2.5 mg BID PRN PO sbp>150; Start 11/04/17 at 13: 00 Metoprolol Succinate (Toprol Xl) 25 mg BID PO Last administered on 11/08/17 08:52; Admin Dose 25 MG; Start 11/04/17 at 21:00 Heparin Sodium (Porcine) (Heparin (5000 Units/0.5 ml)) 5,000 unit BID SC Last administered on 11/08/17 08:51; Admin Dose 5,000 UNIT; Start 11/05/17 at 21: 00 Furosemide (Lasix) 20 mg DAILY PO Last administered on 11/08/17 08:53; Admin Dose 20 MG; Start 11/06/17 at 09:00; Stop 11/09/17 at 08:59 Neomycin/ Polymyxin/ Bacitracin (Neosporin Topical Oint) 1 applic BID PRN TOP BLISTER Last administered on 11/06/17 12:17; Admin Dose 1 APPLIC; Start 11/06 at 12:00 Magnesium Oxide (Mag-Ox 400) 400 mg DAILY PO Last administered on 11/08/17 08 :56; Admin Dose 400 MG; Start 11/07/17 at 13:00 Assessment/Plan Chief Complaint/Hosp Course Assessment 1. Stable chronic cylindrical bronchiectasis 2. No evidence of aspiration or chronic MAC infection 3. Left ankle injury postop Plan 1. Continue PT 2. Outpatient pulmonary function testing 3. Would hold off on steroids for now. 4. Sputum studies Problems: ADAL BOYCE MD, [facility] Nov 08, 2017 14:58
--- NOTE | 2017-11-08 18:16 | CONS ---
Date/Time of Note Date/Time of Note DATE: 11/08/17 TIME: 18:01 Assessment/Plan Assessment/Plan Chief Complaint/Hosp Course 1. Left ankle pain after a severe ankle sprain. She is getting better . She was seen by Dr Foley today who said that her L ankle wound is getting better . 2. Coagulopathy due to Coumadin. This has corrected. She is now off coumadin . 3. Anemia. The patient was found to be iron deficient. She has finished a course of Ferrlicit intravenously. Her blood count is stable . 4. Atrial fibrillation. She is being followed by cardiology. She has remained in sinus rhythm and is now off coumadin . 5. Constipation resolved . She is now on a bowel regimen. 6. Urinary tract infection , treated . 7. Malnutrition. She is now taking nutritional supplements. 8 Acute bronchitis . breathing treatments and on Levaquin . Her cough is better today . followed by pulmonary . Problems: Consultation Date/Type/Reason Admit Date/Time Oct 28, 2017 at 21:45 Type of Consultation: renal 24 HR Interval Summary Free Text/Dictation She is feeling better today and was up walking with PT .Her cough is better . Constitutional: improved, no complaints Exam/Review of Systems Vital Signs Vitals Vital Signs Date Time Temp Pulse Resp B/P Pulse Ox O2 Delivery O2 Flow Rate FiO2 11/08/17 15:01 96 1.0 11/08/17 15:01 72 Nasal Cannula 11/08/17 14:00 98.3 18 106/53 11/08/17 08:30 21 Intake and Output 11/07/17 11/07/17 11/08/17 15:00 23:00 07:00 Intake Total 1600 ml 300 ml Output Total 1000 ml Balance 600 ml 300 ml Exam Constitutional: alert, frail, oriented Respiratory: congested cough Cardiovascular: regular rate and rhythm Gastrointestinal: non-tender, soft Musculoskeletal: nl extremities to inspection Results Result Diagram: 11/08/17 0701 11/08/17 0701 Results 24 hrs Laboratory Tests Test 11/08/17 07:01 White Blood Count 3.6 L Red Blood Count 2.80 L Hemoglobin 8.7 L Hematocrit 26.8 L Mean Corpuscular Volume 95.7 Mean Corpuscular Hemoglobin 31.1 Mean Corpuscular Hemoglobin Concent 32.5 Red Cell Distribution Width 24.0 H Platelet Count 270 Mean Platelet Volume 9.7 Neutrophils % 65.4 Lymphocytes % 17.4 Monocytes % 8.3 Eosinophils % 2.2 Basophils % 0.3 Nucleated Red Blood Cells % 0.6 H Neutrophils # 2.4 Lymphocytes # 0.6 L Monocytes # 0.3 Eosinophils # 0.1 Basophils # 0.0 Nucleated Red Blood Cells # 0.0 Sodium Level 138 Potassium Level 4.3 Chloride Level 104 Carbon Dioxide Level 29 Anion Gap 9 Blood Urea Nitrogen 21 H Creatinine 1.20 H Glucose Level 95 Calcium Level 8.7 Phosphorus Level 3.3 Magnesium Level 1.9 Medications Medications Current Medications Lidocaine (Lidocaine 5% Oint) 1 applic QID PRN TOP PAIN; Start 10/28/17 at 23: 45 Lorazepam (Ativan) 0.5 mg Q6H PRN PO ANXIETY Last administered on 11/06/17 22 :16; Admin Dose 0.5 MG; Start 10/28/17 at 23:45 Magnesium Hydroxide (Milk Of Mag) 30 ml DAILY PRN PO CONSTIPATION; Start at 23:45 Pantoprazole (Protonix Tab) 40 mg DAILY@06 PO Last administered on 11/08/17 06:26; Admin Dose 40 MG; Start 10/29/17 at 06:00 Tramadol HCl (Ultram) 50 mg Q6H PRN PO PAIN Last administered on 11/07/17 22: 48; Admin Dose 50 MG; Start 10/28/17 at 23:45 Zolpidem Tartrate (Ambien) 5 mg HS PRN PO INSOMNIA; Start 10/28/17 at 23:45 Acetaminophen/ Hydrocodone Bitart ([place] (10/325)) 1 tab Q4H PRN PO PAIN Last administered on 10/31/17 23:01; Admin Dose 1 TAB; Start 10/28/17 at 23:45 Acetaminophen (Tylenol Tab) 650 mg Q4H PRN PO PAIN AND OR ELEVATED TEMP Last administered on 11/05/17 00:18; Admin Dose 650 MG; Start 10/28/17 at 23:45 Al Hydroxide/Mg Trisilicate (Gaviscon) 2 tab QID PRN PO FOR GASTROINTESTINAL UPSET Last administered on 10/29/17 01:51; Admin Dose 2 TAB; Start 10/28/17 at 23:45 Amiodarone HCl (Cordarone) 100 mg DAILY PO Last administered on 11/08/17 08: 54; Admin Dose 100 MG; Start 10/29/17 at 09:00 Atorvastatin Calcium (Lipitor) 10 mg DAILY@21 PO Last administered on 20:23; Admin Dose 10 MG; Start 10/29/17 at 21:00 Cevimeline HCl (Evoxac) 30 mg QID PO Last administered on 11/08/17 17:14; Admin Dose 30 MG; Start 10/29/17 at 09:00 Cyanocobalamin (Vitamin B12) 1,000 mcg DAILY PO Last administered on 08:52; Admin Dose 1,000 MCG; Start 10/29/17 at 09:00 Docusate Sodium (Colace) 100 mg BID PO Last administered on 11/08/17 08:54; Admin Dose 100 MG; Start 10/29/17 at 09:00 Folic Acid (Folic Acid) 0.8 mg DAILY PO Last administered on 11/08/17 11:11; Admin Dose 0.8 MG; Start 10/29/17 at 09:00 Lactobacillus Acidophilus (Florajen3 Capsule) 1 each BID PO Last administered on 11/08/17 08:57; Admin Dose 1 EACH; Start 10/29/17 at 09:00 Levothyroxine Sodium (Synthroid) 25 mcg DAILY@06 PO Last administered on 06:26; Admin Dose 25 MCG; Start 10/29/17 at 06:00 Senna (Senokot) 1 tab HS PO Last administered on 11/07/17 20:23; Admin Dose 1 TAB; Start 10/29/17 at 21:00 Bisacodyl (Dulcolax Supp) 10 mg DAILY PRN [place] CONSTIPATION Last administered on 10/29/17 01:51; Admin Dose 10 MG; Start 10/29/17 at 01:30 Magnesium Hydroxide (Milk Of Mag) 30 ml BID PRN PO CONSTIPATION Last administered on 10/29/17 01:24; Admin Dose 30 ML; Start 10/29/17 at 01:30 Lactulose (Enulose) 20 gm DAILY PRN PO CONSTIPATION Last administered on 14:28; Admin Dose 20 GM; Start 10/29/17 at 01:30 Guaifenesin/ Codeine Phosphate (Robitussin Ac Liquid Cup) 5 ml Q4H PRN PO COUGH Last administered on 11/08/17 01:07; Admin Dose 5 ML; Start 10/31/17 at 17:00 Sodium Biphosphate/ Sodium Phosphate (Fleet Enema) 133 ml DAILY PRN [place] CONSTIPATION Last administered on 11/01/17 19:55; Admin Dose 133 ML; Start at 19:00 Epoetin Harley (Epogen (Non Esrd/Non Oncology)) 10,000 units TuThSa@17 SC Last administered on 11/06/17 16:56; Admin Dose 10,000 UNITS; Start 11/04/17 at 17 :00 Levofloxacin (Levaquin) 250 mg DAILY@06 PO Last administered on 11/08/17 06: 26; Admin Dose 250 MG; Start 11/05/17 at 06:00 Amlodipine Besylate (Norvasc) 2.5 mg BID PRN PO sbp>150; Start 11/04/17 at 13: 00 Metoprolol Succinate (Toprol Xl) 25 mg BID PO Last administered on 11/08/17 08:52; Admin Dose 25 MG; Start 11/04/17 at 21:00 Heparin Sodium (Porcine) (Heparin (5000 Units/0.5 ml)) 5,000 unit BID SC Last administered on 11/08/17 08:51; Admin Dose 5,000 UNIT; Start 11/05/17 at 21: 00 Furosemide (Lasix) 20 mg DAILY PO Last administered on 11/08/17 08:53; Admin Dose 20 MG; Start 11/06/17 at 09:00; Stop 11/09/17 at 08:59 Neomycin/ Polymyxin/ Bacitracin (Neosporin Topical Oint) 1 applic BID PRN TOP BLISTER Last administered on 11/06/17 12:17; Admin Dose 1 APPLIC; Start 11/06 at 12:00 Magnesium Oxide (Mag-Ox 400) 400 mg DAILY PO Last administered on 11/08/17 08 :56; Admin Dose 400 MG; Start 11/07/17 at 13:00 BELLA DEY MD Nov 08, 2017 18:14
[2017-11-08 20:00] VITALS: BP 114/56; RESP 18
[2017-11-08] MEDS: NYSTATIN 30 GM POWDER BTL TOP SCH (20:26)
[2017-11-08] MEDS: ATORVASTATIN 10 MG TAB PO SCH (20:28)
[2017-11-08] MEDS: SENNA TAB PO SCH (20:29)
[2017-11-08] MEDS: LORAZEPAM 0.5 MG TAB PO PRN (21:46)
[2017-11-08] MEDS: traMADol 50 MG TAB PO PRN (21:49)
[2017-11-09] MEDS: LEVALBUTEROL (NEB) 1.25 MG/0.5 ML AMP HHN SCH ×4 (01:44→19:19)
[2017-11-09] MEDS: IPRATROPIUM (NEB) 0.5 MG/2.5 ML AMP HHN SCH ×4 (01:44→19:19)
[2017-11-09 02:00] VITALS: BP 119/63; RESP 18
[2017-11-09] MEDS: LEVOTHYROXINE 25 MCG TAB PO SCH (06:04)
[2017-11-09] MEDS: PANTOPRAZOLE (EC) 40 MG TAB PO SCH (06:04)
[2017-11-09] MEDS: LEVOFLOXACIN 250 MG TAB PO SCH (06:04)
[2017-11-09 08:00] VITALS: BP 129/61; RESP 18
[2017-11-09] MEDS: DOCUSATE SODIUM 100 MG CAP PO SCH ×2 (09:00→20:36)
[2017-11-09] MEDS: L ACIDOPHIL/B LACTIS/B LONGUM CAPSULE PO SCH ×2 (09:08→20:35)
[2017-11-09] MEDS: CEVIMELINE 30 MG CAP PO SCH ×4 (09:09→20:29)
[2017-11-09] MEDS: MAGNESIUM OXIDE 400 MG TAB PO SCH (09:09)
[2017-11-09] MEDS: CYANOCOBALAMIN 500 MCG TAB PO SCH (09:10)
[2017-11-09] MEDS: NYSTATIN 30 GM POWDER BTL TOP SCH ×2 (09:10→20:36)
[2017-11-09] MEDS: METOPROLOL (XL) 25 MG TAB PO SCH ×2 (09:10→20:36)
[2017-11-09] MEDS: FOLIC ACID 0.4 MG TAB PO SCH (09:11)
[2017-11-09] MEDS: AMIODARONE 200 MG TAB PO SCH (09:11)
--- NOTE | 2017-11-09 11:18 | CONS ---
Date/Time of Note Date/Time of Note DATE: 11/09/17 TIME: 11:18 Consult Date/Type/Reason Admit Date/Time Oct 28, 2017 at 21:45 Type of Consultation: renal Subjective Long discussion with daughter and patient regarding home modifications to assist in safe transfer home. Objective sba transfer and ambulation Vital Signs Date Time Temp Pulse Resp B/P Pulse Ox O2 Delivery O2 Flow Rate FiO2 11/09/17 08:00 98.6 69 18 129/61 94 11/08/17 20:08 21 11/08/17 15:01 1.0 11/08/17 15:01 Nasal Cannula Intake and Output 11/08/17 11/08/17 11/09/17 15:00 23:00 07:00 Intake Total 1600 ml 200 ml Output Total 1000 ml Balance 600 ml 200 ml Results/Medications Result Diagram: 11/08/17 0701 11/08/17 0701 Medications Current Medications Lidocaine (Lidocaine 5% Oint) 1 applic QID PRN TOP PAIN; Start 10/28/17 at 23: 45 Lorazepam (Ativan) 0.5 mg Q6H PRN PO ANXIETY Last administered on 11/08/17 21 :46; Admin Dose 0.5 MG; Start 10/28/17 at 23:45 Magnesium Hydroxide (Milk Of Mag) 30 ml DAILY PRN PO CONSTIPATION; Start at 23:45 Pantoprazole (Protonix Tab) 40 mg DAILY@06 PO Last administered on 11/09/17 06:04; Admin Dose 40 MG; Start 10/29/17 at 06:00 Tramadol HCl (Ultram) 50 mg Q6H PRN PO PAIN Last administered on 11/08/17 21: 49; Admin Dose 50 MG; Start 10/28/17 at 23:45 Zolpidem Tartrate (Ambien) 5 mg HS PRN PO INSOMNIA; Start 10/28/17 at 23:45 Acetaminophen/ Hydrocodone Bitart ([place] (10325)) 1 tab Q4H PRN PO PAIN Last administered on 10/31/17 23:01; Admin Dose 1 TAB; Start 10/28/17 at 23:45 Acetaminophen (Tylenol Tab) 650 mg Q4H PRN PO PAIN AND OR ELEVATED TEMP Last administered on 11/05/17 00:18; Admin Dose 650 MG; Start 10/28/17 at 23:45 Al Hydroxide/Mg Trisilicate (Gaviscon) 2 tab QID PRN PO FOR GASTROINTESTINAL UPSET Last administered on 10/29/17 01:51; Admin Dose 2 TAB; Start 10/28/17 at 23:45 Amiodarone HCl (Cordarone) 100 mg DAILY PO Last administered on 11/09/17 09: 11; Admin Dose 100 MG; Start 10/29/17 at 09:00 Atorvastatin Calcium (Lipitor) 10 mg DAILY@21 PO Last administered on 20:28; Admin Dose 10 MG; Start 10/29/17 at 21:00 Cevimeline HCl (Evoxac) 30 mg QID PO Last administered on 11/09/17 09:09; Admin Dose 30 MG; Start 10/29/17 at 09:00 Cyanocobalamin (Vitamin B12) 1,000 mcg DAILY PO Last administered on 09:10; Admin Dose 1,000 MCG; Start 10/29/17 at 09:00 Docusate Sodium (Colace) 100 mg BID PO Last administered on 11/08/17 20:28; Admin Dose 100 MG; Start 10/29/17 at 09:00 Folic Acid (Folic Acid) 0.8 mg DAILY PO Last administered on 11/09/17 09:11; Admin Dose 0.8 MG; Start 10/29/17 at 09:00 Lactobacillus Acidophilus (Florajen3 Capsule) 1 each BID PO Last administered on 11/09/17 09:08; Admin Dose 1 EACH; Start 10/29/17 at 09:00 Levothyroxine Sodium (Synthroid) 25 mcg DAILY@06 PO Last administered on 06:04; Admin Dose 25 MCG; Start 10/29/17 at 06:00 Senna (Senokot) 1 tab HS PO Last administered on 11/08/17 20:29; Admin Dose 1 TAB; Start 10/29/17 at 21:00 Bisacodyl (Dulcolax Supp) 10 mg DAILY PRN [place] CONSTIPATION Last administered on 10/29/17 01:51; Admin Dose 10 MG; Start 10/29/17 at 01:30 Magnesium Hydroxide (Milk Of Mag) 30 ml BID PRN PO CONSTIPATION Last administered on 10/29/17 01:24; Admin Dose 30 ML; Start 10/29/17 at 01:30 Lactulose (Enulose) 20 gm DAILY PRN PO CONSTIPATION Last administered on 14:28; Admin Dose 20 GM; Start 10/29/17 at 01:30 Guaifenesin/ Codeine Phosphate (Robitussin Ac Liquid Cup) 5 ml Q4H PRN PO COUGH Last administered on 11/08/17 21:49; Admin Dose 5 ML; Start 10/31/17 at 17:00 Sodium Biphosphate/ Sodium Phosphate (Fleet Enema) 133 ml DAILY PRN [place] CONSTIPATION Last administered on 11/01/17 19:55; Admin Dose 133 ML; Start at 19:00 Epoetin Harley (Epogen (Non Esrd/Non Oncology)) 10,000 units TuThSa@17 SC Last administered on 11/06/17 16:56; Admin Dose 10,000 UNITS; Start 11/04/17 at 17 :00 Levofloxacin (Levaquin) 250 mg DAILY@06 PO Last administered on 11/09/17 06: 04; Admin Dose 250 MG; Start 11/05/17 at 06:00 Amlodipine Besylate (Norvasc) 2.5 mg BID PRN PO sbp>150; Start 11/04/17 at 13: 00 Metoprolol Succinate (Toprol Xl) 25 mg BID PO Last administered on 11/09/17 09:10; Admin Dose 25 MG; Start 11/04/17 at 21:00 Neomycin/ Polymyxin/ Bacitracin (Neosporin Topical Oint) 1 applic BID PRN TOP BLISTER Last administered on 11/06/17 12:17; Admin Dose 1 APPLIC; Start 11/06 at 12:00 Magnesium Oxide (Mag-Ox 400) 400 mg DAILY PO Last administered on 11/09/17 09 :09; Admin Dose 400 MG; Start 11/07/17 at 13:00 Nystatin (Nystatin Powder) 1 applic BID TOP Last administered on 11/09/17 09: 10; Admin Dose 1 APPLIC; Start 11/08/17 at 21:00 Assessment/Plan Additional Assessment/Plan Rehab- Debility secondary to coagulopathy with multiple hematomas including left ankle, hip, thigh, psoas, iliac muscles, Left Upper Extremity and retroperitoneal bleed. Good progress. Working towards d/c home Wednesday Pulm- f/b pulm Integ- continue wound care, patient followed by wound care team. 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 Atrial fibrillation- anticoag per IM/Cardiology Anemia- Monitor Hypertension. Hyperlipidemia. ADRIAN TRENT MD Nov 09, 2017 11:18
--- NOTE | 2017-11-09 13:24 | CONS ---
Date/Time of Note Date/Time of Note DATE: 11/09/17 TIME: 13:20 Assessment/Plan Assessment/Plan Chief Complaint/Hosp Course 1. Left ankle pain after a severe ankle sprain. She is getting better . She was seen by Dr Foley yesterday who said that her L ankle wound is getting better . 2. Coagulopathy due to Coumadin. This has corrected. She is now off coumadin . 3. Anemia. The patient was found to be iron deficient. She has finished a course of Ferrlicit intravenously. Her blood count is stable . 4. Atrial fibrillation. She is being followed by cardiology. She has remained in sinus rhythm and is now off coumadin . 5. Constipation resolved . She is now on a bowel regimen. 6. Urinary tract infection , treated . 7. Malnutrition. She is now taking nutritional supplements. 8 Acute bronchitis . breathing treatments and on Levaquin . Her cough is better today; although, she still has some end expiratory wheezing. followed by pulmonary . 9. Discharge planning for 11/12/2017, to go home. Problems: Consultation Date/Type/Reason Admit Date/Time Oct 28, 2017 at 21:45 Type of Consultation: renal 24 HR Interval Summary Free Text/Dictation She is feeling better. She still has a cough. She says that she was up walking today and is able to bear weight on her left foot. Constitutional: improved, no complaints Exam/Review of Systems Vital Signs Vitals Vital Signs Date Time Temp Pulse Resp B/P Pulse Ox O2 Delivery O2 Flow Rate FiO2 11/09/17 08:00 98.6 69 18 129/61 94 11/08/17 20:08 21 11/08/17 15:01 1.0 11/08/17 15:01 Nasal Cannula Intake and Output 11/08/17 11/08/17 11/09/17 15:00 23:00 07:00 Intake Total 1600 ml 200 ml Output Total 1000 ml Balance 600 ml 200 ml Exam Constitutional: alert, frail, oriented Neck: non-tender, supple Respiratory: wheezing Cardiovascular: regular rate and rhythm Gastrointestinal: soft Musculoskeletal: nl extremities to inspection Results Result Diagram: 11/08/17 0701 11/08/17 0701 Medications Medications Current Medications Lidocaine (Lidocaine 5% Oint) 1 applic QID PRN TOP PAIN; Start 10/28/17 at 23: 45 Lorazepam (Ativan) 0.5 mg Q6H PRN PO ANXIETY Last administered on 11/08/17 21 :46; Admin Dose 0.5 MG; Start 10/28/17 at 23:45 Magnesium Hydroxide (Milk Of Mag) 30 ml DAILY PRN PO CONSTIPATION; Start at 23:45 Pantoprazole (Protonix Tab) 40 mg DAILY@06 PO Last administered on 11/09/17 06:04; Admin Dose 40 MG; Start 10/29/17 at 06:00 Tramadol HCl (Ultram) 50 mg Q6H PRN PO PAIN Last administered on 11/08/17 21: 49; Admin Dose 50 MG; Start 10/28/17 at 23:45 Zolpidem Tartrate (Ambien) 5 mg HS PRN PO INSOMNIA; Start 10/28/17 at 23:45 Acetaminophen/ Hydrocodone Bitart ([place] (10/325)) 1 tab Q4H PRN PO PAIN Last administered on 10/31/17 23:01; Admin Dose 1 TAB; Start 10/28/17 at 23:45 Acetaminophen (Tylenol Tab) 650 mg Q4H PRN PO PAIN AND OR ELEVATED TEMP Last administered on 11/05/17 00:18; Admin Dose 650 MG; Start 10/28/17 at 23:45 Al Hydroxide/Mg Trisilicate (Gaviscon) 2 tab QID PRN PO FOR GASTROINTESTINAL UPSET Last administered on 10/29/17 01:51; Admin Dose 2 TAB; Start 10/28/17 at 23:45 Amiodarone HCl (Cordarone) 100 mg DAILY PO Last administered on 11/09/17 09: 11; Admin Dose 100 MG; Start 10/29/17 at 09:00 Atorvastatin Calcium (Lipitor) 10 mg DAILY@21 PO Last administered on 20:28; Admin Dose 10 MG; Start 10/29/17 at 21:00 Cevimeline HCl (Evoxac) 30 mg QID PO Last administered on 11/09/17 12:26; Admin Dose 30 MG; Start 10/29/17 at 09:00 Cyanocobalamin (Vitamin B12) 1,000 mcg DAILY PO Last administered on 09:10; Admin Dose 1,000 MCG; Start 10/29/17 at 09:00 Docusate Sodium (Colace) 100 mg BID PO Last administered on 11/08/17 20:28; Admin Dose 100 MG; Start 10/29/17 at 09:00 Folic Acid (Folic Acid) 0.8 mg DAILY PO Last administered on 11/09/17 09:11; Admin Dose 0.8 MG; Start 10/29/17 at 09:00 Lactobacillus Acidophilus (Florajen3 Capsule) 1 each BID PO Last administered on 11/09/17 09:08; Admin Dose 1 EACH; Start 10/29/17 at 09:00 Levothyroxine Sodium (Synthroid) 25 mcg DAILY@06 PO Last administered on 06:04; Admin Dose 25 MCG; Start 10/29/17 at 06:00 Senna (Senokot) 1 tab HS PO Last administered on 11/08/17 20:29; Admin Dose 1 TAB; Start 10/29/17 at 21:00 Bisacodyl (Dulcolax Supp) 10 mg DAILY PRN [place] CONSTIPATION Last administered on 10/29/17 01:51; Admin Dose 10 MG; Start 10/29/17 at 01:30 Magnesium Hydroxide (Milk Of Mag) 30 ml BID PRN PO CONSTIPATION Last administered on 10/29/17 01:24; Admin Dose 30 ML; Start 10/29/17 at 01:30 Lactulose (Enulose) 20 gm DAILY PRN PO CONSTIPATION Last administered on 14:28; Admin Dose 20 GM; Start 10/29/17 at 01:30 Guaifenesin/ Codeine Phosphate (Robitussin Ac Liquid Cup) 5 ml Q4H PRN PO COUGH Last administered on 11/08/17 21:49; Admin Dose 5 ML; Start 10/31/17 at 17:00 Sodium Biphosphate/ Sodium Phosphate (Fleet Enema) 133 ml DAILY PRN [place] CONSTIPATION Last administered on 11/01/17 19:55; Admin Dose 133 ML; Start at 19:00 Epoetin Harley (Epogen (Non Esrd/Non Oncology)) 10,000 units TuThSa@17 SC Last administered on 11/06/17 16:56; Admin Dose 10,000 UNITS; Start 11/04/17 at 17 :00 Levofloxacin (Levaquin) 250 mg DAILY@06 PO Last administered on 11/09/17 06: 04; Admin Dose 250 MG; Start 11/05/17 at 06:00 Amlodipine Besylate (Norvasc) 2.5 mg BID PRN PO sbp>150; Start 11/04/17 at 13: 00 Metoprolol Succinate (Toprol Xl) 25 mg BID PO Last administered on 11/09/17 09:10; Admin Dose 25 MG; Start 11/04/17 at 21:00 Neomycin/ Polymyxin/ Bacitracin (Neosporin Topical Oint) 1 applic BID PRN TOP BLISTER Last administered on 11/06/17 12:17; Admin Dose 1 APPLIC; Start 11/06 at 12:00 Magnesium Oxide (Mag-Ox 400) 400 mg DAILY PO Last administered on 11/09/17 09 :09; Admin Dose 400 MG; Start 11/07/17 at 13:00 Nystatin (Nystatin Powder) 1 applic BID TOP Last administered on 11/09/17 09: 10; Admin Dose 1 APPLIC; Start 11/08/17 at 21:00 BELLA DEY MD Nov 09, 2017 13:24
[2017-11-09] MEDS: EPOETIN 10000 UNITS/ML (NON ESRD/NON ONCOLOGY) SC SCH (16:33)
[2017-11-09 20:21] VITALS: BP 104/58; PULSE 99; RESP 17
[2017-11-09] MEDS: ATORVASTATIN 10 MG TAB PO SCH (20:29)
[2017-11-09] MEDS: SENNA TAB PO SCH (20:35)
[2017-11-09] MEDS: LORAZEPAM 0.5 MG TAB PO PRN (23:07)
[2017-11-09] MEDS: GUAIFENESIN/CODEINE 5ML CUP PO PRN (23:07)
[2017-11-09] MEDS: traMADol 50 MG TAB PO PRN (23:08)
[2017-11-10] VITALS (7 sets, daily range): BP systolic 83–121; BP diastolic 51–65; PULSE 81–93; RESP 18–20
[2017-11-10] MEDS: LEVALBUTEROL (NEB) 1.25 MG/0.5 ML AMP HHN SCH ×5 (01:56→19:29)
[2017-11-10] MEDS: IPRATROPIUM (NEB) 0.5 MG/2.5 ML AMP HHN SCH ×5 (01:56→19:30)
[2017-11-10] MEDS: LEVOTHYROXINE 25 MCG TAB PO SCH (06:57)
[2017-11-10] MEDS: PANTOPRAZOLE (EC) 40 MG TAB PO SCH (06:58)
[2017-11-10] MEDS: LEVOFLOXACIN 250 MG TAB PO SCH (06:58)
[2017-11-10] MEDS: CYANOCOBALAMIN 500 MCG TAB PO SCH (08:35)
--- NOTE | 2017-11-10 08:35 | CONS ---
Date/Time of Note Date/Time of Note DATE: 11/10/17 TIME: 08:33 Assessment/Plan Assessment/Plan Chief Complaint/Hosp Course 1. Left ankle pain after a severe ankle sprain. She is getting better . She was seen by Dr Foley yesterday who said that her L ankle wound is getting better . 2. Coagulopathy due to Coumadin. This has corrected. She is now off coumadin . 3. Anemia. The patient was found to be iron deficient. She has finished a course of Ferrlicit intravenously. Her blood count is stable . Will check CBC tomorrow. 4. Atrial fibrillation. She is being followed by cardiology. She has remained in sinus rhythm and is now off coumadin . 5. Constipation resolved . She is now on a bowel regimen. 6. Urinary tract infection , treated . 7. Malnutrition. She is now taking nutritional supplements. 8 Acute bronchitis . breathing treatments and on Levaquin . Her cough is better today; although, she still has some end expiratory wheezing. followed by pulmonary . 9. Discharge planning for 11/12/2017, to go home. Problems: Consultation Date/Type/Reason Admit Date/Time Oct 28, 2017 at 21:45 Type of Consultation: renal 24 HR Interval Summary Free Text/Dictation She is feeling better. She is coughing less. Constitutional: improved, no complaints Exam/Review of Systems Vital Signs Vitals Vital Signs Date Time Temp Pulse Resp B/P Pulse Ox O2 Delivery O2 Flow Rate FiO2 11/10/17 07:48 80 20 95 21 11/09/17 20:21 98.6 104/58 Room Air 11/08/17 15:01 1.0 Intake and Output 11/09/17 11/09/17 11/10/17 15:00 23:00 07:00 Output Total 700 ml 400 ml Balance -700 ml -400 ml Exam Constitutional: alert, oriented, well developed Respiratory: congested cough, wheezing Cardiovascular: regular rate and rhythm Gastrointestinal: soft Musculoskeletal: nl extremities to inspection Results Result Diagram: 11/08/17 0711/08/17 0701 Medications Medications Current Medications Lidocaine (Lidocaine 5% Oint) 1 applic QID PRN TOP PAIN; Start 10/28/17 at 23: 45 Lorazepam (Ativan) 0.5 mg Q6H PRN PO ANXIETY Last administered on 11/09/17t 23 :07; Admin Dose 0.5 MG; Start 10/28/17 at 23:45 Magnesium Hydroxide (Milk Of Mag) 30 ml DAILY PRN PO CONSTIPATION; Start at 23:45 Pantoprazole (Protonix Tab) 40 mg DAILY@06 PO Last administered on 11/10/17 06:58; Admin Dose 40 MG; Start 10/29/17 at 06:00 Tramadol HCl (Ultram) 50 mg Q6H PRN PO PAIN Last administered on 11/09/17 23: 08; Admin Dose 50 MG; Start 10/28/17 at 23:45 Zolpidem Tartrate (Ambien) 5 mg HS PRN PO INSOMNIA; Start 10/28/17 at 23:45 Acetaminophen/ Hydrocodone Bitart ([place] (10)) 1 tab Q4H PRN PO PAIN Last administered on 10/31/17 23:01; Admin Dose 1 TAB; Start 10/28/17 at 23:45 Acetaminophen (Tylenol Tab) 650 mg Q4H PRN PO PAIN AND OR ELEVATED TEMP Last administered on 11/05/17 00:18; Admin Dose 650 MG; Start 10/28/17 at 23:45 Al Hydroxide/Mg Trisilicate (Gaviscon) 2 tab QID PRN PO FOR GASTROINTESTINAL UPSET Last administered on 10/29/17 01:51; Admin Dose 2 TAB; Start 10/28/17 at 23:45 Amiodarone HCl (Cordarone) 100 mg DAILY PO Last administered on 11/09/17 09: 11; Admin Dose 100 MG; Start 10/29/17 at 09:00 Atorvastatin Calcium (Lipitor) 10 mg DAILY@21 PO Last administered on 20:29; Admin Dose 10 MG; Start 10/29/17 at 21:00 Cevimeline HCl (Evoxac) 30 mg QID PO Last administered on 11/09/17 20:29; Admin Dose 30 MG; Start 10/29/17 at 09:00 Cyanocobalamin (Vitamin B12) 1,000 mcg DAILY PO Last administered on 09:10; Admin Dose 1,000 MCG; Start 10/29/17 at 09:00 Docusate Sodium (Colace) 100 mg BID PO Last administered on 11/08/17 20:28; Admin Dose 100 MG; Start 10/29/17 at 09:00 Folic Acid (Folic Acid) 0.8 mg DAILY PO Last administered on 11/09/17 09:11; Admin Dose 0.8 MG; Start 10/29/17 at 09:00 Lactobacillus Acidophilus (Florajen3 Capsule) 1 each BID PO Last administered on 11/09/17 09:08; Admin Dose 1 EACH; Start 10/29/17 at 09:00 Levothyroxine Sodium (Synthroid) 25 mcg DAILY@06 PO Last administered on 06:57; Admin Dose 25 MCG; Start 10/29/17 at 06:00 Senna (Senokot) 1 tab HS PO Last administered on 11/08/17 20:29; Admin Dose 1 TAB; Start 10/29/17 at 21:00 Bisacodyl (Dulcolax Supp) 10 mg DAILY PRN [place] CONSTIPATION Last administered on 10/29/17 01:51; Admin Dose 10 MG; Start 10/29/17 at 01:30 Magnesium Hydroxide (Milk Of Mag) 30 ml BID PRN PO CONSTIPATION Last administered on 10/29/17 01:24; Admin Dose 30 ML; Start 10/29/17 at 01:30 Lactulose (Enulose) 20 gm DAILY PRN PO CONSTIPATION Last administered on 14:28; Admin Dose 20 GM; Start 10/29/17 at 01:30 Guaifenesin/ Codeine Phosphate (Robitussin Ac Liquid Cup) 5 ml Q4H PRN PO COUGH Last administered on 11/09/17 23:07; Admin Dose 5 ML; Start 10/31/17 at 17:00 Sodium Biphosphate/ Sodium Phosphate (Fleet Enema) 133 ml DAILY PRN [place] CONSTIPATION Last administered on 11/01/17 19:55; Admin Dose 133 ML; Start at 19:00 Epoetin Harley (Epogen (Non Esrd/Non Oncology)) 10,000 units TuThSa@17 SC Last administered on 11/09/17 16:33; Admin Dose 10,000 UNITS; Start 11/04/17 at 17 :00 Levofloxacin (Levaquin) 250 mg DAILY@06 PO Last administered on 11/10/17 06: 58; Admin Dose 250 MG; Start 11/05/17 at 06:00 Amlodipine Besylate (Norvasc) 2.5 mg BID PRN PO sbp>150; Start 11/04/17 at 13: 00 Metoprolol Succinate (Toprol Xl) 25 mg BID PO Last administered on 11/09/17 09:10; Admin Dose 25 MG; Start 11/04/17 at 21:00 Neomycin/ Polymyxin/ Bacitracin (Neosporin Topical Oint) 1 applic BID PRN TOP BLISTER Last administered on 11/06/17 12:17; Admin Dose 1 APPLIC; Start 11/06 at 12:00 Magnesium Oxide (Mag-Ox 400) 400 mg DAILY PO Last administered on 11/09/17 09 :09; Admin Dose 400 MG; Start 11/07/17 at 13:00 Nystatin (Nystatin Powder) 1 applic BID TOP Last administered on 11/09/17 20: 36; Admin Dose 1 APPLIC; Start 11/08/17 at 21:00 BELLA DEY MD Nov 10, 2017 08:35
[2017-11-10] MEDS: MAGNESIUM OXIDE 400 MG TAB PO SCH (08:36)
[2017-11-10] MEDS: CEVIMELINE 30 MG CAP PO SCH ×4 (08:36→20:59)
[2017-11-10] MEDS: METOPROLOL (XL) 25 MG TAB PO SCH ×2 (08:36→21:00)
[2017-11-10] MEDS: L ACIDOPHIL/B LACTIS/B LONGUM CAPSULE PO SCH ×2 (08:36→20:59)
[2017-11-10] MEDS: NYSTATIN 30 GM POWDER BTL TOP SCH ×2 (08:37→21:00)
[2017-11-10] MEDS: AMIODARONE 200 MG TAB PO SCH (08:37)
[2017-11-10] MEDS: DOCUSATE SODIUM 100 MG CAP PO SCH ×2 (09:00→21:00)
--- NOTE | 2017-11-10 13:06 | CONS ---
Date/Time of Note Date/Time of Note DATE: 11/10/17 TIME: 12:56 Consult Date/Type/Reason Admit Date/Time Oct 28, 2017 at 21:45 Type of Consultation: Pulmonary Subjective Patient hypotensive this morning. Denied chest pain or dyspnea. Objective Vital Signs Date Time Temp Pulse Resp B/P Pulse Ox O2 Delivery O2 Flow Rate FiO2 11/10/17 08:33 98.5 81 18 112/56 95 Room Air 11/10/17 07:48 21 11/08/17 15:01 1.0 Intake and Output 11/09/17 11/09/17 11/10/17 15:00 23:00 07:00 Output Total 700 ml 400 ml Balance -700 ml -400 ml Exam PHYSICAL EXAMINATION: GENERAL: Well-nourished, well-developed lady, comfortable at rest, no acute distress. VITAL SIGNS: As above NECK: Supple. No JVD or lymphadenopathy. CARDIAC: S1, S2, no added sounds or murmurs. CHEST: Diminished air entry bilaterally. ABDOMEN: Soft, nontender, no guarding, no rebound. EXTREMITIES: No cyanosis, clubbing or edema. NEUROLOGIC: Grossly intact. No focal deficits. Results/Medications Result Diagram: 11/08/17 0701 11/08/17 0701 Medications Current Medications Lidocaine (Lidocaine 5% Oint) 1 applic QID PRN TOP PAIN; Start 10/28/17 at 23: 45 Lorazepam (Ativan) 0.5 mg Q6H PRN PO ANXIETY Last administered on 11/09/17 23 :07; Admin Dose 0.5 MG; Start 10/28/17 at 23:45 Magnesium Hydroxide (Milk Of Mag) 30 ml DAILY PRN PO CONSTIPATION; Start at 23:45 Pantoprazole (Protonix Tab) 40 mg DAILY@06 PO Last administered on 11/10/17 06:58; Admin Dose 40 MG; Start 10/29/17 at 06:00 Tramadol HCl (Ultram) 50 mg Q6H PRN PO PAIN Last administered on 11/09/17 23: 08; Admin Dose 50 MG; Start 10/28/17 at 23:45 Zolpidem Tartrate (Ambien) 5 mg HS PRN PO INSOMNIA; Start 10/28/17 at 23:45 Acetaminophen/ Hydrocodone Bitart ([place] (10/325)) 1 tab Q4H PRN PO PAIN Last administered on 10/31/17 23:01; Admin Dose 1 TAB; Start 10/28/17 at 23:45 Acetaminophen (Tylenol Tab) 650 mg Q4H PRN PO PAIN AND OR ELEVATED TEMP Last administered on 11/05/17 00:18; Admin Dose 650 MG; Start 10/28/17 at 23:45 Al Hydroxide/Mg Trisilicate (Gaviscon) 2 tab QID PRN PO FOR GASTROINTESTINAL UPSET Last administered on 10/29/17 01:51; Admin Dose 2 TAB; Start 10/28/17 at 23:45 Amiodarone HCl (Cordarone) 100 mg DAILY PO Last administered on 11/10/17 08: 37; Admin Dose 100 MG; Start 10/29/17 at 09:00 Atorvastatin Calcium (Lipitor) 10 mg DAILY@21 PO Last administered on 20:29; Admin Dose 10 MG; Start 10/29/17 at 21:00 Cevimeline HCl (Evoxac) 30 mg QID PO Last administered on 11/10/17 08:36; Admin Dose 30 MG; Start 10/29/17 at 09:00 Cyanocobalamin (Vitamin B12) 1,000 mcg DAILY PO Last administered on 08:35; Admin Dose 1,000 MCG; Start 10/29/17 at 09:00 Docusate Sodium (Colace) 100 mg BID PO Last administered on 11/08/17 20:28; Admin Dose 100 MG; Start 10/29/17 at 09:00 Folic Acid (Folic Acid) 0.8 mg DAILY PO Last administered on 11/09/17 09:11; Admin Dose 0.8 MG; Start 10/29/17 at 09:00 Lactobacillus Acidophilus (Florajen3 Capsule) 1 each BID PO Last administered on 11/10/17 08:36; Admin Dose 1 EACH; Start 10/29/17 at 09:00 Levothyroxine Sodium (Synthroid) 25 mcg DAILY@06 PO Last administered on 06:57; Admin Dose 25 MCG; Start 10/29/17 at 06:00 Senna (Senokot) 1 tab HS PO Last administered on 11/08/17 20:29; Admin Dose 1 TAB; Start 10/29/17 at 21:00 Bisacodyl (Dulcolax Supp) 10 mg DAILY PRN [place] CONSTIPATION Last administered on 10/29/17 01:51; Admin Dose 10 MG; Start 10/29/17 at 01:30 Magnesium Hydroxide (Milk Of Mag) 30 ml BID PRN PO CONSTIPATION Last administered on 10/29/17 01:24; Admin Dose 30 ML; Start 10/29/17 at 01:30 Lactulose (Enulose) 20 gm DAILY PRN PO CONSTIPATION Last administered on 14:28; Admin Dose 20 GM; Start 10/29/17 at 01:30 Guaifenesin/ Codeine Phosphate (Robitussin Ac Liquid Cup) 5 ml Q4H PRN PO COUGH Last administered on 11/09/17 23:07; Admin Dose 5 ML; Start 10/31/17 at 17:00 Sodium Biphosphate/ Sodium Phosphate (Fleet Enema) 133 ml DAILY PRN [place] CONSTIPATION Last administered on 11/01/17 19:55; Admin Dose 133 ML; Start at 19:00 Epoetin Harley (Epogen (Non Esrd/Non Oncology)) 10,000 units TuThSa@17 SC Last administered on 11/09/17 16:33; Admin Dose 10,000 UNITS; Start 11/04/17 at 17 :00 Levofloxacin (Levaquin) 250 mg DAILY@06 PO Last administered on 11/10/17 06: 58; Admin Dose 250 MG; Start 11/05/17 at 06:00 Amlodipine Besylate (Norvasc) 2.5 mg BID PRN PO sbp>150; Start 11/04/17 at 13: 00 Metoprolol Succinate (Toprol Xl) 25 mg BID PO Last administered on 11/10/17 08:36; Admin Dose 25 MG; Start 11/04/17 at 21:00 Neomycin/ Polymyxin/ Bacitracin (Neosporin Topical Oint) 1 applic BID PRN TOP BLISTER Last administered on 11/06/17 12:17; Admin Dose 1 APPLIC; Start 11/06 at 12:00 Magnesium Oxide (Mag-Ox 400) 400 mg DAILY PO Last administered on 11/10/17 08 :36; Admin Dose 400 MG; Start 11/07/17 at 13:00 Nystatin (Nystatin Powder) 1 applic BID TOP Last administered on 11/10/17t 08: 37; Admin Dose 1 APPLIC; Start 11/08/17 at 21:00 Assessment/Plan Chief Complaint/Hosp Course Assessment 1. Stable chronic cylindrical bronchiectasis 2. No evidence of aspiration or chronic MAC infection 3. Left ankle injury postop Plan 1. Continue PT 2. Outpatient pulmonary function testing 3. Would hold off on steroids for now. 4. Sputum studies show normal stephon. Problems: ADAL BOYCE MD, [facility] Nov 10, 2017 13:06
[2017-11-10] MEDS: FOLIC ACID 0.4 MG TAB PO SCH (14:21)
--- NOTE | 2017-11-10 16:05 | CONS ---
Date/Time of Note Date/Time of Note DATE: 11/10/17 TIME: 16:01 Assessment/Plan Assessment/Plan Additional Assessment/Plan Acute blood loss anemia status post blood transfusion Psoas muscle hematoma Paroxysmal atrial fibrillation, currently sinus rhythm Acute decompensated diastolic congestive heart failure Bronchiectasis Preserved ejection fraction Hypertension Status post mechanical fall -Patient remains in sinus rhythm, would continue amiodarone and beta-kenyon as heart rate and blood pressure permits. Repeat echocardiogram on this admission with improvement in left ventricular systolic function. Coumadin has been on hold secondary to patient remaining in sinus rhythm and issues of recurrent anemia requiring blood transfusion. Continue beta-kenyon as heart rate and blood pressure permits. Labs ordered for tomorrow morning. Based on these findings, will decide regarding restarting anticoagulation. Maintain potassium above 4.0 and magnesium above 2.0. Consultation Date/Type/Reason Admit Date/Time Oct 28, 2017 at 21:45 Type of Consultation: cv 24 HR Interval Summary Free Text/Dictation Feeling better, denies shortness of breath. This morning, patient with symptoms of fatigue with physical therapy and was on blood pressure on the lower end. Feeling fine during afternoon physical therapy. Exam/Review of Systems Vital Signs Vitals Vital Signs Date Time Temp Pulse Resp B/P Pulse Ox O2 Delivery O2 Flow Rate FiO2 11/10/17 14:55 82 16 21 11/10/17 08:33 98.5 112/56 95 Room Air 11/08/17 15:01 1.0 Intake and Output 11/09/17 11/09/17 11/10/17 15:00 23:00 07:00 Output Total 700 ml 400 ml Balance -700 ml -400 ml Exam No apparent distress, family at bedside Constitutional: alert, oriented Head: normocephalic Respiratory: other (Coarse breath sounds bilaterally, no wheezing) Cardiovascular: other (S1-S2 heard), regular rate and rhythm Gastrointestinal: bowel sounds, non-tender, soft Extremities: edema Results Result Diagram: 11/08/1770011/08/17 07 Medications Medications Current Medications Lidocaine (Lidocaine 5% Oint) 1 applic QID PRN TOP PAIN; Start 10/28/17 at 23: 45 Lorazepam (Ativan) 0.5 mg Q6H PRN PO ANXIETY Last administered on 11/09/17t 23 :07; Admin Dose 0.5 MG; Start 10/28/17 at 23:45 Magnesium Hydroxide (Milk Of Mag) 30 ml DAILY PRN PO CONSTIPATION; Start at 23:45 Pantoprazole (Protonix Tab) 40 mg DAILY@06 PO Last administered on 11/10/17 06:58; Admin Dose 40 MG; Start 10/29/17 at 06:00 Tramadol HCl (Ultram) 50 mg Q6H PRN PO PAIN Last administered on 11/09/17 23: 08; Admin Dose 50 MG; Start 10/28/17 at 23:45 Zolpidem Tartrate (Ambien) 5 mg HS PRN PO INSOMNIA; Start 10/28/17 at 23:45 Acetaminophen/ Hydrocodone Bitart ([place] (10/325)) 1 tab Q4H PRN PO PAIN Last administered on 10/31/17 23:01; Admin Dose 1 TAB; Start 10/28/17 at 23:45 Acetaminophen (Tylenol Tab) 650 mg Q4H PRN PO PAIN AND OR ELEVATED TEMP Last administered on 11/05/17 00:18; Admin Dose 650 MG; Start 10/28/17 at 23:45 Al Hydroxide/Mg Trisilicate (Gaviscon) 2 tab QID PRN PO FOR GASTROINTESTINAL UPSET Last administered on 10/29/17 01:51; Admin Dose 2 TAB; Start 10/28/17 at 23:45 Amiodarone HCl (Cordarone) 100 mg DAILY PO Last administered on 11/10/17 08: 37; Admin Dose 100 MG; Start 10/29/17 at 09:00 Atorvastatin Calcium (Lipitor) 10 mg DAILY@21 PO Last administered on 20:29; Admin Dose 10 MG; Start 10/29/17 at 21:00 Cevimeline HCl (Evoxac) 30 mg QID PO Last administered on 11/10/17 14:21; Admin Dose 30 MG; Start 10/29/17 at 09:00 Cyanocobalamin (Vitamin B12) 1,000 mcg DAILY PO Last administered on 08:35; Admin Dose 1,000 MCG; Start 10/29/17 at 09:00 Docusate Sodium (Colace) 100 mg BID PO Last administered on 11/08/17 20:28; Admin Dose 100 MG; Start 10/29/17 at 09:00 Folic Acid (Folic Acid) 0.8 mg DAILY PO Last administered on 11/10/17 14:21; Admin Dose 0.8 MG; Start 10/29/17 at 09:00 Lactobacillus Acidophilus (Florajen3 Capsule) 1 each BID PO Last administered on 11/10/17 08:36; Admin Dose 1 EACH; Start 10/29/17 at 09:00 Levothyroxine Sodium (Synthroid) 25 mcg DAILY@06 PO Last administered on 06:57; Admin Dose 25 MCG; Start 10/29/17 at 06:00 Senna (Senokot) 1 tab HS PO Last administered on 11/08/17 20:29; Admin Dose 1 TAB; Start 10/29/17 at 21:00 Bisacodyl (Dulcolax Supp) 10 mg DAILY PRN [place] CONSTIPATION Last administered on 10/29/17 01:51; Admin Dose 10 MG; Start 10/29/17 at 01:30 Magnesium Hydroxide (Milk Of Mag) 30 ml BID PRN PO CONSTIPATION Last administered on 10/29/17 01:24; Admin Dose 30 ML; Start 10/29/17 at 01:30 Lactulose (Enulose) 20 gm DAILY PRN PO CONSTIPATION Last administered on 14:28; Admin Dose 20 GM; Start 10/29/17 at 01:30 Guaifenesin/ Codeine Phosphate (Robitussin Ac Liquid Cup) 5 ml Q4H PRN PO COUGH Last administered on 11/09/17 23:07; Admin Dose 5 ML; Start 10/31/17 at 17:00 Sodium Biphosphate/ Sodium Phosphate (Fleet Enema) 133 ml DAILY PRN [place] CONSTIPATION Last administered on 11/01/17 19:55; Admin Dose 133 ML; Start at 19:00 Epoetin Harley (Epogen (Non Esrd/Non Oncology)) 10,000 units TuThSa@17 SC Last administered on 11/09/17 16:33; Admin Dose 10,000 UNITS; Start 11/04/17 at 17 :00 Levofloxacin (Levaquin) 250 mg DAILY@06 PO Last administered on 11/10/17 06: 58; Admin Dose 250 MG; Start 11/05/17 at 06:00 Amlodipine Besylate (Norvasc) 2.5 mg BID PRN PO sbp>150; Start 11/04/17 at 13: 00 Metoprolol Succinate (Toprol Xl) 25 mg BID PO Last administered on 11/10/17 08:36; Admin Dose 25 MG; Start 11/04/17 at 21:00 Neomycin/ Polymyxin/ Bacitracin (Neosporin Topical Oint) 1 applic BID PRN TOP BLISTER Last administered on 11/06/17 12:17; Admin Dose 1 APPLIC; Start 11/06 at 12:00 Magnesium Oxide (Mag-Ox 400) 400 mg DAILY PO Last administered on 11/10/17 08 :36; Admin Dose 400 MG; Start 11/07/17 at 13:00 Nystatin (Nystatin Powder) 1 applic BID TOP Last administered on 11/10/17 08: 37; Admin Dose 1 APPLIC; Start 11/08/17 at 21:00 Gabriel Chau DO Nov 10, 2017 16:05
[2017-11-10] MEDS: ATORVASTATIN 10 MG TAB PO SCH (20:59)
[2017-11-10] MEDS: SENNA TAB PO SCH (21:00)
[2017-11-10] MEDS: LORAZEPAM 0.5 MG TAB PO PRN (22:30)
[2017-11-11] MEDS: GUAIFENESIN/CODEINE 5ML CUP PO PRN (01:48)
[2017-11-11 01:51] VITALS: BP 128/63; PULSE 81; RESP 18
[2017-11-11] MEDS: IPRATROPIUM (NEB) 0.5 MG/2.5 ML AMP HHN SCH ×3 (02:00→13:39)
[2017-11-11] MEDS: LEVALBUTEROL (NEB) 1.25 MG/0.5 ML AMP HHN SCH ×3 (02:00→13:39)
[2017-11-11 06:28] LABS: ABNORMAL IP MESSAGE 1; BASOPHILS % 0.5 % (0.0-2.0); EOSINOPHILS # 0.1 10^3/ul (0.0-0.5); EOSINOPHILS % 1.8 % (0.0-7.0); HEMATOCRIT 28.1 % (37.0-47.0); LYMPHOCYTES # 0.4 10^3/ul (0.8-2.9); LYMPHOCYTES % 9.7 % (15.0-51.0); MEAN CORPUSCULAR HEMOGLOBIN 31.3 pg (29.0-33.0); MEAN CORPUSCULAR VOLUME 97.6 fl (82.0-101.0); MEAN PLATELET VOLUME 9.4 fl (7.4-10.4); MONOCYTE # 0.4 10^3/ul (0.3-0.9); MONOCYTES % 10.3 % (0.0-11.0); NEUTROPHIL # 2.7 10^3/ul (1.6-7.5); NEUTROPHILS % 71.6 % (39.0-77.0); NUCLEATED RED BLOOD CELLS% 0.5 /100WBC (0.0-0.0); PLATELET COUNT 259 10^3/UL (140-415); RED BLOOD COUNT 2.88 10^6/ul (4.20-5.40); RED CELL DISTRIBUTION WIDTH 24.9 % (11.5-14.5); WHITE BLOOD COUNT 3.8 10^3/ul (4.8-10.8)
[2017-11-11] MEDS: LEVOTHYROXINE 25 MCG TAB PO SCH (06:50)
[2017-11-11] MEDS: PANTOPRAZOLE (EC) 40 MG TAB PO SCH (06:50)
[2017-11-11] MEDS: LEVOFLOXACIN 250 MG TAB PO SCH (06:50)
[2017-11-11 06:53] LABS: ALBUMIN 3.1 g/dl (3.3-4.9); BILIRUBIN,INDIRECT 1.1 mg/dl (0-1.1); BILIRUBIN,TOTAL 1.1 mg/dl (0.2-1.3); CALCIUM 8.8 mg/dl (8.4-10.2); CREATININE 1.37 mg/dl (0.44-1.00); POTASSIUM 4.7 mmol/L (3.5-5.1); TOTAL PROTEIN 6.2 g/dl (6.1-8.1)
[2017-11-11 07:02] LABS: POSITIVE DIFF @See below
[2017-11-11 07:50] VITALS: BP 131/65; PULSE 70; RESP 18
[2017-11-11] MEDS: AMIODARONE 200 MG TAB PO SCH (08:59)
[2017-11-11] MEDS: METOPROLOL (XL) 25 MG TAB PO SCH ×2 (08:59→21:00)
[2017-11-11] MEDS: MAGNESIUM OXIDE 400 MG TAB PO SCH (08:59)
[2017-11-11] MEDS: CYANOCOBALAMIN 500 MCG TAB PO SCH (08:59)
[2017-11-11] MEDS: CEVIMELINE 30 MG CAP PO SCH ×4 (09:00→21:07)
[2017-11-11] MEDS: DOCUSATE SODIUM 100 MG CAP PO SCH ×2 (09:00→21:00)
[2017-11-11] MEDS: FOLIC ACID 0.4 MG TAB PO SCH (09:00)
[2017-11-11] MEDS: NYSTATIN 30 GM POWDER BTL TOP SCH ×2 (09:00→21:10)
[2017-11-11] MEDS: L ACIDOPHIL/B LACTIS/B LONGUM CAPSULE PO SCH ×2 (09:01→21:07)
--- NOTE | 2017-11-11 12:03 | CONS ---
Date/Time of Note Date/Time of Note DATE: 11/11/17 TIME: 12:01 Consult Date/Type/Reason Admit Date/Time Oct 28, 2017 at 21:45 Type of Consultation: cv Subjective Patient reportedly had some hypotension in the shower this morning. Feeling better currently Objective Vital Signs Date Time Temp Pulse Resp B/P Pulse Ox O2 Delivery O2 Flow Rate FiO2 11/11/17 07:50 98.8 70 18 131/65 91 Room Air 11/10/17 19:30 21 11/08/17 15:01 1.0 Intake and Output 11/10/17 11/10/17 11/11/17 15:00 23:00 07:00 Intake Total 800 ml 480 ml Output Total 600 ml 300 ml Balance 200 ml 180 ml Interdisciplinary Team Conference Bowel-continent Bladder-continent Integument-left lateral ankle wounds improving Physical Therapy Bed mobility-supervised Transfers-standby assist Ambulation-standby assist 150 feet Occupational Therapy Hygiene-stand by assist Dressing-standby assist Toileting-standby assist Patient is made steady functional gains during the course of the stay. Working towards discharge on 11/12 with home health physical therapy occupational therapy, RN follow-up. Discharge equipment recommendations include front wheel walker bedside commode shower chair. Patient will follow up with primary MD and wound care clinic upon discharge Results/Medications Result Diagram: 11/11/17 0608 11/11/17 0608 Results 24 hrs Laboratory Tests Test 11/11/17 06:08 White Blood Count 3.8 L Red Blood Count 2.88 L Hemoglobin 9.0 L Hematocrit 28.1 L Mean Corpuscular Volume 97.6 Mean Corpuscular Hemoglobin 31.3 Mean Corpuscular Hemoglobin Concent 32.0 Red Cell Distribution Width 24.9 H Platelet Count 259 Mean Platelet Volume 9.4 Neutrophils % 71.6 Lymphocytes % 9.7 L Monocytes % 10.3 Eosinophils % 1.8 Basophils % 0.5 Nucleated Red Blood Cells % 0.5 H Neutrophils # 2.7 Lymphocytes # 0.4 L Monocytes # 0.4 Eosinophils # 0.1 Basophils # 0.0 Nucleated Red Blood Cells # 0.0 Sodium Level 140 Potassium Level 4.7 Chloride Level 103 Carbon Dioxide Level 29 Anion Gap 13 Blood Urea Nitrogen 24 H Creatinine 1.37 H Glucose Level 100 Calcium Level 8.8 Total Bilirubin 1.1 Direct Bilirubin 0.00 Indirect Bilirubin 1.1 Aspartate Amino Transf (AST/SGOT) 53 H Alanine Aminotransferase (ALT/SGPT) 67 Alkaline Phosphatase 50 Total Protein 6.2 Albumin 3.1 L Globulin 3.10 Albumin/Globulin Ratio 1.00 Medications Current Medications Lidocaine (Lidocaine 5% Oint) 1 applic QID PRN TOP PAIN; Start 10/28/17 at 23: 45 Lorazepam (Ativan) 0.5 mg Q6H PRN PO ANXIETY Last administered on 11/10/17 22 :30; Admin Dose 0.5 MG; Start 10/28/17 at 23:45 Magnesium Hydroxide (Milk Of Mag) 30 ml DAILY PRN PO CONSTIPATION; Start at 23:45 Pantoprazole (Protonix Tab) 40 mg DAILY@06 PO Last administered on 11/11/17 06:50; Admin Dose 40 MG; Start 10/29/17 at 06:00 Tramadol HCl (Ultram) 50 mg Q6H PRN PO PAIN Last administered on 11/09/17 23: 08; Admin Dose 50 MG; Start 10/28/17 at 23:45 Zolpidem Tartrate (Ambien) 5 mg HS PRN PO INSOMNIA; Start 10/28/17 at 23:45 Acetaminophen/ Hydrocodone Bitart ([place] (10/325)) 1 tab Q4H PRN PO PAIN Last administered on 10/31/17 23:01; Admin Dose 1 TAB; Start 10/28/17 at 23:45 Acetaminophen (Tylenol Tab) 650 mg Q4H PRN PO PAIN AND OR ELEVATED TEMP Last administered on 11/05/17 00:18; Admin Dose 650 MG; Start 10/28/17 at 23:45 Al Hydroxide/Mg Trisilicate (Gaviscon) 2 tab QID PRN PO FOR GASTROINTESTINAL UPSET Last administered on 10/29/17 01:51; Admin Dose 2 TAB; Start 10/28/17 at 23:45 Amiodarone HCl (Cordarone) 100 mg DAILY PO Last administered on 11/11/17 08: 59; Admin Dose 100 MG; Start 10/29/17 at 09:00 Atorvastatin Calcium (Lipitor) 10 mg DAILY@21 PO Last administered on 20:59; Admin Dose 10 MG; Start 10/29/17 at 21:00 Cevimeline HCl (Evoxac) 30 mg QID PO Last administered on 11/11/17 09:00; Admin Dose 30 MG; Start 10/29/17 at 09:00 Cyanocobalamin (Vitamin B12) 1,000 mcg DAILY PO Last administered on 08:59; Admin Dose 1,000 MCG; Start 10/29/17 at 09:00 Docusate Sodium (Colace) 100 mg BID PO Last administered on 11/08/17 20:28; Admin Dose 100 MG; Start 10/29/17 at 09:00 Folic Acid (Folic Acid) 0.8 mg DAILY PO Last administered on 11/11/17 09:00; Admin Dose 0.8 MG; Start 10/29/17 at 09:00 Lactobacillus Acidophilus (Florajen3 Capsule) 1 each BID PO Last administered on 11/11/17 09:01; Admin Dose 1 EACH; Start 10/29/17 at 09:00 Levothyroxine Sodium (Synthroid) 25 mcg DAILY@06 PO Last administered on 06:50; Admin Dose 25 MCG; Start 10/29/17 at 06:00 Senna (Senokot) 1 tab HS PO Last administered on 11/08/17 20:29; Admin Dose 1 TAB; Start 10/29/17 at 21:00 Bisacodyl (Dulcolax Supp) 10 mg DAILY PRN [place] CONSTIPATION Last administered on 10/29/17 01:51; Admin Dose 10 MG; Start 10/29/17 at 01:30 Magnesium Hydroxide (Milk Of Mag) 30 ml BID PRN PO CONSTIPATION Last administered on 10/29/17 01:24; Admin Dose 30 ML; Start 10/29/17 at 01:30 Lactulose (Enulose) 20 gm DAILY PRN PO CONSTIPATION Last administered on 14:28; Admin Dose 20 GM; Start 10/29/17 at 01:30 Guaifenesin/ Codeine Phosphate (Robitussin Ac Liquid Cup) 5 ml Q4H PRN PO COUGH Last administered on 11/11/17 01:48; Admin Dose 5 ML; Start 10/31/17 at 17:00 Sodium Biphosphate/ Sodium Phosphate (Fleet Enema) 133 ml DAILY PRN [place] CONSTIPATION Last administered on 11/01/17 19:55; Admin Dose 133 ML; Start at 19:00 Epoetin [place] (Epogen (Non Esrd/Non Oncology)) 10,000 units TuThSa@17 SC Last administered on 11/09/17 16:33; Admin Dose 10,000 UNITS; Start 11/04/17 at 17 :00 Levofloxacin (Levaquin) 250 mg DAILY@06 PO Last administered on 11/11/17 06: 50; Admin Dose 250 MG; Start 11/05/17 at 06:00 Amlodipine Besylate (Norvasc) 2.5 mg BID PRN PO sbp>150; Start 11/04/17 at 13: 00 Metoprolol Succinate (Toprol Xl) 25 mg BID PO Last administered on 11/11/17 08:59; Admin Dose 25 MG; Start 11/04/17 at 21:00 Neomycin/ Polymyxin/ Bacitracin (Neosporin Topical Oint) 1 applic BID PRN TOP BLISTER Last administered on 11/06/17 12:17; Admin Dose 1 APPLIC; Start 11/06 at 12:00 Magnesium Oxide (Mag-Ox 400) 400 mg DAILY PO Last administered on 11/11/17 08 :59; Admin Dose 400 MG; Start 11/07/17 at 13:00 Nystatin (Nystatin Powder) 1 applic BID TOP Last administered on 11/11/17 09: 00; Admin Dose 1 APPLIC; Start 11/08/17 at 21:00 ADRIAN TRENT MD Nov 11, 2017 12:03
[2017-11-11] MEDS: HYDROCODONE/APAP (10/325) TAB PO PRN (12:40)
[2017-11-11] MEDS: EPOETIN 10000 UNITS/ML (NON ESRD/NON ONCOLOGY) SC SCH (17:32)
[2017-11-11] MEDS ORDERED: WARFARIN 3 MG TAB PO ONE (17:59)
--- NOTE | 2017-11-11 18:02 | CONS ---
Date/Time of Note Date/Time of Note DATE: 11/11/17 TIME: 18:00 Assessment/Plan Assessment/Plan Additional Assessment/Plan Acute blood loss anemia status post blood transfusion Psoas muscle hematoma Paroxysmal atrial fibrillation, currently sinus rhythm Acute decompensated diastolic congestive heart failure Bronchiectasis Preserved ejection fraction Hypertension Status post mechanical fall -Patient remains in sinus rhythm, would continue amiodarone. Blood pressure has been on the lower end, would decrease dose of beta-kenyon with holding parameters Coumadin has been on hold secondary to patient remaining in sinus rhythm and issues of recurrent anemia requiring blood transfusion. Hemoglobin remains stable discuss options with patient and she would like to be restarted on Coumadin. Would restart from today. Consultation Date/Type/Reason Admit Date/Time Oct 28, 2017 at 21:45 Type of Consultation: cv 24 HR Interval Summary Free Text/Dictation Blood pressure on the lower end this morning. Denies palpitations, chest pain or dizziness Exam/Review of Systems Vital Signs Vitals Vital Signs Date Time Temp Pulse Resp B/P Pulse Ox O2 Delivery O2 Flow Rate FiO2 11/11/17 13:42 84 18 96 21 11/11/17 07:50 98.8 131/65 Room Air 11/08/17 15:01 1.0 Intake and Output 11/10/17 11/10/17 11/11/17 15:00 23:00 07:00 Intake Total 800 ml 480 ml Output Total 600 ml 300 ml Balance 200 ml 180 ml Exam No apparent distress Constitutional: alert, oriented Head: normocephalic Respiratory: other (Coarse breath sounds bilaterally, no wheezing) Cardiovascular: other (S1-S2 heard), regular rate and rhythm Gastrointestinal: bowel sounds, non-tender, soft Extremities: edema Results Result Diagram: 11/11/17 0608 11/11/17 0608 Results 24 hrs Laboratory Tests Test 11/11/17 06:08 White Blood Count 3.8 L Red Blood Count 2.88 L Hemoglobin 9.0 L Hematocrit 28.1 L Mean Corpuscular Volume 97.6 Mean Corpuscular Hemoglobin 31.3 Mean Corpuscular Hemoglobin Concent 32.0 Red Cell Distribution Width 24.9 H Platelet Count 259 Mean Platelet Volume 9.4 Neutrophils % 71.6 Lymphocytes % 9.7 L Monocytes % 10.3 Eosinophils % 1.8 Basophils % 0.5 Nucleated Red Blood Cells % 0.5 H Neutrophils # 2.7 Lymphocytes # 0.4 L Monocytes # 0.4 Eosinophils # 0.1 Basophils # 0.0 Nucleated Red Blood Cells # 0.0 Sodium Level 140 Potassium Level 4.7 Chloride Level 103 Carbon Dioxide Level 29 Anion Gap 13 Blood Urea Nitrogen 24 H Creatinine 1.37 H Glucose Level 100 Calcium Level 8.8 Total Bilirubin 1.1 Direct Bilirubin 0.00 Indirect Bilirubin 1.1 Aspartate Amino Transf (AST/SGOT) 53 H Alanine Aminotransferase (ALT/SGPT) 67 Alkaline Phosphatase 50 Total Protein 6.2 Albumin 3.1 L Globulin 3.10 Albumin/Globulin Ratio 1.00 Medications Medications Current Medications Lidocaine (Lidocaine 5% Oint) 1 applic QID PRN TOP PAIN; Start 10/28/17 at 23: 45 Lorazepam (Ativan) 0.5 mg Q6H PRN PO ANXIETY Last administered on 11/10/17 22 :30; Admin Dose 0.5 MG; Start 10/28/17 at 23:45 Magnesium Hydroxide (Milk Of Mag) 30 ml DAILY PRN PO CONSTIPATION; Start at 23:45 Pantoprazole (Protonix Tab) 40 mg DAILY@06 PO Last administered on 11/11/17 06:50; Admin Dose 40 MG; Start 10/29/17 at 06:00 Tramadol HCl (Ultram) 50 mg Q6H PRN PO PAIN Last administered on 11/09/17 23: 08; Admin Dose 50 MG; Start 10/28/17 at 23:45 Zolpidem Tartrate (Ambien) 5 mg HS PRN PO INSOMNIA; Start 10/28/17 at 23:45 Acetaminophen/ Hydrocodone Bitart ([place] (10/325)) 1 tab Q4H PRN PO PAIN Last administered on 11/11/17 12:40; Admin Dose 1 TAB; Start 10/28/17 at 23:45 Acetaminophen (Tylenol Tab) 650 mg Q4H PRN PO PAIN AND OR ELEVATED TEMP Last administered on 11/05/17 00:18; Admin Dose 650 MG; Start 10/28/17 at 23:45 Al Hydroxide/Mg Trisilicate (Gaviscon) 2 tab QID PRN PO FOR GASTROINTESTINAL UPSET Last administered on 10/29/17 01:51; Admin Dose 2 TAB; Start 10/28/17 at 23:45 Amiodarone HCl (Cordarone) 100 mg DAILY PO Last administered on 11/11/17 08: 59; Admin Dose 100 MG; Start 10/29/17 at 09:00 Atorvastatin Calcium (Lipitor) 10 mg DAILY@21 PO Last administered on 20:59; Admin Dose 10 MG; Start 10/29/17 at 21:00 Cevimeline HCl (Evoxac) 30 mg QID PO Last administered on 11/11/17 17:32; Admin Dose 30 MG; Start 10/29/17 at 09:00 Cyanocobalamin (Vitamin B12) 1,000 mcg DAILY PO Last administered on 08:59; Admin Dose 1,000 MCG; Start 10/29/17 at 09:00 Docusate Sodium (Colace) 100 mg BID PO Last administered on 11/08/17 20:28; Admin Dose 100 MG; Start 10/29/17 at 09:00 Folic Acid (Folic Acid) 0.8 mg DAILY PO Last administered on 11/11/17 09:00; Admin Dose 0.8 MG; Start 10/29/17 at 09:00 Lactobacillus Acidophilus (Florajen3 Capsule) 1 each BID PO Last administered on 11/11/17 09:01; Admin Dose 1 EACH; Start 10/29/17 at 09:00 Levothyroxine Sodium (Synthroid) 25 mcg DAILY@06 PO Last administered on 06:50; Admin Dose 25 MCG; Start 10/29/17 at 06:00 Senna (Senokot) 1 tab HS PO Last administered on 11/08/17 20:29; Admin Dose 1 TAB; Start 10/29/17 at 21:00 Bisacodyl (Dulcolax Supp) 10 mg DAILY PRN [place] CONSTIPATION Last administered on 10/29/17 01:51; Admin Dose 10 MG; Start 10/29/17 at 01:30 Magnesium Hydroxide (Milk Of Mag) 30 ml BID PRN PO CONSTIPATION Last administered on 10/29/17 01:24; Admin Dose 30 ML; Start 10/29/17 at 01:30 Lactulose (Enulose) 20 gm DAILY PRN PO CONSTIPATION Last administered on 14:28; Admin Dose 20 GM; Start 10/29/17 at 01:30 Guaifenesin/ Codeine Phosphate (Robitussin Ac Liquid Cup) 5 ml Q4H PRN PO COUGH Last administered on 11/11/17 01:48; Admin Dose 5 ML; Start 10/31/17 at 17:00 Sodium Biphosphate/ Sodium Phosphate (Fleet Enema) 133 ml DAILY PRN [place] CONSTIPATION Last administered on 11/01/17 19:55; Admin Dose 133 ML; Start at 19:00 Epoetin [place] (Epogen (Non Esrd/Non Oncology)) 10,000 units TuThSa@17 SC Last administered on 11/11/17 17:32; Admin Dose 10,000 UNITS; Start 11/04/17 at 17 :00 Levofloxacin (Levaquin) 250 mg DAILY@06 PO Last administered on 11/11/17 06: 50; Admin Dose 250 MG; Start 11/05/17 at 06:00 Neomycin/ Polymyxin/ Bacitracin (Neosporin Topical Oint) 1 applic BID PRN TOP BLISTER Last administered on 11/06/17 12:17; Admin Dose 1 APPLIC; Start 11/06 at 12:00 Magnesium Oxide (Mag-Ox 400) 400 mg DAILY PO Last administered on 11/11/17 08 :59; Admin Dose 400 MG; Start 11/07/17 at 13:00 Nystatin (Nystatin Powder) 1 applic BID TOP Last administered on 11/11/17 09: 00; Admin Dose 1 APPLIC; Start 11/08/17 at 21:00 Metoprolol Succinate (Toprol Xl) 12.5 mg BID PO ; Start 11/11/17 at 21:00; Status Gabriel Esparza DO Nov 11, 2017 18:02
[2017-11-11 20:00] VITALS: BP 104/57; PULSE 82; RESP 16
--- NOTE | 2017-11-11 20:13 | CONS ---
Date/Time of Note Date/Time of Note DATE: 11/11/17 TIME: 20:06 Assessment/Plan Assessment/Plan Chief Complaint/Hosp Course 1. Left ankle pain after a severe ankle sprain. She is getting better . She was seen by Dr Foley who said that her L ankle wound is getting better . 2. Coagulopathy due to Coumadin. This has corrected. She was restarted on coumadin today by Dr Chau . . 3. Anemia. The patient was found to be iron deficient. She has finished a course of Ferrlicit intravenously. Her blood count is increasing . 4. Atrial fibrillation. She is being followed by cardiology. 5. Constipation resolved . She is now on a bowel regimen. 6. Urinary tract infection , treated . 7. Malnutrition. She is now taking nutritional supplements. 8 Acute bronchitis . She is getting better . 9. Discharge planning for 11/12/2017, to go home. Problems: Consultation Date/Type/Reason Admit Date/Time Oct 28, 2017 at 21:45 Type of Consultation: cv 24 HR Interval Summary Free Text/Dictation She is awake and alert . She has less cough and no SOB . Constitutional: improved, no complaints Exam/Review of Systems Vital Signs Vitals Vital Signs Date Time Temp Pulse Resp B/P Pulse Ox O2 Delivery O2 Flow Rate FiO2 11/11/17 13:42 84 18 96 21 11/11/17 07:50 98.8 131/65 Room Air 11/08/17 15:01 1.0 Intake and Output 11/10/17 11/10/17 11/11/17 15:00 23:00 07:00 Intake Total 800 ml 480 ml Output Total 600 ml 300 ml Balance 200 ml 180 ml Exam Her L foot is in a large elan wrap . Constitutional: alert, oriented, well developed Neck: non-tender, supple Respiratory: clear to auscultation, normal air movement Cardiovascular: nl pulses, regular rate and rhythm Gastrointestinal: nl liver, spleen, non-tender, soft Results Result Diagram: 11/11/17 0608 11/11/17 0608 Results 24 hrs Laboratory Tests Test 11/11/17 06:08 White Blood Count 3.8 L Red Blood Count 2.88 L Hemoglobin 9.0 L Hematocrit 28.1 L Mean Corpuscular Volume 97.6 Mean Corpuscular Hemoglobin 31.3 Mean Corpuscular Hemoglobin Concent 32.0 Red Cell Distribution Width 24.9 H Platelet Count 259 Mean Platelet Volume 9.4 Neutrophils % 71.6 Lymphocytes % 9.7 L Monocytes % 10.3 Eosinophils % 1.8 Basophils % 0.5 Nucleated Red Blood Cells % 0.5 H Neutrophils # 2.7 Lymphocytes # 0.4 L Monocytes # 0.4 Eosinophils # 0.1 Basophils # 0.0 Nucleated Red Blood Cells # 0.0 Sodium Level 140 Potassium Level 4.7 Chloride Level 103 Carbon Dioxide Level 29 Anion Gap 13 Blood Urea Nitrogen 24 H Creatinine 1.37 H Glucose Level 100 Calcium Level 8.8 Total Bilirubin 1.1 Direct Bilirubin 0.00 Indirect Bilirubin 1.1 Aspartate Amino Transf (AST/SGOT) 53 H Alanine Aminotransferase (ALT/SGPT) 67 Alkaline Phosphatase 50 Total Protein 6.2 Albumin 3.1 L Globulin 3.10 Albumin/Globulin Ratio 1.00 Medications Medications Current Medications Lidocaine (Lidocaine 5% Oint) 1 applic QID PRN TOP PAIN; Start 10/28/17 at 23: 45 Lorazepam (Ativan) 0.5 mg Q6H PRN PO ANXIETY Last administered on 11/10/17 22 :30; Admin Dose 0.5 MG; Start 10/28/17 at 23:45 Magnesium Hydroxide (Milk Of Mag) 30 ml DAILY PRN PO CONSTIPATION; Start at 23:45 Pantoprazole (Protonix Tab) 40 mg DAILY@06 PO Last administered on 11/11/17 06:50; Admin Dose 40 MG; Start 10/29/17 at 06:00 Tramadol HCl (Ultram) 50 mg Q6H PRN PO PAIN Last administered on 11/09/17 23: 08; Admin Dose 50 MG; Start 10/28/17 at 23:45 Zolpidem Tartrate (Ambien) 5 mg HS PRN PO INSOMNIA; Start 10/28/17 at 23:45 Acetaminophen/ Hydrocodone Bitart ([place] (10/325)) 1 tab Q4H PRN PO PAIN Last administered on 11/11/17 12:40; Admin Dose 1 TAB; Start 10/28/17 at 23:45 Acetaminophen (Tylenol Tab) 650 mg Q4H PRN PO PAIN AND OR ELEVATED TEMP Last administered on 11/05/17 00:18; Admin Dose 650 MG; Start 10/28/17 at 23:45 Al Hydroxide/Mg Trisilicate (Gaviscon) 2 tab QID PRN PO FOR GASTROINTESTINAL UPSET Last administered on 10/29/17 01:51; Admin Dose 2 TAB; Start 10/28/17 at 23:45 Amiodarone HCl (Cordarone) 100 mg DAILY PO Last administered on 11/11/17 08: 59; Admin Dose 100 MG; Start 10/29/17 at 09:00 Atorvastatin Calcium (Lipitor) 10 mg DAILY@21 PO Last administered on 20:59; Admin Dose 10 MG; Start 10/29/17 at 21:00 Cevimeline HCl (Evoxac) 30 mg QID PO Last administered on 11/11/17 17:32; Admin Dose 30 MG; Start 10/29/17 at 09:00 Cyanocobalamin (Vitamin B12) 1,000 mcg DAILY PO Last administered on 08:59; Admin Dose 1,000 MCG; Start 10/29/17 at 09:00 Docusate Sodium (Colace) 100 mg BID PO Last administered on 11/08/17 20:28; Admin Dose 100 MG; Start 10/29/17 at 09:00 Folic Acid (Folic Acid) 0.8 mg DAILY PO Last administered on 11/11/17 09:00; Admin Dose 0.8 MG; Start 10/29/17 at 09:00 Lactobacillus Acidophilus (Florajen3 Capsule) 1 each BID PO Last administered on 11/11/17 09:01; Admin Dose 1 EACH; Start 10/29/17 at 09:00 Levothyroxine Sodium (Synthroid) 25 mcg DAILY@06 PO Last administered on 06:50; Admin Dose 25 MCG; Start 10/29/17 at 06:00 Senna (Senokot) 1 tab HS PO Last administered on 11/08/17 20:29; Admin Dose 1 TAB; Start 10/29/17 at 21:00 Bisacodyl (Dulcolax Supp) 10 mg DAILY PRN [place] CONSTIPATION Last administered on 10/29/17 01:51; Admin Dose 10 MG; Start 10/29/17 at 01:30 Magnesium Hydroxide (Milk Of Mag) 30 ml BID PRN PO CONSTIPATION Last administered on 10/29/17 01:24; Admin Dose 30 ML; Start 10/29/17 at 01:30 Lactulose (Enulose) 20 gm DAILY PRN PO CONSTIPATION Last administered on 14:28; Admin Dose 20 GM; Start 10/29/17 at 01:30 Guaifenesin/ Codeine Phosphate (Robitussin Ac Liquid Cup) 5 ml Q4H PRN PO COUGH Last administered on 11/11/17 01:48; Admin Dose 5 ML; Start 10/31/17 at 17:00 Sodium Biphosphate/ Sodium Phosphate (Fleet Enema) 133 ml DAILY PRN [place] CONSTIPATION Last administered on 11/01/17 19:55; Admin Dose 133 ML; Start at 19:00 Epoetin Harley (Epogen (Non Esrd/Non Oncology)) 10,000 units TuThSa@17 SC Last administered on 11/11/17 17:32; Admin Dose 10,000 UNITS; Start 11/04/17 at 17 :00 Levofloxacin (Levaquin) 250 mg DAILY@06 PO Last administered on 11/11/17 06: 50; Admin Dose 250 MG; Start 11/05/17 at 06:00 Neomycin/ Polymyxin/ Bacitracin (Neosporin Topical Oint) 1 applic BID PRN TOP BLISTER Last administered on 11/06/17 12:17; Admin Dose 1 APPLIC; Start 11/06 at 12:00 Magnesium Oxide (Mag-Ox 400) 400 mg DAILY PO Last administered on 11/11/17 08 :59; Admin Dose 400 MG; Start 11/07/17 at 13:00 Nystatin (Nystatin Powder) 1 applic BID TOP Last administered on 11/11/17 09: 00; Admin Dose 1 APPLIC; Start 11/08/17 at 21:00 Metoprolol Succinate (Toprol Xl) 12.5 mg BID PO ; Start 11/11/17 at 21:00 Warfarin Sodium (Coumadin) 3 mg DAILY@17 PO ; Start 11/12/17 at 17:00 BELLA DEY MD Nov 11, 2017 20:13
[2017-11-11] MEDS: SENNA TAB PO SCH (21:00)
[2017-11-11] MEDS: ATORVASTATIN 10 MG TAB PO SCH (21:06)
[2017-11-11] MEDS: LORAZEPAM 0.5 MG TAB PO PRN (21:08)
[2017-11-11] MEDS: traMADol 50 MG TAB PO PRN (21:08)
[2017-11-12] MEDS: IPRATROPIUM (NEB) 0.5 MG/2.5 ML AMP HHN SCH ×4 (00:20→14:00)
[2017-11-12] MEDS: LEVALBUTEROL (NEB) 1.25 MG/0.5 ML AMP HHN SCH ×4 (00:21→14:00)
[2017-11-12] MEDS: GUAIFENESIN/CODEINE 5ML CUP PO PRN (00:40)
[2017-11-12 03:00] VITALS: BP 119/59; PULSE 73; RESP 18
[2017-11-12] MEDS: LEVOTHYROXINE 25 MCG TAB PO SCH (05:41)
[2017-11-12] MEDS: LEVOFLOXACIN 250 MG TAB PO SCH (05:41)
[2017-11-12] MEDS: PANTOPRAZOLE (EC) 40 MG TAB PO SCH (05:41)
[2017-11-12 06:57] LABS: INR 1.03; PROTIME 13.6 Sec (11.9-14.9); PT RATIO 1.1
[2017-11-12 08:39] VITALS: BP 102/54; PULSE 73; RESP 18
--- NOTE | 2017-11-12 08:40 | DS ---
Date/Time of Note Date/Time of Note DATE: 11/12/17 TIME: 08:36 Discharge Summary Admission/Discharge Info Admit Date/Time Oct 28, 2017 at 21:45 Discharge Date/Time Discharge Diagnosis 1. Improved Debility 2. S/p coagulopathy with multiple hematomas including left ankle, hip, thigh, psoas, iliac muscles, Left Upper Extremity and retroperitoneal bleed. 3. Left ankle sprain. 4. Sjogren disease, SICCA. 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 6. Atrial fibrillation. 7. Hyperlipidemia. 8. Left ankle wound. 9. Anemia 10. Improvements in self-care and mobility. Patient Condition: Good Hospital Course Patient was admitted for comprehensive interdisciplinary acute rehabilitation. Patient made steady functional gains and improved from a mod level to a Supervised level for self care and mobility, including ambulating over 150 feet with the use of a front wheeled walker. Patient's Left ankle wound was followed closely by wound care center, with steady improvement, but still notable. Patient was anemic during her stay, and did receive a PRBC transfusion , with a mild reaction towards the end of the transfusion. Patient was noted to have a mild cough during the stay, and was followed closely by Pulmonology, with an improvement of symptoms. Patient is being discharged home with recommendations for home health PT, OT and RN follow up. DME recommendations: FWW; BSC; Shower Chair Patient will follow up with PMD and wound care clinic upon DC. Home Meds Reported Medications Amiodarone Hcl* (Amiodarone Hcl*) 100 Mg Tablet, 100 MG PO DAILY, #30 TAB 10/22/17 Metoprolol Succinate* (Toprol XL*) 50 Mg Tab.er.24h, 50 MG PO DAILY, #30 TAB 10/22/17 Cevimeline Hcl* (Evoxac*) 30 Mg Cap, 30 MG PO QID, CAP 10/22/17 Telmisartan (Telmisartan) 80 Mg Tablet, 80 MG PO DAILY, TAB 10/22/17 Warfarin Sodium* (Coumadin*) 2 Mg Tablet, 2 MG PO DAILY, TAB 1 TAB-SUN.,TUES.,THURS.,SAT 2 TAB- M,W,F 10/22/17 Levothyroxine Sodium* (Levothyroxine Sodium*) 25 Mcg Tablet, 25 MCG PO FOUR TIMES PER WEEK, TAB TAKE 1 TABLET BY MOUTH ON MON, WED, WED AND SAT 05/03/15 Folic Acid* (Folic Acid*) 0.8 Mg Tablet, 0.8 MG PO DAILY, TAB 05/03/15 Cyanocobalamin* (Vitamin B-12*) 1,000 Mcg Tablet.sa, 1000 MCG PO DAILY, TAB 05/03/15 Simvastatin (Simvastatin) 20 Mg Tablet, 20 MG PO HS, TAB 05/03/15 Primary Care Provider Nuria Cabrera MD Pending Labs Laboratory Tests Test 11/12/17 06:05 Prothrombin Time 13.6Sec (11.9-14.9) Prothrombin Time Ratio 1.1 INR International Normalized Ratio 1.03 ADRIAN TRENT MD Nov 12, 2017 08:40
[2017-11-12] MEDS: CEVIMELINE 30 MG CAP PO SCH ×3 (08:43→17:51)
[2017-11-12] MEDS: AMIODARONE 200 MG TAB PO SCH (08:43)
[2017-11-12] MEDS: MAGNESIUM OXIDE 400 MG TAB PO SCH (08:43)
[2017-11-12] MEDS: DOCUSATE SODIUM 100 MG CAP PO SCH (08:43)
[2017-11-12] MEDS: CYANOCOBALAMIN 500 MCG TAB PO SCH (08:44)
[2017-11-12] MEDS: FOLIC ACID 0.4 MG TAB PO SCH (08:44)
[2017-11-12] MEDS: METOPROLOL (XL) 25 MG TAB PO SCH (08:44)
[2017-11-12] MEDS: NYSTATIN 30 GM POWDER BTL TOP SCH (08:45)
[2017-11-12] MEDS: L ACIDOPHIL/B LACTIS/B LONGUM CAPSULE PO SCH (09:43)
--- NOTE | 2017-11-12 09:47 | CONS ---
Date/Time of Note Date/Time of Note DATE: 11/12/17 TIME: 09:44 Assessment/Plan Assessment/Plan Chief Complaint/Hosp Course 1. Left ankle pain after a severe ankle sprain. She is getting better . She was seen by Dr Foley who said that her L ankle wound is getting better . 2. Coagulopathy due to Coumadin. This has corrected. She was restarted on coumadin today by Dr Chau . . 3. Anemia. The patient was found to be iron deficient. She has finished a course of Ferrlicit intravenously. Her blood count is increasing . 4. Atrial fibrillation. She is being followed by cardiology. 5. Constipation resolved . She is now on a bowel regimen. 6. Urinary tract infection , treated . 7. Malnutrition. She is now taking nutritional supplements. 8 Acute bronchitis . She is getting better . 9. Discharge planning for 11/12/2017, to go home. Patient is going home today. She will continue Coumadin. She will get a dose here today and will continue Coumadin 2 mg p.o. daily until next week when she will have a pro time done and adjustments will be made. She is going to be sent to the wound care center for follow-up of her left ankle wound. She will follow-up with me in 2 weeks in my office. Problems: Consultation Date/Type/Reason Admit Date/Time Oct 28, 2017 at 21:45 Type of Consultation: cv 24 HR Interval Summary Free Text/Dictation Patient is feeling well. She is up walking with physical therapy. She denies lightheadedness. She is not coughing. Constitutional: improved, no complaints Exam/Review of Systems Vital Signs Vitals Vital Signs Date Time Temp Pulse Resp B/P Pulse Ox O2 Delivery O2 Flow Rate FiO2 11/12/17 08:39 98.0 73 18 102/54 94 Room Air 11/12/17 08:36 21 11/08/17 15:01 1.0 Intake and Output 11/11/17 11/11/17 11/12/17 15:00 23:00 07:00 Intake Total 600 ml 525 ml 300 ml Balance 600 ml 525 ml 300 ml Exam Left leg is wrapped. Constitutional: alert, frail, oriented Head: normocephalic ENMT: nl external ears & nose, nl lips & teeth, nl nasal mucosa & septum Respiratory: clear to auscultation, normal air movement Cardiovascular: regular rate and rhythm Gastrointestinal: soft Musculoskeletal: nl extremities to inspection Results Result Diagram: 11/11/17 0608 11/11/17 0608 Results 24 hrs Laboratory Tests Test 11/12/17 06:05 Prothrombin Time 13.6 Prothrombin Time Ratio 1.1 INR International Normalized Ratio 1.03 Medications Medications Current Medications Lidocaine (Lidocaine 5% Oint) 1 applic QID PRN TOP PAIN; Start 10/28/17 at 23: 45 Lorazepam (Ativan) 0.5 mg Q6H PRN PO ANXIETY Last administered on 11/11/17 21 :08; Admin Dose 0.5 MG; Start 10/28/17 at 23:45 Magnesium Hydroxide (Milk Of Mag) 30 ml DAILY PRN PO CONSTIPATION; Start at 23:45 Pantoprazole (Protonix Tab) 40 mg DAILY@06 PO Last administered on 11/12/17 05:41; Admin Dose 40 MG; Start 10/29/17 at 06:00 Tramadol HCl (Ultram) 50 mg Q6H PRN PO PAIN Last administered on 11/11/17 21: 08; Admin Dose 50 MG; Start 10/28/17 at 23:45 Zolpidem Tartrate (Ambien) 5 mg HS PRN PO INSOMNIA; Start 10/28/17 at 23:45 Acetaminophen/ Hydrocodone Bitart ([place]oyd (10/325)) 1 tab Q4H PRN PO PAIN Last administered on 11/11/17 12:40; Admin Dose 1 TAB; Start 10/28/17 at 23:45 Acetaminophen (Tylenol Tab) 650 mg Q4H PRN PO PAIN AND OR ELEVATED TEMP Last administered on 11/05/17 00:18; Admin Dose 650 MG; Start 10/28/17 at 23:45 Al Hydroxide/Mg Trisilicate (Gaviscon) 2 tab QID PRN PO FOR GASTROINTESTINAL UPSET Last administered on 10/29/17 01:51; Admin Dose 2 TAB; Start 10/28/17 at 23:45 Amiodarone HCl (Cordarone) 100 mg DAILY PO Last administered on 11/12/17 08: 43; Admin Dose 100 MG; Start 10/29/17 at 09:00 Atorvastatin Calcium (Lipitor) 10 mg DAILY@21 PO Last administered on 21:06; Admin Dose 10 MG; Start 10/29/17 at 21:00 Cevimeline HCl (Evoxac) 30 mg QID PO Last administered on 11/12/17 08:43; Admin Dose 30 MG; Start 10/29/17 at 09:00 Cyanocobalamin (Vitamin B12) 1,000 mcg DAILY PO Last administered on 08:44; Admin Dose 1,000 MCG; Start 10/29/17 at 09:00 Docusate Sodium (Colace) 100 mg BID PO Last administered on 11/12/17 08:43; Admin Dose 100 MG; Start 10/29/17 at 09:00 Folic Acid (Folic Acid) 0.8 mg DAILY PO Last administered on 11/12/17 08:44; Admin Dose 0.8 MG; Start 10/29/17 at 09:00 Lactobacillus Acidophilus (Florajen3 Capsule) 1 each BID PO Last administered on 11/11/17 21:07; Admin Dose 1 EACH; Start 10/29/17 at 09:00 Levothyroxine Sodium (Synthroid) 25 mcg DAILY@06 PO Last administered on 05:41; Admin Dose 25 MCG; Start 10/29/17 at 06:00 Senna (Senokot) 1 tab HS PO Last administered on 11/08/17 20:29; Admin Dose 1 TAB; Start 10/29/17 at 21:00 Bisacodyl (Dulcolax Supp) 10 mg DAILY PRN [place] CONSTIPATION Last administered on 10/29/17 01:51; Admin Dose 10 MG; Start 10/29/17 at 01:30 Magnesium Hydroxide (Milk Of Mag) 30 ml BID PRN PO CONSTIPATION Last administered on 10/29/17 01:24; Admin Dose 30 ML; Start 10/29/17 at 01:30 Lactulose (Enulose) 20 gm DAILY PRN PO CONSTIPATION Last administered on 14:28; Admin Dose 20 GM; Start 10/29/17 at 01:30 Guaifenesin/ Codeine Phosphate (Robitussin Ac Liquid Cup) 5 ml Q4H PRN PO COUGH Last administered on 11/12/17 00:40; Admin Dose 5 ML; Start 10/31/17 at 17:00 Sodium Biphosphate/ Sodium Phosphate (Fleet Enema) 133 ml DAILY PRN [place] CONSTIPATION Last administered on 11/01/17 19:55; Admin Dose 133 ML; Start at 19:00 Epoetin Harley (Epogen (Non Esrd/Non Oncology)) 10,000 units TuThSa@17 SC Last administered on 11/11/17 17:32; Admin Dose 10,000 UNITS; Start 11/04/17 at 17 :00 Levofloxacin (Levaquin) 250 mg DAILY@06 PO Last administered on 11/12/17 05: 41; Admin Dose 250 MG; Start 11/05/17 at 06:00 Neomycin/ Polymyxin/ Bacitracin (Neosporin Topical Oint) 1 applic BID PRN TOP BLISTER Last administered on 11/06/17 12:17; Admin Dose 1 APPLIC; Start 11/06 at 12:00 Magnesium Oxide (Mag-Ox 400) 400 mg DAILY PO Last administered on 11/12/17 08 :43; Admin Dose 400 MG; Start 11/07/17 at 13:00 Nystatin (Nystatin Powder) 1 applic BID TOP Last administered on 11/12/17 08: 45; Admin Dose 1 APPLIC; Start 11/08/17 at 21:00 Metoprolol Succinate (Toprol Xl) 12.5 mg BID PO ; Start 11/11/17 at 21:00 Warfarin Sodium (Coumadin) 3 mg DAILY@17 PO ; Start 11/12/17 at 17:00 BELLA DEY MD Nov 12, 2017 09:47
--- NOTE | 2017-11-12 09:53 | PDOCDIS ---
Discharge Instructions DIAGNOSIS Discharge Diagnosis 1. Improved Debility 2. S/p coagulopathy with multiple hematomas including left ankle, hip, thigh, psoas, iliac muscles, Left Upper Extremity and retroperitoneal bleed. 3. Left ankle sprain. 4. Sjogren disease, SICCA. 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 6. Atrial fibrillation. 7. Hyperlipidemia. 8. Left ankle wound. 9. Anemia 10. Improvements in self-care and mobility. CONDITION Patient Condition: Good HOME CARE INSTRUCTIONS: Diet Instructions: Low Fat /Cholesterol ACTIVITY: Activity Restrictions: Slowly Increase Activity Rest between Activity Bathing Restrictions: Shower FOLLOW UP/APPOINTMENTS Follow-up Plan Dr Shanks , Dr Thrasher , wound care center . BELLA DYE MD Nov 12, 2017 09:53
--- NOTE | 2017-11-12 11:47 | CONS ---
Date/Time of Note Date/Time of Note DATE: 11/12/17 TIME: 11:46 Assessment/Plan Assessment/Plan Additional Assessment/Plan Acute blood loss anemia status post blood transfusion Psoas muscle hematoma Paroxysmal atrial fibrillation, currently sinus rhythm Acute decompensated diastolic congestive heart failure Bronchiectasis Preserved ejection fraction Hypertension Status post mechanical fall -Patient remains in sinus rhythm, would continue amiodarone. Blood pressure improved with lower dose of beta-kenyon. Coumadin has been restarted, titrate as per INR. Consultation Date/Type/Reason Admit Date/Time Oct 28, 2017 at 21:45 Type of Consultation: cv 24 HR Interval Summary Free Text/Dictation Patient denies palpitations, dizziness or shortness of breath. Feeling better Exam/Review of Systems Vital Signs Vitals Vital Signs Date Time Temp Pulse Resp B/P Pulse Ox O2 Delivery O2 Flow Rate FiO2 11/12/17 08:39 98.0 73 18 102/54 94 Room Air 11/12/17 08:36 21 11/08/17 15:01 1.0 Intake and Output 11/11/17 11/11/17 11/12/17 15:00 23:00 07:00 Intake Total 600 ml 525 ml 300 ml Balance 600 ml 525 ml 300 ml Exam No apparent distress Constitutional: alert, oriented Head: normocephalic Respiratory: clear to auscultation, normal air movement Cardiovascular: other (S1-S2 heard), regular rate and rhythm Gastrointestinal: bowel sounds, non-tender, soft Extremities: edema Results Result Diagram: 11/11/17 0608 11/11/17 0608 Results 24 hrs Laboratory Tests Test 11/12/17 06:05 Prothrombin Time 13.6 Prothrombin Time Ratio 1.1 INR International Normalized Ratio 1.03 Medications Medications Current Medications Lidocaine (Lidocaine 5% Oint) 1 applic QID PRN TOP PAIN; Start 10/28/17 at 23: 45 Lorazepam (Ativan) 0.5 mg Q6H PRN PO ANXIETY Last administered on 11/11/17 21 :08; Admin Dose 0.5 MG; Start 10/28/17 at 23:45 Magnesium Hydroxide (Milk Of Mag) 30 ml DAILY PRN PO CONSTIPATION; Start at 23:45 Pantoprazole (Protonix Tab) 40 mg DAILY@06 PO Last administered on 11/12/17 05:41; Admin Dose 40 MG; Start 10/29/17 at 06:00 Tramadol HCl (Ultram) 50 mg Q6H PRN PO PAIN Last administered on 11/11/17 21: 08; Admin Dose 50 MG; Start 10/28/17 at 23:45 Zolpidem Tartrate (Ambien) 5 mg HS PRN PO INSOMNIA; Start 10/28/17 at 23:45 Acetaminophen/ Hydrocodone Bitart ([place] (10/325)) 1 tab Q4H PRN PO PAIN Last administered on 11/11/17 12:40; Admin Dose 1 TAB; Start 10/28/17 at 23:45 Acetaminophen (Tylenol Tab) 650 mg Q4H PRN PO PAIN AND OR ELEVATED TEMP Last administered on 11/05/17 00:18; Admin Dose 650 MG; Start 10/28/17 at 23:45 Al Hydroxide/Mg Trisilicate (Gaviscon) 2 tab QID PRN PO FOR GASTROINTESTINAL UPSET Last administered on 10/29/17 01:51; Admin Dose 2 TAB; Start 10/28/17 at 23:45 Amiodarone HCl (Cordarone) 100 mg DAILY PO Last administered on 11/12/17 08: 43; Admin Dose 100 MG; Start 10/29/17 at 09:00 Atorvastatin Calcium (Lipitor) 10 mg DAILY@21 PO Last administered on 21:06; Admin Dose 10 MG; Start 10/29/17 at 21:00 Cevimeline HCl (Evoxac) 30 mg QID PO Last administered on 11/12/17 08:43; Admin Dose 30 MG; Start 10/29/17 at 09:00 Cyanocobalamin (Vitamin B12) 1,000 mcg DAILY PO Last administered on 08:44; Admin Dose 1,000 MCG; Start 10/29/17 at 09:00 Docusate Sodium (Colace) 100 mg BID PO Last administered on 11/12/17 08:43; Admin Dose 100 MG; Start 10/29/17 at 09:00 Folic Acid (Folic Acid) 0.8 mg DAILY PO Last administered on 11/12/17 08:44; Admin Dose 0.8 MG; Start 10/29/17 at 09:00 Lactobacillus Acidophilus (Florajen3 Capsule) 1 each BID PO Last administered on 11/12/17 09:43; Admin Dose 1 EACH; Start 10/29/17 at 09:00 Levothyroxine Sodium (Synthroid) 25 mcg DAILY@06 PO Last administered on 05:41; Admin Dose 25 MCG; Start 10/29/17 at 06:00 Senna (Senokot) 1 tab HS PO Last administered on 11/08/17 20:29; Admin Dose 1 TAB; Start 10/29/17 at 21:00 Bisacodyl (Dulcolax Supp) 10 mg DAILY PRN [place] CONSTIPATION Last administered on 10/29/17 01:51; Admin Dose 10 MG; Start 10/29/17 at 01:30 Magnesium Hydroxide (Milk Of Mag) 30 ml BID PRN PO CONSTIPATION Last administered on 10/29/17 01:24; Admin Dose 30 ML; Start 10/29/17 at 01:30 Lactulose (Enulose) 20 gm DAILY PRN PO CONSTIPATION Last administered on 14:28; Admin Dose 20 GM; Start 10/29/17 at 01:30 Guaifenesin/ Codeine Phosphate (Robitussin Ac Liquid Cup) 5 ml Q4H PRN PO COUGH Last administered on 11/12/17 00:40; Admin Dose 5 ML; Start 10/31/17 at 17:00 Sodium Biphosphate/ Sodium Phosphate (Fleet Enema) 133 ml DAILY PRN OR CONSTIPATION Last administered on 11/01/17 19:55; Admin Dose 133 ML; Start at 19:00 Epoetin Harley (Epogen (Non Esrd/Non Oncology)) 10,000 units TuTa@17 SC Last administered on 11/11/17 17:32; Admin Dose 10,000 UNITS; Start 11/04/17 at 17 :00 Levofloxacin (Levaquin) 250 mg DAILY@06 PO Last administered on 11/12/17 05: 41; Admin Dose 250 MG; Start 11/05/17 at 06:00 Neomycin/ Polymyxin/ Bacitracin (Neosporin Topical Oint) 1 applic BID PRN TOP BLISTER Last administered on 11/06/17 12:17; Admin Dose 1 APPLIC; Start 11/06 at 12:00 Magnesium Oxide (Mag-Ox 400) 400 mg DAILY PO Last administered on 11/12/17 08 :43; Admin Dose 400 MG; Start 11/07/17 at 13:00 Nystatin (Nystatin Powder) 1 applic BID TOP Last administered on 11/12/17 08: 45; Admin Dose 1 APPLIC; Start 11/08/17 at 21:00 Metoprolol Succinate (Toprol Xl) 12.5 mg BID PO ; Start 11/11/17 at 21:00 Warfarin Sodium (Coumadin) 3 mg DAILY@17 PO ; Start 11/12/17 at 17:00 Gabriel Chau DO Nov 12, 2017 11:47
[2017-11-12] MEDS ORDERED: WARFARIN 3 MG TAB PO SCH ×3 (17:00)
[2017-11-12] MEDS: traMADol 50 MG TAB PO PRN (18:13)
== END 2017-11-12 18:40 | disposition home health service (06) | DRG 947 ==
LOC: VRC 21:45
PROVIDERS: ADMIT Physical Medicine & Rehabilitation; ATTEND Internal Medicine
PROC: 30233N1 Transfusion of Nonautologous Red Blood Cells into Peripheral Vein, Percutaneous Approach (ICD-10-PCS; principal; 2017-11-03)
DX: R53.81 Other malaise (principal); I50.33 Acute on chronic diastolic (congestive) heart failure; D68.32 Hemorrhagic disorder due to extrinsic circulating anticoagulants; D62 Acute posthemorrhagic anemia; L97.329 Non-pressure chronic ulcer of left ankle with unspecified severity; N39.0 Urinary tract infection, site not specified; M35.00 Sjogren syndrome, unspecified; J20.9 Acute bronchitis, unspecified; I13.0 Hypertensive heart and chronic kidney disease with heart failure and stage 1 through stage 4 chronic kidney disease, or unspecified chronic kidney disease; D50.9 Iron deficiency anemia, unspecified; T45.515A Adverse effect of anticoagulants, initial encounter; E63.9 Nutritional deficiency, unspecified; M79.81 Nontraumatic hematoma of soft tissue; N18.9 Chronic kidney disease, unspecified; S93.402A Sprain of unspecified ligament of left ankle, initial encounter; S90.522A Blister (nonthermal), left ankle, initial encounter; I48.0 Paroxysmal atrial fibrillation; I77.89 Other specified disorders of arteries and arterioles; J06.9 Acute upper respiratory infection, unspecified; X58.XXXA Exposure to other specified factors, initial encounter; Z74.09 Other reduced mobility; Z91.81 History of falling; Z98.890 Other specified postprocedural states
CPT/HCPCS: 36430; 71010; 71250; 80048; 80053; 81001; 81003; 82270; 83735; 83880; 84100; 84300; 85025; 85610; 86078; 86320; 86850; 86870; 86900; 86901; 86902; 86920; 87070; 87075; 87081; 87086; 93005; 93922; 94640; 94664; 97110; 97112; 97116; 97150; 97163; 97530; 97535; J1940; J0885; J1644; J2916; J3475; J7040; P9016

== ENCOUNTER 2019-03-17 12:34 | Emergency (ER) | payer MEDICARE, BC ==
[~2019-03-17] VITALS: Wt 58.1 kg
[~2019-03-17 12:34] MED LIST changes: +ATOR10TA65 PO; -CYAN100080 PO; +CYAN500T46 PO; +LEVO25TA50 PO; -LEVO25TA53 PO; -SIMV20TA2 PO; -TELM80TA4 PO; +TELM80TA7 PO; +WARF3TAB PO
[2019-03-17 12:40] VITALS: BP 187/89; PULSE 58; RESP 20
--- NOTE | 2019-03-17 12:58 | ERD ---
ER Documentation Chief Complaint Chief Complaint mechanical fall this am. no loc. on coumadin. head pain and wrist pain HPI This is a very pleasant 78-year-old female, with a history of atrial fibrillation on Coumadin who last INR was 2.72 weeks ago who presents for evaluation of a mechanical fall where she suffered a hematoma to her right forehead. She had no loss of consciousness, she had no vomiting, currently she is ambulatory, her only pain or discomfort is to her forehead, otherwise she denies any upper or lower extremity pain. She has no abdominal pain. ROS All systems reviewed and are negative except as per history of present illness. Medications Home Meds Reported Medications Cyanocobalamin* (Vitamin B12*) 500 Mcg Tab, 1000 MCG PO DAILY, TAB 01/03/19 Folic Acid* (Folic Acid*) 0.8 Mg Tablet, 0.8 MG PO DAILY, TAB 01/03/19 Levothyroxine Sodium* (Levoxyl*) 25 Mcg Tablet, 25 MCG PO MON,WED,WED,SAT, #30 TAB 01/03/19 Amiodarone Hcl* (Amiodarone Hcl*) 100 Mg Tablet, 100 MG PO DAILY, #30 TAB 01/03/19 Metoprolol Succinate* (Toprol XL*) 50 Mg Tab.er.24h, 50 MG PO DAILY, #30 TAB 01/03/19 Atorvastatin Calcium (Atorvastatin Calcium) 10 Mg Tablet, 10 MG PO QHS, #30 TAB 01/03/19 Cevimeline Hcl* (Evoxac*) 30 Mg Cap, 30 MG PO QID, CAP 01/03/19 Telmisartan (Telmisartan) 80 Mg Tablet, 80 MG PO DAILY, TAB 01/03/19 Warfarin Sodium* (Coumadin*) 3 Mg Tablet, 3 MG PO WED,WED,,SAT, TAB 01/03/19 Warfarin Sodium* (Coumadin*) 2 Mg Tablet, 2 MG PO MONWEDFRI, TAB 01/03/19 Allergies Allergies: Coded Allergies: No Known Allergy (Verified , 01/03/19) PMhx/Soc History of Surgery: Yes (CATRACT, LT ANKLE ULCER OPERATION , CARDIO VERSION) Anesthesia Reaction: No Hx Neurological Disorder: No Hx Respiratory Disorders: No Hx Cardiac Disorders: Yes (HTN,CAROTID STENOSIS ,HLD) Hx Psychiatric Problems: No Hx Miscellaneous Medical Probl: Yes (SJOGRENS SYNDROME) Hx Alcohol Use: No Hx Substance Use: No Hx Tobacco Use: No Physical Exam Vitals Vital Signs Date Temp Pulse Resp B/P (MAP) Pulse Ox O2 O2 Flow FiO2 Time Delivery Rate 03/17/19 98.0 58 20 187/89 98 12:40 (121) Physical Exam Const: No acute distress Head: There is a right frontal forehead hematoma, there is approximately 2 x 2 cm, Eyes: Normal Conjunctiva ENT: Normal External Ears, Nose and Mouth. Neck: Full range of motion. No meningismus. Resp: Clear to auscultation bilaterally Cardio: Regular rate and rhythm, no murmurs Abd: Soft, non tender, non distended. Normal bowel sounds Skin: No petechiae or rashes Back: No midline or flank tenderness Ext: No cyanosis, or edema. Full range of motion of all extremities, strength 5 5 bilaterally, there is no bony tenderness. Pulses are intact d istally Neur: Awake and alert Psych: Normal Mood and Affect Results 24 hrs Laboratory Tests Test 03/17/19 13:03 Prothrombin Time 25.9 Sec Prothrombin Time Ratio 2.0 INR International Normalized Ratio 2.36 Activated Partial Thromboplast Time 35.5 Sec Procedures/MDM This is a very pleasant 78-year-old female with history of atrial fibrillation who presented with a mechanical fall, suffering a frontal hematoma. She is on anticoagulation with Coumadin, her INR today was 2.3, which is at her therapeutic level, she had a CT brain which is negative for acute intracranial findings. She has no neurologic deficits on exam, at this point she is stable for discharge home, however I gave education on delayed bleeding, instructed return precautions were given for any headaches, and interested or any other concerns. Patient and family were agreeable to this at discharge she was in no distress. Departure Diagnosis: Primary Impression: Fall Encounter type: initial encounter Qualified Codes: W19.XXXA - Unspecified fall, initial encounter Condition: Stable MODESTO VERDUZCO MD Mar 17, 2019 12:58
== END 2019-03-17 14:02 | disposition home or self-care (01) ==
LOC: E/R 12:34
DX: S00.83XA Contusion of other part of head, initial encounter (principal); I10 Essential (primary) hypertension; W18.30XA Fall on same level, unspecified, initial encounter; Y92.9 Unspecified place or not applicable; Z79.01 Long term (current) use of anticoagulants
CPT/HCPCS: 70450; 85610; 85730